=== PATIENT | male | born 1965 | race Caucasian/White ===

== ENCOUNTER 2018-10-25 03:37 | Emergency (ER) | payer BC ==
[2018-10-25 03:43] VITALS: RESP 16; TEMP 98.4
--- NOTE | 2018-10-25 04:04 | ED ---
Chest Pain HPI - General Chief Complaint: Chest Pain Stated Complaint: chest pain Source: patient, EMS Mode of arrival: EMS Limitations: no limitations - History of Present Illness Complaint: chest pain Onset/Timin -: hour(s) Onset: during rest Pain Location: epigastric Pain Radiation: none Severity: mild Quality: dull Consistency: constant Improves With: nothing Worsens With: nothing Anginal Symptoms: nausea, diaphoresis Treatments Prior to Arrival: none - Related Data Home Medications Medication Instructions Recorded Confirmed Aspirin 81 mg PO DAILY 07/15/16 10/14/17 Lisinopril 5 mg PO DAILY 07/15/16 10/14/17 Metoprolol Tartrate 50 mg PO DAILY 07/15/16 10/14/17 Atorvastatin [Lipitor] 80 mg PO HS 10/14/17 10/14/17 Empagliflozin/Metformin HCl 1 tab PO BID 10/14/17 10/14/17 [Synjardy 5-1,000 mg Tablet] Gabapentin [Neurontin] 300 mg PO TID 10/14/17 10/14/17 Insulin Glargine,Hum.rec.anlog 16 units SQ DAILY 10/14/17 10/14/17 [Toujeo Solostar] Previous Rx's Medication Instructions Recorded Albuterol Sulfate [Proair Hfa] 1 - 2 puff INHALATION Q6HR PRN #1 10/14/17 inhaler Hydrocodone/Acetaminophen [[place] 1 - 2 each PO Q4HR PRN #20 tab 10/14/17 5-325] predniSONE 20 mg PO BID #10 tab 10/14/17 Allergies Allergy/AdvReac Type Severity Reaction Status Date / Time No Known Allergies Allergy Verified 10/14/17 10:27 Review of Systems ROS Statement: Those systems with pertinent positive or pertinent negative responses have been documented in the HPI. ROS Other: All systems not noted in ROS Statement are negative. Constitutional: Denies: fever, chills Respiratory: Denies: cough, dyspnea Cardiovascular: Reports: chest pain. Denies: palpitations, orthopnea, edema, syncope Gastrointestinal: Reports: nausea, diarrhea. Denies: abdominal pain, vomiting, constipation, melena, hematochezia Genitourinary: Denies: dysuria, hematuria Musculoskeletal: Denies: back pain Skin: Denies: rash Neurological: Denies: headache, weakness, numbness EKG Findings - EKG Results: EKG: interpreted by RIGO MASTERSON, sinus rhythm (Rate approximately 81), normal axis , normal QRS, normal ST/T, no acute changes - PR, Pacemaker, Normal: Normal tracing: normal tracing Past Medical History Past Medical History: Chest Pain / Angina, Diabetes Mellitus, Hyperlipidemia, Hypertension, Myocardial Infarction ([place]) Additional Past Medical History / Comment(s): NEUROPATHY History of Any Multi-Drug Resistant Organisms: None Reported Past Surgical History: Heart Catheterization With Stent, Hernia Repair Additional Past Surgical History / Comment(s): carpal tunnel Past Psychological History: No Psychological Hx Reported Smoking Status: Current every day smoker Past Alcohol Use History: Occasional Past Drug Use History: None Reported General Exam Limitations: no limitations General appearance: alert, in no apparent distress Head exam: Present: atraumatic, normocephalic Eye exam: Present: normal appearance. Absent: scleral icterus, conjunctival injection ENT exam: Present: normal oropharynx Neck exam: Present: normal inspection Respiratory exam: Present: normal lung sounds bilaterally. Absent: respiratory distress, wheezes, rales, rhonchi, stridor Cardiovascular Exam: Present: regular rate, normal rhythm, normal heart sounds. Absent: systolic murmur, diastolic murmur, rubs, gallop GI/Abdominal exam: Present: soft, tenderness (Minimal epigastric tenderness no rebound or guarding.). Absent: distended, guarding, rebound, mass, pulsatile mass, hernia Extremities exam: Present: normal inspection, normal capillary refill. Absent: pedal edema, calf tenderness Back exam: Present: normal inspection Neurological exam: Present: alert Skin exam: Present: warm, dry, intact, normal color. Absent: rash Course Vital Signs 10/25/18 03:39 Temperature 98.4 F Pulse Rate 88 Respiratory 16 Rate Blood Pressure 102/66 O2 Sat by Pulse 95 Oximetry Chest Pain MDM - MDM On reevaluation, the patient again remains symptom free. I recommended admission for serial cardiac enzymes and telemetry monitoring, the patient states she will follow-up with the systems librarian. He definitely agrees to return should any symptoms recur. I discussed that there were some features that are deftly concerning for cardiac type chest pain. Patient understands and will arrange close follow-up returning if any symptoms recur. Disposition Clinical Impression: Chest pain Disposition: HOME SELF-CARE Condition: Good Instructions: Chest Pain (ED) Is patient prescribed a controlled substance at d/c from ED?: No Referrals: Lorraine Solomon MD [Primary Care Provider] - 1-2 days
[2018-10-25 04:46] LABS: Basophils % (A) 0 %; Eosinophils # (A) 0.3 k/uL (0-0.7); Eosinophils % (A) 4 %; HCT 46.6 % (39.0-53.0); HGB 15.6 gm/dL (13.0-17.5); Lymphocytes # (A) 1.5 k/uL (1.0-4.8); Lymphocytes % (A) 20 %; MCH 31.8 pg (25.0-35.0); MCHC 33.4 g/dL (31.0-37.0); MCV 95.2 fL (80.0-100.0); Mean Platelet Volume 7.5; Monocytes # (A) 0.3 k/uL (0-1.0); Monocytes % (A) 4 %; Neutrophils # (A) 5.2 k/uL (1.3-7.7); Neutrophils % (A) 69 %; Platelet Count 159 k/uL (150-450); RDW 13.8 % (11.5-15.5); WBC 7.6 k/uL (3.8-10.6)
--- NOTE | 2018-10-25 04:53 | XR ---
EXAMINATION TYPE: XR chest 1V portable DATE OF EXAM: 10/25/2018 COMPARISON: 10/14/2017 HISTORY: Chest pain TECHNIQUE: Single frontal view of the chest is obtained. FINDINGS: There is no heart failure nor confluent pneumonic infiltrate. There are old right-sided mu ltiple rib fractures. Costophrenic angles are clear. Heart size is normal. IMPRESSION: No active cardiopulmonary disease. There is right rib fractures that are old but appear new compared to old chest x-ray.
[2018-10-25 04:55] LABS: D-Dimer 0.36 mg/L FEU (<0.60); INR 0.9 (<1.2); Partial Thromboplastin Time 24.8 sec (22.0-30.0); Prothrombin Time 10.2 sec (9.0-12.0)
[2018-10-25 04:57] LABS: Creatine Kinase 135 U/L (55-170)
[2018-10-25 05:08] LABS: ALT 30 U/L (21-72); AST 20 U/L (17-59); Alkaline Phosphatase 51 U/L (38-126); Amylase 68 U/L (30-110); Anion Gap 9 mmol/L; Blood Urea Nitrogen 17 mg/dL (9-20); Calcium 9.3 mg/dL (8.4-10.2); Carbon Dioxide 23 mmol/L (22-30); Chloride 107 mmol/L (98-107); Glucose 246 mg/dL (74-99); Lipase 74 U/L (23-300); Magnesium 2.1 mg/dL (1.6-2.3); Sodium 139 mmol/L (137-145); Total Bilirubin 0.4 mg/dL (0.2-1.3); Total Protein 6.7 g/dL (6.3-8.2)
[2018-10-25 05:09] LABS: Potassium 4.7 mmol/L (3.5-5.1)
[2018-10-25 05:10] LABS: Troponin I <0.012 ng/mL (0.000-0.034)
[2018-10-25] MEDS ORDERED: MAG HYDROX/AL HYDROX/SIMETH 30 ML, HYOSCYAMINE ELIXIR 10 ML, CIMETIDINE HCL 300 MG, LID... PO STA ×4 (05:45)
[2018-10-25 06:23] VITALS: BP 121/75; PULSE 83
== END 2018-10-25 06:46 | disposition home or self-care (01) ==
LOC: EC 03:37
DX: R07.9 Chest pain, unspecified (principal); R10.13 Epigastric pain; R11.0 Nausea; R61 Generalized hyperhidrosis; E11.40 Type 2 diabetes mellitus with diabetic neuropathy, unspecified; E78.5 Hyperlipidemia, unspecified; I10 Essential (primary) hypertension; I25.2 Old myocardial infarction; F17.200 Nicotine dependence, unspecified, uncomplicated; Z79.4 Long term (current) use of insulin; Z79.82 Long term (current) use of aspirin; Z79.899 Other long term (current) drug therapy; Z95.5 Presence of coronary angioplasty implant and graft
CPT/HCPCS: 36415; 71045; 80053; 82150; 82550; 82553; 83690; 83735; 84484; 85025; 85379; 85610; 85730; 93005; 99285

== ENCOUNTER 2020-07-31 21:15 | Inpatient (IN) | payer MEDICAID ==
[2020-07-31] MEDS ORDERED: SODIUM CHLORIDE 0.9% 1,000 ML IV STA (22:23)
[2020-07-31] MEDS ORDERED: KETOROLAC 15 MG/ML 1 ML VIAL IVP STA (22:47)
[2020-07-31 23:03] LABS: Basophils % (A) 1 %; Eosinophils # (A) 0.2 k/uL (0-0.7); Eosinophils % (A) 2 %; HCT 53.5 % (39.0-53.0); HGB 17.6 gm/dL (13.0-17.5); Lymphocytes # (A) 1.5 k/uL (1.0-4.8); Lymphocytes % (A) 17 %; MCH 31.4 pg (25.0-35.0); MCHC 32.9 g/dL (31.0-37.0); MCV 95.7 fL (80.0-100.0); Mean Platelet Volume 7.9; Monocytes # (A) 0.5 k/uL (0-1.0); Monocytes % (A) 5 %; Neutrophils # (A) 6.7 k/uL (1.3-7.7); Neutrophils % (A) 73 %; Platelet Count 195 k/uL (150-450); RDW 13.6 % (11.5-15.5); WBC 9.2 k/uL (3.8-10.6)
[2020-07-31 23:12] LABS: ALT 32 U/L (4-49); AST 23 U/L (17-59); African American GFR (CKD) >90 (>60 ml/min/1.73 sqM); Albumin 4.6 g/dL (3.5-5.0); Alkaline Phosphatase 77 U/L (38-126); Amylase 152 U/L (30-110); Anion Gap 8 mmol/L; Blood Urea Nitrogen 10 mg/dL (9-20); Calcium 9.7 mg/dL (8.4-10.2); Carbon Dioxide 24 mmol/L (22-30); Chloride 102 mmol/L (98-107); Glucose 236 mg/dL (74-99); Non-African American GFR(CKD) >90 (>60 ml/min/1.73 sqM); Potassium 4.2 mmol/L (3.5-5.1); Sodium 134 mmol/L (137-145); Total Bilirubin 0.9 mg/dL (0.2-1.3); Total Protein 7.5 g/dL (6.3-8.2)
--- NOTE | 2020-07-31 23:12 | XR ---
EXAMINATION TYPE: XR KUB DATE OF EXAM: 07/31/2020 COMPARISON: NONE HISTORY: Abdominal pain TECHNIQUE: 2 views upright FINDINGS: There is no sign of intestinal obstruction or pneumoperitoneum. Fecal pattern is normal. Th ere is no sign of a mass. There are no pathologic calcifications over the kidneys. Lung bases are lindsey ar. There is old right-sided rib fractures. IMPRESSION: Nonacute abdomen.
[2020-07-31] MEDS ORDERED: ONDANSETRON 4 MG/2 ML VIAL IVP STA (23:23)
[2020-07-31] MEDS ORDERED: MORPHINE SULFATE 4 MG/ML SYRINGE IVP STA (23:23)
[2020-07-31 23:33] LABS: Appearance,Urine Clear (Clear); Bilirubin,Urine Negative (Negative); Blood,Urine Negative (Negative); Color,Urine Light Yellow; Glucose,Urine (UA) 2+ (Negative); Ketones,Urine Negative (Negative); Leukocyte Esterase,Urine Negative (Negative); Nitrite,Urine Negative (Negative); PH, Urine 5.5 (5.0-8.0); Protein,Urine Negative (Negative); Specific Gravity,Urine 1.004 (1.001-1.035); Urobilinogen,Urine <2.0 mg/dL (<2.0)
[2020-07-31] MEDS ORDERED: NALOXONE 0.4 MG/ML 1 ML VIAL IV PRN (23:52)
[2020-07-31] MEDS ORDERED: ONDANSETRON 4 MG/2 ML VIAL IVP PRN (23:52)
--- NOTE | 2020-07-31 23:52 | ED ---
Abdominal Pain HPI - General Chief Complaint: Abdominal Pain Stated Complaint: Abdominal pain Time Seen by Provider: 07/31/20 21:45 Source: patient Mode of arrival: ambulatory Limitations: no limitations - History of Present Illness Initial Comments: 55-year-old male patient presents to the emergency department today for evaluation of upper abdominal pain radiating through to his back. He also reports an intermittent episodes of nausea. States he has been able to eat and drink. Does report being a type II diabetics, states that he recently stopped his metformin per his physician instructions and started to have constipation. Patient leaves it is been 6 days since his last bowel movement. States he is passing gas. He did have a very tiny bowel movement this morning. Patient denies history of similar type pain. He has had bilateral inguinal hernia repair, no other abdominal surgeries. Does admit to a history of drinking beer 1-2 times per week in moderation. Does smoke cigarettes, is trying to quit, currently on Wellbutrin. Patient denies any recent rash, fever, chills, cough, shortness of breath, chest pain, numbness, tingling, dizziness, weakness, hematuria, dysuria, urinary urgency, urinary frequency, headache, visual changes , or any other complaints. - Related Data Home Medications Medication Instructions Recorded Confirmed Aspirin 81 mg PO DAILY 07/15/16 10/14/17 Metoprolol Tartrate 50 mg PO DAILY 07/15/16 10/14/17 lisinopriL [Lisinopril] 5 mg PO DAILY 07/15/16 10/14/17 Atorvastatin [Lipitor] 80 mg PO HS 10/14/17 10/14/17 Empagliflozin/Metformin HCl 1 tab PO BID 10/14/17 10/14/17 [Synjardy 5-1,000 mg Tablet] Gabapentin [Neurontin] 300 mg PO TID 10/14/17 10/14/17 Insulin Glargine,Hum.rec.anlog 16 units SQ DAILY 10/14/17 10/14/17 [Shante Jones] Previous Rx's Medication Instructions Recorded Albuterol Sulfate [Proair Hfa] 1 - 2 puff INHALATION Q6HR PRN #1 10/14/17 inhaler Hydrocodone/Acetaminophen [[place] 1 - 2 each PO Q4HR PRN #20 tab 10/14/17 5-325] predniSONE [Deltasone] 20 mg PO BID #10 tab 10/14/17 Allergies Allergy/AdvReac Type Severity Reaction Status Date / Time No Known Allergies Allergy Verified 07/31/20 21:33 Review of Systems ROS Statement: Those systems with pertinent positive or pertinent negative responses have been documented in the HPI. ROS Other: All systems not noted in ROS Statement are negative. Past Medical History Past Medical History: Chest Pain / Angina, Diabetes Mellitus, Hyperlipidemia, Hypertension, Myocardial Infarction ([place]) Additional Past Medical History / Comment(s): NEUROPATHY History of Any Multi-Drug Resistant Organisms: None Reported Past Surgical History: Heart Catheterization With Stent, Hernia Repair Additional Past Surgical History / Comment(s): carpal tunnel Past Psychological History: No Psychological Hx Reported Smoking Status: Current every day smoker Past Alcohol Use History: Occasional Past Drug Use History: None Reported General Exam Limitations: no limitations General appearance: alert, in no apparent distress, other (This is a well- developed, well-nourished adult male patient in no acute distress. Vital signs upon presentation are temperature 98.6F, pulse 90, respirations 18, blood pressure 129/70, pulse ox 99% on room air.) Eye exam: Present: normal appearance, PERRL, EOMI. Absent: scleral icterus, conjunctival injection, periorbital swelling ENT exam: Present: normal exam, normal oropharynx, mucous membranes moist Respiratory exam: Present: normal lung sounds bilaterally. Absent: respiratory distress, wheezes, rales, rhonchi, stridor Cardiovascular Exam: Present: regular rate, normal rhythm, normal heart sounds. Absent: systolic murmur, diastolic murmur, rubs, gallop, clicks GI/Abdominal exam: Present: soft, tenderness (Midepigastric tenderness), normal bowel sounds. Absent: distended, guarding, rebound, rigid Neurological exam: Present: alert, oriented X3, CN II-XII intact Psychiatric exam: Present: normal affect, normal mood Skin exam: Present: warm, dry, intact, normal color. Absent: rash Course Vital Signs 07/31/20 21:27 Temperature 98.6 F Pulse Rate 90 Respiratory 18 Rate Blood Pressure 129/70 O2 Sat by Pulse 99 Oximetry Medical Decision Making - Medical Decision Making 55-year-old male patient presented to the emergency department today for evaluation of upper abdominal pain and nausea. Physical examination did reveal midepigastric tenderness. Labs reviewed and did reveal normal white blood cell count at 9.2. Glucose 236. Lipase is 1760. Urinalysis is normal with 2+ glucose. KUB x-ray was negative for acute abnormalities. I did discuss finding s and results with the patient. Did discuss will be admitted for pancreatitis. We'll continue IV fluids. Pain management will be provided. We'll add ultrasound for the morning. Patient is agreeable with this plan. - Lab Data Result diagrams: 07/31/20 22:39 07/31/20 22:39 Lab Results 07/31/20 07/31/20 07/31/20 Range/Units 22:39 22:39 22:39 WBC 9.2 (3.8-10.6) k/uL RBC 5.60 (4.30-5.90) m/uL Hgb 17.6 H (13.0-17.5) gm/dL Hct 53.5 H (39.0-53.0) % MCV 95.7 (80.0-100.0) fL MCH 31.4 (25.0-35.0) pg MCHC 32.9 (31.0-37.0) g/dL RDW 13.6 (11.5-15.5) % Plt Count 195 (150-450) k/uL Neutrophils % 73 % Lymphocytes % 17 % Monocytes % 5 % Eosinophils % 2 % Basophils % 1 % Neutrophils # 6.7 (1.3-7.7) k/uL Lymphocytes # 1.5 (1.0-4.8) k/uL Monocytes # 0.5 (0-1.0) k/uL Eosinophils # 0.2 (0-0.7) k/uL Basophils # 0.0 (0-0.2) k/uL Sodium 134 L (137-145) mmol/L Potassium 4.2 (3.5-5.1) mmol/L Chloride 102 (98-107) mmol/L Carbon Dioxide 24 (22-30) mmol/L Anion Gap 8 mmol/L BUN 10 (9-20) mg/dL Creatinine 0.60 L (0.66-1.25) mg/dL Est GFR (CKD-EPI)AfAm >90 (>60 ml/min/1.73 sqM) Est GFR (CKD-EPI)NonAf >90 (>60 ml/min/1.73 sqM) Glucose 236 H (74-99) mg/dL Calcium 9.7 (8.4-10.2) mg/dL Total Bilirubin 0.9 (0.2-1.3) mg/dL AST 23 (17-59) U/L ALT 32 (4-49) U/L Alkaline Phosphatase 77 (38-126) U/L Total Protein 7.5 (6.3-8.2) g/dL Albumin 4.6 (3.5-5.0) g/dL Amylase 152 H (30-110) U/L Lipase 1760 H (23-300) U/L Urine Color Light Yellow Urine Appearance Clear (Clear) Urine pH 5.5 (5.0-8.0) Ur Specific [place] 1.004 (1.001-1.035) Urine Protein Negative (Negative) Urine Glucose (UA) 2+ H (Negative) Urine Ketones Negative (Negative) Urine Blood Negative (Negative) Urine Nitrite Negative (Negative) Urine Bilirubin Negative (Negative) Urine Urobilinogen <2.0 (<2.0) mg/dL Ur Leukocyte Esterase Negative (Negative) - Radiology Data Radiology results: report reviewed, image reviewed KUB x-ray is obtained. Report was reviewed in its entirety. Impression by Dr. Gary shows nonacute abdomen. Disposition Clinical Impression: Acute pancreatitis Disposition: ADMITTED IP TO THIS [facility] Condition: Serious Referrals: Lorraine Solomon MD [Primary Care Provider] - 1-2 days Decision to Admit Reason: Admit from EC Decision Date: 07/31/20 Decision Time: 23:52
[2020-07-31] MEDS: SODIUM CHLORIDE 0.9% 1,000 ML IV SCH (23:53)
[2020-08-01] MEDS: MORPHINE SULFATE 4 MG/ML SYRINGE IV PRN ×4 (03:46→19:37)
[2020-08-01 05:38] LABS: ALT 25 U/L (4-49); AST 17 U/L (17-59); African American GFR (CKD) >90 (>60 ml/min/1.73 sqM); Albumin 3.6 g/dL (3.5-5.0); Alkaline Phosphatase 60 U/L (38-126); Anion Gap 4 mmol/L; Blood Urea Nitrogen 9 mg/dL (9-20); Calcium 8.7 mg/dL (8.4-10.2); Carbon Dioxide 26 mmol/L (22-30); Chloride 105 mmol/L (98-107); Glucose 188 mg/dL (74-99); Non-African American GFR(CKD) >90 (>60 ml/min/1.73 sqM); Potassium 4.3 mmol/L (3.5-5.1); Sodium 135 mmol/L (137-145); Total Bilirubin 0.7 mg/dL (0.2-1.3)
[2020-08-01 07:54] LABS: Glucose,Whole Blood 183 mg/dL (75-99)
--- NOTE | 2020-08-01 07:54 | US ---
EXAMINATION TYPE: US abdomen limited DATE OF EXAM: 08/01/2020 COMPARISON: CLINICAL HISTORY: Acute pancreatitis. Abnormal labs. Patient states unable to have bowel movements i n a long time. EXAM MEASUREMENTS: Liver Length: 21.4 cm Gallbladder Wall: 0.2 cm CBD: 0.5 cm Right Kidney: 12.8 x 6.0 x 6.0 cm Pancreas: Limited visualization of the pancreas. The body visualized appears normal. No suspicious p seudocyst formation or masses identified. Liver: Enlarged in size. Coarse and echogenic. Right posterior lobe hypoechoic lesion visualized - 5.7 x 5.6 x 5.6 cm. Possible focal sparing seen adjacent to GB. Gallbladder: wnl Evidence for sonographic Bass's sign: neg CBD: wnl Right Kidney: No hydronephrosis or masses seen IMPRESSION: 1. 5.6 cm hepatic lesion. 2. No suspicious changes for acute pancreatitis as visualized. 3. Consider CT abdomen for additional evaluation of the hepatic mass and for pancreatitis.
[2020-08-01 11:43] LABS: Glucose,Whole Blood 163 mg/dL (75-99)
[2020-08-01] MEDS: SODIUM CHLORIDE 0.9% 1,000 ML IV SCH ×3 (13:27→20:24)
[2020-08-01] MEDS ORDERED: TEMAZEPAM 15 MG CAP PO PRN (16:36)
[2020-08-01] MEDS ORDERED: HYDROcodone/APAP 5-325MG 1 EACH TAB PO PRN (16:36)
[2020-08-01] MEDS ORDERED: ACETAMINOPHEN TAB 500 MG TAB PO PRN (16:36)
[2020-08-01 16:56] LABS: Glucose,Whole Blood 125 mg/dL (75-99)
[2020-08-01] MEDS: INSULIN ASPART (NovoLOG) 100 UNIT/ML VIAL SQ SCH ×2 (16:56→20:20)
[2020-08-01] MEDS: IOPAMIDOL CONTRAST (ORAL USE) VIAL PO PRN ×2 (16:57→18:00)
[2020-08-01] MEDS: PANTOPRAZOLE 40 MG/10 ML VIAL IVP SCH (16:57)
--- NOTE | 2020-08-01 17:07 | XR ---
EXAMINATION TYPE: XR chest 1V portable DATE OF EXAM: 08/01/2020 COMPARISON: 10/25/2018 HISTORY: Short of breath. Chest pain TECHNIQUE: FINDINGS: There is no heart failure nor confluent pneumonic infiltrate. There is slight coarsening of interstitial markings. There is old right-sided healed rib fractures. Heart size is normal. IMPRESSION: No active cardiopulmonary disease. Mild pulmonary fibrosis. No change.
[2020-08-01 17:10] LABS: Prothrombin Time 10.6 sec (9.0-12.0)
--- NOTE | 2020-08-01 18:58 | CT ---
EXAMINATION TYPE: CT ChestAbdPelvis wo con DATE OF EXAM: 08/01/2020 COMPARISON: None HISTORY: Abdominal pain, constipation. Liver lesion. CT DLP: 1474.4 mGycm Automated exposure control for dose reduction was used. Images were obtained from the thoracic inlet to the floor the pelvis with oral contrast only. The lungs are clear of infiltrate. There is minimal subsegmental atelectasis at the lung bases. There is no evidence of a pulmonary mass. There is no pleural effusion. There are no hilar masses. Thoracic aorta has normal size. There is no mediastinal adenopathy. There is coronary artery calcification. Heart size is normal. There is no pericardial effusion. There is a poorly marginated 6 cm area of hypodensity in the posterior right lobe of the liver. There is possible second smaller focus of 2 cm in the superior posterior right lobe of the liver. Gallblad marly appears normal. The bile ducts are not dilated. Spleen is intact. Stomach is intact. There is no evidence of pancreatic mass. There is no evidence of pancreatitis. There is no adrenal mass. Kidneys have normal size and contour. There is no hydronephrosis. Ureters a re not dilated. There is possible 1 mm calculus lower pole left kidney. There is no retroperitoneal a denopathy. There is 1 cm cyst posterior right kidney. Ureters are not dilated. Bladder distends dave hly. There is right inguinal hernia contains fat. There is no free fluid in the pelvis. Appendix is n ot definitely seen. There is no sign of thickened appendix. There is normal oral contrast opacification of the small bowel. There is no sign of a bowel obstructi on. There is no mesenteric edema. There is no ascites or free air. Thoracic and lumbar spine show no evidence of compression fracture. There is narrowing of L5-S1 disc space. There is spurring of the endplates. There is a mild relative spinal stenosis at L5-S1 due to f acet arthropathy and small posterior calcified disc herniation. The bony pelvis is intact. The ribs a ppear intact. IMPRESSION: Poorly marginated subtle hypodense mass in the posterior right lobe of the liver. Possible second sma ller similar focus superior right lobe of the liver. MR scan with delayed imaging might be helpful fo r further evaluation.
[2020-08-01 19:59] LABS: Glucose,Whole Blood 124 mg/dL (75-99)
[2020-08-01] MEDS: buPROPion SR 150 MG TABLET.ER PO SCH (20:22)
[2020-08-01] MEDS: METOPROLOL TARTRATE 50 MG TAB PO SCH (20:22)
[2020-08-01] MEDS: HEPARIN SODIUM,PORCINE 5,000 UNIT/ML 1 ML VIAL SQ SCH (20:23)
--- NOTE | 2020-08-01 23:28 | HP ---
HISTORY AND PHYSICAL DATE OF SERVICE: 08/01/2020 CHIEF COMPLAINT: Abdominal pain. HISTORY OF PRESENT ILLNESS: This 55-year-old gentleman with a past medical history of multiple medical problems including history of COPD, history of diabetes mellitus, hypertension, hyperlipidemia, being followed by Dr. Solomon in the outpatient setting was complaining of abdominal pain which was in the epigastrium and radiating downwards and as well as radiating to the back. The patient has intermittent episodes of nausea also. The patient was able to eat and drink. The patient apparently recently stopped metformin subsequently had some constipation and because of multiple medical issues, the patient was taken to [facility] and found to have features of acute pancreatitis with elevated amylase and lipase. Amylase 152 and lipase is 1760. A KUB x-ray and ultrasound was also done. KUB showed nonacute abdomen. Ultrasound of the abdomen showed a 5.6 cm hepatic lesion which was coarse and echogenic. There is no history of fever or rigors. There is no headache, loss of consciousness, or seizures at this time. PAST MEDICAL HISTORY: History of COPD, diabetes mellitus, hypertension, hyperlipidemia, myocardial infarction, history of peripheral neuropathy, history of CAD, stent. MEDICATIONS: Home medications are: 1. Insulin lispro 75/25 t.i.d. 2. Lyrica p.r.n. 3. Jardiance 25 mg daily. 4. Lisinopril 5 mg p.o. daily. 5. Bupropion 150 mg p.o. b.i.d. 6. Metoprolol 50 mg p.o. b.i.d. 7. Lantus 26 subcu daily. 8. Lipitor 80 mg at bedtime. 9. Aspirin 81 mg daily. ALLERGIES: None. FAMILY HISTORY: No history of heart disease or strokes in the family. SOCIAL HISTORY: Occasional alcohol intake and smoking. REVIEW OF SYSTEMS: ENT: No diminished hearing or diminished vision. CARDIOVASCULAR SYSTEM: No angina. RESPIRATORY SYSTEM: No cough or hemoptysis. GI: As mentioned earlier. : No dysuria. NERVOUS SYSTEM: No numbness or weakness. ALLERGY/IMMUNOLOGY: No asthma or hay fever. MUSCULOSKELETAL: As mentioned earlier. HEMATOLOGY/ONCOLOGY: As mentioned earlier. ENDOCRINE: As mentioned earlier. CONSTITUTIONAL: As mentioned earlier. DERMATOLOGY: Negative. RHEUMATOLOGY: Negative. PSYCHIATRY: As mentioned earlier. PHYSICAL EXAMINATION: Patient is alert and oriented x3. Pulse is 71, blood pressure 116/69, respirations 16, temperature 97.9, pulse ox 96% on room air. HEENT: Conjunctivae normal. NECK: No jugular venous distention. CARDIOVASCULAR: S1, S2 muffled. RESPIRATORY: Breath sounds diminished at the bases. A few scattered rhonchi and crackles. ABDOMEN: Soft. Obese. Mild diffuse tenderness present. No guarding. No rigidity. No mass palpable. No ascites. LEGS: No edema, no swelling. NERVOUS SYSTEM: Higher function as mentioned earlier. Moves all 4 limbs. No focal motor or sensory deficits. LYMPHATICS: No lymphadenopathy of the neck, axillae or groin. SKIN: No ulcer, rash or bleeding. JOINTS: No active deforming arthropathy. LABS: WBC 9.2, hemoglobin 17.6. Sodium 135. Amylase 152, lipase 1760. ASSESSMENT: 1. Acute abdominal pain with acute pancreatitis. 2. A 5.6 cm hepatic lesion. 3. Elevated amylase and lipase. 4. Hyponatremia. 5. History of chronic obstructive pulmonary disease. 6. Diabetes mellitus type 2. 7. Hypertension. 8. Hyperlipidemia. 9. History of myocardial infarction. 10.History of coronary artery disease, stent. 11.History of hernia repair. 12.History of continued ongoing nicotine dependence. 13.Obesity with body mass index 34. 14.FULL CODE. RECOMMENDATIONS AND DISCUSSION: This 55-year-old gentleman who presented with multiple complex medical issues, we will monitor the patient closely. Continue the current medications, continue symptomatic treatment. We will monitor the pancreatic enzymes closely. I would also order a CT of the chest, abdomen and pelvis also to rule out any possibility of any abnormal lesions. Otherwise, Gastroenterology evaluation. I would also obtain acute hepatitis panel. Monitor blood sugars closely. Guarded prognosis because of multiple complex medical issues. Further recommendations to follow. Will also obtain a surgical consultation. Prognosis guarded. A copy of dictation forwarded to Dr. Solomon who is the primary physician. MMODL / IJN: [id number] /
[2020-08-02] MEDS: SODIUM CHLORIDE 0.9% 1,000 ML IV SCH ×2 (05:03→08:47)
[2020-08-02 05:05] LABS: Basophils % (A) 0 %; Eosinophils # (A) 0.2 k/uL (0-0.7); Eosinophils % (A) 3 %; HCT 49.2 % (39.0-53.0); HGB 16.1 gm/dL (13.0-17.5); Lymphocytes # (A) 1.6 k/uL (1.0-4.8); Lymphocytes % (A) 23 %; MCH 31.5 pg (25.0-35.0); MCHC 32.7 g/dL (31.0-37.0); MCV 96.3 fL (80.0-100.0); Monocytes # (A) 0.4 k/uL (0-1.0); Monocytes % (A) 5 %; Neutrophils # (A) 4.7 k/uL (1.3-7.7); Neutrophils % (A) 66 %; Platelet Count 165 k/uL (150-450); RDW 13.9 % (11.5-15.5); WBC 7.2 k/uL (3.8-10.6)
[2020-08-02 07:32] LABS: Glucose,Whole Blood 140 mg/dL (75-99)
[2020-08-02] MEDS: INSULIN ASPART (NovoLOG) 100 UNIT/ML VIAL SQ SCH ×2 (07:35→11:07)
--- NOTE | 2020-08-02 08:24 | P.GSCN ---
History of Present Illness Consult date: 08/02/20 History of present illness: 55-year-old male presented to the emergency department with complaints of abdominal pain. He states that the pain started a few days prior to his arrival to the emergency department and progressed to worse pain. He states that the pain was mostly in the epigastrium and periumbilical region. He also states that he did not have a bowel movement for greater than 6 days prior to his arrival to the emergency department and believe that he was constipated. He denied any nausea or vomiting. He states that he has had some difficulty mainta ining regular bowels due to medication, metformin. On initial workup in the emergency department, patient was found to have elevated lipase with suspicion of pancreatitis. Abdominal ultrasound was performed that did not show evidence of pancreatitis, however was concerning for liver mass. Further workup was performed as an inpatient with CT of the abdomen and pelvis that once again showed no evidence of pancreatitis, however was concerning for a liver mass of approximately 6 cm in size. LFTs are all within normal limits. Patient denies any history of alcohol abuse. No evidence of gallstones found on ultrasound. Review of Systems All systems: negative Past Medical History Past Medical History: Chest Pain / Angina, COPD, Diabetes Mellitus, Hyperlipidemia, Hypertension, Myocardial Infarction ([place]) Additional Past Medical History / Comment(s): NEUROPATHY, DM2 Last Myocardial Infarction Date:: . History of Any Multi-Drug Resistant Organisms: None Reported Past Surgical History: Heart Catheterization With Stent, Hernia Repair Additional Past Surgical History / Comment(s): carpal tunnel Date of Last Stent Placement:: . Past Psychological History: No Psychological Hx Reported Smoking Status: Current every day smoker Past Alcohol Use History: Occasional Additional Past Alcohol Use History / Comment(s): 2 beers a week Past Drug Use History: None Reported Medications and Allergies Home Medications Medication Instructions Recorded Confirmed Type Aspirin 81 mg PO DAILY 07/15/16 08/01/20 History Metoprolol Tartrate 50 mg PO BID 07/15/16 08/01/20 History lisinopriL [Lisinopril] 5 mg PO DAILY 07/15/16 08/01/20 History Atorvastatin [Lipitor] 80 mg PO HS 10/14/17 08/01/20 History Insulin Glargine,Hum.rec.anlog 26 units SQ DAILY 10/14/17 08/01/20 History [Shante Jones] Empagliflozin [Jardiance] 25 mg PO DAILY 08/01/20 08/01/20 History Insulin Lispro Protamin/Lispro See Protocol SQ TID 08/01/20 08/01/20 History [humaLOG Mix 75-25 Kwikpen] Lyrica Unknown Dose 0 mg PO DIRECTED 08/01/20 08/01/20 History buPROPion HCL [buPROPion HCL ER] 150 mg PO BID 08/01/20 08/01/20 History Allergies Allergy/AdvReac Type Severity Reaction Status Date / Time No Known Allergies Allergy Verified 08/01/20 09:32 Surgical - Exam Osteopathic Statement: *. No significant issues noted on an osteopathic structural exam other than those noted in the History and Physical/Consult. Vital Signs Temp Pulse Resp BP Pulse Ox 98.6 F 90 18 129/70 99 07/31/20 21:27 07/31/20 21:27 07/31/20 21:27 07/31/20 21:27 07/31/20 21:27 - General well developed, well nourished, no distress - Eyes PERRL, normal ocular movement - ENT normal mucosa, no hearing loss - Neck trachea midline - Respiratory normal respiratory effort - Abdomen Soft some pain to deep palpation in the epigastrium and periumbilical region, nondistended, no rebound, no guarding - Psychiatric oriented to time, oriented to person, oriented to place Results - Labs 08/02/20 04:28 08/01/20 04:39 Abnormal Lab Results - Last 24 Hours (Table) 08/01/20 08/01/20 08/01/20 Range/Units 11:41 16:52 19:57 POC Glucose (mg/dL) 163 H 125 H 124 H (75-99) mg/dL 08/02/20 Range/Units 07:31 POC Glucose (mg/dL) 140 H (75-99) mg/dL Assessment and Plan Plan: 55-year-old male with complaints of constipation, elevated lipase concerning for pancreatitis and liver mass. Imaging was evaluated and based on most recent CT findings, we will obtain an MRI of the abdomen with and without contrast for evaluation of this liver mass. At this point, his abdominal pain is improving and we will advance the patient to a clear liquid diet. We will also begin the patient on a bowel regimen due to constipation. Further surgical recommendations will be made based on the findings of the MRI.
[2020-08-02] MEDS: HEPARIN SODIUM,PORCINE 5,000 UNIT/ML 1 ML VIAL SQ SCH (08:48)
[2020-08-02] MEDS: buPROPion SR 150 MG TABLET.ER PO SCH (08:48)
[2020-08-02] MEDS: PANTOPRAZOLE 40 MG/10 ML VIAL IVP SCH (08:48)
[2020-08-02] MEDS: METOPROLOL TARTRATE 50 MG TAB PO SCH (08:48)
[2020-08-02] MEDS ORDERED: lisinopriL 5 MG TAB PO SCH (09:00)
[2020-08-02] MEDS ORDERED: DOCUSATE 100 MG CAP PO SCH (09:00)
[2020-08-02] MEDS ORDERED: INSULIN DETEMIR (LEVEMIR) 100 UNIT/ML SYR SQ SCH (09:00)
[2020-08-02 10:58] LABS: African American GFR (CKD) 130.3 (60.0-200.0); Anion Gap 4.9 mmol/L (4.00-12.00); BUN/Creat Ratio 11.67 Ratio (12.00-20.00); Calcium 8.9 mg/dL (8.7-10.3); Carbon Dioxide 26.1 mmol/L (21.6-31.8); Chol/HDL Ratio 5.54; LDL Cholesterol,Calculated 85.4 mg/dL (0.0-131.0); Non-African American GFR(CKD) 112.4 (60.0-200.0); Potassium 4.3 mmol/L (3.5-5.5); VLDL Calculation 23.6 mg/dL (5.00-40.00)
[2020-08-02 11:27] LABS: Glucose,Whole Blood 137 mg/dL (75-99)
[2020-08-02 11:51] VITALS: BP 119/75; PULSE 62; RESP 17; TEMP 97.8
[2020-08-02] MEDS ORDERED: LORazepam 2 MG/ML INJ IV STA (15:23)
[2020-08-02 15:25] LABS: Hemoglobin A1C 6.7 % (4.0-6.0)
--- NOTE | 2020-08-02 22:44 | P.CONS ---
History of Present Illness - Reason for Consult Consult date: 08/02/20 Concern for malignancy, abnormality on liver Requesting physician: [facility] - Chief Complaint Abdominal pain - History of Present Illness Mr. Ramirez is a pleasant male patient who presents with complaints of abdominal pain, nausea, and vomiting. Pancreatic enzymes elevated on admission and diagnosis of pancreatitis was given. He has a known history of Diabetes, [place], CAD, Tobacco dependence, chronic alcohol use (none in 2 weeks but prob 15-20 beers per week prior). CT scans Chest, abdomen and pelvis performed and right lobe liver identified a 2cm hypodense lesion with irregular margins. Therefore oncology was consulted for concern of underlying malignancy. MRI has been ordered although he was unable to tolerate test, therefore he will attempt again with premedication. He denies any recent weight loss, night sweats, new lumps or bumps, bloating or pain (other than that associated with pancreatitis). He is now toelrating po food well and is hoping to be discharged after mRI today. Review of Systems All systems: negative Constitutional: Reports as per HPI Past Medical History Past Medical History: Chest Pain / Angina, COPD, Diabetes Mellitus, Hype rlipidemia, Hypertension, Myocardial Infarction ([place]) Additional Past Medical History / Comment(s): NEUROPATHY, DM2 Last Myocardial Infarction Date:: . History of Any Multi-Drug Resistant Organisms: None Reported Past Surgical History: Heart Catheterization With Stent, Hernia Repair Additional Past Surgical History / Comment(s): carpal tunnel Date of Last Stent Placement:: . Past Psychological History: No Psychological Hx Reported Smoking Status: Current every day smoker Past Alcohol Use History: Occasional Additional Past Alcohol Use History / Comment(s): 2 beers a week Past Drug Use History: None Reported Medications and Allergies Home Medications Medication Instructions Recorded Confirmed Type Metoprolol Tartrate 50 mg PO BID 07/15/16 08/01/20 History lisinopriL [Lisinopril] 5 mg PO DAILY 07/15/16 08/01/20 History Atorvastatin [Lipitor] 80 mg PO HS 10/14/17 08/01/20 History Insulin Glargine,Hum.rec.anlog 26 units SQ DAILY 10/14/17 08/01/20 History [Shante Jones] Empagliflozin [Jardiance] 25 mg PO DAILY 08/01/20 08/01/20 History Insulin Lispro Protamin/Lispro See Protocol SQ TID 08/01/20 08/01/20 History [humaLOG Mix 75-25 Kwikpen] Lyrica Unknown Dose 0 mg PO DIRECTED 08/01/20 08/01/20 History buPROPion HCL [buPROPion HCL ER] 150 mg PO BID 08/01/20 08/01/20 History Aspirin 81 mg PO DAILY #1 08/02/20 08/01/20 Rx Docusate [Colace] 100 mg PO BID #60 cap 08/02/20 Rx Pantoprazole Sodium [Protonix] 40 mg PO BID #60 tablet. 08/02/20 Rx Allergies Allergy/AdvReac Type Severity Reaction Status Date / Time No Known Allergies Allergy Verified 08/01/20 09:32 Physical Exam Vitals: Vital Signs Temp Pulse Resp BP Pulse Ox 08/02/20 11:50 97.8 F 62 17 119/75 96 08/02/20 04:45 98.5 F 63 16 126/75 96 Intake and Output 08/02/20 08/02/20 08/02/20 06:59 14:59 22:59 Intake Total 590 600 Balance 590 600 Intake: Intake, IV Titration 600 Amount Sodium Chloride 0.9% 1, 600 000 ml @ 150 mls/hr IV . Q6H40M [facility] Rx#:[id number] Oral 590 Other: # Voids 2 - Constitutional General appearance: cooperative, no acute distress - EENT Eyes: EOMI, PERRLA ENT: NA/AT, normal oropharynx - Neck Supple - Respiratory Respiratory: bilateral: CTA - Cardiovascular Rhythm: regular Heart sounds: normal: S1, S2 - Gastrointestinal General gastrointestinal: normal bowel sounds, soft, tenderness - Integumentary Dry patches and rashing Integumentary: pale - Neurologic Neurologic: CNII-XII intact - Musculoskeletal Musculoskeletal: gait normal - Psychiatric Psychiatric: A&O x's 3, appropriate affect, intact judgment & insight Results CBC & Chem 7: 08/02/20 04:28 08/02/20 04:28 Labs: Abnormal Lab Results - Last 24 Hours (Table) 08/02/20 08/02/20 08/02/20 Range/Units 04:28 04:28 07:31 BUN 7.0 L (9.0-27.0) mg/dL BUN/Creatinine Ratio 11.67 L (12.00-20.00) Ratio Glucose 144 H (70-110) mg/dL POC Glucose (mg/dL) 140 H (75-99) mg/dL Hemoglobin A1c 6.7 H (4.0-6.0) % HDL Cholesterol 24.0 L (40.0-60.0) mg/dL Lipase 112 H (14-60) U/L 08/02/20 Range/Units 11:26 BUN (9.0-27.0) mg/dL BUN/Creatinine Ratio (12.00-20.00) Ratio Glucose (70-110) mg/dL POC Glucose (mg/dL) 137 H (75-99) mg/dL Hemoglobin A1c (4.0-6.0) % HDL Cholesterol (40.0-60.0) mg/dL Lipase (14-60) U/L Assessment and Plan (1) Liver mass, right lobe Status: Acute Code(s): R16.0 - HEPATOMEGALY, NOT ELSEWHERE CLASSIFIED SNOMED Code(s): 312680046 (2) Acute pancreatitis Status: Acute Code(s): K85.90 - ACUTE PANCREATITIS WITHOUT NECROSIS OR INFECTION, UNSP SNOMED Code(s): 461490018 Plan: Abnormality in the superior posterior right hepatic lobe: - Hypodense irregular margins - MRI was attempted although patient was unable to undergo due to claustrophobia - Rx for ativan and attempt to re-do was asked of nursing, if unable to do today will need to be scheduled prior to discharge for evaluation this week. Patient and agreed with plan. - If further suspicion after MRI is completed we will be happy to see as outpatient as well Thank you for allowing us to participate with this patient
--- NOTE | 2020-08-03 02:24 | DS ---
DISCHARGE SUMMARY DATE OF SERVICE: 08/02/2020 FINAL DIAGNOSES: 1. Acute abdominal pain with acute pancreatitis, improving. 2. A 5.6 cm hepatic lesion, rule out malignancy. 3. Elevated amylase and lipase. 4. Hyponatremia. 5. History of chronic obstructive pulmonary disease. 6. Diabetes mellitus type 2. 7. Hypertension. 8. Hyperlipidemia. 9. Myocardial infarction. 10.History of coronary artery disease, stent. 11.History of hernia repair. 12.History of ongoing nicotine dependence. 13.Obesity with body mass index of 34. 14.FULL CODE. DISCHARGE DISPOSITION: The patient will be discharged in stable condition with guarded prognosis. HISTORY OF PRESENT ILLNESS: This 55-year-old gentleman with a past medical history of multiple medical problems being followed by Dr. Solomon in the outpatient setting was admitted with acute abdominal pain, features of acute pancreatitis. The patient was seen by Surgery. Evaluation of 5.6 cm hepatic lesion. MRI of the abdomen was recommended by Surgery and Oncology saw the patient and recommended outpatient followup. On exam, vitals are stable. CARDIOVASCULAR: S1, S2 muffled. ABDOMEN: Soft. NERVOUS SYSTEM: No focal deficits. DISCHARGE ADVICE AND MEDICATIONS: 1. Diet is cardiac. 2. Activity is limited until followup. 3. Follow up with Dr. Solomon in 2-3 days. 4. Follow up with Dr. Muhammad as advised. 5. Follow up with Dr. Vazquez, surgery, as advised. Medications are: 1. Bupropion 150 mg p.o. b.i.d. 2. Lispro protocol. 3. Jardiance 25 mg daily. 4. Lipitor 80 mg at bedtime. 5. Lisinopril 5 mg p.o. daily. 6. Lyrica as before. 7. Metoprolol 50 mg p.o. b.i.d. 8. Lantus 26 units subcu daily. 9. Aspirin 81 mg daily as before. 10.Colace 100 mg p.o. b.i.d. p.r.n. 11.Protonix 40 mg p.o. b.i.d. Once again, the patient will be discharged in stable condition with guarded prognosis. Total time 35 minutes. MMODL / IJN: [id number] /
[2020-08-03 13:18] LABS: IgG Subclass 3 25.1 mg/dL (11.0-85.0); IgG Subclass 4 27.6 mg/dL (3.0-175.0)
== END 2020-08-02 16:39 | disposition home or self-care (01) | DRG 439 ==
LOC: EC 21:15 → 6NMEDSUR 08-01 00:53
PROVIDERS: ADMIT Hospitalist; ATTEND Hospitalist
DX: K85.90 Acute pancreatitis without necrosis or infection, unspecified (principal); E87.1 Hypo-osmolality and hyponatremia; C22.8 Malignant neoplasm of liver, primary, unspecified as to type; Z20.828 Contact with and (suspected) exposure to other viral communicable diseases; E11.42 Type 2 diabetes mellitus with diabetic polyneuropathy; Z79.4 Long term (current) use of insulin; J44.9 Chronic obstructive pulmonary disease, unspecified; I10 Essential (primary) hypertension; E78.5 Hyperlipidemia, unspecified; F17.210 Nicotine dependence, cigarettes, uncomplicated; K59.00 Constipation, unspecified; E66.9 Obesity, unspecified; I25.10 Atherosclerotic heart disease of native coronary artery without angina pectoris; F40.240 Claustrophobia; Z68.34 Body mass index [BMI] 34.0-34.9, adult; I25.2 Old myocardial infarction; Z79.899 Other long term (current) drug therapy; Z79.82 Long term (current) use of aspirin; Z95.5 Presence of coronary angioplasty implant and graft; Z98.890 Other specified postprocedural states
CPT/HCPCS: 36415; 71045; 71250; 74018; 74176; 76705; 80048; 80053; 80061; 81003; 82150; 82787; 83036; 83690; 85025; 85610; 86038; 96361; 96374; 96375; 99285

== ENCOUNTER → 2020-08-12 | Outpatient (CLI) | payer MEDICAID ==
--- NOTE | 2020-08-12 17:26 | XR ---
EXAMINATION TYPE: XR calcaneus 2V RT DATE OF EXAM: 08/12/2020 CLINICAL HISTORY: Foreign body. MRI clearance. TECHNIQUE: Frontal and lateral images of the right calcaneus are obtained. COMPARISON: Left foot radiograph 10/20/2010 FINDINGS: There is a redemonstrated within linear 15 mm radiopaque foreign body of the medial hindfo ot soft tissue, unchanged from 10/20/2010 comparison. Otherwise overlying soft tissue unremarkable. T here is no acute fracture/dislocation evident. There is degenerative change of the hindfoot and midfo ot. Achilles enthesophyte mildly increased versus 2019 comparison. Normal osseous mineralization. IMPRESSION: Thin linear radiopaque foreign body of the medial heel soft tissues is unchanged in configuration alex jesse 2009 comparison.
== END | disposition home or self-care (01) ==
LOC: RADXRMAIN 15:25
PROVIDERS: ATTEND Internal Medicine
DX: S90.851A Superficial foreign body, right foot, initial encounter (principal)

== ENCOUNTER 2021-10-30 09:47 | Emergency (ER) | payer OTHER, BC ==
[2021-10-30 09:57] VITALS: BP 165/94; PULSE 98; RESP 18; TEMP 98.3
[2021-10-30] MEDS ORDERED: KETOROLAC 15 MG/ML 1 ML VIAL IM STA (10:15)
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
--- NOTE | 2021-10-30 10:40 | XR ---
EXAMINATION TYPE: XR shoulder complete LT DATE OF EXAM: 10/30/2021 COMPARISON: NONE HISTORY: Pain TECHNIQUE: Shoulder examined in 3 Projections FINDINGS: The humeral head articulates with the glenoid. The acromio-clavicular junction is normal. No acute fractures or dislocations are evident. A follow up study can be performed 7-10 days from acute trauma for continued pain. IMPRESSION: 1. Normal left Shoulder
[2021-10-30] MEDS ORDERED: ACET/COD 300 MG/30 MG STARTER PACK 6 TAB BTL PO STA (11:06)
== END 2021-10-30 11:43 | disposition home or self-care (01) ==
LOC: EC 09:47
DX: S46.912A Strain of unspecified muscle, fascia and tendon at shoulder and upper arm level, left arm, initial encounter (principal); E11.40 Type 2 diabetes mellitus with diabetic neuropathy, unspecified; I10 Essential (primary) hypertension; I25.2 Old myocardial infarction; E78.5 Hyperlipidemia, unspecified; J44.9 Chronic obstructive pulmonary disease, unspecified; F17.200 Nicotine dependence, unspecified, uncomplicated; Z79.4 Long term (current) use of insulin; Z79.82 Long term (current) use of aspirin; Z79.899 Other long term (current) drug therapy; V48.5XXA Car driver injured in noncollision transport accident in traffic accident, initial encounter; Y92.410 Unspecified street and highway as the place of occurrence of the external cause
CPT/HCPCS: 73030; 99284; 96372; J1885

== ENCOUNTER 2021-12-16 06:48 | Observation (INO) | payer OTHER, BC ==
[2021-12-16] MEDS ORDERED: HEPARIN SODIUM,PORCINE 2,500 UNIT in SODIUM CHLORIDE 0.9% 250 ML IRRIGATION PRN (07:00)
[2021-12-16] MEDS ORDERED: HEPARIN SODIUM,PORCINE 10,000 UNIT in SODIUM CHLORIDE 0.9% 1,000 ML IRRIGATION PRN (07:00)
[2021-12-16] MEDS ORDERED: ASPIRIN 81 MG PO STA (07:10)
--- NOTE | 2021-12-16 07:14 | ED ---
General Adult HPI - General Chief complaint: Chest Pain Stated complaint: Chest pain Time Seen by Provider: 12/16/21 07:08 Source: patient, EMS, RN notes reviewed, old records reviewed Mode of arrival: EMS Limitations: no limitations - History of Present Illness Initial comments: 56-year-old male, alert and oriented 4 and well-appearing, presents to the emergency room with complaints of chest pain while shoveling snow this morning around 5 AM. He states that he first noticed discomfort in both of his arms and then substernal chest pain. He did take one nitro at home with no relief. States pain lasted more than an hour. He denies any nausea vomiting or shortness of breath. He does have a history of myocardial infarction with a LAD stent in 2011, COPD and is a current smoker. He has NIDDM, EMS states glucose over 300. EMS also provided 4 baby aspirin and 3 nitro prior to arrival. -: hour(s) (2) Location: chest (midsternal) Severity scale (1-10): 0 Consistency: now resolved Treatments Prior to Arrival: none - Related Data Home Medications Medication Instructions Recorded Confirmed Metoprolol Tartrate 50 mg PO BID 07/15/16 08/01/20 lisinopriL [Lisinopril] 5 mg PO DAILY 07/15/16 08/01/20 Atorvastatin [Lipitor] 80 mg PO HS 10/14/17 08/01/20 Insulin Glargine,Hum.rec.anlog 26 units SQ DAILY 10/14/17 08/01/20 [Shante Jones] Empagliflozin [Jardiance] 25 mg PO DAILY 08/01/20 08/01/20 Insulin Lispro Protamin/Lispro See Protocol SQ TID 08/01/20 08/01/20 [humaLOG Mix 75-25 Kwikpen] Lyrica Unknown Dose 0 mg PO DIRECTED 08/01/20 08/01/20 buPROPion HCL [buPROPion HCL ER] 150 mg PO BID 08/01/20 08/01/20 Previous Rx's Medication Instructions Recorded Aspirin 81 mg PO DAILY #1 08/02/20 Docusate [Colace] 100 mg PO BID #60 cap 08/02/20 Pantoprazole Sodium [Protonix] 40 mg PO BID #60 tablet. 08/02/20 Ketorolac [Toradol] 10 mg PO Q6HR #15 tab 10/30/21 Allergies Allergy/AdvReac Type Severity Reaction Status Date / Time No Known Allergies Allergy Verified 10/30/21 09:57 Review of Systems ROS Statement: Those systems with pertinent positive or pertinent negative responses have been documented in the HPI. ROS Other: All systems not noted in ROS Statement are negative. Past Medical History Past Medical History: Chest Pain / Angina, COPD, Diabetes Mellitus, Hyperlipidemia, Hypertension, Myocardial Infarction ([place]) Additional Past Medical History / Comment(s): NEUROPATHY, DM2 Last Myocardial Infarction Date:: . History of Any Multi-Drug Resistant Organisms: None Reported Past Surgical History: Heart Catheterization With Stent, Hernia Repair Additional Past Surgical History / Comment(s): carpal tunnel Date of Last Stent Placement:: . Past Psychological History: No Psychological Hx Reported Smoking Status: Current every day smoker Past Alcohol Use History: Occasional Past Drug Use History: None Reported General Exam Limitations: no limitations General appearance: alert, in no apparent distress Eye exam: Present: normal appearance. Absent: scleral icterus, conjunctival injection, periorbital swelling, periorbital tenderness ENT exam: Present: mucous membranes moist Neck exam: Present: normal inspection, full ROM. Absent: tenderness, meningismus Respiratory exam: Present: normal lung sounds bilaterally. Absent: respiratory distress, wheezes, rales, rhonchi, stridor, chest wall tenderness, accessory muscle use Cardiovascular Exam: Present: regular rate, normal rhythm, normal heart sounds. Absent: clicks GI/Abdominal exam: Present: soft. Absent: tenderness Extremities exam: Absent: pedal edema, calf tenderness Back exam: Absent: tenderness, CVA tenderness (R), CVA tenderness (L) Neurological exam: Present: alert, oriented X3 Psychiatric exam: Present: normal affect, normal mood Skin exam: Present: warm, dry, intact, normal color. Absent: cyanosis, diaphoretic, petechiae, pallor Course Vital Signs 12/16/21 12/16/21 12/16/21 07:01 07:32 08:06 Temperature 98.7 F Pulse Rate 81 79 75 Respiratory 16 18 18 Rate Blood Pressure 101/60 95/68 106/70 O2 Sat by Pulse 97 95 97 Oximetry 12/16/21 08:44 Temperature Pulse Rate 68 Respiratory 18 Rate Blood Pressure 117/76 O2 Sat by Pulse 96 Oximetry - Reevaluation(s) Reevaluation #1: 12/16/21 08:50 Patient remains pain-free at this time. He was advised he will be admitted. Patient and agreeable to this plan of care. Time: 08:45 EKG Findings - EKG Results: EKG: sinus rhythm (Ventricular rate 80, OK interval 0.127, QRS 0.95, QTC 0.419; there are changes noted in V3 V4 compared to old EKG 10/25/2018) Medical Decision Making - Medical Decision Making 56-year-old male patient presents to the emergency room with complaints of midsternal chest pain with discomfort down both arms started 2 hours prior to arrival while shoveling snow. Patient states it lasted for over an hour. Denies any nausea or vomiting. He does have a history of a cardiac stents with [place] in 2011. Chest x-ray shows no evidence of acute pulmonary disease. There is hyperinflation compatible with COPD. Lung sounds are clear to auscultation. Troponin is negative at 0.012, there is EKG changes in V3 and V4 compared to old EKG dated 09/2018. Blood glucose level is 319. Patient was given a liter of normal saline. He was given 4 baby aspirin and nitro by EMS. Coronavirus swab is negative. Patient has no pain at this time. His HEART score is moderate with chest pain lasting greater than 20 minutes, EKG changes in V3 V4, risk factors including hypertension, diabetes, obesity, smoking and prior myocardial infarction with cardiac stent LAD. Patient will be admitted to the hospital for ACS. Case discussed with Dr. Cadena. - Lab Data Result diagrams: 12/16/21 07:19 12/16/21 07:19 Lab Results 12/16/21 12/16/21 12/16/21 Range/Units 07:19 07:19 07:19 WBC 8.1 (3.8-10.6) k/uL RBC 5.37 (4.30-5.90) m/uL Hgb 17.1 (13.0-17.5) gm/dL Hct 51.8 (39.0-53.0) % MCV 96.6 (80.0-100.0) fL MCH 31.9 (25.0-35.0) pg MCHC 33.0 (31.0-37.0) g/dL RDW 13.4 (11.5-15.5) % Plt Count 180 (150-450) k/uL MPV 7.9 Neutrophils % 78 % Lymphocytes % 13 % Monocytes % 5 % Eosinophils % 1 % Basophils % 1 % Neutrophils # 6.3 (1.3-7.7) k/uL Lymphocytes # 1.1 (1.0-4.8) k/uL Monocytes # 0.4 (0-1.0) k/uL Eosinophils # 0.1 (0-0.7) k/uL Basophils # 0.1 (0-0.2) k/uL PT 11.0 (9.0-12.0) sec INR 1.0 (<1.2) APTT 24.7 (22.0-30.0) sec Sodium 132 L (137-145) mmol/L Potassium 4.9 (3.5-5.1) mmol/L Chloride 101 (98-107) mmol/L Carbon Dioxide 25 (22-30) mmol/L Anion Gap 6 mmol/L BUN 13 (9-20) mg/dL Creatinine 0.68 (0.66-1.25) mg/dL Est GFR (CKD-EPI)AfAm >90 (>60 ml/min/1.73 sqM) Est GFR (CKD-EPI)NonAf >90 (>60 ml/min/1.73 sqM) Glucose 319 H (74-99) mg/dL Calcium 9.1 (8.4-10.2) mg/dL Magnesium 1.8 (1.6-2.3) mg/dL Total Bilirubin 0.9 (0.2-1.3) mg/dL AST 19 (17-59) U/L ALT 18 (4-49) U/L Alkaline Phosphatase 68 (38-126) U/L Troponin I (0.000-0.034) ng/mL Total Protein 6.8 (6.3-8.2) g/dL Albumin 3.9 (3.5-5.0) g/dL Coronavirus (PCR) (Not Detectd) 12/16/21 12/16/21 Range/Units 07:19 07:19 WBC (3.8-10.6) k/uL RBC (4.30-5.90) m/uL Hgb (13.0-17.5) gm/dL Hct (39.0-53.0) % MCV (80.0-100.0) fL MCH (25.0-35.0) pg MCHC (31.0-37.0) g/dL RDW (11.5-15.5) % Plt Count (150-450) k/uL MPV Neutrophils % % Lymphocytes % % Monocytes % % Eosinophils % % Basophils % % Neutrophils # (1.3-7.7) k/uL Lymphocytes # (1.0-4.8) k/uL Monocytes # (0-1.0) k/uL Eosinophils # (0-0.7) k/uL Basophils # (0-0.2) k/uL PT (9.0-12.0) sec INR (<1.2) APTT (22.0-30.0) sec Sodium (137-145) mmol/L Potassium (3.5-5.1) mmol/L Chloride (98-107) mmol/L Carbon Dioxide (22-30) mmol/L Anion Gap mmol/L BUN (9-20) mg/dL Creatinine (0.66-1.25) mg/dL Est GFR (CKD-EPI)AfAm (>60 ml/min/1.73 sqM) Est GFR (CKD-EPI)NonAf (>60 ml/min/1.73 sqM) Glucose (74-99) mg/dL Calcium (8.4-10.2) mg/dL Magnesium (1.6-2.3) mg/dL Total Bilirubin (0.2-1.3) mg/dL AST (17-59) U/L ALT (4-49) U/L Alkaline Phosphatase (38-126) U/L Troponin I <0.012 (0.000-0.034) ng/mL Total Protein (6.3-8.2) g/dL Albumin (3.5-5.0) g/dL Coronavirus (PCR) Not Detected (Not Detectd) Disposition Clinical Impression: ACS (acute coronary syndrome) Disposition: ADMITTED IP TO THIS HOSP Decision Date: 12/16/21 Decision Time: 08:14
[2021-12-16 07:29] LABS: Basophils # (A) 0.1 k/uL (0-0.2); Basophils % (A) 1 %; Eosinophils # (A) 0.1 k/uL (0-0.7); Eosinophils % (A) 1 %; HCT 51.8 % (39.0-53.0); HGB 17.1 gm/dL (13.0-17.5); Lymphocytes # (A) 1.1 k/uL (1.0-4.8); Lymphocytes % (A) 13 %; MCH 31.9 pg (25.0-35.0); MCV 96.6 fL (80.0-100.0); Mean Platelet Volume 7.9; Monocytes # (A) 0.4 k/uL (0-1.0); Monocytes % (A) 5 %; Neutrophils # (A) 6.3 k/uL (1.3-7.7); Neutrophils % (A) 78 %; Platelet Count 180 k/uL (150-450); RBC 5.37 m/uL (4.30-5.90); RDW 13.4 % (11.5-15.5); WBC 8.1 k/uL (3.8-10.6)
[2021-12-16] MEDS ORDERED: SODIUM CHLORIDE 0.9% 500 ML 500 ML IV STA (07:36)
[2021-12-16 07:42] LABS: Partial Thromboplastin Time 24.7 sec (22.0-30.0)
--- NOTE | 2021-12-16 07:45 | XR ---
EXAMINATION TYPE: XR chest 2V DATE OF EXAM: 12/16/2021 COMPARISON: 08/01/2020 HISTORY: Shortness of breath TECHNIQUE: Frontal and lateral views of the chest are obtained. FINDINGS: Scattered senescent parenchymal changes noted. Hyperinflation compatible with COPD. No evidence for infiltrate. No evidence for atelectasis. Heart size is stable. Mediastinal structures are stable and grossly unremarkable. No evidence for hilar prominence. Degenerative changes dorsal spine. Healed right-sided rib fractures noted. IMPRESSION: 1. No evidence for acute pulmonary disease.
[2021-12-16 07:46] LABS: ALT 18 U/L (4-49); AST 19 U/L (17-59); African American GFR (CKD) >90 (>60 ml/min/1.73 sqM); Albumin 3.9 g/dL (3.5-5.0); Alkaline Phosphatase 68 U/L (38-126); Anion Gap 6 mmol/L; Blood Urea Nitrogen 13 mg/dL (9-20); Calcium 9.1 mg/dL (8.4-10.2); Carbon Dioxide 25 mmol/L (22-30); Chloride 101 mmol/L (98-107); Glucose 319 mg/dL (74-99); Magnesium 1.8 mg/dL (1.6-2.3); Non-African American GFR(CKD) >90 (>60 ml/min/1.73 sqM); Potassium 4.9 mmol/L (3.5-5.1); Sodium 132 mmol/L (137-145); Total Bilirubin 0.9 mg/dL (0.2-1.3); Total Protein 6.8 g/dL (6.3-8.2)
[2021-12-16] MEDS ORDERED: SODIUM CHLORIDE 0.9% 500 ML 500 ML IV ONE (07:50)
[2021-12-16] MEDS ORDERED: NALOXONE 0.4 MG/ML 1 ML VIAL IV PRN (08:25)
[2021-12-16] MEDS ORDERED: ACETAMINOPHEN TAB 325 MG TAB PO PRN (08:25)
[2021-12-16 08:45] LABS: Glucose,Whole Blood 281 mg/dL (75-99)
[2021-12-16] MEDS: SODIUM CHLORIDE 0.9% 1,000 ML IV SCH ×2 (09:21→20:14)
[2021-12-16] MEDS ORDERED: VERAPAMIL 2.5 MG/ML 2 ML AMP ONE (09:49)
[2021-12-16] MEDS ORDERED: LIDOCAINE 1% INJ 10MG/ML (20 ML MDV) ONE (09:50)
[2021-12-16] MEDS ORDERED: HEPARIN SODIUM 1,000 UN/ML (10ML VL) ONE (09:53)
[2021-12-16] MEDS ORDERED: ATORVASTATIN 80 MG TAB PO STA (09:54)
[2021-12-16] MEDS ORDERED: NITROGLYCERIN SL TABS 0.4 MG TAB SUBLINGUAL PRN ×2 (09:54→11:30)
[2021-12-16] MEDS ORDERED: fentaNYL (PF) 50 MCG/ML 2 ML AMP ONE (09:54)
[2021-12-16] MEDS ORDERED: ASPIRIN 325 MG TAB PO STA (09:54)
[2021-12-16] MEDS ORDERED: ALPRAZolam 0.25 MG TAB PO PRN (09:54)
[2021-12-16] MEDS ORDERED: ALPRAZolam 0.5 MG TAB PO PRN (09:54)
[2021-12-16] MEDS ORDERED: IV FLUID CONTINUATION 1,000 ML IV ONE (10:10)
--- NOTE | 2021-12-16 10:11 | P.CRDCN ---
History of Present Illness Consult date: 12/16/21 History of present illness: The patient is a 56-year-old male, history of CAD, stenting of the LAD in 2011 has not been followed since 2013. Detail of the procedure is not available to me. He has a history of chronic tobacco use, hypertension, hyperlipidemia and diabetes who presented with an episode of chest discomfort. He was cleaning the snow and when he got home he had severe chest discomfort radiating to both arms with symptoms of dyspnea. According to him he has not had any significant symptoms since his procedure. He denies any PND or orthopnea, no dizziness, no palpitations or syncope. He had no recent cardiac workup. He smokes over a pack a day and drinks alcohol occasionally. At the time of his stenting he had a myocardial infarction. He feels that the symptoms are somewhat similar but not as severe. Initial lab data showed a troponin of less than 0.012, BUN and creatinine are 13 and 0.68. His EKG showed no acute ST segment changes. His medication at home include metoprolol, lisinopril, Lipitor, insulin. Review of system : Respiratory: No history of asthma, bronchitis or recent cough. He has a history of COPD with chronic dyspnea on exertion GI: No nausea, vomiting. No history of peptic ulcer disease. No recent GI bleed. : No hematuria or dysuria. Nervous System: No stroke or seizure. Physical examination: 56-year-old male, alert and oriented no apparent distress, blood pressure 126/60 with a heart rate in the 80s. Head: Normocephalic. Eyes: Sclerae nonicteric. Neck: Good carotid upstroke, no bruit, no jugular venous distention. Lungs: Clear to auscultation with decreased breath sounds bilaterally. Heart: Regular rate and rhythm, S1-S2, no S3, no murmur or rub. Abdomen: Soft nontender, positive bowel sounds no organomegaly. Extremities: No edema, intact distal pulses. Impression: 1. Chest discomfort, suggestive of unstable angina. No evidence of myocardial infarction 2. History of CAD, post stenting of the LAD in 2011 3. History of hypertension 4. History of hyperlipidemia 5. Chronic tobacco use 6. Diabetes mellitus Plan: 1. Continue home medication 2. Obtain an echocardiogram with Doppler 3. Proceed with cardiac catheterization, the risks and the complications were discussed with the patient and his family. They are in full understanding and agreement. 4. Smoking cessation 5. Thank you for this consult we will follow with you. Past Medical History Past Medical History: Coronary Artery Disease (CAD), Chest Pain / Angina, COPD, Diabetes Mellitus, GERD/Reflux, Hyperlipidemia, Hypertension, Myocardial Infarction ([place]) Additional Past Medical History / Comment(s): IDDM type II, neuropathy bilateral feet/legs, 2020 pancreatitis, chronic low back pain, gastric ulcer as a teen, benign colon polyps Last Myocardial Infarction Date:: 2011 History of Any Multi-Drug Resistant Organisms: None Reported Past Surgical History: Back Surgery, Ear Surgery, Heart Catheterization With Stent, Hernia Repair, Orthopedic Surgery Additional Past Surgical History / Comment(s): 2012 PCI with stent to mid RCA, bilateral inguinal hernia repair as teen, bilateral carpal tunnel releases, back surgery for discs, colonoscopy, bilateral myringotomies/tubes. Past Anesthesia/Blood Transfusion Reactions: Postoperative Nausea & Vomiting (PONV) Additional Past Anesthesia/Blood Transfusion Reaction / Comment(s): PONV as a teen with surgery, none since. Date of Last Stent Placement:: . Smoking Status: Current every day smoker - Past Family History Father Family Medical History: Coronary Artery Disease (CAD), Myocardial Infarction ([place]) Additional Family Medical History / Comment(s): Pt states heart disease runs strongly on his father's side of family. Father is . Pt cannot recall at what age father had RI Mother Family Medical History: Cancer Additional Family Medical History / Comment(s): Mother of renal cancer with mets. Medications and Allergies Home Medications Medication Instructions Recorded Confirmed Type Atorvastatin [Lipitor] 80 mg PO DIRECTED 10/14/17 12/16/21 History Dulaglutide [Trulicity] 3 mg SQ DIRECTED 12/16/21 12/16/21 History Insulin Aspart (Niacinamide) See Protocol SQ DIRECTED PRN 12/16/21 12/16/21 History [Fiasp 100 Unit/ml Vial] Metoprolol Tartrate [Lopressor] 50 mg PO DIRECTED 12/16/21 12/16/21 History Pregabalin [Lyrica] 300 mg PO DIRECTED 12/16/21 12/16/21 History buPROPion XL [Wellbutrin XL] 150 mg PO DIRECTED 12/16/21 12/16/21 History lisinopriL [Zestril] 5 mg PO DIRECTED 12/16/21 12/16/21 History Allergies Allergy/AdvReac Type Severity Reaction Status Date / Time No Known Allergies Allergy Verified 12/16/21 09:45 Physical Exam Vitals: Vital Signs Temp Pulse Resp BP Pulse Ox 12/16/21 09:15 80 18 126/68 98 12/16/21 08:44 68 18 117/76 96 12/16/21 08:06 75 18 106/70 97 12/16/21 07:32 79 18 95/68 95 12/16/21 07:01 98.7 F 81 16 101/60 97 Intake and Output 12/15/21 12/16/21 12/16/21 22:59 06:59 14:59 Other: Weight 113.398 kg Results 12/16/21 07:19 12/16/21 07:19 Cardiac Enzymes 12/16/21 12/16/21 Range/Units 07:19 07:19 AST 19 (17-59) U/L Troponin I <0.012 (0.000-0.034) ng/mL Coagulation 12/16/21 Range/Units 07:19 PT 11.0 (9.0-12.0) sec APTT 24.7 (22.0-30.0) sec CBC 12/16/21 Range/Units 07:19 WBC 8.1 (3.8-10.6) k/uL RBC 5.37 (4.30-5.90) m/uL Hgb 17.1 (13.0-17.5) gm/dL Hct 51.8 (39.0-53.0) % Plt Count 180 (150-450) k/uL Comprehensive Metabolic Panel 12/16/21 Range/Units 07:19 Sodium 132 L (137-145) mmol/L Potassium 4.9 (3.5-5.1) mmol/L Chloride 101 (98-107) mmol/L Carbon Dioxide 25 (22-30) mmol/L BUN 13 (9-20) mg/dL Creatinine 0.68 (0.66-1.25) mg/dL Glucose 319 H (74-99) mg/dL Calcium 9.1 (8.4-10.2) mg/dL AST 19 (17-59) U/L ALT 18 (4-49) U/L Alkaline Phosphatase 68 (38-126) U/L Total Protein 6.8 (6.3-8.2) g/dL Albumin 3.9 (3.5-5.0) g/dL Current Medications Generic Name Dose Route Start Last Admin Trade Name Freq PRN Reason Stop Dose Admin Acetaminophen 650 mg 12/16/21 08:25 Acetaminophen Tab 325 Mg Tab PO Q6HR PRN Mild Pain or Fever > 100.5 Alprazolam 0.25 mg 12/16/21 09:54 Alprazolam 0.25 Mg Tab PO Q6HR PRN Mild Anxiety Alprazolam 0.5 mg 12/16/21 09:54 Alprazolam 0.5 Mg Tab PO Q6HR PRN Moderate Anxiety Atorvastatin Calcium 80 mg 12/16/21 21:00 Atorvastatin 80 Mg Tab PO HS MYRON Sodium Chloride 1,000 mls @ 100 mls/hr 12/16/21 08:30 12/16/21 09:21 Saline 0.9% IV 100 mls/hr .Q10H MYRON Administration Heparin Sodium (Porcine) 10, 1,001 mls @ 999 mls/hr 12/16/21 07:00 000 unit/ Sodium Chloride IRRIGATION 12/16/21 23:00 ONCE PRN INTRA-OP Heparin Sodium (Porcine) 2,500 250.5 mls @ 250 mls/hr 12/16/21 07:00 unit/ Sodium Chloride IRRIGATION 12/16/21 23:00 ONCE PRN INTRA-OP Naloxone HCl 0.2 mg 12/16/21 08:25 Naloxone 0.4 Mg/Ml 1 Ml Vial IV Q2M PRN Opioid Reversal Nitroglycerin 0.4 mg 12/16/21 09:54 Nitroglycerin Sl Tabs 0.4 Mg Tab SUBLINGUAL Q5M PRN Chest Pain Intake and Output 12/15/21 12/16/21 12/16/21 22:59 06:59 14:59 Other: Weight 113.398 kg Patient Weight 12/17/21 06:59 Weight 113.398 kg 12/16/21 07:19 12/16/21 07:19
[2021-12-16] MEDS ORDERED: fentaNYL (PF) 50 MCG/ML 2 ML AMP IV ONE ×2 (10:30→10:32)
[2021-12-16] MEDS ORDERED: LIDOCAINE 1% INJ 10MG/ML (20 ML MDV) SQ ONE (10:32)
[2021-12-16] MEDS ORDERED: VERAPAMIL SYRINGE (5 MG/10 ML) INTRAARTER ONE (10:34)
[2021-12-16] MEDS: HEPARIN SODIUM 1,000 UN/ML (10ML VL) IVP ONE ×2 (10:39→10:55)
[2021-12-16] MEDS ORDERED: PRASUGREL 10 MG TAB ONE (10:56)
[2021-12-16] MEDS ORDERED: PRASUGREL 10 MG TAB PO ONE (11:00)
[2021-12-16] MEDS ORDERED: IOPAMIDOL-370 125ML BTL INJ ONE (11:04)
[2021-12-16] MEDS ORDERED: IOPAMIDOL-370 100ML BTL INJ ONE (11:22)
[2021-12-16] MEDS ORDERED: MAG HYDROX/AL HYDROX/SIMETH 30 ML CUP PO PRN (11:30)
[2021-12-16] MEDS ORDERED: ZOLPIDEM 5 MG TAB PO PRN (11:30)
[2021-12-16] MEDS ORDERED: SODIUM CHLORIDE 0.9% 1,000 ML in EMPTY BAG 1 BAG IV SCH (11:30)
[2021-12-16] MEDS ORDERED: RX INFO: IV CONTRAST WAS GIVEN 1 EACH MISC MISCELLANE PRN (11:30)
[2021-12-16] MEDS ORDERED: ATROPINE SULFATE 0.1 MG/ML 10ML SYRINGE IV PRN (11:30)
--- NOTE | 2021-12-16 11:39 | P.CARDCATH ---
Date of Procedure: 12/16/21 Description of Procedure: Cardiac Catheterization: The patient is a 56-year-old male with a known history of CAD, post stenting of the RCA in 2012, history of hypertension, hyperlipidemia, diabetes and chronic tobacco use who presented with symptoms of exertional chest discomfort, radiating to the arms. Recommendations were made regarding cardiac catheterization, the risks and the complications were discussed with the patient who is in full understanding and agreement. Procedure Description: Patient was brought to labor economist in fasting semi-sedated state after receiving Fentanyl and Benadryl achieiving moderate conscious sedated state. Using Xylocaine Anesthesia and Seldinger technique, a 6-Mongolian sheath was introduced in the right radial artery . Subsequently, selective coronary angiography performed using a 5-Mongolian 3.5 left and 4 right bend Swapna catheter. Multiple views of the coronary artery including hemiaxial views were obtained. The 5-Mongolian pigtail catheter was used to cross the aortic valve and LVEDP was calculated. Following that, catheter were removed. There was no immediate complication. Images were reviewed. Of note, the patient received a total of 5000 units of intravenous heparin as well as intra-arterial verapamil. There was no immediate complications. Findings: Fluoroscopy: There is significant calcification involving the proximal LAD Left main: This is a large size vessel, bifurcating LAD and left circumflex, left main has no evidence of high-grade stenosis. LAD: This is a large size vessel, heavily calcified proximally, gives rise to a diagonal branch following the diagonal branch there is a long segment of severe stenosis up to 80%. Left circumflex: This is a nondominant vessel, giving rise to a large OM, the left circumflex has no evidence of high-grade stenosis. RCA: This is a large dominant vessel, bifurcating into PDA and PLV. The mid segment, stented area is patent. There is mild plaque of 20-30%, the rest of the vessel has no high-grade stenosis. [Left] Ventriculogram: Was not performed Hemodynamics: LVEDP was 16-20 mmHg, there was no gradient across the aortic valve Conclusion: 1. Calcified LAD 2. Critical stenosis in the long segment of the mid LAD 3. Patent stent in the mid RCA with mild obstructive disease 4. Mildly elevated LVEDP Recommendations: In view of the findings and the presentation I have recommended to proceed with angioplasty and stenting of the LAD. The procedure as well as the risks and the complications were discussed with the patient and he is in full understanding and agreement.
--- NOTE | 2021-12-16 11:43 | P.CARDCATH ---
Date of Procedure: 12/16/21 Description of Procedure: PERCUTANEOUS TRANSLUMINAL CORONARY ANGIOPLASTY CLINICAL INFORMATION: The patient is a 56-year-old male who presented with an acute episode of chest discomfort, underwent cardiac catheterization and was found to have significant obstructive disease in the mid LAD. Recommendations were made regarding angioplasty and stenting. The procedure as well as the risk and the complication were discussed with the patient who was in full understanding and agreement. PROCEDURE: A 6 Malaysian 3.75 EBU guiding catheter was introduced into the system. After cannulating the left main, a 0.014 balanced medium weight J-wire was advanced across the lesion and positioned distally. Then a 2.5 x 15 mm NC Treck was advanced and multiple inflations up to 12 homar were done. Following that a 2.5 X 28 mm Xience tessa point stent was deployed. It was dilated at 16. Following that a 2.75 x 15 mm NC Treck balloon was advanced and inflation up to 12 homar were done. After the last inflation, after appropriate wait, the balloon and the guidewire were withdrawn back into the guiding catheter. Images were obtained and repeated. Those images reveal stable successful stenting. At that point, the guiding catheter, the balloon, and guidewire were removed. The sheath was removed. Hemostasis was obtained with deployment 50 band. There were no immediate complications. The patient was returned to the room in stable condition. Of note, the patient received a total of 7000 units of heparin as well as Effient. The patient had chest discomfort and EKG changes with the inflations that resolved at the end of the procedure. RESULTS: Successful stenting of the mid LAD with reduction of stenosis from 80% to 0 %. RECOMMENDATIONS: The results were discussed with the patient and his family. He will continue on dual antiplatelet treatment for at least 6 months. The importance of smoking cessation was discussed with him. Depending on his progress further recommendations will be made. Duration of sedation 46 minutes.
[2021-12-16] MEDS: METOPROLOL TARTRATE 25 MG TAB PO SCH ×2 (12:12→20:46)
--- NOTE | 2021-12-16 12:43 | ECHOF ---
Referral Reason:cad MEASUREMENTS -------- HEIGHT: 182.9 cm WEIGHT: 113.4 kg BP: RVIDd: 3.5 cm (< 3.3) IVSd: 1.0 cm (0.6 - 1.1) LVIDd: 6.1 cm (3.9 - 5.3) LVPWd: 1.2 cm (0.6 - 1.1) IVSs: 1.1 cm LVIDs: 5.9 cm LVPWs: 1.2 cm LA Diam: 4.1 cm (2.7 - 3.8) LAESV Index (A-L): 36.25 ml/m Ao Diam: 3.0 cm (2.0 - 3.7) MV E Jr: 0.53 m/s MV DecT: 287 ms MV A Jr: 0.84 m/s MV E/A Ratio: 0.62 RAP: 5.00 mmHg RVSP: 15.19 mmHg FINDINGS -------- Sinus rhythm. This was a techncally difficult study with suboptimal views, , Lumason utilized for enhancement of im ages. The left ventricular size is normal. There is borderline concentric left ventricular hypertrophy. Overall left ventricular systolic function is mild-moderately impaired with, an EF between 40 - 45 % . Basal inferior LV wall motion is hypokinetic. Basal inferoseptal LV wall motion is hypokinetic . Mid inferior LV wall motion is hypokinetic. Apical inferior LV wall motion is hypokinetic. The right ventricle is mildly enlarged. LA is moderately dilated 34-39 ml/m2 The right atrial size is normal. 5.0mg OF Lumason UTLIZED: 2 OR MORE WALL SEGMENTS NOT VISUALIZED. There is mild aortic valve sclerosis. There is no evidence of aortic regurgitation. The mitral valve is normal. Mild mitral regurgitation is present. The tricuspid valve appears structurally normal. Mild tricuspid regurgitation present. Right vent ricular systolic pressure is normal at < 35 mmHg. The right ventricular systolic pressure, as measu red by Doppler, is 15.19mmHg. The pulmonic valve was not well visualized. The aortic root size is normal. Echo free space represents a pericardial fat pad. CONCLUSIONS -------- 1. This was a techncally difficult study with suboptimal views, , Lumason utilized for enhancement of images. 2. Overall left ventricular systolic function is mild-moderately impaired with, an EF between 40 - 45 %. 3. Basal inferior LV wall motion is hypokinetic. 4. Basal inferoseptal LV wall motion is hypokinetic. 5. Mid inferior LV wall motion is hypokinetic. 6. Apical inferior LV wall motion is hypokinetic. 7. The right ventricle is mildly enlarged. 8. LA is moderately dilated 34-39 ml/m2 9. 5.0mg OF Lumason UTLIZED: 2 OR MORE WALL SEGMENTS NOT VISUALIZED. 10. There is mild aortic valve sclerosis. 11. Mild mitral regurgitation is present. 12. Mild tricuspid regurgitation present. COMPLIANCE EXAMINER: Portia Shearer RDCS
--- NOTE | 2021-12-16 12:49 | P.HPIM ---
History of Present Illness This is a pleasant 56 years old male with past medical history of Coronary Artery Disease status post stent to mid RCA, COPD, Diabetes Mellitus, GERD/Reflux, Hyperlipidemia, Hypertension, nicotine dependence Patient presents because of left side chest pain after snow shovel yesterday This morning then morning he came to the emergency room. He was complaining of from significant chest pain highly suspicious for unstable angina, his been taken to the cardiac cath emergently underwent successful PCI to the LAD. Patient currently seen in 3 status post 380, lying in bed comfortable lentiform little chest discomfort. No dyspnea. No coughing. No change in urine or bowel habits. Patient states that he drinks 1.5 pack per day, he was counseled to quit and he agrees but he does not want nicotine patch. He drinks 2-3 times a week with beer. No illicit drugs Vitals are stable. Labs reviewed, he has unremarkable CBC, INR, BMP, liver enzymes. Troponin less than 0.012. None detected. Chest x-ray: No acute process Review of Systems CONSTITUTIONAL: No fever, no malaise, no fatigue. HEENT: No recent visual problems or hearing problems. Denied any sore throat. CARDIOVASCULAR: No orthopnea, PND, no palpitations, no syncope. PULMONARY: No shortness of breath, no cough, no hemoptysis. GASTROINTESTINAL: No diarrhea, no nausea, no vomiting, no abdominal pain. Normoactive bowel sounds. NEUROLOGICAL: No headaches, no weakness, no numbness. HEMATOLOGICAL: Denies any bleeding or petechiae. GENITOURINARY: Denies any burning micturition, frequency, or urgency. MUSCULOSKELETAL/RHEUMATOLOGICAL: Denies any joint pain, swelling, or any muscle pain. ENDOCRINE: Denies any polyuria or polydipsia. Past Medical History Past Medical History: Coronary Artery Disease (CAD), Chest Pain / Angina, COPD, Diabetes Mellitus, GERD/Reflux, Hyperlipidemia, Hypertension, Myocardial Infarction ([place]) Additional Past Medical History / Comment(s): IDDM type II, neuropathy bilateral feet/legs, 2020 pancreatitis, chronic low back pain, gastric ulcer as a teen, benign colon polyps Last Myocardial Infarction Date:: 2011 History of Any Multi-Drug Resistant Organisms: None Reported Past Surgical History: Back Surgery, Ear Surgery, Heart Catheterization With Stent, Hernia Repair, Orthopedic Surgery Additional Past Surgical History / Comment(s): 2012 PCI with stent to mid RCA, bilateral inguinal hernia repair as teen, bilateral carpal tunnel releases, back surgery for discs, colonoscopy, bilateral myringotomies/tubes. Past Anesthesia/Blood Transfusion Reactions: Postoperative Nausea & Vomiting (PONV) Additional Past Anesthesia/Blood Transfusion Reaction / Comment(s): PONV as a teen with surgery, none since. Date of Last Stent Placement:: . Smoking Status: Current every day smoker - Past Family History Father Family Medical History: Coronary Artery Disease (CAD), Myocardial Infarction ([place]) Additional Family Medical History / Comment(s): Pt states heart disease runs strongly on his father's side of family. Father is . Pt cannot recall at what age father had [place] Mother Family Medical History: Cancer Additional Family Medical History / Comment(s): Mother of renal cancer with mets. Medications and Allergies Home Medications Medication Instructions Recorded Confirmed Type Atorvastatin [Lipitor] 80 mg PO DIRECTED 10/14/17 12/16/21 History Dulaglutide [Trulicity] 3 mg SQ DIRECTED 12/16/21 12/16/21 History Insulin Aspart (Niacinamide) See Protocol SQ DIRECTED PRN 12/16/21 12/16/21 History [Fiasp 100 Unit/ml Vial] Metoprolol Tartrate [Lopressor] 50 mg PO DIRECTED 12/16/21 12/16/21 History Pregabalin [Lyrica] 300 mg PO DIRECTED 12/16/21 12/16/21 History buPROPion XL [Wellbutrin XL] 150 mg PO DIRECTED 12/16/21 12/16/21 History lisinopriL [Zestril] 5 mg PO DIRECTED 12/16/21 12/16/21 History Allergies Allergy/AdvReac Type Severity Reaction Status Date / Time No Known Allergies Allergy Verified 12/16/21 09:45 Physical Exam Vitals: Vital Signs Temp Pulse Resp BP BP Pulse Ox 12/16/21 11:35 18 131/66 97 12/16/21 09:15 80 18 126/68 98 12/16/21 08:44 68 18 117/76 96 12/16/21 08:06 75 18 106/70 97 12/16/21 07:32 79 18 95/68 95 12/16/21 07:01 98.7 F 81 16 101/60 97 Intake and Output 12/15/21 12/16/21 12/16/21 22:59 06:59 14:59 Intake Total 175 Balance 175 Intake: IV 175 Other: Weight 113.398 kg GENERAL: The patient is alert and oriented x3, not in any acute distress. Well developed, well nourished. HEENT: Pupils are round and equally reacting to light. EOMI. No scleral icterus. No conjunctival pallor. Normocephalic, atraumatic. No pharyngeal erythema. No thyromegaly. CARDIOVASCULAR: S1 and S2 present. No murmurs, rubs, or gallops. PULMONARY: Chest is clear to auscultation, no wheezing or crackles. ABDOMEN: Soft, nontender, nondistended, normoactive bowel sounds. No palpable organomegaly. MUSCULOSKELETAL: No joint swelling or deformity. EXTREMITIES: No cyanosis, clubbing, or pedal edema. NEUROLOGICAL: Gross neurological examination did not reveal any focal deficits. SKIN: No rashes. No petechiae Labs and medication were reviewed.. Continue same treatment. Continue with symptomatic treatment. Resume home medication. Monitor lytes and vitals. Results CBC & Chem 7: 12/16/21 07:19 12/16/21 07:19 Labs: Abnormal Lab Results - Last 24 Hours (Table) 12/16/21 12/16/21 Range/Units 07:19 08:43 Sodium 132 L (137-145) mmol/L Glucose 319 H (74-99) mg/dL POC Glucose (mg/dL) 281 H (75-99) mg/dL Thrombosis Risk Factor Assmnt - Choose All That Apply Any of the Below Risk Factors Present?: Yes Each Factor Represents 1 point: Abnormal pulmonary function (COPD), Age 41-60 years, Obesity (BMI >25) Other Risk Factors: No Other congenital or acquired thrombophilia - If yes, enter type in comment: No Thrombosis Risk Factor Assessment Total Risk Factor Score: 3 Thrombosis Risk Factor Assessment Level: Moderate Risk Assessment and Plan Assessment: Unstable angina status post stent to the LAD Diabetes mellitus Hypertension Hyperlipidemia History of GERD Nicotine dependence Plan: This is a pleasant 56 years old male who presents with unstable angina status post PCI to the LAD Continue with dual antiplatelet therapy Cardiology consult DVT and GI prophylaxis. Further recommendations depends on the clinical course of the patient DVT prophylaxis: Subcutaneous heparin GI Prophylaxis: Pepcid PT/OT: Pending Prognosis is guarded
[2021-12-16 13:42] VITALS: BMI 33.0
[2021-12-16 17:07] LABS: Glucose,Whole Blood 311 mg/dL (75-99)
[2021-12-16 19:21] LABS: Chol/HDL Ratio 5.94 Ratio; LDL Cholesterol,Calculated 156.6 mg/dL (0.0-131.0); VLDL Calculation 13.94 mg/dL (5.00-40.00)
[2021-12-16 20:14] LABS: Glucose,Whole Blood 247 mg/dL (75-99)
[2021-12-16] MEDS: FAMOTIDINE 20 MG/2 ML VIAL IV SCH (20:47)
[2021-12-16] MEDS: HEPARIN SODIUM,PORCINE/PF 5,000 UNIT/0.5 ML SYRINGE SQ SCH (20:47)
[2021-12-16] MEDS ORDERED: ATORVASTATIN 80 MG TAB PO SCH (21:00)
[2021-12-17 06:08] LABS: Glucose,Whole Blood 275 mg/dL (75-99)
[2021-12-17] MEDS: SODIUM CHLORIDE 0.9% 1,000 ML IV SCH (06:14)
[2021-12-17 06:19] VITALS: RESP 18
[2021-12-17 08:01] VITALS: BP 133/77; PULSE 87; TEMP 97.9
[2021-12-17] MEDS: FAMOTIDINE 20 MG/2 ML VIAL IV SCH (08:02)
[2021-12-17] MEDS: HEPARIN SODIUM,PORCINE/PF 5,000 UNIT/0.5 ML SYRINGE SQ SCH (08:02)
[2021-12-17] MEDS: METOPROLOL TARTRATE 25 MG TAB PO SCH (08:04)
[2021-12-17 08:12] LABS: African American GFR (CKD) >90 (>60 ml/min/1.73 sqM); Anion Gap 6 mmol/L; Blood Urea Nitrogen 9 mg/dL (9-20); Calcium 9.3 mg/dL (8.4-10.2); Carbon Dioxide 25 mmol/L (22-30); Chloride 103 mmol/L (98-107); Glucose 303 mg/dL (74-99); Non-African American GFR(CKD) >90 (>60 ml/min/1.73 sqM); Potassium 4.2 mmol/L (3.5-5.1); Sodium 134 mmol/L (137-145)
[2021-12-17] MEDS ORDERED: lisinopriL 5 MG TAB PO SCH (09:00)
[2021-12-17] MEDS ORDERED: ASPIRIN 81 MG PO SCH (09:00)
[2021-12-17] MEDS ORDERED: PRASUGREL 10 MG TAB PO SCH (09:00)
--- NOTE | 2021-12-17 12:09 | P.PN ---
Subjective Progress Note Date: 12/17/21 History of present illness: The patient is a 56-year-old male, history of CAD, stenting of the LAD in 2011 has not been followed since 2012. Detail of the procedure is not available to me. He has a history of chronic tobacco use, hypertension, hyperlipidemia and diabetes who presented with an episode of chest discomfort. He was cleaning the snow and when he got home he had severe chest discomfort radiating to both arms with symptoms of dyspnea. According to him he has not had any significant symptoms since his procedure. He denies any PND or orthopnea, no dizziness, no palpitations or syncope. He had no recent cardiac workup. He smokes over a pack a day and drinks alcohol occasionally. At the time of his stenting he had a myocardial infarction. He feels that the symptoms are somewhat similar but not as severe. Initial lab data showed a troponin of less than 0.012, BUN and creatinine are 13 and 0.68. His EKG showed no acute ST segment changes. His medication at home include metoprolol, lisinopril, Lipitor, insulin. 12/17: Patient underwent heart catheterization finding critical stenosis in the long segment of the mid LAD, patent stent in the mid RCA with mild obstructive disease, mildly elevated LVEDP. Patient subsequently underwent successful stent ing of the mid LAD. Patient was started on Effient, continued on Lopressor, lisinopril, atorvastatin and baby aspirin. Patient denies having any chest pain or shortness of breath. He. His right wrist shows no signs of hematoma. He is very anxious to go home today. Patient is cleared from cardiology for discharge. Physical examination: 56-year-old male, alert and oriented no apparent distress Head: Normocephalic. Eyes: Sclerae nonicteric. Neck: Good carotid upstroke, no bruit, no jugular venous distention. Lungs: Clear to auscultation with decreased breath sounds bilaterally. Heart: Regular rate and rhythm, S1-S2, no S3, no murmur or rub. Abdomen: Soft nontender, positive bowel sounds no organomegaly. Extremities: No edema, intact distal pulses. Impression: 1. Chest discomfort, secondary to coronary artery disease 2. History of CAD, post stenting of the LAD in 2011 3. History of hypertension 4. History of hyperlipidemia 5. Chronic tobacco use 6. Diabetes mellitus Plan: Continue Effient, Lopressor, lisinopril, atorvastatin and baby aspirin. Follow-up with Dr. Hernandes in one week Nurse practitioner note has been reviewed, I agree with documented findings and plan of care. Patient was seen and examined. Objective - Vital Signs Vital signs: Vital Signs Temp 97.9 F 12/17/21 07:00 Pulse 87 12/17/21 07:00 Resp 18 12/17/21 07:00 BP 133/77 12/17/21 07:00 Pulse Ox 96 12/17/21 07:00 Intake & Output 12/16/21 12/17/21 12/17/21 18:59 06:59 18:59 Intake Total 655 240 Balance 655 240 Weight 113.398 kg Intake: IV 175 Oral 480 240 Other: Voiding Method Toilet Toilet # Voids 1 1 - Labs CBC & Chem 7: 12/16/21 07:19 12/17/21 07:37 Labs: Abnormal Lab Results - Last 24 Hours (Table) 12/16/21 12/16/21 12/16/21 Range/Units 11:46 11:46 17:05 Sodium (137-145) mmol/L Creatinine (0.66-1.25) mg/dL Glucose (74-99) mg/dL POC Glucose (mg/dL) 311 H (75-99) mg/dL Hemoglobin A1c 9.3 H (0.0-6.0) % Cholesterol 205.00 H (0.00-200.00) mg/dL LDL Cholesterol, Calc 156.6 H (0.0-131.0) mg/dL HDL Cholesterol 34.50 L (40.00-60.00) mg/dL 12/16/21 12/17/21 12/17/21 Range/Units 20:08 06:06 07:37 Sodium 134 L (137-145) mmol/L Creatinine 0.61 L (0.66-1.25) mg/dL Glucose 303 H (74-99) mg/dL POC Glucose (mg/dL) 247 H 275 H (75-99) mg/dL Hemoglobin A1c (0.0-6.0) % Cholesterol (0.00-200.00) mg/dL LDL Cholesterol, Calc (0.0-131.0) mg/dL HDL Cholesterol (40.00-60.00) mg/dL
[2021-12-17 12:17] LABS: Glucose,Whole Blood 294 mg/dL (75-99)
--- NOTE | 2021-12-17 22:45 | P.DS ---
Providers Date of admission: 12/16/21 08:23 Attending physician: [facility] Consults: 12/16/21 08:25 Consult Physician Routine Consulting Provider: Addison Hernandes Consult Reason/Comments: ACS Do you want consulting provider notified?: Yes 12/16/21 11:30 Consult Physician Routine Consulting Provider: [facility] Consult Reason/Comments: Post Interventional patient Do you want consulting provider notified?: Already Contacted Primary care physician: Lorraine Solomon Hospital Course: Diagnoses: Unstable angina status post stent to the LAD Diabetes mellitus Hypertension, uncontrolled with hemoglobin A1c 9.3. However patient told me just last week his doctor increase this to obesity from 1.5 up to 3 mg, also he is on chart diabetes and insulin sliding scale at home. Patient instructed to monitor his glucose at home, see discharge instructions Hyperlipidemia History of GERD Nicotine dependence Hospital course: This is a pleasant 56 years old male with past medical history of Coronary Artery Disease status post stent to mid RCA, COPD, Diabetes Mellitus, GERD/Reflux, Hyperlipidemia, Hypertension, nicotine dependence Patient presents because of left side chest pain . He is eval with by graduate assistant and underwent PCI to LAD. Postprocedure his back to his normal self. He denies chest pain or dyspnea. No change in urine or bowel habits. No fever. Patient was cleared for discharge by graduate assistant Importance of dual antiplatelet therapy explained I(aspirin and effient), prescription sent to pharmacy by graduate assistant Problems and management plan were discussed with the patient and he verbalized understanding and acceptance Patient was found stable and can be discharged home however he needs follow-up as an outpatient. Patient was instructed to follow up with PCP Dr. Solomon within one week and patient agrees Patient was instructed to follow up with his graduate assistant Dr. Hernandes in one to 2 weeks and he agrees to call and make appointment Physical exam Gen: patient is a AAOx3, no distress CVS: S1-S2, RRR, no murmur Lungs: B/L CTA, no wheezing Abdomen: soft, no distention, no tenderness, positive bowel sounds Extremity: no leg edema or induration Time spent more than 35 minutes Plan - Discharge Summary Discharge Rx Participant: No New Discharge Prescriptions: New Aspirin 81 mg PO DAILY Metoprolol Tartrate [Lopressor] 25 mg PO BID #60 tab Prasugrel [Effient] 10 mg PO DAILY #30 tab Nitroglycerin Sl Tabs [Nitrostat] 0.4 mg SUBLINGUAL Q5M PRN #25 tab PRN Reason: Chest Pain Continue Atorvastatin [Lipitor] 80 mg PO DIRECTED Dulaglutide [Trulicity] 3 mg SQ DIRECTED Insulin Aspart (Niacinamide) [Fiasp 100 Unit/ml Vial] See Protocol SQ DIRECTED PRN PRN Reason: Blood Sugar - High buPROPion XL [Wellbutrin XL] 150 mg PO DIRECTED lisinopriL [Zestril] 5 mg PO DIRECTED Pregabalin [Lyrica] 300 mg PO DIRECTED Discontinued Metoprolol Tartrate [Lopressor] 50 mg PO DIRECTED Discharge Medication List Atorvastatin [Lipitor] 80 mg PO DIRECTED 10/14/17 [History] Dulaglutide [Trulicity] 3 mg SQ DIRECTED 12/16/21 [History] Insulin Aspart (Niacinamide) [Fiasp 100 Unit/ml Vial] See Protocol SQ DIRECTED PRN 12/16/21 [History] Pregabalin [Lyrica] 300 mg PO DIRECTED 12/16/21 [History] buPROPion XL [Wellbutrin XL] 150 mg PO DIRECTED 12/16/21 [History] lisinopriL [Zestril] 5 mg PO DIRECTED 12/16/21 [History] Aspirin 81 mg PO DAILY 12/17/21 [Rx] Metoprolol Tartrate [Lopressor] 25 mg PO BID #60 tab 12/17/21 [Rx] Nitroglycerin Sl Tabs [Nitrostat] 0.4 mg SUBLINGUAL Q5M PRN #25 tab 12/17/21 [Rx] Prasugrel [Effient] 10 mg PO DAILY #30 tab 12/17/21 [Rx] Follow up Appointment(s)/Referral(s): Addison Hernandes MD [STAFF PHYSICIAN] - 1 Week (Please make appointment when office is open) Lorraine Solomon MD [Primary Care Provider] - 1-2 days (Please make appointment when office is open) Patient Instructions/Handouts: Heart Catheterization (GEN) Activity/Diet/Wound Care/Special Instructions: heart healthy diet activity is restricted till you see your doctor please resumes your diabetes medication at home doses (insulin sliding scale, jardiance and trulicity) we recommend to check your glucoses 4 times a day, before each meal and at bedtime, keep results in a log book and bring it to your doctor on your appointment date If your glucose less than 70 or more than 400, then call 911 on come to emergency room Discharge Disposition: HOME SELF-CARE
[2021-12-18] MEDS ORDERED: Dulaglutide [Trulicity] 1.5 MG/0.5 ML Each SQ SCH (09:00)
== END 2021-12-17 13:16 | disposition home or self-care (01) ==
LOC: EC 06:48 → 6NMEDSUR 08:23 → 3SCARD 11:21
PROVIDERS: ADMIT Hospitalist; ATTEND Hospitalist
DX: I25.110 Atherosclerotic heart disease of native coronary artery with unstable angina pectoris (principal); I25.84 Coronary atherosclerosis due to calcified coronary lesion; I10 Essential (primary) hypertension; E78.5 Hyperlipidemia, unspecified; F17.210 Nicotine dependence, cigarettes, uncomplicated; I25.2 Old myocardial infarction; K21.9 Gastro-esophageal reflux disease without esophagitis; E11.40 Type 2 diabetes mellitus with diabetic neuropathy, unspecified; J44.9 Chronic obstructive pulmonary disease, unspecified; G89.29 Other chronic pain; M54.50 Low back pain, unspecified; K85.90 Acute pancreatitis without necrosis or infection, unspecified; G62.9 Polyneuropathy, unspecified; E66.9 Obesity, unspecified; Z68.33 Body mass index [BMI] 33.0-33.9, adult; Z20.822 Contact with and (suspected) exposure to COVID-19; Z71.6 Tobacco abuse counseling; Z87.11 Personal history of peptic ulcer disease; Z87.19 Personal history of other diseases of the digestive system; Z95.5 Presence of coronary angioplasty implant and graft; Z79.899 Other long term (current) drug therapy; Z79.4 Long term (current) use of insulin; Z79.84 Long term (current) use of oral hypoglycemic drugs; Y93.H1 Activity, digging, shoveling and raking; Z82.49 Family history of ischemic heart disease and other diseases of the circulatory system; Z80.51 Family history of malignant neoplasm of kidney
CPT/HCPCS: 96360; 99285; 36415; 93005; 93306; 93458; 80061; 80053; 80048; 83735; 84484; 85025; 85610; 85730; 83036; 87635; 71046; G0378 ×3; C9600; C1769 ×2; C1887; C1894; C1725 ×2; C1874; J2001; J3010; J1644 ×3; Q9950; Q9967 ×2

== ENCOUNTER 2022-01-24 16:05 | Inpatient (IN) | payer OTHER, BC ==
[2022-01-24] MEDS ORDERED: ASPIRIN 81 MG PO STA (16:40)
--- NOTE | 2022-01-24 16:43 | ED ---
General Adult HPI - General Chief complaint: Chest Pain Stated complaint: chest pain Time Seen by Provider: 01/24/22 16:28 Source: patient, EMS, RN notes reviewed Mode of arrival: EMS Limitations: no limitations - History of Present Illness Initial comments: Patient is a pleasant 57-year-old male presenting to the emergency Department with chest discomfort. Onset of symptoms was prior to arrival. 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 Patient had discomfort there was difficulty describing intensity. Patient states it felt like pressure. There is some radiation towards both arms. Symptoms are similar to to previous heart attacks. Patient took one nitroglycerin with near resolution of symptoms. No associated dyspnea or nausea. No diaphoresis. Patient did feel lightheaded. - Related Data Home Medications Medication Instructions Recorded Confirmed Atorvastatin [Lipitor] 80 mg PO DIRECTED 10/14/17 12/16/21 Dulaglutide [Trulicity] 3 mg SQ DIRECTED 12/16/21 12/16/21 Insulin Aspart (Niacinamide) See Protocol SQ DIRECTED PRN 12/16/21 12/16/21 [Fiasp 100 Unit/ml Vial] Pregabalin [Lyrica] 300 mg PO DIRECTED 12/16/21 12/16/21 buPROPion XL [Wellbutrin XL] 150 mg PO DIRECTED 12/16/21 12/16/21 lisinopriL [Zestril] 5 mg PO DIRECTED 12/16/21 12/16/21 Previous Rx's Medication Instructions Recorded Aspirin 81 mg PO DAILY 12/17/21 Metoprolol Tartrate [Lopressor] 25 mg PO BID #60 tab 12/17/21 Nitroglycerin Sl Tabs [Nitrostat] 0.4 mg SUBLINGUAL Q5M PRN #25 tab 12/17/21 Prasugrel [Effient] 10 mg PO DAILY #30 tab 12/17/21 Allergies Allergy/AdvReac Type Severity Reaction Status Date / Time No Known Allergies Allergy Verified 01/24/22 16:13 Review of Systems ROS Statement: Those systems with pertinent positive or pertinent negative responses have been documented in the HPI. ROS Other: All systems not noted in ROS Statement are negative. Constitutional: Denies: fever Eyes: Denies: eye pain ENT: Denies: ear pain Respiratory: Denies: dyspnea Cardiovascular: Reports: chest pain Endocrine: Denies: fatigue Gastrointestinal: Denies: abdominal pain Genitourinary: Denies: dysuria Musculoskeletal: Denies: back pain Skin: Denies: rash Neurological: Denies: weakness Past Medical History Past Medical History: Coronary Artery Disease (CAD), Chest Pain / Angina, COPD, Diabetes Mellitus, GERD/Reflux, Hyperlipidemia, Hypertension, Myocardial Infarction ([place]) Additional Past Medical History / Comment(s): IDDM type II, neuropathy bilateral feet/legs, 2020 pancreatitis, chronic low back pain, gastric ulcer as a teen, benign colon polyps, Stent placed November 2021. Last Myocardial Infarction Date:: 2011 History of Any Multi-Drug Resistant Organisms: None Reported Past Surgical History: Back Surgery, Ear Surgery, Heart Catheterization With Stent, Hernia Repair, Orthopedic Surgery Additional Past Surgical History / Comment(s): 2011 PCI with stent to mid RCA, bilateral inguinal hernia repair as teen, bilateral carpal tunnel releases, back surgery for discs, colonoscopy, bilateral myringotomies/tubes. Past Anesthesia/Blood Transfusion Reactions: Postoperative Nausea & Vomiting (PONV) Additional Past Anesthesia/Blood Transfusion Reaction / Comment(s): PONV as a teen with surgery, none since. Date of Last Stent Placement:: . Past Psychological History: No Psychological Hx Reported Smoking Status: Current every day smoker Past Alcohol Use History: Occasional Past Drug Use History: None Reported - Past Family History Father Family Medical History: Coronary Artery Disease (CAD), Myocardial Infarction ([place]) Additional Family Medical History / Comment(s): Pt states heart disease runs s trongly on his father's side of family. Father is . Pt cannot recall at what age father had [place] Mother Family Medical History: Cancer Additional Family Medical History / Comment(s): Mother of renal cancer with mets. General Exam Limitations: no limitations General appearance: alert, in no apparent distress Head exam: Present: normocephalic Eye exam: Present: normal appearance Neck exam: Present: normal inspection Respiratory exam: Present: normal lung sounds bilaterally. Absent: chest wall tenderness Cardiovascular Exam: Present: regular rate, normal rhythm Expanded Peripheral pulses: 2+: Radial (R), Radial (L), Posterior Tibialis (R), Posterior Tibialis (L) GI/Abdominal exam: Present: soft. Absent: distended, tenderness Extremities exam: Present: normal inspection. Absent: pedal edema, calf tenderness Neurological exam: Present: alert Psychiatric exam: Present: normal affect, normal mood Skin exam: Present: normal color Course Vital Signs 01/24/22 01/24/22 16:06 16:14 Temperature 98.1 F Pulse Rate 73 Pulse Rate [ 73 [employer] ] Respiratory 18 Rate Blood Pressure 102/78 O2 Sat by Pulse 97 Oximetry EKG Findings - EKG Comments: EKG Findings:: Sinus rhythm with rate 71. NE 134. QRS 97. QT 39. QTc 412. Normal axis. Normal QRS. No acute ST change. Medical Decision Making - Medical Decision Making Patient reevaluated and resting comfortably in bed. Minimal discomfort at this time. Patient and family updated on results and plan. Some physician group has been paged for observation admission. - Lab Data Result diagrams: 01/24/22 16:51 01/24/22 16:51 Lab Results 01/24/22 01/24/22 01/24/22 Range/Units 16:51 16:51 16:51 WBC 8.1 (3.8-10.6) k/uL RBC 5.26 (4.30-5.90) m/uL Hgb 16.4 (13.0-17.5) gm/dL Hct 51.1 (39.0-53.0) % MCV 97.1 (80.0-100.0) fL MCH 31.2 (25.0-35.0) pg MCHC 32.2 (31.0-37.0) g/dL RDW 15.3 (11.5-15.5) % Plt Count 210 (150-450) k/uL MPV 8.0 Neutrophils % 69 % Lymphocytes % 20 % Monocytes % 4 % Eosinophils % 3 % Basophils % 1 % Neutrophils # 5.6 (1.3-7.7) k/uL Lymphocytes # 1.6 (1.0-4.8) k/uL Monocytes # 0.3 (0-1.0) k/uL Eosinophils # 0.3 (0-0.7) k/uL Basophils # 0.0 (0-0.2) k/uL PT 10.8 (9.0-12.0) sec INR 1.0 (<1.2) APTT 24.9 (22.0-30.0) sec D-Dimer 0.42 (<0.60) mg/L FEU Sodium 139 (137-145) mmol/L Potassium 4.3 (3.5-5.1) mmol/L Chloride 107 (98-107) mmol/L Carbon Dioxide 22 (22-30) mmol/L Anion Gap 10 mmol/L BUN 14 (9-20) mg/dL Creatinine 0.78 (0.66-1.25) mg/dL Est GFR (CKD-EPI)AfAm >90 (>60 ml/min/1.73 sqM) Est GFR (CKD-EPI)NonAf >90 (>60 ml/min/1.73 sqM) Glucose 103 H (74-99) mg/dL Calcium 9.0 (8.4-10.2) mg/dL Magnesium 2.2 (1.6-2.3) mg/dL Total Bilirubin 0.7 (0.2-1.3) mg/dL AST 19 (17-59) U/L ALT 21 (4-49) U/L Alkaline Phosphatase 66 (38-126) U/L Troponin I (0.000-0.034) ng/mL Total Protein 7.2 (6.3-8.2) g/dL Albumin 4.2 (3.5-5.0) g/dL 01/24/22 Range/Units 16:51 WBC (3.8-10.6) k/uL RBC (4.30-5.90) m/uL Hgb (13.0-17.5) gm/dL Hct (39.0-53.0) % MCV (80.0-100.0) fL MCH (25.0-35.0) pg MCHC (31.0-37.0) g/dL RDW (11.5-15.5) % Plt Count (150-450) k/uL MPV Neutrophils % % Lymphocytes % % Monocytes % % Eosinophils % % Basophils % % Neutrophils # (1.3-7.7) k/uL Lymphocytes # (1.0-4.8) k/uL Monocytes # (0-1.0) k/uL Eosinophils # (0-0.7) k/uL Basophils # (0-0.2) k/uL PT (9.0-12.0) sec INR (<1.2) APTT (22.0-30.0) sec D-Dimer (<0.60) mg/L FEU Sodium (137-145) mmol/L Potassium (3.5-5.1) mmol/L Chloride (98-107) mmol/L Carbon Dioxide (22-30) mmol/L Anion Gap mmol/L BUN (9-20) mg/dL Creatinine (0.66-1.25) mg/dL Est GFR (CKD-EPI)AfAm (>60 ml/min/1.73 sqM) Est GFR (CKD-EPI)NonAf (>60 ml/min/1.73 sqM) Glucose (74-99) mg/dL Calcium (8.4-10.2) mg/dL Magnesium (1.6-2.3) mg/dL Total Bilirubin (0.2-1.3) mg/dL AST (17-59) U/L ALT (4-49) U/L Alkaline Phosphatase (38-126) U/L Troponin I <0.012 (0.000-0.034) ng/mL Total Protein (6.3-8.2) g/dL Albumin (3.5-5.0) g/dL - Radiology Data Radiology results: image reviewed (Chest x-ray shows no acute process) Disposition Clinical Impression: Chest pain Disposition: ADMITTED IP TO THIS HOSP Is patient prescribed a controlled substance at d/c from ED?: No Referrals: Lorraine Solomon MD [Primary Care Provider] - 1-2 days Decision Time: 17:37
[2022-01-24 16:59] LABS: Basophils % (A) 1 %; Eosinophils # (A) 0.3 k/uL (0-0.7); Eosinophils % (A) 3 %; HCT 51.1 % (39.0-53.0); HGB 16.4 gm/dL (13.0-17.5); Lymphocytes # (A) 1.6 k/uL (1.0-4.8); Lymphocytes % (A) 20 %; MCH 31.2 pg (25.0-35.0); MCHC 32.2 g/dL (31.0-37.0); MCV 97.1 fL (80.0-100.0); Monocytes # (A) 0.3 k/uL (0-1.0); Monocytes % (A) 4 %; Neutrophils # (A) 5.6 k/uL (1.3-7.7); Neutrophils % (A) 69 %; Platelet Count 210 k/uL (150-450); RBC 5.26 m/uL (4.30-5.90); RDW 15.3 % (11.5-15.5); WBC 8.1 k/uL (3.8-10.6)
[2022-01-24 17:08] LABS: ALT 21 U/L (4-49); AST 19 U/L (17-59); African American GFR (CKD) >90 (>60 ml/min/1.73 sqM); Albumin 4.2 g/dL (3.5-5.0); Alkaline Phosphatase 66 U/L (38-126); Anion Gap 10 mmol/L; Blood Urea Nitrogen 14 mg/dL (9-20); Carbon Dioxide 22 mmol/L (22-30); Chloride 107 mmol/L (98-107); Glucose 103 mg/dL (74-99); Magnesium 2.2 mg/dL (1.6-2.3); Non-African American GFR(CKD) >90 (>60 ml/min/1.73 sqM); Potassium 4.3 mmol/L (3.5-5.1); Sodium 139 mmol/L (137-145); Total Bilirubin 0.7 mg/dL (0.2-1.3); Total Protein 7.2 g/dL (6.3-8.2)
--- NOTE | 2022-01-24 17:18 | XR ---
EXAMINATION TYPE: XR chest 2V DATE OF EXAM: 01/24/2022 COMPARISON: 12/16/2021 HISTORY: Chest pain TECHNIQUE: 2 views FINDINGS: Heart is normal. Lungs are clear of consolidation. There are no hilar masses. Costophrenic angles are clear. There are chest leads. There is old right-sided healed rib fractures. Thoracic spin e is intact. IMPRESSION: No active cardiopulmonary disease. Normal heart. No change.
[2022-01-24 17:19] LABS: Partial Thromboplastin Time 24.9 sec (22.0-30.0); Prothrombin Time 10.8 sec (9.0-12.0)
[2022-01-24] MEDS ORDERED: NITROGLYCERIN SL TABS 0.4 MG TAB SUBLINGUAL PRN (17:37)
[2022-01-24] MEDS: NITROGLYCERIN OINT 1 INCH/GM PACKET TOPICAL SCH (18:02)
[2022-01-24] MEDS ORDERED: ALPRAZolam 1 MG TAB PO PRN (23:37)
[2022-01-24] MEDS ORDERED: HEPARIN SODIUM 1,000 UN/ML (10ML VL) IV PRN (23:43)
[2022-01-24] MEDS ORDERED: HEPARIN SODIUM 1,000 UN/ML (10ML VL) IV ONE (23:43)
[2022-01-24] MEDS ORDERED: HEPARIN SOD,PORK IN 0.45% NACL 25,000 UNIT in 0.45% NACL 1 250ML.BAG IV SCH (23:45)
--- NOTE | 2022-01-24 23:45 | P.HPIM ---
History of Present Illness H&P Date: 01/24/22 Patient is a 57-year-old male with a PMH of type II DM, hypertension, coronary artery disease status post 2 stents, COPD, who presents to the emergency room with complaints of chest discomfort. The patient reports that he was at work at around 2 PM today when he developed substernal pressure-like discomfort. He is unable to quantify the pain, which is constant, nonradiating, with intermittent associated dizziness. He denied experiencing shortness of breath, palpitations, diaphoresis, nausea. Reports that the pain improved after roughly one hour when he received nitroglycerin. Reported feeling back to his baseline at the time of interview. EKG in emergency room reveals sinus rhythm at [address]/T- wave changes noted as reviewed by me. Chest x-ray was unremarkable. Laboratory evaluation was remarkable for troponin of less than 0.012. Review of systems: Pertinent positives and negatives as discussed in HPI, a complete review of systems was performed and all other systems are negative. Physical examination: General: non toxic, no distress, appears at stated age, obese Derm: no unusual rashes/lesions no unusual ecchymoses, warm, dry Head: atraumatic, normocephalic, symmetric Eyes: EOMI, no lid lag, anicteric sclera, pupils equal round reactive to light ENT: Nose and ears atraumatic, no thrush, no pharyngeal erythema Neck: No thyromegaly, no cervical lymphadenopathy, trachea midline, supple Mouth: no lip lesion, mucus membranes moist Cardiovascular: S1S2 reg, no murmur, positive posterior tibial pulse bilateral, no edema, capillary refill less than 2 seconds Lungs: CTA bilateral, no rhonchi, no rales , no accessory muscle use Abdominal: soft, nontender to palpation, no guarding, no appreciable organomegaly, normal bowel sounds Ext: no gross muscle atrophy, muscle strength 5 out of 5 in all 4 extremities grossly, no contractures, Neuro: CN II-XI grossly intact, light touch intact all 4 extremities, finger to nose within normal limits, Psych: Alert, oriented, appropriate affect Assessment/plan Unstable angina -Continue with aspirin -Heparin infusion -Cardiology consult -Cardiac monitoring -Trend troponin Chronic conditions: Type II DM, COPD, hypertension, hyperlipidemia -Continue with home meds -Check A1c -Insulin sliding scale and blood glucose monitoring DVT prophylaxis -Heparin Infusion The patient is admitted with an anticipated less than 2 midnight stay for evaluation of unstable angina CODE STATUS: Full Code Discussed with: Patient Anticipated discharge date: in am Anticipated discharge place: Home Past Medical History Past Medical History: Coronary Artery Disease (CAD), Chest Pain / Angina, COPD, Diabetes Mellitus, GERD/Reflux, Hyperlipidemia, Hypertension, Myocardial Infarction (NC) Additional Past Medical History / Comment(s): IDDM type II, neuropathy bilateral feet/legs, 2019 pancreatitis, chronic low back pain, gastric ulcer as a teen, benign colon polyps, Stent placed November 2021. Last Myocardial Infarction Date:: 2011 History of Any Multi-Drug Resistant Organisms: None Reported Past Surgical History: Back Surgery, Ear Surgery, Heart Catheterization With Stent, Hernia Repair, Orthopedic Surgery Additional Past Surgical History / Comment(s): 2011 PCI with stent to mid RCA, bilateral inguinal hernia repair as teen, bilateral carpal tunnel releases, back surgery for discs, colonoscopy, bilateral myringotomies/tubes. Past Anesthesia/Blood Transfusion Reactions: Postoperative Nausea & Vomiting (PONV) Additional Past Anesthesia/Blood Transfusion Reaction / Comment(s): PONV as a teen with surgery, none since. Date of Last Stent Placement:: . Past Psychological History: No Psychological Hx Reported Smoking Status: Current every day smoker Past Alcohol Use History: Occasional Past Drug Use History: None Reported - Past Family History Father Family Medical History: Coronary Artery Disease (CAD), Myocardial Infarction (NC) Additional Family Medical History / Comment(s): Pt states heart disease runs strongly on his father's side of family. Father is . Pt cannot recall at what age father had NC Mother Family Medical History: Cancer Additional Family Medical History / Comment(s): Mother of renal cancer with mets. Medications and Allergies Home Medications Medication Instructions Recorded Confirmed Type Atorvastatin [Lipitor] 80 mg PO DAILY 10/14/17 01/24/22 History buPROPion XL [Wellbutrin XL] 150 mg PO DAILY 12/16/21 01/24/22 History lisinopriL [Zestril] 5 mg PO DAILY 12/16/21 01/24/22 History Aspirin 81 mg PO DAILY 12/17/21 01/24/22 Rx Metoprolol Tartrate [Lopressor] 25 mg PO BID #60 tab 12/17/21 01/24/22 Rx Nitroglycerin Sl Tabs [Nitrostat] 0.4 mg SUBLINGUAL Q5M PRN #25 tab 12/17/21 01/24/22 Rx Prasugrel [Effient] 10 mg PO DAILY #30 tab 12/17/21 01/24/22 Rx Dulaglutide [Trulicity] 3 mg SQ DUENAS 01/24/22 01/24/22 History Empagliflozin [Jardiance] 25 mg PO DAILY 01/24/22 01/24/22 History Insulin Degludec [Tresiba 30 units SQ HS 01/24/22 01/24/22 History Flextouch U-200 Pen] Allergies Allergy/AdvReac Type Severity Reaction Status Date / Time No Known Allergies Allergy Verified 01/24/22 17:46 Physical Exam Vitals: Vital Signs Temp Pulse Pulse Resp BP Pulse Ox 01/24/22 18:02 77 18 111/65 97 01/24/22 16:14 73 01/24/22 16:06 98.1 F 73 18 102/78 97 Intake and Output 01/24/22 01/24/22 01/24/22 06:59 14:59 22:59 Other: Weight 113.398 kg Results CBC & Chem 7: 01/24/22 16:51 01/24/22 16:51 Labs: Abnormal Lab Results - Last 24 Hours (Table) 01/24/22 Range/Units 16:51 Glucose 103 H (74-99) mg/dL
[2022-01-25] MEDS: NITROGLYCERIN OINT 1 INCH/GM PACKET TOPICAL SCH ×4 (00:21→15:26)
[2022-01-25 06:13] LABS: Glucose,Whole Blood 106 mg/dL (75-99)
[2022-01-25] MEDS: INSULIN ASPART (NovoLOG) 100 UNIT/ML VIAL SQ SCH ×4 (06:23→20:56)
[2022-01-25] MEDS: ASPIRIN 325 MG TAB PO SCH (08:24)
[2022-01-25 10:07] LABS: Basophils # (A) 0.1 k/uL (0-0.2); Basophils % (A) 1 %; Eosinophils # (A) 0.3 k/uL (0-0.7); Eosinophils % (A) 4 %; HCT 50.7 % (39.0-53.0); HGB 16.4 gm/dL (13.0-17.5); Lymphocytes # (A) 1.6 k/uL (1.0-4.8); Lymphocytes % (A) 23 %; MCH 31.5 pg (25.0-35.0); MCHC 32.3 g/dL (31.0-37.0); MCV 97.3 fL (80.0-100.0); Mean Platelet Volume 7.9; Monocytes # (A) 0.4 k/uL (0-1.0); Monocytes % (A) 5 %; Neutrophils # (A) 4.5 k/uL (1.3-7.7); Neutrophils % (A) 64 %; Platelet Count 192 k/uL (150-450); RBC 5.21 m/uL (4.30-5.90); RDW 14.8 % (11.5-15.5)
[2022-01-25] MEDS ORDERED: PRASUGREL 10 MG TAB PO SCH (10:15)
[2022-01-25 10:33] LABS: African American GFR (CKD) >90 (>60 ml/min/1.73 sqM); Anion Gap 8 mmol/L; Blood Urea Nitrogen 13 mg/dL (9-20); Carbon Dioxide 27 mmol/L (22-30); Chloride 103 mmol/L (98-107); Glucose 88 mg/dL (74-99); Non-African American GFR(CKD) >90 (>60 ml/min/1.73 sqM); Potassium 4.7 mmol/L (3.5-5.1); Sodium 138 mmol/L (137-145)
--- NOTE | 2022-01-25 10:43 | P.CRDCN ---
History of Present Illness History of present illness: HISTORY OF PRESENTING ILLNESS The patient is a 56-year-old male, history of CAD, stenting of the LAD in 2012 has not been followed since 2013. Detail of the procedure is not available to me. He has a history of chronic tobacco use, hypertension, hyperlipidemia and diabetes who presented with an episode of chest discomfort. He smokes over a pack a day and drinks alcohol occasionally. He had a recent hospitalization 12/18/2021 with chest pain and pain down his arms and underwent heart catheterization with PCI of a LAD 80% stenosis. Otherwise there was mild disease. 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 He therefore taken nitroglycerin and EMS also checked his blood pressure was somewhat elevated. The pain slowly resided over the course of approximately 20-30 minutes. Troponins were noted to be normal 2 and then mildly elevated on the third, fourth is pending. He denies any re currence since yesterday. He admits he did stop taking his Effient for the last 5 days secondary to expense. REVIEW OF SYSTEMS At the time of my exam: CONSTITUTIONAL: Denies fever or chills. CARDIOVASCULAR: + chest pain, no shortness of breath, orthopnea, PND or palpitations. RESPIRATORY: Denies cough. GASTROINTESTINAL: Denies abdominal pain, diarrhea, constipation, nausea or vomiting. MUSCULOSKELETAL: Denies myalgias. NEUROLOGIC: Denies numbness, tingling or weakness. ENDOCRINE: Denies fatigue, weight change, polydipsia or polyurina. GENITOURINARY: Denies burning, hematuria or urgency with micturation. HEMATOLOGIC: Denies history of anemia or bleeding. PHYSICAL EXAMINATION Vital signs reviewed. CONSTITUTIONAL: No apparent distress. HEENT: Head is normocephalic. Pupils are equal, round. Sclerae anicteric. Mucous membranes of the mouth are moist. No JVD. No carotid bruit. CHEST EXAMINATION: Lungs are clear to auscultation. No chest wall tenderness is noted on palpation or with deep breathing. HEART EXAMINATION: Regular rate and rhythm. S1, S2 heard. No murmurs, gallops or rub. ABDOMEN: Soft, nontender. Positive bowel sounds. EXTREMITIES: 2+ peripheral pulses, no lower extremity edema and no calf tenderness. NEUROLOGIC EXAMINATION: Patient is awake, alert and oriented x3. ASSESSMENT 1. Typical angina improved with nitro with mildly elevated troponins concerning for unstable angina/non-STEMI. 2. Coronary artery disease with history of PCI LAD last in 11/2021 3. Hypertension 4. Hyperlipidemia 5. Tobacco abuse PLAN Patient with typical symptoms improve with nitro concerning for unstable angina. Patient also stopped his Effient concerning for possible stent thrombosis. Discussed recommendations for heart catheterization as patient is agreeable. Heart catheterization today and further recommendations to follow. Past Medical History Past Medical History: Coronary Artery Disease (CAD), Chest Pain / Angina, COPD, Diabetes Mellitus, GERD/Reflux, Hyperlipidemia, Hypertension, Myocardial Infarction (DC) Additional Past Medical History / Comment(s): IDDM type II, neuropathy bilateral feet/legs, 2019 pancreatitis, chronic low back pain, gastric ulcer as a teen, benign colon polyps, Stent placed November 2021. Last Myocardial Infarction Date:: 2011 History of Any Multi-Drug Resistant Organisms: None Reported Past Surgical History: Back Surgery, Ear Surgery, Heart Catheterization With Stent, Hernia Repair, Orthopedic Surgery Additional Past Surgical History / Comment(s): 2011 PCI with stent to mid RCA, bilateral inguinal hernia repair as teen, bilateral carpal tunnel releases, back surgery for discs, colonoscopy, bilateral myringotomies/tubes. Past Anesthesia/Blood Transfusion Reactions: Postoperative Nausea & Vomiting (PONV) Additional Past Anesthesia/Blood Transfusion Reaction / Comment(s): PONV as a teen with surgery, none since. Date of Last Stent Placement:: . Past Psychological History: No Psychological Hx Reported Additional Psychological History / Comment(s): Pt resides with his spouse. He is independent. Smoking Status: Current every day smoker Past Alcohol Use History: Occasional Additional Past Alcohol Use History / Comment(s): Pt started smoking in 1975 and is over a ppd smoker. Past Drug Use History: None Reported - Past Family History Father Family Medical History: Coronary Artery Disease (CAD), Myocardial Infarction (DC) Additional Family Medical History / Comment(s): Pt states heart disease runs strongly on his father's side of family. Father is . Pt cannot recall at what age father had DC Mother Family Medical History: Cancer Additional Family Medical History / Comment(s): Mother of renal cancer with mets. Medications and Allergies Home Medications Medication Instructions Recorded Confirmed Type Atorvastatin [Lipitor] 80 mg PO DAILY 10/14/17 01/24/22 History buPROPion XL [Wellbutrin XL] 150 mg PO DAILY 12/16/21 01/24/22 History lisinopriL [Zestril] 5 mg PO DAILY 12/16/21 01/24/22 History Aspirin 81 mg PO DAILY 12/17/21 01/24/22 Rx Metoprolol Tartrate [Lopressor] 25 mg PO BID #60 tab 12/17/21 01/24/22 Rx Nitroglycerin Sl Tabs [Nitrostat] 0.4 mg SUBLINGUAL Q5M PRN #25 tab 12/17/21 01/24/22 Rx Prasugrel [Effient] 10 mg PO DAILY #30 tab 12/17/21 01/24/22 Rx Dulaglutide [Trulicity] 3 mg SQ DUENAS 01/24/22 01/24/22 History Empagliflozin [Jardiance] 25 mg PO DAILY 01/24/22 01/24/22 History Insulin Degludec [Tresiba 30 units SQ HS 01/24/22 01/24/22 History Flextouch U-200 Pen] Allergies Allergy/AdvReac Type Severity Reaction Status Date / Time No Known Allergies Allergy Verified 01/24/22 17:46 Physical Exam Vitals: Vital Signs Temp Pulse Pulse Pulse Resp BP BP 01/25/22 07:45 97.4 F L 81 14 118/69 01/25/22 04:03 98.2 F 76 15 108/79 01/25/22 01:00 98.7 F 78 18 112/77 01/24/22 18:02 77 18 111/65 01/24/22 16:14 73 01/24/22 16:06 98.1 F 73 18 102/78 Pulse Ox 01/25/22 07:45 93 L 01/25/22 04:03 97 01/25/22 01:00 95 01/24/22 18:02 97 01/24/22 16:14 01/24/22 16:06 97 Intake and Output 01/24/22 01/25/22 01/25/22 22:59 06:59 14:59 Other: Weight 113.398 kg 113.398 kg Results 01/25/22 09:22 01/25/22 09:22 Cardiac Enzymes 01/24/22 01/24/22 01/24/22 Range/Units 16:51 16:51 18:52 AST 19 (17-59) U/L Troponin I <0.012 <0.012 (0.000-0.034) ng/mL 01/24/22 Range/Units 21:37 AST (17-59) U/L Troponin I 0.042 H* (0.000-0.034) ng/mL Coagulation 01/24/22 01/25/22 01/25/22 Range/Units 16:51 09:22 09:22 PT 10.8 11.0 (9.0-12.0) sec APTT 24.9 28.8 (22.0-30.0) sec CBC 01/24/22 01/25/22 Range/Units 16:51 09:22 WBC 8.1 7.0 (3.8-10.6) k/uL RBC 5.26 5.21 (4.30-5.90) m/uL Hgb 16.4 16.4 (13.0-17.5) gm/dL Hct 51.1 50.7 (39.0-53.0) % Plt Count 210 192 (150-450) k/uL Comprehensive Metabolic Panel 01/24/22 01/25/22 Range/Units 16:51 09:22 Sodium 139 138 (137-145) mmol/L Potassium 4.3 4.7 (3.5-5.1) mmol/L Chloride 107 103 (98-107) mmol/L Carbon Dioxide 22 27 (22-30) mmol/L BUN 14 13 (9-20) mg/dL Creatinine 0.78 0.79 (0.66-1.25) mg/dL Glucose 103 H 88 (74-99) mg/dL Calcium 9.0 9.0 (8.4-10.2) mg/dL AST 19 (17-59) U/L ALT 21 (4-49) U/L Alkaline Phosphatase 66 (38-126) U/L Total Protein 7.2 (6.3-8.2) g/dL Albumin 4.2 (3.5-5.0) g/dL Current Medications Generic Name Dose Route Start Last Admin Trade Name Freq PRN Reason Stop Dose Admin Alprazolam 1 mg 01/24/22 23:37 01/25/22 00:00 Alprazolam 1 Mg Tab PO 1 mg BID PRN Administration Anxiety Aspirin 325 mg 01/25/22 09:00 01/25/22 08:24 Aspirin 325 Mg Tab PO 325 mg DAILY [facility] Administration Atorvastatin Calcium 80 mg 01/26/22 09:00 Atorvastatin 80 Mg Tab PO DAILY [facility] Heparin Sodium (Porcine) 0 unit 01/24/22 23:43 Heparin Sodium 1,000 Un/Ml (10ml Vl) IV PER PROTOCOL PRN Low PTT Protocol Heparin Sodium/Sodium Chloride 250 mls @ 10.002 mls/hr 01/24/22 23:45 01/25/22 00:14 25,000 unit/ Sodium Chloride IV 8.82 units/kg/hr .Q24H MYRON 10.002 mls/hr Administration Protocol 8.82 UNITS/KG/HR Insulin Aspart 0 unit 01/25/22 07:30 01/25/22 06:23 Insulin Aspart (Novolog) 100 Unit/Ml Vial SQ Not Given ACHS [facility] Protocol Insulin Detemir 30 unit 01/25/22 21:00 Insulin Detemir (Levemir) 100 Unit/Ml Syr SQ HS [facility] Lisinopril 5 mg 01/25/22 10:15 Lisinopril 5 Mg Tab PO DAILY [facility] Metoprolol Tartrate 25 mg 01/25/22 10:15 Metoprolol Tartrate 25 Mg Tab PO BID [facility] Nitroglycerin 0.4 mg 01/24/22 17:37 Nitroglycerin Sl Tabs 0.4 Mg Tab SUBLINGUAL Q5M PRN Chest Pain Nitroglycerin 1 inch 01/24/22 18:00 01/25/22 06:25 Nitroglycerin Oint 1 Inch/Gm Packet TOPICAL 1 inch Q6HR [facility] Administration Patient's Own ( 25 mg 01/26/22 09:00 Empagliflozin [ PO Jardiance] 25 Mg DAILY [facility] Tablet) Prasugrel 10 mg 01/25/22 10:15 Prasugrel 10 Mg Tab PO DAILY [facility] Intake and Output 01/24/22 01/25/22 01/25/22 22:59 06:59 14:59 Other: Weight 113.398 kg 113.398 kg 01/25/22 09:22 01/25/22 09:22
[2022-01-25] MEDS: lisinopriL 5 MG TAB PO SCH (11:37)
[2022-01-25] MEDS: METOPROLOL TARTRATE 25 MG TAB PO SCH ×2 (11:37→20:56)
[2022-01-25 11:50] LABS: Glucose,Whole Blood 81 mg/dL (75-99)
[2022-01-25] MEDS ORDERED: HEPARIN SODIUM 1,000 UN/ML (10ML VL) ONE (16:47)
[2022-01-25] MEDS ORDERED: VERAPAMIL 2.5 MG/ML 2 ML AMP ONE (16:47)
[2022-01-25] MEDS ORDERED: LIDOCAINE 1% INJ 10MG/ML (20 ML MDV) ONE (16:47)
[2022-01-25] MEDS ORDERED: MIDAZOLAM 2 MG/2 ML VIAL IV ONE (16:56)
[2022-01-25] MEDS ORDERED: IV FLUID CONTINUATION 950 ML IV ONE (16:57)
[2022-01-25] MEDS ORDERED: LIDOCAINE 1% INJ 10MG/ML (20 ML MDV) SQ ONE (17:02)
[2022-01-25] MEDS ORDERED: VERAPAMIL SYRINGE (5 MG/10 ML) INTRAARTER ONE (17:02)
[2022-01-25] MEDS ORDERED: IOPAMIDOL-370 125ML BTL INJ ONE (17:13)
[2022-01-25] MEDS ORDERED: RX INFO: IV CONTRAST WAS GIVEN 1 EACH MISC MISCELLANE PRN (17:20)
[2022-01-25] MEDS ORDERED: CLOPIDOGREL 75 MG TAB ONE (17:21)
[2022-01-25] MEDS ORDERED: CLOPIDOGREL 75 MG TAB PO ONE (17:23)
--- NOTE | 2022-01-25 17:28 | P.PCN ---
Operative Findings: CARDIAC CATHETERIZATION PERFORMING PHYSICIAN: Addison Hernandes MD, RPVI PROCEDURE PERFORMED: 1. Selective right and left coronary angiogram 2. Left heart catheterization INDICATION: This is a 57-year-old gentleman with a CAD and prior stenting of the RCA and subsequently the LAD recently who presented to the hospital with chest discomfort after he stopped taking his dual antiplatelet therapy because of affordability issue. He continues to have a chest discomfort. The troponin came in to be abnormal and concerning for acute coronary syndrome COMPLICATION: None APPROACH: Right radial artery LEVEL OF SEDATION: Moderate with a sedation length of 12 minutes PROCEDURE DESCRIPTION: After obtaining an informed consent, the patient was brought to cardiac research laboratory manager. Local anesthesia was performed using lidocaine subcutaneously. The right radial artery was cannulated using Seldinger technique, the guidewire passed easily, following that we advanced a 5-Spanish sheath dilator assembly, the wire and dilator were removed and sheath was flushed. Following that, 2 mg of verapamil along with 5000 unit heparin were given. Selective right and left coronary angiogram using a 6-Spanish JR4 and JL 3.5 catheters. Following that we did left heart catheterization using 6-Spanish pigtail catheter. The procedure was completed there was no complication. SELECTIVE CORONARY ANGIOGRAM: The right coronary artery: Is a large caliber vessel and a dominant vessel. The RCA is a stented in the midportion and the stent is patent. The RCA distally bifurcates into PDA and PLV branches. The PDA branch has a tubular lesion in the midportion appears to be in the range of 60%. The PLV branch appears to have mild disease only. Left main: Is angiographically normal. Bifurcates into LCx and LAD The left circumflex: Is a large caliber vessel and nondominant vessel. The proximal left circumflex is angiographically normal. It gives rise into a large OM branch which bifurcates into 2 subbranches. The upper circumflex branch appears to have a tight lesion in the range of 70% but the artery becomes small. The second or lower subbranch appeared to be angiographically normal. The circumflex continue after that as a moderate caliber vessel in the AV groove The left anterior descending artery: The proximal LAD appears to have mild disease only. The mid LAD is a stented and the stent is patent. The LAD gives rises into multiple small diagonal branches. HEMODYNAMICS: The LVEDP was about 12 mmHg without significant gradient across aortic valve CONCLUSION: 1. Patent stent in the mid RCA. Intermediate lesion involving the PLV branch of the RCA 2. Patent stent in the mid LAD POSTPROCEDURE MANAGEMENT: Medical treatment. Change the Effient to Plavix Follow-up with the patient
[2022-01-25] MEDS ORDERED: SODIUM CHLORIDE 0.9% 1,000 ML IV SCH (17:30)
[2022-01-25 17:37] LABS: Glucose,Whole Blood 74 mg/dL (75-99)
--- NOTE | 2022-01-25 19:00 | P.PN ---
Subjective Progress Note Date: 01/25/22 (delayed charting seen at 1105) Principal diagnosis: chest pain Patient is a 57-year-old male with recent stents to the LAD and RCA in November 2021, COPD, hypertension, and diabetes who presented to the hospital with complaints of chest discomfort. In the ER he underwent an extensive evaluation. Initial EKG was without signs of ischemia, initial troponins were negative. He was subsequently admitted for further monitoring. He came to light patient had ran out of his effient approximately 7 days prior to admission. He was seen by cardiology who recommended cardiac catheterization. This was completed and showed patent stent to the RCA and LAD. Patient seen and examined at bedside. He reports his chest pain is resolved, has been since he received his nitro. With a long discussion regarding his symptoms prior to admission and him running out of Effient. He is also very concerned about his lower extremity skin thickness, neuropathy, and claudi cation. Patient hasn't followed with Dr. Hernandes and has Dopplers arranged for February. He reports that he takes his insulin regularly follows up with his primary care doctor. General: non toxic, no distress, appears at stated age Derm: warm, dry Head: atraumatic, normocephalic, symmetric Eyes: EOMI, no lid lag, anicteric sclera Mouth: no lip lesion, mucus membranes moist Cardiovascular: S1S2 reg, no murmur, positive posterior tibial pulse bilateral, Lungs: CTA bilateral, no rhonchi, no rales , no accessory muscle use Abdominal: soft, nontender to palpation, no guarding, no appreciable organomeg geraldo Ext: no gross muscle atrophy, no edema, no contractures Neuro: CN II-XI grossly intact, no focal neuro deficits Psych: Alert, oriented, appropriate affect Assessment/Plan: Unstable angina likely due to hypertensive urgency Mildly elevated troponin, due to elevated blood pressures -Negative -Off heparin drip -Aspirin, effient change to Plavix -Cardiology recommendations appreciated Diabetes mellitus type 2 -Continue with charting out, insulin, add sliding scale -Follow blood sugars -Check A1c Claudication -Continue outpatient follow-up Hypertensive urgency on arrival -Continue with metoprolol, lisinopril -Follow blood pressures Dyslipidemia -Statin Anticipate discharge home in a.m. Active Medications Generic Name Dose Route Start Last Admin Trade Name Freq PRN Reason Stop Dose Admin Alprazolam 1 mg 01/24/22 23:37 01/25/22 00:00 Alprazolam 1 Mg Tab PO 1 mg BID PRN Administration Anxiety Aspirin 325 mg 01/25/22 09:00 01/25/22 08:24 Aspirin 325 Mg Tab PO 325 mg DAILY [facility] Administration Atorvastatin Calcium 80 mg 01/26/22 09:00 Atorvastatin 80 Mg Tab PO DAILY [facility] Clopidogrel Bisulfate 75 mg 01/26/22 09:00 Clopidogrel 75 Mg Tab PO DAILY [facility] Sodium Chloride 1,000 mls @ 75 mls/hr 01/25/22 17:30 01/25/22 18:41 Saline 0.9% IV 01/25/22 22:31 Not Given .[id number] [facility] Insulin Aspart 0 unit 01/25/22 07:30 01/25/22 15:26 Insulin Aspart (Novolog) 100 Unit/Ml Vial SQ Not Given ACHS [facility] Protocol Insulin Detemir 30 unit 01/25/22 21:00 Insulin Detemir (Levemir) 100 Unit/Ml Syr SQ HS [facility] Lisinopril 5 mg 01/25/22 10:15 01/25/22 11:37 Lisinopril 5 Mg Tab PO 5 mg DAILY [facility] Administration Metoprolol Tartrate 25 mg 01/25/22 10:15 01/25/22 11:37 Metoprolol Tartrate 25 Mg Tab PO 25 mg BID [facility] Administration Miscellaneous Information 1 each 01/25/22 17:20 Rx Info: Iv Contrast Was Given 1 Each Misc MISCELLANE 01/27/22 17:21 DAILY PRN Per Protocol Nitroglycerin 0.4 mg 01/24/22 17:37 Nitroglycerin Sl Tabs 0.4 Mg Tab SUBLINGUAL Q5M PRN Chest Pain Nitroglycerin 1 inch 01/24/22 18:00 01/25/22 15:26 Nitroglycerin Oint 1 Inch/Gm Packet TOPICAL Not Given Q6HR [facility] Patient's Own ( 25 mg 01/26/22 09:00 Empagliflozin [ PO Jardiance] 25 Mg DAILY [facility] Tablet) Objective - Vital Signs Vital signs: Vital Signs Temp 97.7 F 01/25/22 11:09 Pulse 74 01/25/22 11:09 Resp 15 01/25/22 11:09 BP 105/57 01/25/22 11:09 Pulse Ox 93 L 01/25/22 11:09 Intake & Output 01/24/22 01/25/22 01/25/22 18:59 06:59 18:59 Intake Total 200 Balance 200 Weight 113.398 kg 113.398 kg Intake: IV 200 - Labs CBC & Chem 7: 01/25/22 09:22 01/25/22 09:22 Labs: Abnormal Lab Results - Last 24 Hours (Table) 01/24/22 01/25/22 01/25/22 Range/Units 21:37 06:12 09:22 POC Glucose (mg/dL) 106 H (75-99) mg/dL Hemoglobin A1c 7.8 H (0.0-6.0) % Troponin I 0.042 H* (0.000-0.034) ng/mL 01/25/22 01/25/22 Range/Units 09:22 17:35 POC Glucose (mg/dL) 74 L (75-99) mg/dL Hemoglobin A1c (0.0-6.0) % Troponin I 0.158 H* (0.000-0.034) ng/mL
[2022-01-25 20:18] LABS: Glucose,Whole Blood 173 mg/dL (75-99)
[2022-01-25] MEDS ORDERED: INSULIN DETEMIR (LEVEMIR) 100 UNIT/ML SYR SQ SCH (21:00)
[2022-01-26] MEDS: NITROGLYCERIN OINT 1 INCH/GM PACKET TOPICAL SCH ×2 (00:13→06:08)
[2022-01-26 03:04] LABS: Chol/HDL Ratio 4.39 Ratio; LDL Cholesterol,Calculated 71.2 mg/dL (0.0-131.0)
[2022-01-26 06:07] LABS: Glucose,Whole Blood 98 mg/dL (75-99)
[2022-01-26] MEDS: INSULIN ASPART (NovoLOG) 100 UNIT/ML VIAL SQ SCH (06:08)
[2022-01-26] MEDS: lisinopriL 5 MG TAB PO SCH (08:17)
[2022-01-26] MEDS: METOPROLOL TARTRATE 25 MG TAB PO SCH (08:17)
[2022-01-26] MEDS: ASPIRIN 325 MG TAB PO SCH (08:17)
[2022-01-26] MEDS ORDERED: ATORVASTATIN 80 MG TAB PO SCH (09:00)
[2022-01-26] MEDS ORDERED: CLOPIDOGREL 75 MG TAB PO SCH (09:00)
[2022-01-26] MEDS ORDERED: PATIENT'S OWN (Empagliflozin [Jardiance] 25 MG Tablet) PO SCH (09:00)
[2022-01-26 09:02] VITALS: BP 106/57; PULSE 74; RESP 18; TEMP 98
--- NOTE | 2022-01-26 16:38 | P.DS ---
Providers Date of admission: 01/25/22 15:21 Expected date of discharge: 01/26/22 Attending physician: Dalia Barnes MD Consults: 01/24/22 17:37 Consult Physician Urgent Consulting Provider: Addison Hernandes Consult Reason/Comments: cp Do you want consulting provider notified?: Yes Primary care physician: Lorraine Solomon Hospital Course: Discharge Diagnosis: Hypertensive urgency Chest pain due to hypertensive urgency Diabetes mellitus type 2 Claudication Dyslipidemia Hospital Course: Patient is a 57-year-old male with recent stents to the LAD and RCA in November 2021, COPD, hypertension, and diabetes who presented to the hospital with complaints of chest discomfort. In the ER he underwent an extensive evaluation. Initial EKG was without signs of ischemia, initial troponins were negative. He was subsequently admitted for further monitoring. He came to light patient had ran out of his effient approximately 7 days prior to admission. He was seen by cardiology who recommended cardiac catheterization. This was completed and showed patent stent to the RCA and LAD. He remiained chart pain free and blood pressure was well controlled. He was determined stable for dishcarge. Follow-up: started on plavix instead of effient. Follow-up with Dr. Hernandes in [address] Solomon in 2 weeks. Patient seen and examined at bedside. Feeling well. Chest pain-free. Months ago home. Instructions given verbally the patient underwent to return to the hospital regarding his leg discomfort, leg discoloration coming in the open ulcerations, recurrent chest pain. Vital signs reviewed and stable. General: non toxic, no distress, appears at stated age Derm: warm, dry Head: atraumatic, normocephalic, symmetric Eyes: EOMI, no lid lag, anicteric sclera Mouth: no lip lesion, mucus membranes moist Cardiovascular: S1S2 reg, no murmur, positive posterior tibial pulse bilateral, Lungs: CTA bilateral, no rhonchi, no rales , no accessory muscle use Abdominal: soft, nontender to palpation, no guarding, no appreciable organomegaly Ext: no gross muscle atrophy, no edema, no contractures Neuro: CN II-XI grossly intact, no focal neuro deficits Psych: Alert, oriented, appropriate affect A total of 25 minutes of time were spent preparing this complex discharge summary . Patient Condition at Discharge: Stable Plan - Discharge Summary Discharge Rx Participant: No New Discharge Prescriptions: New Clopidogrel [Plavix] 75 mg PO DAILY #30 tab Continue Atorvastatin [Lipitor] 80 mg PO DAILY buPROPion XL [Wellbutrin XL] 150 mg PO DAILY lisinopriL [Zestril] 5 mg PO DAILY Aspirin 81 mg PO DAILY Metoprolol Tartrate [Lopressor] 25 mg PO BID #60 tab Dulaglutide [Trulicity] 3 mg SQ DUENAS Insulin Degludec [Tresiba Flextouch U-200 Pen] 30 units SQ HS Nitroglycerin Sl Tabs [Nitrostat] 0.4 mg SUBLINGUAL Q5M PRN #25 tab PRN Reason: Chest Pain Empagliflozin [Jardiance] 25 mg PO DAILY Discontinued Prasugrel [Effient] 10 mg PO DAILY #30 tab Discharge Medication List Atorvastatin [Lipitor] 80 mg PO DAILY 10/14/17 [History] buPROPion XL [Wellbutrin XL] 150 mg PO DAILY 12/16/21 [History] lisinopriL [Zestril] 5 mg PO DAILY 12/16/21 [History] Aspirin 81 mg PO DAILY 12/17/21 [Rx] Metoprolol Tartrate [Lopressor] 25 mg PO BID #60 tab 12/17/21 [Rx] Nitroglycerin Sl Tabs [Nitrostat] 0.4 mg SUBLINGUAL Q5M PRN #25 tab 12/17/21 [Rx] Dulaglutide [Trulicity] 3 mg SQ DUENAS 01/24/22 [History] Empagliflozin [Jardiance] 25 mg PO DAILY 01/24/22 [History] Insulin Degludec [Tresiba Flextouch U-200 Pen] 30 units SQ HS 01/24/22 [History] Clopidogrel [Plavix] 75 mg PO DAILY #30 tab 01/26/22 [Rx] Follow up Appointment(s)/Referral(s): Addison Hernandes MD [Family Provider] - 02/03/22 9:30 am Lorraine Solomon MD [Primary Care Provider] - 01/30/22 12:00 pm Patient Instructions/Handouts: Heart Catheterization (DC) Activity/Diet/Wound Care/Special Instructions: Activity: as tolerated Diet: consistent carb, heart healthy Wound Care: monitor feet daily for skin breakdown, seek medical care if any open wounds develop Special Instructions: Please take all medications as prescribed, keep all follow-up appointments Continue to monitor blood sugar Thank you for trusting us to care for you. We wish you well on your journey to better health. Remember we have to take care of ourselves if we want to keep caring for others. Discharge Disposition: HOME SELF-CARE
== END 2022-01-26 11:32 | disposition home or self-care (01) | DRG 287 ==
LOC: EC 16:05 → 6NMEDSUR 17:37 → 3SCARD 01-25 00:06 → OBSVTOIN 01-25 15:21
PROVIDERS: ADMIT Internal Medicine; ATTEND Internal Medicine
PROC: B2111ZZ Fluoroscopy of Multiple Coronary Arteries using Low Osmolar Contrast (ICD-10-PCS; 2022-01-25)
PROC: 4A023N7 Measurement of Cardiac Sampling and Pressure, Left Heart, Percutaneous Approach (ICD-10-PCS; principal; 2022-01-25 11:30)
DX: I25.110 Atherosclerotic heart disease of native coronary artery with unstable angina pectoris (principal); E11.51 Type 2 diabetes mellitus with diabetic peripheral angiopathy without gangrene; E78.5 Hyperlipidemia, unspecified; F17.210 Nicotine dependence, cigarettes, uncomplicated; R79.89 Other specified abnormal findings of blood chemistry; F41.9 Anxiety disorder, unspecified; E11.42 Type 2 diabetes mellitus with diabetic polyneuropathy; I10 Essential (primary) hypertension; I16.0 Hypertensive urgency; I25.2 Old myocardial infarction; J44.9 Chronic obstructive pulmonary disease, unspecified; Z79.02 Long term (current) use of antithrombotics/antiplatelets; Z79.4 Long term (current) use of insulin; Z79.82 Long term (current) use of aspirin; Z79.899 Other long term (current) drug therapy; Z80.51 Family history of malignant neoplasm of kidney; Z82.49 Family history of ischemic heart disease and other diseases of the circulatory system; Z87.11 Personal history of peptic ulcer disease; Z87.19 Personal history of other diseases of the digestive system; Z95.5 Presence of coronary angioplasty implant and graft; Z86.010 Personal history of colon polyps
CPT/HCPCS: 36415; 71046; 80048; 80053; 80061; 83036; 83735; 84484; 85025; 85379; 85610; 85730; 93005; 93458; 96374; 99285

== ENCOUNTER 2022-08-29 14:36 | Emergency (ER) | payer BC, OTHER ==
[2022-08-29] MEDS ORDERED: HYDROmorphone 1 MG/ML 1 ML SYRINGE IM STA (14:48)
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
--- NOTE | 2022-08-29 15:29 | XR ---
EXAMINATION TYPE: XR knee complete LT DATE OF EXAM: 08/29/2022 COMPARISON: NONE HISTORY: Pain TECHNIQUE: Three views are submitted. FINDINGS: Joint spaces are preserved. Osseous structures are intact. No acute fracture seen. Large suprapatel lar bursal fluid collection. Vascular calcifications are seen in this spurring of the patella with mi ld narrowing of the femoral joint. IMPRESSION: 1. No acute fracture. 2. Large suprapatellar bursal fluid collection.
[2022-08-29] MEDS ORDERED: HYDROcodone/APAP 10-325MG 1 EACH TAB PO ONE (15:59)
[2022-08-29 16:39] VITALS: BP 134/76; PULSE 77; RESP 17; TEMP 98.8
== END 2022-08-29 16:35 | disposition home or self-care (01) ==
LOC: EC 14:36
DX: M25.062 Hemarthrosis, left knee (principal); M25.462 Effusion, left knee; I25.10 Atherosclerotic heart disease of native coronary artery without angina pectoris; J44.9 Chronic obstructive pulmonary disease, unspecified; E11.9 Type 2 diabetes mellitus without complications; K21.9 Gastro-esophageal reflux disease without esophagitis; E78.5 Hyperlipidemia, unspecified; I10 Essential (primary) hypertension; I25.2 Old myocardial infarction; F17.200 Nicotine dependence, unspecified, uncomplicated; Z79.811 Long term (current) use of aromatase inhibitors; Z79.899 Other long term (current) drug therapy; Z79.82 Long term (current) use of aspirin; W19.XXXA Unspecified fall, initial encounter; W01.0XXA Fall on same level from slipping, tripping and stumbling without subsequent striking against object, initial encounter
CPT/HCPCS: 73562; 99283; 96372; J1170

== ENCOUNTER → 2023-02-23 | Outpatient (CLI) | payer BC ==
--- NOTE | 2023-02-25 19:55 | MR ---
EXAMINATION TYPE: MR lumbar spine wo con DATE OF EXAM: 02/23/2023 COMPARISON: 08/15/2016 HISTORY: 58-year-old male M47.26, Lower back pain, BLE radiculopathy x 1 year, hx surgery. TECHNIQUE: Multiplanar, multisequence images of the lumbar spine were acquired without IV contrast. FINDINGS: Vertebral body heights are preserved and alignment is maintained. Moderate to advanced degenerative disc disease L5-S1 with further disc space narrowing and disc bulgi ng compared to prior exam. Mild degenerative disc desiccation, disc bulging and, in variable mild disc height narrowing at addit ional levels throughout the lumbar spine also appear to have slightly progressed from 2016. Hypertrophic facet arthropathy throughout with scattered ligamentum flavum thickening. 7 new periarti cular edema on the right at L5-S1 probably acute exacerbation of underlying OA. There is a component of mild congenital spinal canal narrowing in the lumbar spine with AP canal dime nsion of 1.3 cm. Conus medullaris is normal. No suspicious bone marrow replacement. At T12-L1, no canal or foraminal stenosis. At L1-L2, there is diffuse disc bulge with superimposed right paracentral disc protrusion. This resul ts in mild overall narrowing of the spinal canal and [id number] right neuroforaminal stenosis, progressed from prior exam. At L2-L3, diffuse disc bulge with some ligamentum flavum thickening. Mild overall spinal canal stenos is. There is mild left neural foraminal stenosis, similar to prior. At L3-L4, diffuse disc bulge with prominent dorsal epidural fat, ligamentum flavum thickening, and fa cet arthropathy. There is mild circumferential attenuation of the thecal sac without significant spin al canal stenosis. Mild left greater than right neural foraminal stenosis is similar. At L4-L5, mild disc bulge with hypertrophic facet arthropathy and ligamentum flavum thickening. No si gnificant spinal canal stenosis. There is mild bilateral neuroforaminal stenosis, relatively similar. At L5-S1, disc bulge and disc osteophyte complexes often either side. Hypertrophic facet arthropathy, especially on the right. No significant spinal canal stenosis. There is moderate to severe right and moderate left neuroforaminal stenosis. Suspect impingement of the exiting right L5 nerve root at thi s level. Probable abutment of the traversing right S1 nerve root at this level as well. No prevertebral or paravertebral soft tissue abnormality. IMPRESSION: 1. Mild multilevel degenerative disc disease, more moderate to severe at L5-S1. Scattered ligamentum flavum thickening and hypertrophic facet arthropathy. Overall changes show slight progression from 20 16. 2. Some periarticular edema right L5-S1 facet joint may reflect acute exacerbation of underlying OA. Adjacent right L5 laminotomy defect. 3. Mild overall narrowing of the spinal canal at both L1-L2 and L2-L3. No large focal disc herniation or significant spinal canal stenosis. 4. At L5-S1, there is moderate to severe right neural foraminal stenosis likely with impingement of t he exiting right L5 nerve root. Disc osteophyte complex here likely abuts the traversing right S1 ner ve root as well.
== END | disposition home or self-care (01) ==
LOC: RADMRIMAIN 12:58
PROVIDERS: ATTEND Nurse Practitioner Family
DX: M47.26 Other spondylosis with radiculopathy, lumbar region (principal); M51.16 Intervertebral disc disorders with radiculopathy, lumbar region; M99.73 Connective tissue and disc stenosis of intervertebral foramina of lumbar region; M25.78 Osteophyte, vertebrae
CPT/HCPCS: 72148

== ENCOUNTER → 2023-03-29 | Outpatient (CLI) | payer BC ==
--- NOTE | 2023-03-29 08:34 | CT ---
EXAMINATION TYPE: CT lumbar spine wo con DATE OF EXAM: 03/29/2023 COMPARISON: Correlation MRI 02/23/2023 HISTORY: 58-year-old male Low back pain. TECHNIQUE: Contiguous axial scanning of the lumbar spine without IV contrast. Coronal and sagittal re constructions performed. CT DLP: 1799.4 mGycm Automated exposure control for dose reduction was used. FINDINGS: Vertebral body heights are preserved and alignment is maintained. Slight dextroconvex curvature along the mid to lower lumbar spine. Previous right L5 laminotomy defect. Moderate degenerative disc disease noted at L1-L2 with narrowed, desiccated, and bulging disc. Some a ssociated endplate sclerosis is present especially towards the right. More moderate to severe degenerative disc disease L5-S1 with disc osteophyte complex formation. Hypertrophic facet arthropathy throughout the lumbar spine. Changes result in overall mild spinal canal stenosis at L1-L2 and L2-L3. Mild disc bulging impressing on the ventral thecal sac also at L3-L4, L4-L5, and L5-S1 but without significant spinal canal steno sis. On the right, there may be a severe neuroforaminal stenosis at L5-S1 and moderate at multiple additio nal levels from L1 through L5. On the left, moderate neuroforaminal stenosis L3-S1 levels. * Suspect some underlying cysts within the posterior right liver lobe. * There may be a tiny hiatal hernia. IMPRESSION: 1. PREVIOUS RIGHT L5 LAMINOTOMY DEFECT. 2. SLIGHT DEXTROCONVEX CURVATURE MID TO LOWER LUMBAR SPINE. THIS RESULTS IN ACCENTUATED DEGENERATIVE DISC DISEASE TOWARDS THE RIGHT AT L1-L2. ADDITIONAL MODERATE TO SEVERE DEGENERATIVE DISC DISEASE L5-S 1. MILD DEGENERATIVE DISC DISEASE AT other levels. 3. Bulging disc contributes to mild overall spinal canal stenosis at both L1-L2 and L2-L3. Disc bulge s impress upon the ventral thecal sac at additional levels but without significant spinal canal steno sis. 4. Variable neuroforaminal stenoses as outlined above, severe on the right at L5-S1. Moderate at mult iple levels on both sides.
== END | disposition home or self-care (01) ==
LOC: RADCTMAIN 06:18
PROVIDERS: ATTEND Orthopaedic Surgery
DX: M43.16 Spondylolisthesis, lumbar region (principal); M51.16 Intervertebral disc disorders with radiculopathy, lumbar region; M47.26 Other spondylosis with radiculopathy, lumbar region; M99.73 Connective tissue and disc stenosis of intervertebral foramina of lumbar region
CPT/HCPCS: 72131

== ENCOUNTER → 2023-05-25 | Outpatient (CLI) | payer BC | END | disposition home or self-care (01) | LOC: LABPAT 10:50 | PROVIDERS: ATTEND Orthopaedic Surgery | DX: Z01.812 Encounter for preprocedural laboratory examination (principal); M48.061 Spinal stenosis, lumbar region without neurogenic claudication; M47.816 Spondylosis without myelopathy or radiculopathy, lumbar region; Z22.322 Carrier or suspected carrier of Methicillin resistant Staphylococcus aureus | CPT/HCPCS: 87070 ==

== ENCOUNTER 2023-05-31 10:10 | Day surgery (SDC) | payer BC ==
[2023-05-25 09:50] VITALS: BMI 33.6
--- NOTE | 2023-05-31 08:51 | P.HPOR ---
History of Present Illness H&P Date: 05/23/23 Chief Complaint: Low back pain, LE radiculopathy .D:Date: 05/23/23 : 08:49am .T:Title: *[facility] Date of :63 [id number]: NKDA Age: 58 year Height: 6'1" Weight: 250 lbs BP:152/75 BMI: 32.98 kg/m2 Occupation: Unemployed VAS: 8 CHIEF COMPLAINT: Preoperative evaluation for right-sided L5-S1 MIS TLIF DOI: Chronic DOS: 2017 / Lumbar microdiscectomy of unknown level Duration of current treatment regiment:> 6 months HISTORY : Xrays No new xrays taken in office Trauma or injury No Work-Related No Pain description Sharp& shooting Location Posterior Patient notes that their pain radiates to the bilateral lower extremities Activity Modification Yes Hand Dominance Right TREATMENTS COMPLETED: 6 weeks of PT completed? Month and Year of last PT date? No, patient went to 1 visit and can not afford copay. Physician directed home exercise completed? Yes, Patient has completed 4 weeks of 20m/day, without relief of his symptoms. Medications Yes; List: Flexeril & Gabapentin Alternative interventions Chiropractic:No Massage therapy:No R.I.C.E:Yes Brace:No Injections No RFA:No SUBJECTIVE: Mr. Ramirez presents to the office today for a preoperative evaluation preceeding his previously scheduled right-sided L5-S1 MIS TLIF. The patient reports experiencing a continued sharp, shooting pain throughout the low back that radiates down into the bilateral upper extremities. The patient notes that his lower extremity pain is associated with numbness and tingling. The patient notes increased difficulty with completing regular activities of daily living, as his symptoms are exacerbated by all activity. The patient states that his symptoms have been progressively worsening over the last 3 to 4 weeks. The patient notes that his symptoms have started to become intractable. The patient reports experiencing severe sleep disturbances related to his ongoing pain and associated symptoms. The patient has trialed conservative treatment measures in the form of at home stretches/exercises, at home heat/ice therapies, and activity modification, all without any significant or sustained relief. The patient is currently taking Flexeril, and Gabapentin with no significant relief. Otherwise the patient denies any f/c/sob/cp, no bladder or bowel retention/incontinence, no perineal numbness/tingling, and ambulates independently today. HPI: Mr. Ramirez returns to the office on 04/20/2023 for a re-check of his low back pain and to review recent CT scan results. The patient reports experiencing continued pain throughout the low back with a sharp, shooting quality. The patient also notes continued pain radiating from the low back down into the bilateral lower extremities, worse on the right compared to the left. He also reports experiencing a recent onset of numbness and tingling throughout the lower extremities. The patient states that his low back and bilateral leg pain have been gradually worsening over the last 1 to 2 months. The patient notes that his symptoms are aggravated by all activities. He notes that his current symptoms make it difficult for him to complete many of his regular activities of daily living. The patient is having severe sleep disturbances due to his ongoing symptoms. The patient has trialed conservative treatment measures in the form of at home stretches/exercises, at home heat/ice therapies, and activity modification, all without any significant or sustained relief. The patient is currently taking Duloxetine, Flexeril, and Gabapentin. The patient notes that Flexeril provides him with mild relief of pain. Otherwise the patient denies any f/c/sob/cp, no bladder or bowel retention/incontinence, no perineal numbness/tingling, and ambulates independently today. Mr. Ramirez returns to the office on 03/23/2023 for a re-check of his low back pain. The patient states that his symptoms have remained relatively stable since his last in office evaluation on 03/01/2023. He continues to experience a sharp lumbar pain that radiates down into the posterior aspect of the left lower extremity.He currently denies any numbness or tingling throughout the lower extremities.Patient states that his symptoms are exacerbated with prolonged walking or standing. The patient currently takes Flexeril, Gabapentin, and Tylenol with mild relief of his current symptoms. Otherwise the patient denies any f/c/sob/cp, no bladder or bowel retention/incontinence, no perineal numbness/tingling, and ambulates independently today. Mr. Ramirez returns to the office on 03/01/2023 for a recheck of his low back pain and MRI results. Since the last visit patient states he has not had any changes in his symptoms. He continues to report sharp lumbar pain that radiates into the bilateral lower extremities, into his thighs. He currently denies any numbness or tingling.Patient does state the new prescription of Flexeril did provide some relief. He did not find any changes with Gabapentin. Patient continues taking Tylenol ES as well with some relief. MRI results have been reviewed and discussed. Patient feels he has exhausted all conservative measures that may benefit him and would like to proceed with an appt with Dr. Shaffer to discuss his options. Otherwise the patient denies any f/c/sob/cp, no bladder or bowel retention/incontinence, no perineal numbness/tingling, and ambulates independently. Mr. Ramirez was last seen on 02/12/2023 regarding a recheck of his low back pain. Since last office visit patient was unable to complete physical therapy. He states he did go to one visit but cannot afford the co-pay. Patient has been performing HEP as described above with temporary relief of his symptoms. Patient does report continued sharp lumbar pain that radiates into the bilateral lower extremities. He currently denies any numbness or tingling. Mr. Hood states his symptoms are exacerbated with prolonged standing and flexion or extension of his back. For his symptoms patient has been taking Tylenol. Otherwise the patient denies any f/c/sob/cp, no bladder or bowel retention/incontinence, no perineal numbness/tingling, and ambulates independently. Mr. Ramirez was last seen on 01/02/2023 regarding an evaluation of their low back pain. Patient reports a constant sharp lumbar pain ongoing for many years that has progressed over the past 4 months with no known injury or trauma to indicate an exact onset of their symptoms. In addition to their lumbar pain, they do report that it radiates into the bilateral lower extremities, associated with numbness and tingling. Patient reports having issues with sciatica in the past. Overall the patient has seen a progressive increase in symptoms since their onset. Mr. Ramirez symptoms are exacerbated with prolonged standing and flexion or extension of his back, due to this they note that it is increasingly difficult for Mr. Ramirez to complete many of their daily tasks. Patient is having moderate sleep disturbances as well due to their ongoing pain and associated symptoms. Regarding treatments, the patient has previously trialed the above listed modalities. Patient denies trialing any other modalities at this time. For their symptoms, the patient has been taking Tylenol ES. He is also on Plavix due to cardiac stent placement. Otherwise the patient denies any f/c/sob/cp, no bladder or bowel retention/incontinence, no perineal numbness/tingling, and ambulates independently. The patients' past social, medical, family, surgical history, as well as review of systems, have been reviewed. Please refer to the Neurosurgery History and Physical form that has been scanned in to our electronic medical record system. 14 points review of systems completed and as stated in HPI, all other systems reviewed are negative. Social History:Reviewed, see appropriate section of the chart for details. P3 Family History:Reviewed, see appropriate section of the chart for details. P2 Past Medical History:Reviewed, see appropriate section of the chart for details. [id number] Medications: Rx: aspirin 81 mg tablet,delayed release Ref: 0 Rx: atorvastatin Ref: 0 Rx: DULoxetine Ref: 0 Rx: metoprolol tartrate Ref: 0 Rx: Plavix 75 mg tablet Ref: 0 Rx: Tresiba U-100 Insulin Ref: 0 Rx: Trulicity 3 mg/0.5 mL subcutaneous pen injector Ref: 0 Rx: Tylenol Extra Strength 500 mg tablet Ref: 0 Rx: cyclobenzaprine 5 mg tablet Ref: 0 Rx: gabapentin 300 mg capsule Ref: 0 P1 PHYSICAL EXAMINATION: General:Awake, alert, appropriate for age, in no acute distress. HEENT:No unusual neck masses around region of lateral neck triangle, thyroid, supraclavicular groove Heart:Regular rate and rhythm, normal S1, S2 and no murmur/gallop. Lungs:Clear to auscultation bilaterally with no use of accessory muscles. Extremities:Skin warm and dry without acute lesions, coloration, temperature, skin intact, no tenderness or erythema Integument: Hairy patches:ABSENT Dorsal skin dimples:ABSENT Cafe au lait spots:ABSENT Surgical incisions:n/a Palpation: Please see Pain drawing on Intake sheet for further detail. Midline spinal tenderness: No E6 Cervical Tenderness: No E6 Paralumbar tenderness: he has E6 Parathoracic tenderness: No E6 Buttocks tenderness: he has E6 Sacroiliac Tenderness: No POSTURAL and MUSCULO-SKELETAL EVALUATION: Coronal Balance: NEUTRAL Recumbent testing:Patient isable to lay flat on back Sagittal Balance:NEUTRAL Shoulder Profile:LEVEL Pelvic Girdle:LEVEL Neck ROM: UNRESTRICTED Lumbar ROM:RESTRICTED Shoulder ROM:Symmetrical Hip ROM:Symmetrical Knee ROM:Symmetrical Hands:Normal appearance, symmetrical Feet:Normal appearance, Symmetrical VASCULAR STATUS : LEFTRIGHT Wrist Pulses INTACT INTACT Pedal Pulses (Dors. pedis & post.tibialis) INTACT INTACT Color NORMAL NORMAL Edema Absent Absent NEUROLOGIC EXAMINATION: Mental Status:Awake and alert, fully oriented, with normal attention, concentration and memory, and fluent, appropriate speech. Cranial Nerves: I: Olfactory not tested. II: Visual acuity normal, no visual field deficit noted with confrontation. III,IV: Normal pupillary reflexes & intact extraocular movements without nyst agmus. V,: Intact symmetrical facial sensation. VII: Intact symmetrical facial motor movement VIII: Hearing intact. IX,X: Intact gag, swallow, & normal voice. XI: Sternocleidomastoid, trapezius function intact. XII: Tongue midline with normal movements. L'hermitte's Sign: Negative / absent Spurling'Sign: Absent bilaterally. Cubital percussion test: Absent bilaterally. Schofield-Tinel sign - Carpal region: Absent bilaterally. Straight Leg Raising: Absent bilaterally. Crossed straight leg raise: negative O8 MOTOR EXAM (0-5/5, N/T Muscle appearance: Symmetrical, without signs of atrophy or dystrophy UPPER EXTREMITY RIGHT LEFT Shoulder Abduction 5/5 5/5 Biceps 5/5 5/5 Triceps 5/5 5/5 Wrist Extension 5/5 5/5 Hand Intrinsic 5/5 5/5 [place] [employer] Member 5/5 5/5 LOWER EXTREMITY RIGHT LEFT Hip Flexion 5/5 5/5 Knee Extension 5/5 5/5 Knee Flexion 5/5 5/5 Dorsiflexion 5/5 5/5 Plantarflexion 4/5 4+/5 EHL 5/5 5/5 FHL 5/5 5/5 Toe heel walk / heel-toe walk intact while maintaining satisfactory balance? yes Single leg stance: intact Trendelenburg sign negative bilaterally REFLEXES(0-4/2, NT)Upper ExtremityLower Extremity Right 2 2 Left 2 2 Pathological Reflexes RIGHT LEFT Schofield's Absent Absent Clonus Absent Absent Babinski Absent Absent Sensory system (0-4, N/T) Test type RU TENZIN RL LL Joint-Position 2 2 2 2 Vibration 2 2 2 2 Pain & LT sense 2 2 2 2 Dermatomal Deficit: None None L5-S1 L5-S1 Gait and Functional Evaluation: Ambulatory aids:Independent Romberg's test:Intact bilaterally Steady Gait RADIOGRAPHIC STUDIES: No new x-rays taken in office today. CT [facility] Images reviewed with patient These demonstrate 2 areas of interest L5-S1 there is vacuum disc phenomena severe facet arthrosis disc osteophyte complex causing moderate to severe central and bilateral foraminal stenosis as well as facet arthropathy. There is facet arthrosis noted at L3 through L5 as well. There is vacuum disc phenomenon at L1-L2 as well. There is no severe facet arthrosis at this level however there are sclerotic endplates as well as increased segmental kyphosis secondary to the collapse of the disc. No other acute fracture or dislocation is noted. Flattening of the normal lumbar lordosis is noted. The L5-S1 findings correlate with the patient's symptoms [facility] - Re-reviewed with the patient today. IMPRESSION: 1. Mild multilevel degenerative disc disease, more moderate to severe at L5-S1. Scattered ligamentum flavum thickening and hypertrophic facet arthropathy. Overall changes show slight progression from 2016. 2. Some periarticular edema right L5-S1 facet joint may reflect acute exacerbation of underlying OA. Adjacent right L5 laminotomy defect. 3. Mild overall narrowing of the spinal canal at both L1-L2 and L2-L3. No large focal disc herniation or significant spinal canal stenosis. 4. At L5-S1, there is moderate to severe right neural foraminal stenosis likely with impingement of the exiting right L5 nerve root. Disc osteophyte complex here likely abuts the traversing right S1 nerve root as well. IMPRESSION: It was my pleasure to have seen and examinedMichael. I reviewed the patient's clinical syndrome, physical findings, and imaging studies during the appointment today. It is my impression that the patient has a diagnosis of. 1. L5-S1 spondylosis with stenosis 2. Bilateral foraminal stenosis, severe 3. Lower extremity radiculopathy 4. Low back pain I outlined the natural course history without intervention and various interventional options. PLAN: Based on my findings I suggest the following course of action: -I discussed treatment options with the patient, including operative and non- operative options, and they have elected to proceed with the following surgical procedure: L5-S1 minimally invasive transforaminal lumbar interbody fusion, right The indications, risks, benefits, and alternatives to surgery were discussed with the patient at length. Specifically (but not limited to) the risks of infection, stiffness, recurrence of symptoms, need for revision surgery, local numbness, neurovascular injury, and blood clots were discussed. The patient's questions were answered. - Ambulate daily. - Take medications as directed. - Ice and rest for pain and swelling control. Spine Surgery Risk Review Mr. Ramirez is presenting for evaluation of low back pain. It was my pleasure to have seen and examined Mr. Ramirez. In our visit today we have had a chance to go over subjective complaints, physical examination findings and treatments including the natural course history without intervention and various interventional options. The patients imaging demonstrates: XRay Lumbar Multiview (AP, Lateral, Flexion, Extension) with AP pelvis; 5 views taken at [facility] on 01/02/23: Multilevel spondylitic and degenerative changes with flattening of the normal lordosis. Multilevel diminished disc height. Vertebral body heights are preserved. No acute osseous abnormalities. Pelvis: The visualized sacrum and iliac wings are within normal limits. CT [facility] - Images reviewed with patient These demonstrate 2 areas of interest L5-S1 there is vacuum disc phenomena severe facet arthrosis disc osteophyte complex causing moderate to severe central and bilateral foraminal stenosis as well as facet arthropathy. There is facet arthrosis noted at L3 through L5 as well. There is vacuum disc phenomenon at L1-L2 as well. There is no severe facet arthrosis at this level however there are sclerotic endplates as well as increased segmental kyphosis secondary to the collapse of the disc. No other acute fracture or dislocation is noted. Flattening of the normal lumbar lordosis is noted. The L5-S1 findings correlate with the patient's symptoms the best MRI [facility]completed [facility] - Re-reviewed with the patient today. IMPRESSION: 1. Mild multilevel degenerative disc disease, more moderate to severe at L5-S1. Scattered ligamentum flavum thickening and hypertrophic facet arthropathy. Overall changes show slight progression from 2016. 2. Some periarticular edema right L5-S1 facet joint may reflect acute exacerbation of underlying OA. Adjacent right L5 laminotomy defect. 3. Mild overall narrowing of the spinal canal at both L1-L2 and L2-L3. No large focal disc herniation or significant spinal canal stenosis. 4. At L5-S1, there is moderate to severe right neural foraminal stenosis likely with impingement of the exiting right L5 nerve root. Disc osteophyte complex here likely abuts the traversing right S1 nerve root as well. On physical exam, Mr. Ramirez demonstrates: The patient reports experiencing continued pain throughout the low back with a sharp, shooting quality. The patient also notes continued pain radiating from the low back down into the bilateral lower extremities, worse on the right compared to the left. He also reports experiencing a recent onset of numbness and tingling throughout the lower extremities. The patient states that his low back and bilateral leg pain have been gradually worsening over the last 1 to 2 months. The patient notes that his symptoms are aggravated by all activities. He notes that his current symptoms make it difficult for him to complete many of his regular activities of daily living. The patient is having severe sleep disturbances due to his ongoing symptoms. I have explained to the patient that as their condition progresses it will cause further neurological deficits and eventual paralysis. Based on the patients imaging, physical exam, and the rapid progression and disabling nature of their symptoms, at this time I recommend surgery in the form of a: L5-S1 MIS TLIF, right. I discussed the risk and benefits of this procedure at length with Mr. Ramirez. The patient agreed to considered pursuing the procedure above mentioned. Prior to surgery, she should follow up with her PCP (Cardio, ID, IM etc) for clearance. Questions were invited and answered, and the patient wishes to proceed as outlined below. Currently, I am recommendin.L5-S1 MIS TLIF, right 2.Follow up with PCP for surgical clearance 3.Review of surgical risks and benefits as well as an educational packet on the proposed surgical procedure. Risks: All surgical procedures come with inherent risks, including those related to positioning, anesthesia, intraoperative findings, and postoperative complications. It is important to understand that surgery does not come with any guarantee of a successful outcome as complications and adverse events are always possible. The patient was given a handout in office today discussing the surgical procedure and risks associated with the intervention, both of which were discussed with the patient. These risks include but are not limited to the following: * Experiencing same, different or even worse symptoms in back, neck, arms, or legs compared to before surgery. Requiring further surgery or other forms of treatment presently or at some time in the future at same or other levels of the intended spine surgery. On an extreme but fortunately relatively rare basis severe complication such as blindness, stroke, heart attack, temporary and/or permanent nerve injury, paralysis, coma, or may occur, sometimes without known explanation. Surgical complications may include but are not limited to risk of infection, fluid accumulation in the surgical dissection site, including a seroma or hematoma, that requires additional surgery, wound drainage, bleeding, new numbness or weakness, vision changes/loss, spinal fluid leakage, non-healing and/or infected incision, headaches, difficulty or inability to swallow, hoarseness, hemopneumothorax, pneumothorax, impotence, retrograde ejaculation, vaginal dryness; injury to nerves, spinal cord, blood vessels, lymphatics or other vital organs (i.e., bowel injury, injury to the great vessels); heterotopic bone formation; complications related to the hardware such as screws, rods, cages including misplaced hardware, device failure, instrumentation at the wrong spine level, hardware fracture/breakage, or hardware loosening; vertebral failure of the spinal column above or below the newly placed hardware; retained surgical instrumentations or devices and the need for further surgery. * Medical risks of the planned spine surgery include but are not limited to generalized Infections to the whole body or local areas outside of the surgical site (sepsis), heart attack, bleeding, anaphylaxis, meningitis, seizure, epilepsy, hearing loss, burn dangelo, laceration of the head or other areas of the body, bruising, hypersensitivity of the skin, bladder over distension; allergic reaction; shoulder injury related to positioning; fat, blood and air clots to other areas of the body like heart, lungs, brain; failure of internal organs such as lungs, kidneys, liver and excessive bleeding. If blood transfusions are necessary, note that transfusions may cause intolerance reactions such as anaphylaxis or other complex reactions. Despite best efforts, the results of spine surgery might not heal in terms of bone, soft tissues such as skin, fascia, ligaments, and joints. Additionally, in order to achieve best possible results, spine surgery may be carried out beyond the initially planned levels and involve decompression, fusion including insertion of hardware at levels other than the original intended area of surgical interest change some portions of the procedure in order to ensure the best possible outcomes. With spine surgery and spinal fusion, there are different off label uses of instrumentation (devices, implants and hardware) as well as biological substances (bone morphogenic proteins, demineralized bone matrix) as well as using extra bone from allograft sources (i.e. cadaver bone) or autograft (iliac crest bone, ribs, or the spine itself). The patient has been given information about these practices and their inherent risks and benefits. [facility] is an educational center that serves as a training facility for neurosurgical and orthopedic [employer] WORK[employer] and Nursing students. Physician assistants are medically trained surgical providers who function in the outpatient, inpatient, and operating room setting under the direct supervision of the attending surgeon. [facility] has multiple operating rooms with single and overlapping rooms running daily. They currently function under the required guidelines as produced by the [facility] Finance Committee with regards to the overlapping rooms and will continue to comply with changes to this policy as they occur. The requirements include and are complied with as follows: (1) the critical portions of the overlapping rooms will not occur at the same time, (2) the attending physician will be physically present during the critical portions of the procedure and immediately available during the entire case, and (3) a back-up attending is designated should the primary attending not be immediately a vailable. The patient has had a chance to review all the listed information, has been given print outs detailing this information, and has had all his/her questions answered to their satisfaction. It was my pleasure to have seen and examined Mr. Ramirez. In our visit today we have had a chance to go over my understanding of our patient's current condition, the natural course history without intervention and various interventional options. Questions were invited and answered, and the patient wishes to proceed as outlined above. I have seen and examined the patient for 25 minutes and we have spent more than 50% of the time in repeat and detailed counseling about the patient's condition, its natural course history with out and as much as can be predicted with surgery and re-review of various surgical treatment options. In conclusion, Mr. Ramirez requested we proceed with the above suggested surgery and are willing to accept risks and limitations of the suggested surgery as nature of the disease process and our best attempts at treatment for the condition. Thank you again for allowing us to be part of your patient's care. Please don't hesitate to contact me if you have any further questions. Follow- up: Post procedure Patient Education: (Informational booklet, instructions, etc) given at today's appointment: Yes .ED:Patient Education: Y Medications Reviewed: YES In our visit today Mr. Ramirez and I have had a chance to go over my understanding of the patient's current condition, the natural course history without intervention and various interventional options. Questions were invited and answered, and the patient wishes to proceed as outlined above. I will be sure to keep you updated afterMr. Ramirez returns here for further follow-up. Thank you again for your referral. Please do not hesitate to contact me if you have any further questions. Signed and authenticated by: Dax Campos [facility] [address] [place] [id number] This message is confidential, intended only for the named recipient(s) and may contain information that is privileged or exempt from disclosure under applicable law. If you are not the intended recipient(s), you are notified that the dissemination, distribution or copying of this information is strictly prohibited. If you received this message in error, please notify the sender then delete this message. Patient verbalizes understanding of the information discussed. The above note was initiated by Leanna Dhaliwal, physician recording maintenance assistant for Dr. Dax Shaffer. This note has been reviewed by Dr. Shaffer, who has made his personal changes and impressions for this document. CC: Lorraine Solomon M.D. Past Medical History Past Medical History: Coronary Artery Disease (CAD), Chest Pain / Angina, COPD, Diabetes Mellitus, GERD/Reflux, Hearing Disorder / Deafness, Hyperlipidemia, Hypertension, Myocardial Infarction (PA) Additional Past Medical History / Comment(s): Neuropathy bilateral feet/legs, hx pancreatitis, chronic low back pain, hx gastric ulcer as a teen, hx benign colon polyps, small amount of trouble hearing. Last Myocardial Infarction Date:: 2011 History of Any Multi-Drug Resistant Organisms: None Reported Past Surgical History: Back Surgery, Ear Surgery, Heart Catheterization With Stent, Hernia Repair, Orthopedic Surgery Additional Past Surgical History / Comment(s): 2011 PCI with stent to mid RCA, bilateral inguinal hernia repair as teen, bilateral carpal tunnel releases, colonoscopy, bilateral myringotomies/tubes, 11/2021 cardiac stent. Past Anesthesia/Blood Transfusion Reactions: Motion Sickness, Postoperative Nausea & Vomiting (PONV) Additional Past Anesthesia/Blood Transfusion Reaction / Comment(s): PONV as a teen with surgery, none since. Date of Last Stent Placement:: 2021 Past Psychological History: No Psychological Hx Reported Smoking Status: Former smoker Past Alcohol Use History: Occasional Additional Past Alcohol Use History / Comment(s): Started smoking in 1975, over a ppd, quit smoking 6 weeks ago(March 2023). Past Drug Use History: None Reported - Past Family History Father Family Medical History: Coronary Artery Disease (CAD), Myocardial Infarction (PA) Additional Family Medical History / Comment(s): Heart disease runs strongly on his father's side of family. Father is . Pt cannot recall at what age father had PA. Mother Family Medical History: Cancer Additional Family Medical History / Comment(s): Mother of renal cancer with mets. Medications and Allergies Home Medications Medication Instructions Recorded Confirmed Type Atorvastatin [Lipitor] 80 mg PO DAILY 10/14/17 05/25/23 History lisinopriL [Zestril] 5 mg PO QAM 12/16/21 05/25/23 History Aspirin 81 mg PO DAILY 12/17/21 05/25/23 Rx Metoprolol Tartrate [Lopressor] 25 mg PO BID #60 tab 12/17/21 05/25/23 Rx Nitroglycerin Sl Tabs [Nitrostat] 0.4 mg SUBLINGUAL Q5M PRN #25 tab 12/17/21 05/25/23 Rx Dulaglutide [Trulicity] 3 mg SQ DUENAS 01/24/22 05/25/23 History Empagliflozin [Jardiance] 25 mg PO DAILY 01/24/22 05/25/23 History Insulin Degludec [Tresiba 44 units SQ HS 01/24/22 05/25/23 History Flextouch U-200 Pen] Cyclobenzaprine [Flexeril] 5 mg PO TID PRN 05/25/23 05/25/23 History Gabapentin 300 mg PO TID 05/25/23 05/25/23 History Allergies Allergy/AdvReac Type Severity Reaction Status Date / Time No Known Allergies Allergy Verified 05/25/23 09:56 Physical Examination Osteopathic Statement: *. No significant issues noted on an osteopathic structural exam other than those noted in the History and Physical/Consult.
[~2023-05-31 10:10] MED LIST: ACETAMINOPHEN TAB 500 MG TAB PO PRN; DEXAMETHASONE SOD PHOSPHATE 4 MG/ML 1 ML VIAL IV ONE; GABAPENTIN 300 MG CAP PO PRN; HYDROmorphone 0.5 MG/0.5 ML SYRINGE IVP PRN; LACTATED RINGERS 1,000 ML IV SCH; ONDANSETRON 4 MG/2 ML VIAL IVP PRN; TRANEXAMIC 1,000 MG/100ML-NACL 1,000 MG in SALINE 1 100ML.BAG IVPB PRN
[2023-05-31] MEDS ORDERED: INSULIN ASPART (NovoLOG) 100 UNIT/ML VIAL SQ ONE (11:10)
[2023-05-31 11:14] LABS: Glucose,Whole Blood 203 mg/dL (70-110)
[2023-05-31] MEDS ORDERED: PROPOFOL 10 MG/ML 20 ML VIAL IV ONE (12:28)
[2023-05-31] MEDS ORDERED: TRANEXAMIC 1,000 MG/100ML-NACL PREMIX BAG ONE (12:28)
[2023-05-31] MEDS ORDERED: PHENYLEPHRINE-0.9% NACL SYG 1,000 MCG/10 ML SYRINGE ONE (12:28)
[2023-05-31] MEDS ORDERED: fentaNYL (PF) 50 MCG/ML 2 ML AMP ONE (12:28)
[2023-05-31] MEDS ORDERED: ROCURONIUM 10 MG/ML (5 ML VIAL) IV ONE (12:28)
[2023-05-31] MEDS ORDERED: HYDROmorphone (PF) 1 MG/ML ONE (12:28)
[2023-05-31] MEDS ORDERED: SUCCINYLCHOLINE CHLORIDE 200 MG/10 ML VIAL IV ONE (12:28)
[2023-05-31] MEDS ORDERED: MIDAZOLAM 2 MG/2 ML VIAL ONE (12:28)
[2023-05-31] MEDS ORDERED: LIDOCAINE 2% INJ 20 MG/ML (2 ML VIAL) ONE (12:28)
[2023-05-31] MEDS ORDERED: GELATIN SPONGE,ABSORB (LARGE) 1 EACH SPONGE TOPICAL ONE (13:23)
[2023-05-31] MEDS ORDERED: THROMBIN (BOVINE) 5,000 UNIT VIAL TOPICAL ONE (13:23)
[2023-05-31] MEDS ORDERED: VANCOMYCIN 1,000 MG VIAL MISCELLANE ONE (14:48)
[2023-05-31] MEDS ORDERED: LACTATED RINGERS 1,000 ML IV ONE (14:58)
--- NOTE | 2023-05-31 15:12 | FL ---
Intraoperative/procedural fluoroscopic services were provided. Total fluoroscopy time is 1 minute 43 seconds seconds with a total of 5 submitted images to PACS. Please see the operative/procedural note for further details. DAP: 3400.50 cGyc2
--- NOTE | 2023-05-31 15:13 | P.OP ---
Date of Procedure: 05/31/23 Preoperative Diagnosis: 1. L5-S1 SPONDYLOSIS, SEVERE WITH STENOSIS 2. LOW BACK PAIN 3. RLE RADICULOPATHY 4. FORAMINAL STENOSIS L5-S1 Postoperative Diagnosis: 1. L5-S1 SPONDYLOSIS, SEVERE WITH STENOSIS 2. LOW BACK PAIN 3. RLE RADICULOPATHY 4. FORAMINAL STENOSIS L5-S1 Procedure(s) Performed: 1. L5-S1 POSTERIOLATERAL AND INTERBODY FUSION (29513) 2. L5-S1 INSTRUMENTATION (51711) 3. L5-S1 LAMINOFORAMINOTOMY AND DECOMPRESSION (18193) 4. INSERTION OF BIOMECHANICAL DEVICE (43710) 5. USE OF [employer] NAVIGATION (65496) USE OF IONM Implants: -SORAYA EVEREST SCREW AND GURJIT SYSTEM -GLOBUS SABLE CAGE 9-16MM X 10MM 12 DEG -MAGNATOS, ARTHROCELL, ALLOCELL, AUTOGRAFT Anesthesia: GETA Surgeon: Dax Shaffer Rad Technologist #1: Dulce Min (Dulce Min NP Was present and assisted with all aspects of the case from positioning to dressing placement) Estimated Blood Loss (ml): 100 IV fluids (ml): 1,200 Urine output (ml): 0 Pathology: none sent Condition: stable Disposition: PACU Indications for Procedure: Mr. Ramirez is presenting for evaluation of low back pain. It was my pleasure to have seen and examined Mr. Ramirez. In our visit today we have had a chance to go over subjective complaints, physical examination findings and treatments including the natural course history without intervention and various interventional options. The patients imaging demonstrates: XRay Lumbar Multiview (AP, Lateral, Flexion, Extension) with AP pelvis; 5 views taken at [facility] on 01/02/23: Multilevel spondylitic and degenerative changes with flattening of the normal lordosis. Multilevel diminished disc height. Vertebral body heights are preserved. No acute osseous abnormalities. Pelvis: The visualized sacrum and iliac wings are within normal limits. CT [facility] from03/29/2023 of LumbarSpine: - Images reviewed with patient These demonstrate 2 areas of interest L5-S1 there is vacuum disc phenomena severe facet arthrosis disc osteophyte complex causing moderate to severe central and bilateral foraminal stenosis as well as facet arthropathy. There is facet arthrosis noted at L3 through L5 as well. There is vacuum disc phenomenon at L1-L2 as well. There is no severe facet arthrosis at this level however there are sclerotic endplates as well as increased segmental kyphosis secondary to the collapse of the disc. No other acute fracture or dislocation is noted. Flattening of the normal lumbar lordosis is noted. The L5-S1 findings correlate with the patient's symptoms the best MRI [facility] from02/23/23 of LumbarSpine: - Re-reviewed with the patient today. IMPRESSION: 1. Mild multilevel degenerative disc disease, more moderate to severe at L5-S1. Scattered ligamentum flavum thickening and hypertrophic facet arthropathy. Overall changes show slight progression from 2016. 2. Some periarticular edema right L5-S1 facet joint may reflect acute exacerbation of underlying OA. Adjacent right L5 laminotomy defect. 3. Mild overall narrowing of the spinal canal at both L1-L2 and L2-L3. No large focal disc herniation or significant spinal canal stenosis. 4. At L5-S1, there is moderate to severe right neural foraminal stenosis likely with impingement of the exiting right L5 nerve root. Disc osteophyte complex here likely abuts the traversing right S1 nerve root as well. On physical exam, Mr. Ramirez demonstrates: The patient reports experiencing continued pain throughout the low back with a sharp, shooting quality. The patient also notes continued pain radiating from the low back down into the bilateral lower extremities, worse on the right compared to the left. He also reports experiencing a recent onset of numbness and tingling throughout the lower extremities. The patient states that his low back and bilateral leg pain have been gradually worsening over the last 1 to 2 months. The patient notes that his symptoms are aggravated by all activities. He notes that his current symptoms make it difficult for him to complete many of his regular activities of daily living. The patient is having severe sleep disturbances due to his ongoing symptoms. I have explained to the patient that as their condition progresses it will cause further neurological deficits and eventual paralysis. Based on the patients imaging, physical exam, and the rapid progression and disabling nature of their symptoms, at this time I recommend surgery in the form of a: L5-S1 MIS TLIF, right. I discussed the risk and benefits of this procedure at length with Mr. Ramirez. The patient agreed to considered pursuing the procedure above mentioned. Prior to surgery, she should follow up with her PCP (Cardio, ID, IM etc) for clearance. Questions were invited and answered, and the patient wishes to proceed as outlined below. Currently, I am recommendin.L5-S1 MIS TLIF, right Description of Procedure: L5-S1 MIS TLIF KATARZYNA (R) The patient was seen and examined in the preoperative area. All preoperative protocols were followed. Informed consent was obtained, risks and benefits of the procedure were discussed at length. Risks including bleeding infection damage to the surrounding tissue and risk of reoperation were discussed with the patient. Risk of anesthesia up to and including was a discussed with the patient. These are outlined in the risk review. They were willing to accept these risks and all the risks of surgery. The patient was given a weight-based dose of antibiotics in the form of 2 g Ancef. The patient was seen and evaluated by the anesthesia team who deemed them fit for surgery. The site was marked, the patient was willing to proceed with the procedure. The patient was transferred to the operative suite by the Department of anesthesia. They were then drifted off to sleep by the department anesthesia and GETA was performed. The patient tolerated this well. Roe catheter was placed by nursing staff, a-traumatically. Once confirmation of lines and ventilation the patient was transferred to a prone Clayton table very carefully. All bony prominences including wrists, elbows, axilla, chest, hips, and thighs, and feet were padded very well. Special attention was paid to the genitalia, and these were padded accordingly. SCDs were placed on bilateral lower extremities and were connected. Arms were well padded and placed on arm boards up and out in the 90/90 position. Once in position, again we confirmed good ventilation capabilities and that lines were running appropriately. The patients Lumbar spine was then exposed. 1010s were placed outlining the incision site. Standard alcohol was used to clean the incision site and allowed to dry. C-arm was used to needle localize the pedicles at L5-S1 and bio-martin the patient and confirm level for incision which was marked with a skin marker. Operative briefing was performed with all teams and everyone in agreement to proceed. The patient was then prepped and draped in a normal sterile fashion. Timeout was then performed, and all parties agreed with the procedure to be performed. Skin nicks were made over the PSIS on the LEFT side and pins placed for the [employer] Navigation tracker. This was secured and then a 3D Zhiem spin was registered. Once registered it was tested and confirmed to be accurate. We then targeted pedicles b/l at L5 and S1 using navigated Jamshidi and drill guide. Wires were then placed in their void and confirmed to be in good position on AP and Lateral. Contralateral side LEFT screws were then placed over wires and tested and they all tested above 20 mA. Attention was then turned to interbody fusion at L5-S1. Tubular retractor system was placed at the interspace of L5-S1 using biplanar c arm ON THE RIGHT. Once in position and dilated up to 26mm tube it was locked to the bed and confirmed in good position. Microscope was then brought in for visualization. Limited myomectomy was performed and laminectomy, complete facetectomy and foraminotomy performed at L5-S1 using high speed katy and Kerrison rongure. The ligamentum was removed and dural sac decompressed. Exiting and traversing roots visualized and decompressed. Neural elements were then protected, and disc space accessed with an osteotome. Sequential shaving then done under lateral imaging and complete discectomy performed using joselin, pituitary and curette. Once good bleeding endplates accomplished and good height presybeterian with trials, a combination of autograft, allograft and synthetic placed anterior in the disc space. The cage was then selected and impacted into place under lateral imaging. The cage was then expanded restoring height, lordosis and alignment. The cage was backfilled with bone graft through a funnel. The in serter removed and area inspected. Good cage placement, stable cage and no injuries. Area was irrigated copiously, and meticulous hemostasis achieved. The tubular retractor was then removed under direct visualization. Screws were then selected and placed over the previously placed wires on the ipsilateral side. This was done in the fashion described above. Screws were then tested, and all tested above 20 mA. Shells were then placed on the tabs. Gurjit length was then measured, and rods selected. They were then placed through the MIS tabs, subfascial. These were then locked into place with set screws and final tightened. Gurjit holders removed and images taken showing good placement of rods good lordosis and presybeterian of height. Tabs were broken off. Wounds were then copiously irrigated with NSS. [place] used for TP decortication and mixture of MagnatOs, allograft and autograft packed posterolateral. Facia was then closed with 0 Vircyl. Deep subq closed with 0 Vicryl. Super ficial subq closed with 2-0 Vicryl and skin with lisbet. Wound edges approximated very well. Wound was then cleaned with alcohol and dried. Wounds dressed in Optifoam dressings. The patient was then transferred off the table back to their hospital bed a- traumatically. They were extubated by the department of anesthesia. They were then transferred to PACU in stable condition having tolerated the procedure with no complications.
[2023-05-31] MEDS ORDERED: ONDANSETRON 4 MG/2 ML VIAL IVP PRN (15:27)
[2023-05-31] MEDS ORDERED: HYDROcodone/APAP 5-325MG 1 EACH TAB PO PRN ×2 (15:27→16:02)
[2023-05-31] MEDS ORDERED: bisacodyL 10 MG SUPP RECTAL PRN (15:27)
[2023-05-31] MEDS ORDERED: HYDROmorphone 1 MG/ML 1 ML SYRINGE IVP PRN (15:27)
[2023-05-31] MEDS ORDERED: MAGNESIUM HYDROXIDE 2,400 MG/30 ML CUP PO PRN (15:27)
[2023-05-31 15:34] LABS: Glucose,Whole Blood 234 mg/dL (70-110)
[2023-05-31] MEDS: GABAPENTIN 300 MG CAP PO SCH ×2 (16:42→21:04)
[2023-05-31] MEDS: HYDROmorphone 0.5 MG/0.5 ML SYRINGE IVP PRN ×2 (16:42→22:57)
[2023-05-31 16:46] LABS: Glucose,Whole Blood 201 mg/dL (70-110)
--- NOTE | 2023-05-31 17:34 | CT ---
EXAMINATION TYPE: CT lumbar spine wo con CT DLP: 1917.6 mGycm, Automated exposure control for dose reduction was used. DATE OF EXAM: 05/31/2023 4:28 PM COMPARISON: 03/29/2023. CLINICAL INDICATION:Male, 58 years old with history of s/p L5-S1 decompression and fusion; PHH, S/p L 5-S1 decompression and fusion. TECHNIQUE: Multiple axial images were obtained from the midportion of T11 through the sacroiliac hayley nts. Soft tissue and bone windows in coronal and sagittal planes were obtained and reviewed. 3-D ref ormats of the bones were created on a separate workstation and submitted for review. Contrast used: mL of , none. Oral contrast used: none. FINDINGS: 1. Postsurgical changes to the lumbar spine with fixation hardware at L4 and L5. Discectomy at L4-L5. Hardware limits evaluation at these levels. Hardware appears intact. No evidence of fracture. Postsurgical changes in the soft tissues with foci of gas present. Posterior back skin lisbet are pr esent. IMPRESSION: Postsurgical changes without evidence of immediate post operative complication.
[2023-05-31] MEDS ORDERED: DEXTROSE 50% SYRINGE 50 ML IVP PRN ×2 (18:46)
[2023-05-31] MEDS: HYDROcodone/APAP 10-325MG 1 EACH TAB PO PRN (19:34)
[2023-05-31 20:46] LABS: Glucose,Whole Blood 226 mg/dL (70-110)
[2023-05-31] MEDS: INSULIN ASPART (NovoLOG) 100 UNIT/ML VIAL SQ SCH (21:04)
[2023-06-01] MEDS: CYCLOBENZAPRINE 5 MG TAB PO PRN ×2 (00:12→08:40)
[2023-06-01] MEDS: HYDROcodone/APAP 10-325MG 1 EACH TAB PO PRN (05:25)
[2023-06-01 06:25] LABS: Glucose,Whole Blood 190 mg/dL (70-110)
[2023-06-01] MEDS: INSULIN ASPART (NovoLOG) 100 UNIT/ML VIAL SQ SCH (06:44)
[2023-06-01 07:40] VITALS: BP 125/76; PULSE 93; RESP 16; TEMP 98.7
[2023-06-01 07:51] LABS: Basophils # (A) 0.1 k/uL (0-0.2); Basophils % (A) 0 %; Eosinophils # (A) 0.1 k/uL (0-0.7); Eosinophils % (A) 1 %; HCT 48.2 % (39.0-53.0); HGB 16.2 gm/dL (13.0-17.5); Lymphocytes # (A) 1.9 k/uL (1.0-4.8); Lymphocytes % (A) 17 %; MCH 31.3 pg (25.0-35.0); MCHC 33.6 g/dL (31.0-37.0); MCV 93.1 fL (80.0-100.0); Mean Platelet Volume 8.7; Monocytes # (A) 0.7 k/uL (0-1.0); Monocytes % (A) 6 %; Neutrophils # (A) 8.3 k/uL (1.3-7.7); Neutrophils % (A) 74 %; Platelet Count 158 k/uL (150-450); RBC 5.18 m/uL (4.30-5.90); RDW 14.6 % (11.5-15.5); WBC 11.3 k/uL (3.8-10.6)
[2023-06-01 08:02] LABS: African American GFR (CKD) >90 (>60 ml/min/1.73 sqM); Anion Gap 12 mmol/L; Blood Urea Nitrogen 16 mg/dL (9-20); Calcium 9.1 mg/dL (8.4-10.2); Carbon Dioxide 23 mmol/L (22-30); Chloride 98 mmol/L (98-107); Glucose 183 mg/dL (74-99); Non-African American GFR(CKD) >90 (>60 ml/min/1.73 sqM); Potassium 4.3 mmol/L (3.5-5.1); Sodium 133 mmol/L (137-145)
[2023-06-01] MEDS: GABAPENTIN 300 MG CAP PO SCH (08:40)
[2023-06-01] MEDS ORDERED: SENNOSIDES-DOCUSATE SODIUM 1 EACH TAB PO SCH (09:00)
--- NOTE | 2023-06-01 09:01 | P.PN ---
Subjective Progress Note Date: 06/01/23 Principal diagnosis: 1. L5-S1 spondylosis with stenosis 2. Bilateral foraminal stenosis, severe 3. Lower extremity radiculopathy 4. Low back pain Patient seen and examined this morning. Patient was sitting up in chair. Patient reports that his pain is managed on current regimen. Surgical dressing was changed this morning. Surgical incisions are well approximated lisbet intact. Small amount of sanguinous drainage noted. Continue to change dressing as needed to maintain incisions clean and dry. Patient has been ambulatory with a walker within the room. He does report some intermittent pain into the lower extremities that was present prior to surgery. Patient has been urinating without difficulty. He is looking forward to working with physical therapy. Patient will be discharged later this afternoon. Objective - Vital Signs Vital signs: Vital Signs Temp 98.7 F 06/01/23 07:30 Pulse 93 06/01/23 07:30 Resp 16 06/01/23 07:30 BP 125/76 06/01/23 07:30 Pulse Ox 96 06/01/23 07:30 FiO2 Intake & Output 05/31/23 06/01/23 06/01/23 18:59 06:59 18:59 Intake Total 1450 Output Total 100 Balance 1350 Weight 115.8 kg Intake: IV 1250 Oral 200 Output: Estimated Blood Loss 100 Other: Voiding Method Toilet # Voids 3 - Exam Physical Examination General: The patient is awake and alert, in no acute distress Skin: Skin is warm and dry with no obvious rashes or lesions. Surgical incisions to the paralumbar region. Incisions are well approximated with lisbet intact, mild sanguinous drainage noted. Eye: Pupils are equal, round and reactive to light, extra-ocular movements are intact; there is normal conjunctiva bilaterally. Neck: The neck is supple, there is no tenderness and ROM intact. Cardiovascular: There is a regular rate and rhythm. No murmur, rub or gallop is appreciated. Respiratory: Lungs are clear to auscultation, respirations are non-labored, breath sounds are equal. Gastrointestinal: Soft, non-distended, non-tender abdomen. Back: There is no tenderness to palpation in the midline, paralumbar, parathoracic or buttocks region. There is no obvious deformity . Musculoskeletal: ROM limited secondary to pain and stiffness from surgical procedure. Muscle strength in all major muscle groups of bilateral upper extremities 5/5, bilateral lower extremities 4/5. Neurological: CN 2-12 intact. There are no obvious motor or sensory deficits. Movement and coordination equal and intact. Sensory exam to light touch intact C5-T1 and intact from L2-S1. Reflexes 2/4 in bilateral upper and lower extremities. Negative Hoffmans, babinski, and clonus signs. Psychiatric: Cooperative, appropriate mood & affect, normal judgment. - Labs CBC & Chem 7: 06/01/23 07:24 06/01/23 07:29 Labs: Abnormal Lab Results - Last 24 Hours (Table) 05/31/23 05/31/23 05/31/23 Range/Units 11:00 15:31 16:33 WBC (3.8-10.6) k/uL Neutrophils # (1.3-7.7) k/uL Sodium (137-145) mmol/L Creatinine (0.66-1.25) mg/dL Glucose (74-99) mg/dL POC Glucose (mg/dL) 203 H 234 H 201 H (70-110) mg/dL 05/31/23 06/01/23 06/01/23 Range/Units 20:45 06:23 07:24 WBC 11.3 H (3.8-10.6) k/uL Neutrophils # 8.3 H (1.3-7.7) k/uL Sodium (137-145) mmol/L Creatinine (0.66-1.25) mg/dL Glucose (74-99) mg/dL POC Glucose (mg/dL) 226 H 190 H (70-110) mg/dL 06/01/23 Range/Units 07:29 WBC (3.8-10.6) k/uL Neutrophils # (1.3-7.7) k/uL Sodium 133 L (137-145) mmol/L Creatinine 0.56 L (0.66-1.25) mg/dL Glucose 183 H (74-99) mg/dL POC Glucose (mg/dL) (70-110) mg/dL Assessment and Plan Assessment: Post Op Day 1: L5-S1 MIS TLIF 1. L5-S1 spondylosis with stenosis 2. Bilateral foraminal stenosis, severe 3. Lower extremity radiculopathy 4. Low back pain Plan: -Appreciate it solutions sales consultant and team management. -Activity: Ambulate QID, OOB all meals, up and about, limit lifting bending twisting to less than 5 lbs. Use walker or cane if needed for stability. -Daily PT/OT, increase ambulation strength and balance. -Prescription for rolling walker placed in chart. -Pain control: Adequate at this time -Meds: reviewed -GI ppx: senna, Miralax -DVT PPX: OK to restart Heparin tonight -Hygiene: Shower today. Maintain dressing clean and dry, change as needed. Meticulous cleaning after BMs away from the incision site -Encourage IS 10x/hr -Dispo: Anticipate discharge home today with homecare *I reviewed and discussed this case with my attending Dr. Shaffer, whom has reviewed this chart and films and is in agreement with assessment and plan of care as outlined above. I have personally seen and examined the patient, performed the documentation and the assessment and plan as written. Number of minutes spent on the visit: 20m.
[2023-06-01] MEDS ORDERED: HYDROcodone/APAP 10-325MG 1 EACH TAB PO PRN (09:19)
[2023-06-01] MEDS ORDERED: CALCIUM CARBONATE 500 MG CHEWABLE PO PRN (10:40)
--- NOTE | 2023-06-01 13:47 | P.CONS ---
History of Present Illness - Reason for Consult Consult date: 06/01/23 - History of Present Illness This is a pleasant 58-year-old male with medical history of diabetes mellitus with peripheral neuropathy, coronary artery disease with prior cardiac stenting in 2011 and 2021, COPD, GERD, hypertension, hyperlipidemia, former smoker. Patient is admitted under Dr. Goodman leahy and underwent lumbar fusion L5 to S1 he is evaluated today postoperative day one. Is up ambulating in the room with a walker and doing well he reports that pain is at a tolerable level. Has been complaint is he has calluses on the bottom of his feet bilaterally. He has one noted on the left foot in the mid foot pad that is the size of a quarter it is probably underneath over the callus has now opened up. He has 2 additional closed over calluses that appeared bloody nature as well on his right foot. He does follow with a hog dropper and his violin restorer is Dr. Jernigan. These do not appear infected however there is concern this patient is a diabetic and these could be a deeper tissue injury and he is referred to either Dr. Jernigan to undergo an aortogram and was also given information to follow up with Dr. Estefania arriaza and also his hog dropper on discharge. Patient is agreeable to this plan and verbalizes that he will do so. Otherwise he is denying any shortness of breath he is denying chest pain he is passing gas postoperatively he is tolerating diet. Lab today revealing WBC 11.3, sodium of 133, blood glucoses in the 200s hemoglobin A1c found to be 8.2. He is afebrile, heart rate 93, blood pressure 125/76, 96% on room air. Evaluated by physical therapy and patient cleared for discharge home with home care services. Medically he is stable for discharge home thank you for this consultation. REVIEW OF SYSTEMS: CONSTITUTIONAL: No fever, no malaise, no fatigue. HEENT: No recent visual problems or hearing problems. Denied any sore throat. CARDIOVASCULAR: No chest pain, orthopnea, PND, no palpitations, no syncope. PULMONARY: No shortness of breath, no cough, no hemoptysis. GASTROINTESTINAL: No diarrhea, no nausea, no vomiting, no abdominal pain. NEUROLOGICAL: No headaches, no weakness, no numbness. HEMATOLOGICAL: Denies any bleeding or petechiae. GENITOURINARY: Denies any burning micturition, frequency, or urgency. MUSCULOSKELETAL/RHEUMATOLOGICAL: Denies any joint pain, swelling, or any muscle pain. ENDOCRINE: Denies any polyuria or polydipsia. The rest of the 14-point review of systems is negative. PHYSICAL EXAMINATION: GENERAL: The patient is alert and oriented x3, not in any acute distress. Well developed, well nourished. HEENT: Pupils are round and equally reacting to light. EOMI. No scleral icterus. No conjunctival pallor. Normocephalic, atraumatic. No pharyngeal erythema. No thyromegaly. CARDIOVASCULAR: S1 and S2 present. No murmurs, rubs, or gallops. PULMONARY: Chest is clear to auscultation, no wheezing or crackles. ABDOMEN: Soft, nontender, nondistended, normoactive bowel sounds. No palpable organomegaly. MUSCULOSKELETAL: No joint swelling or deformity. Lumbar post surgical dressings inplace clean and dry. EXTREMITIES: No cyanosis, clubbing, or pedal edema. NEUROLOGICAL: Gross neurological examination did not reveal any focal deficits. SKIN: Diabetic foot ulceration bilaterally/blistering callous formation on foot bad one on the right and 2 on the left foot pad. Assessment Degenerative disc disease status postoperative day #1 lumbar fusion L5 through S1 Diabetic foot ulceration bilaterally/blistering present on admission does not ap pear to be infected patient to follow-up with vascular and podiatry outpatient Coronary artery disease with prior cardiac stenting resumed on home cardiac medications Diabetes mellitus type 2 with hyperglycemia hemoglobin A1c of 8.2. Diabetic neuropathy History of COPD with no acute exacerbation History of gastroesophageal reflux disease History of hypertension History of hyperlipidemia Former Smoker Obesity GI prophylaxis DVT prophylaxis as per primary Full Code Plan Patient is resumed on appropriate home medications and recommending to follow-up with vascular surgery, podiatry and discharge for the bilateral foot calluses. Patient is cleared for discharge by orthopedics and agreement with this plan he is discharged on Duricef twice a day for 5 days, Neurontin, Falun, Flexeril and also on a bowel regimen with senna we will add a GI prophylaxis with Pepcid twice a day. He is independent with a walker and doing well and patient will also be provided with an incentive spirometer for discharge. Medically he may to be discharged home thank you for the consultation. The impression and plan of care has been dictated by Jacquelyn Jauregui, Nurse Practitioner as directed. Dr. Douglas MD I have performed a history and physical examination and medical decision making of this patient, discussed the same with the dictator, and agree with the dictators assessment and plan as written, documented as a scribe. Based on total visit time, I have performed more than 50% of this visit. Past Medical History Past Medical History: Coronary Artery Disease (CAD), Chest Pain / Angina, COPD, Diabetes Mellitus, GERD/Reflux, Hearing Disorder / Deafness, Hyperlipidemia, Hypertension, Myocardial Infarction (NH) Additional Past Medical History / Comment(s): Neuropathy bilateral feet/legs, hx pancreatitis, chronic low back pain, hx gastric ulcer as a teen, hx benign colon polyps, small amount of trouble hearing. Last Myocardial Infarction Date:: 2011 History of Any Multi-Drug Resistant Organisms: None Reported Past Surgical History: Back Surgery, Ear Surgery, Heart Catheterization With Stent, Hernia Repair, Orthopedic Surgery Additional Past Surgical History / Comment(s): 2011 PCI with stent to mid RCA, bilateral inguinal hernia repair as teen, bilateral carpal tunnel releases, colonoscopy, bilateral myringotomies/tubes, 11/2021 cardiac stent. Past Anesthesia/Blood Transfusion Reactions: Motion Sickness, Postoperative Nausea & Vomiting (PONV) Additional Past Anesthesia/Blood Transfusion Reaction / Comm: PONV as a teen with surgery, none since. Date of Last Stent Placement:: 2021 Past Psychological History: No Psychological Hx Reported Additional Psychological History / Comment(s): Pt resides with his spouse. He is independent. Smoking Status: Former smoker Past Alcohol Use History: Occasional Additional Past Alcohol Use History / Comment(s): Started smoking in 1975, over a ppd, quit smoking 6 weeks ago(March 2023). Past Drug Use History: None Reported - Past Family History Father Family Medical History: Coronary Artery Disease (CAD), Myocardial Infarction (NH) Additional Family Medical History / Comment(s): Heart disease runs strongly on his father's side of family. Father is . Pt cannot recall at what age father had NH. Mother Family Medical History: Cancer Additional Family Medical History / Comment(s): Mother of renal cancer with mets. Medications and Allergies Home Medications Medication Instructions Recorded Confirmed Type Atorvastatin [Lipitor] 80 mg PO DAILY 10/14/17 05/31/23 History lisinopriL [Zestril] 5 mg PO QAM 12/16/21 05/31/23 History Aspirin 81 mg PO DAILY 12/17/21 05/31/23 Rx Metoprolol Tartrate [Lopressor] 25 mg PO BID #60 tab 12/17/21 05/31/23 Rx Nitroglycerin Sl Tabs [Nitrostat] 0.4 mg SUBLINGUAL Q5M PRN #25 tab 12/17/21 05/31/23 Rx Dulaglutide [Trulicity] 3 mg SQ DUENAS 01/24/22 05/31/23 History Empagliflozin [Jardiance] 25 mg PO DAILY 01/24/22 05/31/23 History Insulin Degludec [Tresiba 44 units SQ HS 01/24/22 05/31/23 History Flextouch U-200 Pen] Cyclobenzaprine [Flexeril] 5 mg PO TID PRN 05/25/23 05/31/23 History Gabapentin 300 mg PO TID 05/25/23 05/31/23 History Cyclobenzaprine [Flexeril] 5 mg PO TID PRN #60 tablet 06/01/23 Rx Gabapentin 300 mg PO TID #90 cap 06/01/23 Rx HYDROcodone/APAP 10-325MG [Falun 1 tab PO Q4-6H PRN #42 tab 06/01/23 Rx 10-325] Sennosides/Docusate Sodium [Senna 1 each PO DAILY PRN #20 capsule 06/01/23 Rx Plus 8.6-50 mg Softgel] cefaDROXiL [Duricef] 500 mg PO Q12HR 5 Days #10 cap 06/01/23 Rx Allergies Allergy/AdvReac Type Severity Reaction Status Date / Time No Known Allergies Allergy Verified 05/31/23 10:37 Physical Exam Vitals: Vital Signs Temp Pulse Resp BP Pulse Ox 06/01/23 08:00 93 16 06/01/23 07:30 98.7 F 93 16 125/76 96 06/01/23 02:00 98 F 84 118/71 95 05/31/23 20:00 98 F 81 17 119/80 92 L 05/31/23 18:24 91 124/78 94 L 05/31/23 18:16 85 16 121/78 94 L 05/31/23 18:10 88 117/74 93 L 05/31/23 17:25 85 16 117/78 94 L 05/31/23 17:20 87 14 05/31/23 17:10 89 119/75 95 05/31/23 16:55 90 129/81 94 L 05/31/23 16:40 97.7 F 81 16 129/81 95 05/31/23 16:00 87 14 120/70 92 L 05/31/23 15:45 90 15 119/62 94 L 05/31/23 15:30 90 14 134/62 96 05/31/23 15:14 97.7 F 91 15 150/69 98 Intake and Output 05/31/23 06/01/23 06/01/23 22:59 06:59 14:59 Intake Total 400 Balance 400 Intake: IV 200 Oral 200 Other: Voiding Method Toilet Toilet # Voids 3 Weight 115.8 kg Results CBC & Chem 7: 06/01/23 07:24 06/01/23 07:29 Labs: Abnormal Lab Results - Last 24 Hours (Table) 05/31/23 05/31/23 05/31/23 Range/Units 15:31 16:33 20:45 WBC (3.8-10.6) k/uL Neutrophils # (1.3-7.7) k/uL Sodium (137-145) mmol/L Creatinine (0.66-1.25) mg/dL Glucose (74-99) mg/dL POC Glucose (mg/dL) 234 H 201 H 226 H (70-110) mg/dL Hemoglobin A1c (<=6.0) % 06/01/23 06/01/23 06/01/23 Range/Units 06:23 07:24 07:24 WBC 11.3 H (3.8-10.6) k/uL Neutrophils # 8.3 H (1.3-7.7) k/uL Sodium (137-145) mmol/L Creatinine (0.66-1.25) mg/dL Glucose (74-99) mg/dL POC Glucose (mg/dL) 190 H (70-110) mg/dL Hemoglobin A1c 8.2 H (<=6.0) % 06/01/23 Range/Units 07:29 WBC (3.8-10.6) k/uL Neutrophils # (1.3-7.7) k/uL Sodium 133 L (137-145) mmol/L Creatinine 0.56 L (0.66-1.25) mg/dL Glucose 183 H (74-99) mg/dL POC Glucose (mg/dL) (70-110) mg/dL Hemoglobin A1c (<=6.0) % Assessment and Plan Time with Patient: Less than 30
== END 2023-06-01 12:40 | disposition home health service (06) ==
LOC: OR 10:10 → 4SSUR 15:05 → OR 06-01 12:40
PROVIDERS: ATTEND Orthopaedic Surgery
DX: M47.27 Other spondylosis with radiculopathy, lumbosacral region (principal); K21.9 Gastro-esophageal reflux disease without esophagitis; M47.816 Spondylosis without myelopathy or radiculopathy, lumbar region; G89.29 Other chronic pain; M25.78 Osteophyte, vertebrae; F45.42 Pain disorder with related psychological factors; M48.07 Spinal stenosis, lumbosacral region; I10 Essential (primary) hypertension; E78.5 Hyperlipidemia, unspecified; I25.10 Atherosclerotic heart disease of native coronary artery without angina pectoris; I25.2 Old myocardial infarction; J44.9 Chronic obstructive pulmonary disease, unspecified; E11.40 Type 2 diabetes mellitus with diabetic neuropathy, unspecified; Z79.4 Long term (current) use of insulin; Z95.5 Presence of coronary angioplasty implant and graft; Z79.85 Long-term (current) use of injectable non-insulin antidiabetic drugs; Z79.82 Long term (current) use of aspirin; Z79.899 Other long term (current) drug therapy; Z87.891 Personal history of nicotine dependence
CPT/HCPCS: 22633; 22853; 20931; 20938; 97161; 80048; 85025; 83036; 72100; 72131; C1713; C1762; C1734; J2250; J3370; J0330; J1100; J0690 ×2; J2405; J3010; J1170 ×2; J2704; J2001; J2371; 86850; 86900; 86901

== ENCOUNTER → 2023-12-14 | Outpatient (CLI) | payer BC ==
--- NOTE | 2023-12-14 16:50 | US ---
EXAMINATION TYPE: US scrotum with doppler. TECHNIQUE: Grayscale and color Doppler Duplex imaging performed of the scrotum. DATE OF EXAM: 12/14/2023 COMPARISON: NONE CLINICAL INDICATION: Male, 58 years old with history of N50.811 RIGHT TESTICULAR PAIN; Right sided te sticular pain and lump. Patient states unsure of how long. No other symptoms. EXAM MEASUREMENTS: TESTICLES: Right Testicle: 4.5 x 2.7 x 3.1 cm Left Testicle: 4.0 x 2.0 x 3.0 cm EPIDIDYMIS HEAD: Right Epididymis: 1.2 x 1.1 cm Left Epididymis: unable to visualize Doppler performed to assess for testicular vascularity; good bilateral color flow and waveforms are s een. There is no evidence of testicular torsion. Presence of hydroceles: There is a right sided 6.2 x 4.7 x 6.0 cm large, septated, fluid collection with mobile debris. Probable complex, septated hydrocele. Presence of varicoceles: no IMPRESSION: 1. No sonographic evidence for ovarian torsion or epididymoorchitis. 2. Large, complex septated hydrocele on the right with internal debris and measuring up to 6.2 cm. Cl inically correlate. Consider urology referral.
== END | disposition home or self-care (01) ==
LOC: RADUSWWP 06:57
PROVIDERS: ATTEND Internal Medicine
DX: N43.3 Hydrocele, unspecified (principal); N50.811 Right testicular pain
CPT/HCPCS: 76870; 93975

== ENCOUNTER 2024-02-14 01:09 | Emergency (ER) | payer BC ==
[2024-02-14] MEDS: NITROGLYCERIN SL TABS 0.4 MG TAB SUBLINGUAL STA (01:47)
--- NOTE | 2024-02-14 01:47 | ED ---
Chest Pain HPI - General Chief Complaint: Chest Pain Stated Complaint: Chest pain Time Seen by Provider: 02/14/24 01:25 Source: patient, EMS, RN notes reviewed, old records reviewed Mode of arrival: EMS Limitations: no limitations - History of Present Illness Initial Comments: This is a 59-year-old male to the ER for evaluation history of heart disease history of coronary artery disease with stent placement in the past. Patient was today for chest pain that woke him up from sleep and then put him to bed, patient again had chest pain that woke him up from sleep so 2 events last night 1 improved with nitro and 1 is persistent. MD Complaint: chest pain -: days(s) Onset: during rest, during exertion Pain Location: substernal, left chest Pain Radiation: LUE Severity: mild Severity scale (1-10): 3 Quality: tightness, heaviness Consistency: constant Improves With: nothing Worsens With: nothing Anginal Symptoms: sense of impending doom Other Symptoms: palpitations Treatments Prior to Arrival: none - Related Data Home Medications Medication Instructions Recorded Confirmed lisinopriL [Zestril] 5 mg PO DAILY 12/16/21 02/20/24 DULoxetine HCL [Cymbalta] 30 mg PO DAILY 02/20/24 02/20/24 DULoxetine HCL [Cymbalta] 60 mg PO DAILY 02/20/24 02/20/24 Nitroglycerin Sl Tabs [Nitrostat] 0.4 mg SL Q5M PRN 02/20/24 02/20/24 Pregabalin [Lyrica] 50 mg PO BID 02/20/24 02/20/24 Rosuvastatin Calcium [Crestor] 40 mg PO DAILY 02/20/24 02/20/24 Tirzepatide [Mounjaro] 7.5 mg SQ DUENAS 02/20/24 02/20/24 Varenicline [Chantix Continuing 1 mg PO BID 02/20/24 02/20/24 Pack] Previous Rx's Medication Instructions Recorded Aspirin 81 mg PO DAILY 12/17/21 Metoprolol Tartrate [Lopressor] 25 mg PO BID #60 tab 12/17/21 Allergies Allergy/AdvReac Type Severity Reaction Status Date / Time No Known Allergies Allergy Verified 02/20/24 10:11 Review of Systems ROS Statement: Those systems with pertinent positive or pertinent negative responses have been documented in the HPI. ROS Other: All systems not noted in ROS Statement are negative. EKG Findings - EKG Comments: EKG Findings:: EKG is sinus 90 AK 144 QRS 87 QTc 400 - EKG Results: EKG: interpreted by GRISELDAD EKG shows: sinus rhythm (EKG 2 is sinus 82 AK 146 QRS 95 QTc 406 no change in morphology) Past Medical History Past Medical History: Coronary Artery Disease (CAD), Chest Pain / Angina, COPD, Diabetes Mellitus, GERD/Reflux, Hearing Disorder / Deafness, Hyperlipidemia, Hypertension, Myocardial Infarction ([place]) Additional Past Medical History / Comment(s): Neuropathy bilateral feet/legs, hx pancreatitis, chronic low back pain, hx gastric ulcer as a teen, hx benign colon polyps, small amount of trouble hearing. Last Myocardial Infarction Date:: 2011 History of Any Multi-Drug Resistant Organisms: None Reported Past Surgical History: Back Surgery, Ear Surgery, Heart Catheterization With Stent, Hernia Repair, Orthopedic Surgery Additional Past Surgical History / Comment(s): 2011 PCI with stent to mid RCA, bilateral inguinal hernia repair as teen, bilateral carpal tunnel releases, colonoscopy, bilateral myringotomies/tubes, 11/2021 cardiac stent. Past Anesthesia/Blood Transfusion Reactions: Motion Sickness, Postoperative Nausea & Vomiting (PONV) Additional Past Anesthesia/Blood Transfusion Reaction / Comment(s): PONV as a teen with surgery, none since. Date of Last Stent Placement:: 2021 Past Psychological History: No Psychological Hx Reported Smoking Status: Former smoker Past Alcohol Use History: Occasional Past Drug Use History: None Reported - Past Family History Father Family Medical History: Coronary Artery Disease (CAD), Myocardial Infarction (MN) Additional Family Medical History / Comment(s): Heart disease runs strongly on his father's side of family. Father is . Pt cannot recall at what age father had MN. Mother Family Medical History: Cancer Additional Family Medical History / Comment(s): Mother of renal cancer with mets. General Exam Limitations: no limitations General appearance: alert, in no apparent distress Head exam: Present: atraumatic, normocephalic, normal inspection Eye exam: Present: normal appearance, PERRL, EOMI. Absent: scleral icterus, conjunctival injection, periorbital swelling ENT exam: Present: normal exam, mucous membranes moist Neck exam: Present: normal inspection. Absent: tenderness, meningismus, lymphadenopathy Respiratory exam: Present: normal lung sounds bilaterally. Absent: respiratory distress, wheezes, rales, rhonchi, stridor Cardiovascular Exam: Present: regular rate, normal rhythm, normal heart sounds. Absent: systolic murmur, diastolic murmur, rubs, gallop, clicks GI/Abdominal exam: Present: soft, normal bowel sounds. Absent: distended, tenderness, guarding, rebound, rigid Extremities exam: Present: normal inspection, full ROM, normal capillary refill. Absent: tenderness, pedal edema, joint swelling, calf tenderness Back exam: Present: normal inspection Neurological exam: Present: alert, oriented X3, CN II-XII intact Psychiatric exam: Present: normal affect, normal mood Skin exam: Present: warm, dry, intact, normal color. Absent: rash Course Vital Signs 02/14/24 02/14/24 02/14/24 01:29 02:00 02:30 Temperature 98.1 F Pulse Rate 87 90 84 Respiratory 18 18 16 Rate Blood Pressure 111/67 107/67 110/58 O2 Sat by Pulse 96 94 L 96 Oximetry 02/14/24 05:28 Temperature 98 F Pulse Rate 94 Respiratory 18 Rate Blood Pressure 137/83 O2 Sat by Pulse 96 Oximetry - Reevaluation(s) Reevaluation #1: 02/14/24 01:43 Records reviewed Reevaluation #2: 02/14/24 01:43 Patient symptoms improved Reevaluation #3: 02/14/24 01:43 Patient informed of results questions answered Studies Chest x-ray is negative for acute disease Reevaluation #4: Was pt. sent in by a medical professional or institution (, PA, FAGOTER, urgent care, hospital, or [facility]...) When possible be specific @ -no Did you speak to anyone other than the patient for history (EMS, parent, family, police, friend...)? What history was obtained from this source @ -no Did you review nursing and triage notes (agree or disagree)? Why? @ -agree Are old charts reviewed (outside hosp., previous admission, EMS record, old EKG, old radiological studies, urgent care reports/EKG's, [facility] records)? Report findings @ -yes Differential Diagnosis (chest pain, altered mental status, abdominal pain women, abdominal pain men, vaginal bleeding, weakness, fever, dyspnea, syncope, headache, dizziness, GI bleed, back pain, seizure, CVA, palpatations, mental health, musculoskeletal)? @ -prior EKG interpreted by me (3pts min.). @ -yes X-rays interpreted by me (1pt min.). @ -yes negative for acute disease CT interpreted by me (1pt min.). @ -no U/S interpreted by me (1pt. min.). @ -no What testing was considered but not performed or refused? (CT, X-rays, U/S, labs)? Why? @ -none What meds were considered but not given or refused? Why? @ -none Did you discuss the management of the patient with other professionals (professionals i.e. DrJeanne, PA, FAGOTER, lab, RT, psych nurse, manager social services, docking pilot, teacher, radio division officer, case finishing machine adjuster)? Give summary @ -no Was smoking cessation discussed for >3mins.? @ -no Was critical care preformed (if so, how long)? @ -yes31 Were there social determinants of health that impacted care today? How? (Homelessness, low income, unemployed, alcoholism, drug addiction, transportation, low edu. Level, literacy, decrease access to med. care, detention, rehab)? @ -none Was there de-escalation of care discussed even if they declined (Discuss DNR or withdrawal of care, Hospice)? DNR status @ -no What co-morbidities impacted this encounter? (DM, HTN, Smoking, COPD, CAD, Canc er, CVA, ARF, Chemo, Hep., AIDS, mental health diagnosis, sleep apnea, morbid obesity)? @ -none Was patient admitted / discharged? Hospital course, mention meds given and route, prescriptions, significant lab abnormalities, going to OR and other pertinent info. @ - 59 male with significant history of heart disease coming in for chest pain today. Patient has troponin negative x 2, EKG normal x 2, no change, patient can be discharged home prefers discharge home as he can see sports intern Dr. Jernigan tomorrow or currently today. Patient refuses inpatient admission Admission Undiagnosed new problem with uncertain prognosis? @ -no Drug Therapy requiring intensive monitoring for toxicity (Heparin, Nitro, Insulin, Cardizem)? @ -no Were any procedures done? @ -no Diagnosis/symptom? @ -Chest pain with history of CAD Acute, or Chronic, or Acute on Chronic? @ -Acute Uncomplicated (without systemic symptoms) or Complicated (systemic symptoms)? @ -Complicated Side effects of treatment? @ -no Exacerbation, Progression, or Severe Exacerbation? @ -exacerbation Poses a threat to life or bodily function? How? (Chest pain, [place], [place], pneumonia, PE, COPD, DKA, ARF, appy, cholecystitis, CVA, Diverticulitis, Homicidal, Suicidal, threat to staff... and all critical care pts) @ -yes with significant chest pain Reevaluation #5: Differential Chest Pain: Stable Angina, Unstable Angina, STEMI, NSTEMI Aortic Dissection, Pneumothorax, Musculoskeletal, Esophageal Spasm GERD, Cholecystitis, Pancreatitis, Zoster, this is not meant to be an all-inclusive list. Chest Pain MDM - MDM 59 male with significant history of heart disease coming in for chest pain today. Patient has troponin negative x 2, EKG normal x 2, no change, patient can be discharged home prefers discharge home as he can see sports intern Dr. Jernigan tomorrow or currently today. Patient refuses inpatient admission Critical Care Time Critical Care Time: Yes Total Critical Care Time: 31 Disposition Clinical Impression: Chest pain, CAD (coronary artery disease) Disposition: HOME SELF-CARE Condition: Undetermined Instructions (If sedation given, give patient instructions): Chest Pain (ED) Is patient prescribed a controlled substance at d/c from ED?: No Referrals: Lorraine Solomon MD [Primary Care Provider] - 1-2 days Time of Disposition: 05:00
[2024-02-14] MEDS: SODIUM CHLORIDE 0.9% 1,000 ML IV STA (01:48)
[2024-02-14 02:09] LABS: Basophils % (A) 1 %; Eosinophils # (A) 0.2 k/uL (0-0.7); Eosinophils % (A) 3 %; HCT 49.6 % (39.0-53.0); HGB 16.9 gm/dL (13.0-17.5); Lymphocytes # (A) 1.7 k/uL (1.0-4.8); Lymphocytes % (A) 29 %; MCH 32.2 pg (25.0-35.0); MCHC 34.1 g/dL (31.0-37.0); MCV 94.5 fL (80.0-100.0); Mean Platelet Volume 8.5; Monocytes # (A) 0.3 k/uL (0-1.0); Monocytes % (A) 6 %; Neutrophils # (A) 3.5 k/uL (1.3-7.7); Neutrophils % (A) 58 %; Platelet Count 156 k/uL (150-450); RBC 5.26 m/uL (4.30-5.90); RDW 14.9 % (11.5-15.5)
[2024-02-14 02:31] LABS: ALT 26 U/L (4-49); AST 33 U/L (17-59); African American GFR (CKD) >90 (>60 ml/min/1.73 sqM); Albumin 3.9 g/dL (3.5-5.0); Alkaline Phosphatase 73 U/L (38-126); Anion Gap 8 mmol/L; Blood Urea Nitrogen 12 mg/dL (9-20); Calcium 8.6 mg/dL (8.4-10.2); Carbon Dioxide 22 mmol/L (22-30); Chloride 102 mmol/L (98-107); Glucose 359 mg/dL (74-99); Lipase 104 U/L (23-300); Magnesium 1.8 mg/dL (1.6-2.3); Non-African American GFR(CKD) >90 (>60 ml/min/1.73 sqM); Potassium 4.7 mmol/L (3.5-5.1); Sodium 132 mmol/L (137-145); Total Bilirubin 0.6 mg/dL (0.2-1.3); Total Protein 6.7 g/dL (6.3-8.2)
--- NOTE | 2024-02-14 02:32 | XR ---
EXAM: XR Chest, 2 Views CLINICAL HISTORY: ITS.REASON XR Reason: Chest Pain TECHNIQUE: Frontal and lateral views of the chest. COMPARISON: No relevant prior studies available. FINDINGS: Lungs: No consolidation or mass. Pleural space: No effusion. Heart: No cardiomegaly. Bones/joints: No acute findings. IMPRESSION: No acute cardiopulmonary process.
[2024-02-14 02:33] LABS: INR 0.9 (<1.2); Partial Thromboplastin Time 24.6 sec (22.0-30.0); Prothrombin Time 10.4 sec (10.0-12.5)
[2024-02-14 02:38] LABS: NT-Pro-B-Type Natriuretic Pept 83 pg/mL
[2024-02-14 05:33] VITALS: BP 137/83; PULSE 94; RESP 18; TEMP 98
== END 2024-02-14 05:29 | disposition home or self-care (01) ==
LOC: EC 01:09
DX: I25.10 Atherosclerotic heart disease of native coronary artery without angina pectoris (principal); Z87.891 Personal history of nicotine dependence; Z95.5 Presence of coronary angioplasty implant and graft
CPT/HCPCS: 36415; 71046; 80053; 83690; 83735; 83880; 84484; 85025; 85610; 85730; 93005; 96360; 96361; 99291

== ENCOUNTER 2024-02-20 09:24 | Inpatient (IN) | payer BC ==
[2024-02-20] MEDS: ASPIRIN 81 MG PO STA (09:39)
[2024-02-20] MEDS: SODIUM CHLORIDE 0.9% 500 ML 500 ML IV STA (09:40)
[2024-02-20 09:42] LABS: Glucose,Whole Blood 335 mg/dL (70-110)
[2024-02-20] MEDS: SODIUM CHLORIDE 0.9% 1,000 ML IV STA (09:42)
[2024-02-20] MEDS: NITROGLYCERIN SL TABS 0.4 MG TAB SUBLINGUAL STA ×2 (09:47→10:26)
[2024-02-20 10:03] LABS: Basophils # (A) 0.1 k/uL (0-0.2); Basophils % (A) 1 %; Eosinophils # (A) 0.1 k/uL (0-0.7); Eosinophils % (A) 2 %; HCT 50.5 % (39.0-53.0); HGB 17.1 gm/dL (13.0-17.5); Lymphocytes # (A) 1.5 k/uL (1.0-4.8); Lymphocytes % (A) 27 %; MCH 32.3 pg (25.0-35.0); MCHC 33.8 g/dL (31.0-37.0); MCV 95.6 fL (80.0-100.0); Mean Platelet Volume 8.2; Monocytes # (A) 0.3 k/uL (0-1.0); Monocytes % (A) 6 %; Neutrophils # (A) 3.3 k/uL (1.3-7.7); Neutrophils % (A) 61 %; Platelet Count 142 k/uL (150-450); RBC 5.28 m/uL (4.30-5.90); RDW 14.3 % (11.5-15.5); WBC 5.5 k/uL (3.8-10.6)
[2024-02-20 10:12] LABS: INR 0.9 (<1.2); Partial Thromboplastin Time 25.2 sec (22.0-30.0); Prothrombin Time 10.4 sec (10.0-12.5)
[2024-02-20 10:13] LABS: ALT 27 U/L (4-49); AST 19 U/L (17-59); African American GFR (CKD) >90 (>60 ml/min/1.73 sqM); Albumin 4.1 g/dL (3.5-5.0); Alkaline Phosphatase 79 U/L (38-126); Anion Gap 8 mmol/L; Blood Urea Nitrogen 14 mg/dL (9-20); Carbon Dioxide 22 mmol/L (22-30); Chloride 102 mmol/L (98-107); Glucose 335 mg/dL (74-99); Magnesium 1.8 mg/dL (1.6-2.3); Non-African American GFR(CKD) >90 (>60 ml/min/1.73 sqM); Potassium 4.5 mmol/L (3.5-5.1); Sodium 132 mmol/L (137-145); Total Bilirubin 0.7 mg/dL (0.2-1.3); Total Protein 6.9 g/dL (6.3-8.2)
[2024-02-20 10:20] LABS: NT-Pro-B-Type Natriuretic Pept 126 pg/mL
--- NOTE | 2024-02-20 10:33 | ED ---
General Adult HPI - General Chief complaint: Chest Pain Stated complaint: Chest Pain Time Seen by Provider: 02/20/24 09:24 Source: patient, RN notes reviewed, old records reviewed Mode of arrival: ambulatory Limitations: no limitations - History of Present Illness Initial comments: Patient is a 59-year-old male who presents emergency department complaining of chest pain. Has been ongoing for a week. Was recently last week here with similar symptoms. Saw his oyster shipper Dr. Jernigan today who recommended to come to the emergency department for admission and likely cath. Dr. Jernigan called ahead and updated me that he would like the patient admitted after cardiac workup. N.p.o. for cardiac cath later today likely. Patient describes ameya tral/left-sided chest discomfort which has been ongoing for over a week. More or less constant. No known palliative or provocative factors. Denies any nausea or vomiting. States it radiates to her shoulders. Denies any emesis, nausea, diaphoresis. Patient presents for further evaluation. - Related Data Home Medications Medication Instructions Recorded Confirmed lisinopriL [Zestril] 5 mg PO DAILY 12/16/21 02/20/24 DULoxetine HCL [Cymbalta] 30 mg PO DAILY 02/20/24 02/20/24 DULoxetine HCL [Cymbalta] 60 mg PO DAILY 02/20/24 02/20/24 Nitroglycerin Sl Tabs [Nitrostat] 0.4 mg SL Q5M PRN 02/20/24 02/20/24 Pregabalin [Lyrica] 50 mg PO BID 02/20/24 02/20/24 Rosuvastatin Calcium [Crestor] 40 mg PO DAILY 02/20/24 02/20/24 Tirzepatide [Mounjaro] 7.5 mg SQ DUENAS 02/20/24 02/20/24 Varenicline [Chantix Continuing 1 mg PO BID 02/20/24 02/20/24 Pack] Previous Rx's Medication Instructions Recorded Aspirin 81 mg PO DAILY 12/17/21 Metoprolol Tartrate [Lopressor] 25 mg PO BID #60 tab 12/17/21 Allergies Allergy/AdvReac Type Severity Reaction Status Date / Time No Known Allergies Allergy Verified 02/20/24 10:11 Review of Systems ROS Statement: Those systems with pertinent positive or pertinent negative responses have been documented in the HPI. Review of Systems: CONST: Denies fever EYES: Denies blurry vision ENT: Denies nasal congestion C/V: Endorses chest pain RESP: Denies shortness of breath GI: Denies abdominal pain : Denies dysuria SKIN: Denies rash. MSK: Denies joint pain. NEURO: Denies headache ROS Other: All systems not noted in ROS Statement are negative. Past Medical History Past Medical History: Coronary Artery Disease (CAD), Chest Pain / Angina, COPD, Diabetes Mellitus, GERD/Reflux, Hearing Disorder / Deafness, Hyperlipidemia, Hypertension, Myocardial Infarction (NM) Additional Past Medical History / Comment(s): Neuropathy bilateral feet/legs, hx pancreatitis, chronic low back pain, hx gastric ulcer as a teen, hx benign colon polyps, small amount of trouble hearing. Last Myocardial Infarction Date:: 2011 History of Any Multi-Drug Resistant Organisms: None Reported Past Surgical History: Back Surgery, Ear Surgery, Heart Catheterization With Stent, Hernia Repair, Orthopedic Surgery Additional Past Surgical History / Comment(s): 2011 PCI with stent to mid RCA, bilateral inguinal hernia repair as teen, bilateral carpal tunnel releases, colonoscopy, bilateral myringotomies/tubes, 11/2021 cardiac stent. Past Anesthesia/Blood Transfusion Reactions: Motion Sickness, Postoperative Nausea & Vomiting (PONV) Additional Past Anesthesia/Blood Transfusion Reaction / Comment(s): PONV as a teen with surgery, none since. Date of Last Stent Placement:: 2021 Past Psychological History: No Psychological Hx Reported Smoking Status: Current every day smoker Past Alcohol Use History: Occasional Past Drug Use History: None Reported - Past Family History Father Family Medical History: Coronary Artery Disease (CAD), Myocardial Infarction (NM) Additional Family Medical History / Comment(s): Heart disease runs strongly on his father's side of family. Father is . Pt cannot recall at what age father had NM. Mother Family Medical History: Cancer Additional Family Medical History / Comment(s): Mother of renal cancer with mets. General Exam - General Exam Comments Initial Comments: General: Appears in no acute distress. HEAD: Normal with no signs of head trauma. EYES: PERRLA, EOMI, conjunctiva normal, no discharge. ENT: Hearing grossly intact, normal oropharynx. RESPIRATORY: Clear breath sounds bilaterally. No wheezes, rales, or rhonchi. C/V: Regular rate and rhythm. S1 and S2 auscultated, no edema, peripheral pulses 2+ and intact throughout. Chest pain nonreproducible on palpation. ABD: Abd is soft, nontender, nondistended EXT: Normal range of motion, no obvious deformity SKIN: No rashes or lesions observed on exposed skin. NEURO: Alert and oriented x 4. Cranial nerves II-XII intact. No focal sensory or strength deficits. Limitations: no limitations Course Vital Signs 02/20/24 02/20/24 02/20/24 09:25 10:09 10:59 Temperature 97.7 F Pulse Rate 81 73 73 Respiratory 20 18 18 Rate Blood Pressure 146/83 118/91 93/69 O2 Sat by Pulse 98 95 96 Oximetry Medical Decision Making - Medical Decision Making Was pt. sent in by a medical professional or institution (, PA, [employer] ATTENDANT, urgent care, hospital, or [facility]...) When possible be specific @ -No Did you speak to anyone other than the patient for history (EMS, parent, family, police, friend...)? What history was obtained from this source @ -Patient's oyster shipper Dr. Jernigan called ahead and provided patient's recent past medical history as well as preference for admission for cardiac catheterization. Did you review nursing and triage notes (agree or disagree)? Why? @ -I reviewed and agree with nursing and triage notes Were old charts reviewed (outside hosp., previous admission, EMS record, old EKG, old radiological studies, urgent care reports/EKG's, [facility] records)? Report findings @ -Old charts reviewed Differential Diagnosis (chest pain, altered mental status, abdominal pain women, abdominal pain men, vaginal bleeding, weakness, fever, dyspnea, syncope, headache, dizziness, GI bleed, back pain, seizure, CVA, palpatations, mental health, musculoskeletal)? @ -Differential Chest Pain: Stable Angina, Unstable Angina, STEMI, NSTEMI Aortic Dissection, Pneumothorax, Musculoskeletal, Esophageal Spasm GERD, Cholecystitis, Pancreatitis, Zoster, this is not meant to be an all-inclusive list. EKG interpreted by me (3pts min.). @ -As above X-rays interpreted by me (1pt min.). @ -Chest pain reveals no obvious acute cardiopulmonary process. Radiology concern for possible bronchitis however patient is asymptomatic. CT interpreted by me (1pt min.). @ -None done U/S interpreted by me (1pt. min.). @ -None done What testing was considered but not performed or refused? (CT, X-rays, U/S, labs)? Why? @ -None What meds were considered but not given or refused? Why? @ -None Did you discuss the management of the patient with other professionals (professionals i.e. Dr., PA, [employer] ATTENDANT, lab, RT, psych nurse, social group worker, floor scraper, teacher, business services officer, community case manager)? Give summary @ -Discussed with patient's oyster shipper Dr. Jernigan who was in agreement with plan for work up and would like the patient admitted for cardiac cath. I spoke with rounding oyster shipper Dr. Milton who presented at bedside to evaluate patient who is in agreement the plan including heparin initiation. Spoke with admitting team, Dr. Trinidad who accepted the admission. Was smoking cessation discussed for >3mins.? @ -No Was critical care preformed (if so, how long)? @ -Yes, 33 minutes. Were there social determinants of health that impacted care today? How? (Homelessness, low income, unemployed, alcoholism, drug addiction, tra nsportation, low edu. Level, literacy, decrease access to med. care, care home, rehab)? @ -No Was there de-escalation of care discussed even if they declined (Discuss DNR or withdrawal of care, Hospice)? DNR status @ -No What co-morbidities impacted this encounter? (DM, HTN, Smoking, COPD, CAD, Cancer, CVA, ARF, Chemo, Hep., AIDS, mental health diagnosis, sleep apnea, morbid obesity)? @ -CAD with 2 cardiac stents Was patient admitted / discharged? Hospital course, mention meds given and route, prescriptions, significant lab abnormalities, going to OR and other pertinent info. @ -Based on patient's presentation and physical exam, he presents with 1 week of chest pain with cardiac history. Plan is for cardiac cath with his oyster shipper later. Vital signs within acceptable limits. He will receive aspirin as well as nitroglycerin tablets. Cardiopulmonary workup obtained. Patient in agreement this plan. Labs remarkable for elevated troponin of 0.068 as well as hyperglycemia of 335. EKG shows no signs of acute ischemia. Chest x-ray unremarkable, possible bronchitis however patient is asymptomatic. On reevaluation, patient's pain is improved following multiple nitroglycerin tablets. He will be started on a heparin drip for NSTEMI. Plan is for admission for cardiac cath. I discussed the case with Dr. Jernigan the patient's oyster shipper as well as rounding oyster shipper Dr. Milton as well as admitting physician Dr. Trinidad who are all in agreement the plan for admission. Patient is NPO. Undiagnosed new problem with uncertain prognosis? @ -No Drug Therapy requiring intensive monitoring for toxicity (Heparin, Nitro, Insulin, Cardizem)? @ -Heparin Were any procedures done? @ -No Diagnosis/symptom? @ -NSTEMI Acute, or Chronic, or Acute on Chronic? @ -Acute Uncomplicated (without systemic symptoms) or Complicated (systemic symptoms)? @ -Complicated Side effects of treatment? @ -No Exacerbation, Progression, or Severe Exacerbation? @ -No Poses a threat to life or bodily function? How? (Chest pain, [place], NM, pneumonia, PE, COPD, DKA, ARF, appy, cholecystitis, CVA, Diverticulitis, Homicidal, Suicidal, threat to staff... and all critical care pts) @ -Yes - Lab Data Result diagrams: 02/20/24 09:36 02/20/24 09:36 Lab Results 02/20/24 02/20/24 02/20/24 Range/Units 09:36 09:36 09:36 WBC 5.5 (3.8-10.6) k/uL RBC 5.28 (4.30-5.90) m/uL Hgb 17.1 (13.0-17.5) gm/dL Hct 50.5 (39.0-53.0) % MCV 95.6 (80.0-100.0) fL MCH 32.3 (25.0-35.0) pg MCHC 33.8 (31.0-37.0) g/dL RDW 14.3 (11.5-15.5) % Plt Count 142 L (150-450) k/uL MPV 8.2 Neutrophils % 61 % Lymphocytes % 27 % Monocytes % 6 % Eosinophils % 2 % Basophils % 1 % Neutrophils # 3.3 (1.3-7.7) k/uL Lymphocytes # 1.5 (1.0-4.8) k/uL Monocytes # 0.3 (0-1.0) k/uL Eosinophils # 0.1 (0-0.7) k/uL Basophils # 0.1 (0-0.2) k/uL PT 10.4 (10.0-12.5) sec INR 0.9 (<1.2) APTT 25.2 (22.0-30.0) sec Sodium 132 L (137-145) mmol/L Potassium 4.5 (3.5-5.1) mmol/L Chloride 102 (98-107) mmol/L Carbon Dioxide 22 (22-30) mmol/L Anion Gap 8 mmol/L BUN 14 (9-20) mg/dL Creatinine 0.50 L (0.66-1.25) mg/dL Est GFR (CKD-EPI)AfAm >90 (>60 ml/min/1.73 sqM) Est GFR (CKD-EPI)NonAf >90 (>60 ml/min/1.73 sqM) Glucose 335 H (74-99) mg/dL POC Glucose (mg/dL) (70-110) mg/dL POC Glu Timber Management Technician ID Calcium 9.0 (8.4-10.2) mg/dL Magnesium 1.8 (1.6-2.3) mg/dL Total Bilirubin 0.7 (0.2-1.3) mg/dL AST 19 (17-59) U/L ALT 27 (4-49) U/L Alkaline Phosphatase 79 (38-126) U/L Troponin I (0.000-0.034) ng/mL NT-Pro-B Natriuret Pep 126 pg/mL Total Protein 6.9 (6.3-8.2) g/dL Albumin 4.1 (3.5-5.0) g/dL 02/20/24 02/20/24 Range/Units 09:36 09:40 WBC (3.8-10.6) k/uL RBC (4.30-5.90) m/uL Hgb (13.0-17.5) gm/dL Hct (39.0-53.0) % MCV (80.0-100.0) fL MCH (25.0-35.0) pg MCHC (31.0-37.0) g/dL RDW (11.5-15.5) % Plt Count (150-450) k/uL MPV Neutrophils % % Lymphocytes % % Monocytes % % Eosinophils % % Basophils % % Neutrophils # (1.3-7.7) k/uL Lymphocytes # (1.0-4.8) k/uL Monocytes # (0-1.0) k/uL Eosinophils # (0-0.7) k/uL Basophils # (0-0.2) k/uL PT (10.0-12.5) sec INR (<1.2) APTT (22.0-30.0) sec Sodium (137-145) mmol/L Potassium (3.5-5.1) mmol/L Chloride (98-107) mmol/L Carbon Dioxide (22-30) mmol/L Anion Gap mmol/L BUN (9-20) mg/dL Creatinine (0.66-1.25) mg/dL Est GFR (CKD-EPI)AfAm (>60 ml/min/1.73 sqM) Est GFR (CKD-EPI)NonAf (>60 ml/min/1.73 sqM) Glucose (74-99) mg/dL POC Glucose (mg/dL) 335 H (70-110) mg/dL POC Glu Timber Management Technician ID Do [place] Calcium (8.4-10.2) mg/dL Magnesium (1.6-2.3) mg/dL Total Bilirubin (0.2-1.3) mg/dL AST (17-59) U/L ALT (4-49) U/L Alkaline Phosphatase (38-126) U/L Troponin I 0.068 H* (0.000-0.034) ng/mL NT-Pro-B Natriuret Pep pg/mL Total Protein (6.3-8.2) g/dL Albumin (3.5-5.0) g/dL - EKG Data -: EKG Interpreted by Me EKG Comments: 12-lead Electrocardiogram Interpretation Note EKG was reviewed and interpreted by myself. 12-lead ECG performed at 0933 is interpreted by me as revealing normal sinus rhythm at a rate of 75 beats per minute. [place] is normal. MA interval is 125 ms, QRS durations 94 ms, QTc is 3 to 99 ms.. There were no ST or T wave abnormalities to suggest myocardial ischemia or injury. R wave progression across the precordium was satisfactory. By my interpretation this EKG is non-diagnostic for acute ischemia. Critical Care Time Critical Care Time: Yes Total Critical Care Time: 33 Disposition Clinical Impression: NSTEMI (non-ST elevated myocardial infarction) Disposition: ADMITTED IP TO THIS HOSP Condition: Serious Time of Disposition: 10:51
[2024-02-20] MEDS ORDERED: NITROGLYCERIN SL TABS 0.4 MG TAB SUBLINGUAL PRN ×2 (10:34→19:26)
[2024-02-20] MEDS ORDERED: HEPARIN SODIUM 1,000 UN/ML (10ML VL) IV PRN (10:34)
[2024-02-20] MEDS ORDERED: ALPRAZolam 0.5 MG TAB PO PRN (10:34)
[2024-02-20] MEDS: ASPIRIN 325 MG TAB PO STA (10:49)
--- NOTE | 2024-02-20 10:51 | XR ---
EXAMINATION TYPE: XR chest 2V DATE OF EXAM: 02/20/2024 COMPARISON: 02/14/2024 HISTORY: 59-year-old male with chest pain TECHNIQUE: PA and lateral views FINDINGS: Heart normal size. Mild hyperinflation. Diffuse interstitial density and peribronchial cuffing. Old h ealed right lateral mid chest fracture deformities. No consolidation or pleural effusion. IMPRESSION: COPD. The degree of interstitial prominence could reflect a superimposed bronchitis or atypical pneum onias. No focal infiltrate seen.
[2024-02-20] MEDS: ATORVASTATIN 80 MG TAB PO STA (10:52)
[2024-02-20] MEDS ORDERED: NALOXONE 0.4 MG/ML 1 ML VIAL IV PRN (10:54)
[2024-02-20] MEDS: HEPARIN SODIUM 1,000 UN/ML (10ML VL) IV ONE (10:54)
[2024-02-20] MEDS: HEPARIN SOD,PORK IN 0.45% NACL 25,000 UNIT in 0.45% NACL 1 250ML.BAG IV SCH (10:56)
[2024-02-20] MEDS ORDERED: DEXTROSE 50% SYRINGE 50 ML IVP PRN ×2 (11:26)
--- NOTE | 2024-02-20 11:35 | P.CRDCN ---
History of Present Illness Consult date: 02/20/24 Consult reason: chest pain History of present illness: History of present illness: This is a 59-year-old male patient of Dr. Hernandes with past medical history of coronary artery disease with prior stenting of the RCA and LAD, ischemic cardiomyopathy with EF of 45%, hypertension, dyslipidemia, tobacco use and dependence, overweight, chronic back pain. Patient presented to the office with Dr. Hernandes today following a recent ER visit on 02/13 at which time he presented with chest pain and was discharged home with plan to follow-up with Dr. Hernandes. Patient was complaining of midsternal chest pain a dull type of sensation with worsening with exertion and emotional stress. No dizziness or lightheadedness. No shortness of breath. Patient is an active smoker. Due to patient's symptoms, he was sent directly to the emergency center with plan for cardiac catheterization today. Patient is seen today in the emergency center waiting for a bed on the cardiac stepdown unit.. EKG sinus rhythm with no acute ST-T wave changes. Chest x-ray: COPD. Superimposed bronchitis or atypical pneumonias. No focal infiltrate. Platelet count 142, hemoglobin 17.1, WBC 5.5. Sodium 132, potassium 4.5, BUN 14 creatinine 0.5. Glucose 335. Magnesium 1.8. Troponin 0.068. proBNP 126. Home cardiac medications: Aspirin 81 mg daily, lisinopril 5 mg daily, Lopressor 25 mg twice daily, Nitrostat as needed, Crestor 40 mg daily, also on Mounjaro 7.5 mg on Sundays and . Myocardial perfusion imaging stress test was done September 2023 which was abnormal showing an apical ischemia but patient refused to undergo cardiac catheterization at that point as he was asymptomatic. Cardiac catheterization performed 12/16/2021 revealed patent stent in the RCA. Critical disease in the mid LAD and stent was placed in the mid LAD. Review Of Systems: At the time of my exam: CONSTITUTIONAL: Denies fever or chills. HEENT: Denies blurred vision, vision changes, or eye pain. Denies hemoptysis CARDIOVASCULAR: Reports chest pain. Denies orthopnea. Denies PND. Denies palpitations RESPIRATORY: Denies shortness of breath. GASTROINTESTINAL: Denies abdominal pain. Denies nausea or vomiting. HEMATOLOGIC: Denies bleeding disorders. GENITOURINARY: Denies any blood in urine. SKIN: Denies pruitis. Denies rash. Physical examination: Gen: This is a 59-year-old male in no acute distress VS: reviewed blood pressure 93/69, heart rate 73, pulse ox 96% on room air. HEENT: Head is atraumatic, normocephalic. Pupils equal, round. Sclerae is anicteric. NECK: Supple. No JVD. LUNGS: Clear to auscultation. No wheezes or rhonchi. No intercostal retractions. HEART: Regular rate and rhythm. Soft systolic murmur. ABDOMEN: Soft No tenderness. EXTREMITIES: No pedal edema. No calf tenderness. NEUROLOGICAL: Patient is awake, alert and oriented x3. Assessment: Non-ST elevated myocardial infarction Coronary artery disease with prior stenting of the RCA and LAD Ischemic cardiomyopathy with EF of 45% Hypertension Dyslipidemia Active tobacco use and dependence Plan: Resume patient's home cardiac medications Continue heparin drip Patient will be scheduled for cardiac catheterization today with Dr. Hernandes Obtain 2-D echocardiogram and Doppler study to assess cardiac structure and function Further recommendations to follow based upon clinical course Thank you kindly for this consultation. Nurse practitioner note has been reviewed, I agree with documented findings and plan of care. Patient was seen and examined. Past Medical History Past Medical History: Coronary Artery Disease (CAD), Chest Pain / Angina, COPD, Diabetes Mellitus, GERD/Reflux, Hearing Disorder / Deafness, Hyperlipidemia, Hypertension, Myocardial Infarction (MS) Additional Past Medical History / Comment(s): Neuropathy bilateral feet/legs, hx pancreatitis, chronic low back pain, hx gastric ulcer as a teen, hx benign colon polyps, small amount of trouble hearing. Last Myocardial Infarction Date:: 2011 History of Any Multi-Drug Resistant Organisms: None Reported Past Surgical History: Back Surgery, Ear Surgery, Heart Catheterization With Stent, Hernia Repair, Orthopedic Surgery Additional Past Surgical History / Comment(s): 2011 PCI with stent to mid RCA, bilateral inguinal hernia repair as teen, bilateral carpal tunnel releases, colonoscopy, bilateral myringotomies/tubes, 11/2021 cardiac stent. Past Anesthesia/Blood Transfusion Reactions: Motion Sickness, Postoperative Nausea & Vomiting (PONV) Additional Past Anesthesia/Blood Transfusion Reaction / Comment(s): PONV as a teen with surgery, none since. Date of Last Stent Placement:: 2021 Past Psychological History: No Psychological Hx Reported Smoking Status: Current every day smoker Past Alcohol Use History: Occasional Past Drug Use History: None Reported - Past Family History Father Family Medical History: Coronary Artery Disease (CAD), Myocardial Infarction (MS) Additional Family Medical History / Comment(s): Heart disease runs strongly on his father's side of family. Father is . Pt cannot recall at what age father had MS. Mother Family Medical History: Cancer Additional Family Medical History / Comment(s): Mother of renal cancer with mets. Medications and Allergies Home Medications Medication Instructions Recorded Confirmed Type lisinopriL [Zestril] 5 mg PO DAILY 12/16/21 02/20/24 History Aspirin 81 mg PO DAILY 12/17/21 02/20/24 Rx Metoprolol Tartrate [Lopressor] 25 mg PO BID #60 tab 12/17/21 02/20/24 Rx DULoxetine HCL [Cymbalta] 30 mg PO DAILY 02/20/24 02/20/24 History DULoxetine HCL [Cymbalta] 60 mg PO DAILY 02/20/24 02/20/24 History Nitroglycerin Sl Tabs [Nitrostat] 0.4 mg SL Q5M PRN 02/20/24 02/20/24 History Pregabalin [Lyrica] 50 mg PO BID 02/20/24 02/20/24 History Rosuvastatin Calcium [Crestor] 40 mg PO DAILY 02/20/24 02/20/24 History Tirzepatide [Mounjaro] 7.5 mg SQ DUENAS 02/20/24 02/20/24 History Varenicline [Chantix Continuing 1 mg PO BID 02/20/24 02/20/24 History Pack] Allergies Allergy/AdvReac Type Severity Reaction Status Date / Time No Known Allergies Allergy Verified 02/20/24 10:11 Physical Exam Vitals: Vital Signs Temp Pulse Resp BP Pulse Ox 02/20/24 10:09 73 18 118/91 95 02/20/24 09:25 97.7 F 81 20 146/83 98 Intake and Output 02/19/24 02/20/24 02/20/24 22:59 06:59 14:59 Other: Weight 108.862 kg Results 02/20/24 09:36 02/20/24 09:36 Cardiac Enzymes 04/24/24 04/24/24 Range/Units 09:36 09:36 AST 19 (17-59) U/L Troponin I 0.068 H* (0.000-0.034) ng/mL Coagulation 02/20/24 Range/Units 09:36 PT 10.4 (10.0-12.5) sec APTT 25.2 (22.0-30.0) sec CBC 02/20/24 Range/Units 09:36 WBC 5.5 (3.8-10.6) k/uL RBC 5.28 (4.30-5.90) m/uL Hgb 17.1 (13.0-17.5) gm/dL Hct 50.5 (39.0-53.0) % Plt Count 142 L (150-450) k/uL Comprehensive Metabolic Panel 02/20/24 Range/Units 09:36 Sodium 132 L (137-145) mmol/L Potassium 4.5 (3.5-5.1) mmol/L Chloride 102 (98-107) mmol/L Carbon Dioxide 22 (22-30) mmol/L BUN 14 (9-20) mg/dL Creatinine 0.50 L (0.66-1.25) mg/dL Glucose 335 H (74-99) mg/dL Calcium 9.0 (8.4-10.2) mg/dL AST 19 (17-59) U/L ALT 27 (4-49) U/L Alkaline Phosphatase 79 (38-126) U/L Total Protein 6.9 (6.3-8.2) g/dL Albumin 4.1 (3.5-5.0) g/dL Current Medications Generic Name Dose Route Start Last Admin Trade Name Freq PRN Reason Stop Dose Admin Heparin Sodium (Porcine) 0 unit 02/20/24 10:34 Heparin Sodium 1,000 Un/Ml (10ml Vl) IV PER PROTOCOL PRN Low PTT Protocol Sodium Chloride 1,000 mls @ 100 mls/hr 02/20/24 09:32 02/20/24 09:42 Saline 0.9% IV 02/20/24 19:31 100 mls/hr .Q10H STA Administration Heparin Sodium/Sodium Chloride 250 mls @ 13.063 mls/hr 02/20/24 10:45 25,000 unit/ Sodium Chloride IV .Q19H9M MYRON Protocol 12 UNITS/KG/HR Intake and Output 02/19/24 02/20/24 02/20/24 22:59 06:59 14:59 Other: Weight 108.862 kg Patient Weight 02/21/24 06:59 Weight 108.862 kg 02/20/24 09:36 02/20/24 09:36
[2024-02-20 12:04] LABS: Glucose,Whole Blood 286 mg/dL (70-110)
[2024-02-20 12:25] LABS: Glucose,Whole Blood 275 mg/dL (70-110)
[2024-02-20] MEDS: INSULIN ASPART (NovoLOG) 100 UNIT/ML VIAL SQ SCH (12:48)
[2024-02-20] MEDS ORDERED: HEPARIN SODIUM 1,000 UN/ML (10ML VL) ONE (17:20)
[2024-02-20] MEDS ORDERED: LIDOCAINE 1% INJ 10MG/ML (20 ML MDV) ONE (17:20)
[2024-02-20] MEDS ORDERED: VERAPAMIL 2.5 MG/ML 2 ML AMP ONE (17:20)
[2024-02-20] MEDS ORDERED: fentaNYL (PF) 50 MCG/ML 2 ML AMP ONE ×2 (17:20→19:02)
[2024-02-20] MEDS: IV FLUID CONTINUATION 1,000 ML IV ONE (17:23)
[2024-02-20] MEDS: fentaNYL (PF) 50 MCG/1 ML VIAL IVP ONE ×5 (18:02→19:14)
[2024-02-20] MEDS: LIDOCAINE 1% INJ 10MG/ML (20 ML MDV) SQ ONE (18:02)
[2024-02-20] MEDS: MIDAZOLAM 2 MG/2 ML VIAL IVP ONE ×3 (18:02→19:06)
[2024-02-20] MEDS: HEPARIN SODIUM 1,000 UN/ML (10ML VL) IVP ONE (18:16)
[2024-02-20] MEDS: PRASUGREL 10 MG TAB PO ONE (18:18)
[2024-02-20] MEDS ORDERED: PRASUGREL 10 MG TAB ONE (18:19)
[2024-02-20] MEDS: NITROGLYCERIN 1000MCG/10ML SYRINGE INTRACORON ONE ×2 (18:42→18:57)
[2024-02-20] MEDS ORDERED: MORPHINE SULFATE 4 MG/ML SYRINGE ONE (18:48)
[2024-02-20] MEDS: MORPHINE SULFATE 4 MG/ML SYRINGE IVP ONE ×2 (18:53→18:55)
[2024-02-20] MEDS: niCARdipine Syringe (1,000 mcg/10 mL) INTRACORON ONE (18:57)
[2024-02-20] MEDS ORDERED: niCARdipine 25 MG/10 ML VIAL ONE (18:57)
[2024-02-20] MEDS ORDERED: RX INFO: IV CONTRAST WAS GIVEN 1 EACH MISC MISCELLANE PRN (19:26)
[2024-02-20] MEDS ORDERED: ATROPINE SULFATE 0.1 MG/ML 10ML SYRINGE IV PRN (19:26)
[2024-02-20] MEDS ORDERED: MAG HYDROX/AL HYDROX/SIMETH 30 ML CUP PO PRN (19:26)
[2024-02-20] MEDS: NITROGLYCERIN-D5W PMX 50 MG in DEXTROSE/WATER 1 250ML.BAG IV ONE (19:29)
[2024-02-20] MEDS: IOPAMIDOL-370 100ML BTL INTRATHECA ONE (19:30)
--- NOTE | 2024-02-20 19:37 | P.PCN ---
Date of Procedure: 02/20/24 Operative Findings: CARDIAC CATHETERIZATION AND PERCUTANEOUS CORONARY INTERVENTION PERFORMING PHYSICIAN: Addison Hernandes MD, [facility] PROCEDURE PERFORMED: 1. Selective right and left coronary angiogram 2. Left heart catheterization 3. Successful stenting of PDA branch of RCA using 2.5 x 15 mm Xience DINORAH with an excellent angiographic results 4. Ultrasound-guided access of the right radial artery INDICATION: Acute non-ST elevation myocardial infarction COMPLICATION: None APPROACH: Right radial artery LEVEL OF SEDATION: Moderate with the sedation time off 85 minutes PROCEDURE DESCRIPTION: After obtaining informed consent the patient was brought to the cardiac Band Saw Filer. The right radial artery was cannulated using micropuncture technique under ultrasound guidance the micropuncture wire passed easily then placed a 6 Cameroonian 11 cm sheath at the right radial artery bed after that anticoagulation was initiated using heparin with continuous ACT monitoring. Selective right and left coronary angiogram performed using JR4 and JL 3.5 catheters. Left heart catheterization was performed using the JR4 catheter which crossed the aortic valve. After that I did intervene on the PDA branch of the RCA. Anticoagulation was initiated using heparin with continuous ACT monitoring. I did engage the RCA using an AL 0.75 guiding catheter. I wired the RCA using a whisper wire. Attempting advancing 2.0 x 12 mm noncompliant balloon was unsuccessful because the balloon did not cross the lesion. Attempting advancing 1.5 mm noncompliant balloon also was unsuccessful because the balloon could not cross the lesion. I was able to cross the lesion using 1.5 mm semicompliant balloon and I did balloon angioplasty. Attempting advancing the 2.0 NC balloon again was unsuccessful but I was able to advance to oh millimeter semicompliant balloon. I did PTCA ballooning of the RCA multiple times using the 2.0 noncompliant balloon. Attempting advancing a 2.5 x 15 mm stent was unsuccessful and at that point I decided to wire the RCA using a meryl wire and using another whisper wire. In spite of that I was able to advance the stent over the working wire or the meryl wire. At that point I decided to use GuideLiner. I pulled the body wire out and advanced a 6 Cameroonian guide liner. With the guide liner I was able to advance 2.5 x 15 mm stent to the PDA branch of the RCA where I did deploy the stent under 12 homar for 20 seconds. The patient developed some chest discomfort and the following angiogram showed no flow distal to the stented segment which is likely secondary to edge dissection. I did advance to oh by 15 mm Jaden drug-eluting stent but the stent would not cross the lesion. I did at that point balloon angioplasty initially attempting advancing 2.0 mm noncompliant balloon was unsuccessful in spite of using guide liner but was successful using 2.0 mm semicompliant balloon. Final angiogram showed good angiographic results. The stented segment looks good. Distal to the stented segment there is an area of mild to moderate disease with possible dissection but patient had LENNY-3 flow and was asymptomatic with no EKG changes. SELECTIVE CORONARY ANGIOGRAM: The right coronary artery: Large-caliber vessel and a dominant vessel. The RCA is stented and the stent is patent. The RCA gives rise into a PDA branch and PLV branches. The PDA branch appeared to have critical lesion appeared to be in the range of 99.9%. The PLV branch appears to be angiographically normal. Left main: Is angiographically normal. Bifurcates into an LCx and LAD The left circumflex: Large-caliber vessel nondominant vessel. The LCx gives rise into an OM branch which distally has a lesion appears to be in the range of 60 to 70%. The circumflex continue after that as a small to medium caliber vessel in the AV groove The left anterior descending artery: The LAD is a moderate to large caliber vessel with mild to moderate diffuse disease with no high-grade stenosis and gives rise into a diagonal branch which has an ostial lesion appears to be in the range of 60 to 70% HEMODYNAMICS: The LVEDP was about 12 mmHg with no significant gradient across aortic valve CONCLUSION: Critical disease involving the PDA branch of the RCA. I performed successful stenting of the PDA branch of the RCA POSTPROCEDURE MANAGEMENT: 1. Dual antiplatelet therapy using aspirin and Effient for 12 month 2. Aggressive cholesterol control 3. Follow-up with the patient
[2024-02-20 20:03] LABS: Glucose,Whole Blood 179 mg/dL (70-110)
[2024-02-20] MEDS: SODIUM CHLORIDE 0.9% 1,000 ML in EMPTY BAG 1 BAG IV SCH (20:53)
[2024-02-20] MEDS: NITROGLYCERIN-D5W PMX 50 MG in DEXTROSE/WATER 1 250ML.BAG IV SCH (20:56)
[2024-02-20] MEDS: PANTOPRAZOLE 40 MG/10 ML VIAL IVP SCH (21:01)
[2024-02-20] MEDS: PREGABALIN 50 MG CAP PO SCH (21:01)
[2024-02-20] MEDS: MORPHINE SULFATE 4 MG/ML SYRINGE IVP PRN (21:01)
[2024-02-20] MEDS: METOPROLOL TARTRATE 25 MG TAB PO SCH (21:01)
--- NOTE | 2024-02-20 23:37 | P.HPIM ---
History of Present Illness H&P Date: 02/20/24 Chief Complaint: Chest pain Patient is a 59-year-old male with a past medical history of coronary artery disease history of stent placement, ischemic cardiomyopathy ejection fraction 45%, COPD, diabetes type 2 on Mounjaro currently, hypertension, hyperlipidemia, history of mild, currently everyday smoker and chronic low back pain and other medical problems presents to Dr. Jernigan's office today with complaints of chest pain. Patient was initially seen in the ER on 02/14/2024 with complaints of chest pain and was discharged home with negative EKG and troponin. Patient was recommended to follow-up with cardiology as an outpatient. Patient started having chest pain mainly mid retrosternal and radiating across the shoulders. Mild difficulty breathing. No nausea or vomiting or diaphoresis no headache or dizziness or lightheadedness. Patient was sent from hearing officer office for cardiac catheterization today. Chest x-ray showed that the degree of interstitial prominence could reflect a superimposed bronchitis or atypical pneumonias. No focal infiltrate seen. EKG showed sinus rhythm Laboratory data showed WBC 5.5 hemoglobin 17.1 and platelets 142 Sodium 132 potassium 4.5 chloride 102 bicarb is 22 BUN 14 and creatinine 0.50 and blood sugar 335 Liver enzymes are not elevated. Troponin 0.068, 0.060 and 0.062, proBNP 126 and albumin 4.1 Review of Systems Constitutional: Patient denies any fever or chills . No generalized weakness or weight loss. Abdomen: Patient denied nausea vomiting and diarrhea and abdominal pain. Cardiovascular: Patient does have chest pain with associated mild short of breath no palpitations. No leg swelling Respiratory: patient denied any cough is from production. No shortness of breath Neurologic: Patient denied any numbness or tingling headache. Musculoskeletal: Patient denies any complaints of joint swelling or deformity. Skin: Negative Psychiatric: Negative Endocrine: No heat or cold intolerance. No recent weight gain. Genitourinary: No dysuria or hematuria. All other 14 point ROS negative except the above Past Medical History Past Medical History: Coronary Artery Disease (CAD), Chest Pain / Angina, COPD, Diabetes Mellitus, GERD/Reflux, Hearing Disorder / Deafness, Hyperlipidemia, Hypertension, Myocardial Infarction ([place]) Additional Past Medical History / Comment(s): Neuropathy bilateral feet/legs, hx pancreatitis, chronic low back pain, hx gastric ulcer as a teen, hx benign colon polyps, small amount of trouble hearing. Last Myocardial Infarction Date:: 2011 History of Any Multi-Drug Resistant Organisms: None Reported Past Surgical History: Back Surgery, Ear Surgery, Heart Catheterization With Stent, Hernia Repair, Orthopedic Surgery Additional Past Surgical History / Comment(s): 2011 PCI with stent to mid RCA, bilateral inguinal hernia repair as teen, bilateral carpal tunnel releases, colonoscopy, bilateral myringotomies/tubes, 11/2021 cardiac stent. Past Anesthesia/Blood Transfusion Reactions: Motion Sickness, Postoperative Nausea & Vomiting (PONV) Additional Past Anesthesia/Blood Transfusion Reaction / Comment(s): PONV as a teen with surgery, none since. Date of Last Stent Placement:: 2021 Past Psychological History: No Psychological Hx Reported Smoking Status: Current every day smoker Past Alcohol Use History: Occasional Past Drug Use History: None Reported - Past Family History Father Family Medical History: Coronary Artery Disease (CAD), Myocardial Infarction ([place]) Additional Family Medical History / Comment(s): Heart disease runs strongly on his father's side of family. Father is . Pt cannot recall at what age father had FL. Mother Family Medical History: Cancer Additional Family Medical History / Comment(s): Mother of renal cancer with mets. Medications and Allergies Home Medications Medication Instructions Recorded Confirmed Type lisinopriL [Zestril] 5 mg PO DAILY 12/16/21 02/20/24 History Aspirin 81 mg PO DAILY 12/17/21 02/20/24 Rx Metoprolol Tartrate [Lopressor] 25 mg PO BID #60 tab 12/17/21 02/20/24 Rx DULoxetine HCL [Cymbalta] 30 mg PO DAILY 02/20/24 02/20/24 History DULoxetine HCL [Cymbalta] 60 mg PO DAILY 02/20/24 02/20/24 History Nitroglycerin Sl Tabs [Nitrostat] 0.4 mg SL Q5M PRN 02/20/24 02/20/24 History Pregabalin [Lyrica] 50 mg PO BID 02/20/24 02/20/24 History Rosuvastatin Calcium [Crestor] 40 mg PO DAILY 02/20/24 02/20/24 History Tirzepatide [Mounjaro] 7.5 mg SQ DUENAS 02/20/24 02/20/24 History Varenicline [Chantix Continuing 1 mg PO BID 02/20/24 02/20/24 History Pack] Allergies Allergy/AdvReac Type Severity Reaction Status Date / Time No Known Allergies Allergy Verified 02/20/24 10:11 Physical Exam Vitals: Vital Signs Temp Pulse Resp BP Pulse Ox 02/20/24 17:33 98.2 F 80 18 98/62 98 02/20/24 15:00 71 18 125/73 98 02/20/24 14:25 97.8 F 73 17 116/66 96 02/20/24 13:00 70 18 117/75 98 02/20/24 12:00 73 18 116/76 95 02/20/24 10:59 73 18 93/69 96 02/20/24 10:09 73 18 118/91 95 02/20/24 09:25 97.7 F 81 20 146/83 98 Intake and Output 02/20/24 02/20/24 02/20/24 06:59 14:59 22:59 Intake Total 601 Balance 601 Intake: IV 601 Other: Weight 108.862 kg PHYSICAL EXAMINATION: Patient is lying in the bed comfortably, no acute distress, awake alert and oriented.. HEENT: Normocephalic. Neck is supple. Pupils reactive. Nostrils clear. Oral cav ity is moist. Neck reveals no JVD, carotid bruits, or thyromegaly. CHEST EXAMINATION: Trachea is central. Symmetrical expansion. Lung anderson clear to auscultation and percussion. CARDIAC: Normal S1, S2 with no gallops. No murmurs ABDOMEN: Soft. Bowel sounds normal. No organomegaly. No abdominal bruits. Extremities: reveal no edema. No clubbing or cyanosis Neurologically awake, alert, oriented x3 with well-coordinated movements. No focal deficits noted Skin: No rash or skin lesions. Psychiatric: Coperative. Nonsuicidal Musculoskeletal: No joint swelling or deformity. Normal range of motion. Results CBC & Chem 7: 02/20/24 09:36 02/20/24 09:36 Labs: Abnormal Lab Results - Last 24 Hours (Table) 02/20/24 02/20/24 02/20/24 Range/Units 09:36 09:36 09:36 Plt Count 142 L (150-450) k/uL APTT (22.0-30.0) sec Sodium 132 L (137-145) mmol/L Creatinine 0.50 L (0.66-1.25) mg/dL Glucose 335 H (74-99) mg/dL POC Glucose (mg/dL) (70-110) mg/dL Hemoglobin A1c (<=6.0) % Troponin I 0.068 H* (0.000-0.034) ng/mL 02/20/24 02/20/24 02/20/24 Range/Units 09:40 11:46 12:03 Plt Count (150-450) k/uL APTT (22.0-30.0) sec Sodium (137-145) mmol/L Creatinine (0.66-1.25) mg/dL Glucose (74-99) mg/dL POC Glucose (mg/dL) 335 H 286 H (70-110) mg/dL Hemoglobin A1c (<=6.0) % Troponin I 0.060 H* (0.000-0.034) ng/mL 02/20/24 02/20/24 02/20/24 Range/Units 12:24 15:51 15:51 Plt Count (150-450) k/uL APTT 32.7 H (22.0-30.0) sec Sodium (137-145) mmol/L Creatinine (0.66-1.25) mg/dL Glucose (74-99) mg/dL POC Glucose (mg/dL) 275 H (70-110) mg/dL Hemoglobin A1c (<=6.0) % Troponin I 0.062 H* (0.000-0.034) ng/mL 02/20/24 02/20/24 Range/Units 15:51 20:02 Plt Count (150-450) k/uL APTT (22.0-30.0) sec Sodium (137-145) mmol/L Creatinine (0.66-1.25) mg/dL Glucose (74-99) mg/dL POC Glucose (mg/dL) 179 H (70-110) mg/dL Hemoglobin A1c 8.4 H (<=6.0) % Troponin I (0.000-0.034) ng/mL Thrombosis Risk Factor Assmnt - DVT/VTE Prophylaxis DVT/VTE Prophylaxis: Pharmacologic Prophylaxis ordered Assessment and Plan Assessment: Acute non-ST elevated FL. Patient presented with chest pain and found to have elevated troponins Hyperglycemia is uncontrolled diabetes type 2. Patient was previously on Regimen and currently taking Mounjaro. Coronary disease with history of stent placement Ischemic cardiomyopathy ejection fraction 45% Chronic CHF with mildly reduced systolic function. Hyperlipidemia Hypertension History of [place] GERD Hearing disorder/deafness Currently everyday smoker Chronic low back pain Bilateral peripheral neuropathy diabetic GI prophylaxis PPI Plan: Patient will be continued on telemetry. Started on heparin drip and follow serial troponins. Patient will be continued on aspirin statin and metoprolol. Cardiology is planning for catheterization today. Patient will be started on insulin regimen and sliding scale for blood sugar control. Follow-up A1c level. Current pain management and other home medications and follow-up closely. Cardiology is on board. Prognosis guarded with multimedical problems and comorbid conditions. Time with Patient: Greater than 30
[2024-02-21] MEDS: INSULIN DETEMIR (LEVEMIR) 100 UNIT/ML SYR SQ SCH (00:01)
[2024-02-21] MEDS: MORPHINE SULFATE 2 MG/ML SYRINGE IVP PRN (01:41)
[2024-02-21 06:21] LABS: Glucose,Whole Blood 242 mg/dL (70-110)
[2024-02-21] MEDS ORDERED: HEPARIN SODIUM,PORCINE (1 ML) 2,500 UNIT in SODIUM CHLORIDE 0.9% 250 ML IRRIGATION PRN (07:00)
[2024-02-21] MEDS ORDERED: HEPARIN SODIUM,PORCINE 10,000 UNIT in SODIUM CHLORIDE 0.9% 1,000 ML IRRIGATION PRN (07:00)
[2024-02-21 08:14] LABS: Basophils # (A) 0.1 k/uL (0-0.2); Basophils % (A) 1 %; Eosinophils # (A) 0.1 k/uL (0-0.7); Eosinophils % (A) 2 %; Lymphocytes # (A) 1.4 k/uL (1.0-4.8); Lymphocytes % (A) 22 %; MCH 31.1 pg (25.0-35.0); MCHC 31.9 g/dL (31.0-37.0); MCV 97.4 fL (80.0-100.0); Mean Platelet Volume 8.7; Monocytes # (A) 0.3 k/uL (0-1.0); Monocytes % (A) 5 %; Neutrophils # (A) 4.3 k/uL (1.3-7.7); Neutrophils % (A) 67 %; Platelet Count 168 k/uL (150-450); RBC 5.13 m/uL (4.30-5.90); RDW 14.2 % (11.5-15.5); WBC 6.4 k/uL (3.8-10.6)
[2024-02-21 08:21] LABS: Prothrombin Time 10.7 sec (10.0-12.5)
[2024-02-21 08:24] LABS: African American GFR (CKD) >90 (>60 ml/min/1.73 sqM); Anion Gap 7 mmol/L; Blood Urea Nitrogen 9 mg/dL (9-20); Carbon Dioxide 24 mmol/L (22-30); Chloride 103 mmol/L (98-107); Glucose 242 mg/dL (74-99); Non-African American GFR(CKD) >90 (>60 ml/min/1.73 sqM); Potassium 4.2 mmol/L (3.5-5.1); Sodium 134 mmol/L (137-145)
[2024-02-21] MEDS: DULoxetine HCL 60 MG CAPSULE.DR PO SCH (08:36)
[2024-02-21] MEDS: lisinopriL 5 MG TAB PO SCH (08:36)
[2024-02-21] MEDS: PRASUGREL 10 MG TAB PO SCH (08:37)
[2024-02-21] MEDS: DULoxetine HCL 30 MG CAPSULE.DR PO SCH (08:38)
[2024-02-21] MEDS: ASPIRIN 81 MG PO SCH (08:41)
[2024-02-21 12:07] LABS: Glucose,Whole Blood 236 mg/dL (70-110)
[2024-02-21] MEDS ORDERED: HEPARIN SODIUM 1,000 UN/ML (10ML VL) IV PRN (15:20)
--- NOTE | 2024-02-21 15:20 | P.PN ---
Subjective History of present illness: This is a 59-year-old male patient of Dr. Hernandes with past medical history of coronary artery disease with prior stenting of the RCA and LAD, ischemic cardiomyopathy with EF of 45%, hypertension, dyslipidemia, tobacco use and dependence, overweight, chronic back pain. Patient presented to the office with Dr. Hernandes today following a recent ER visit on 02/13 at which time he presented with chest pain and was discharged home with plan to follow-up with Dr. Hernandes. Patient was complaining of midsternal chest pain a dull type of sensation with worsening with exertion and emotional stress. No dizziness or lightheadedness. No shortness of breath. Patient is an active smoker. Due to patient's symptoms, he was sent directly to the emergency center with plan for cardiac catheterization today. Patient is seen today in the emergency center waiting for a bed on the cardiac stepdown unit.. EKG sinus rhythm with no acute ST-T wave changes. Chest x-ray: COPD. Superimposed bronchitis or atypical pneumonias. No focal i nfiltrate. Platelet count 142, hemoglobin 17.1, WBC 5.5. Sodium 132, potassium 4.5, BUN 14 creatinine 0.5. Glucose 335. Magnesium 1.8. Troponin 0.068. proBNP 126. Home cardiac medications: Aspirin 81 mg daily, lisinopril 5 mg daily, Lopressor 25 mg twice daily, Nitrostat as needed, Crestor 40 mg daily, also on Mounjaro 7.5 mg on Sundays and Chantix. Myocardial perfusion imaging stress test was done September 2023 which was abnormal showing an apical ischemia but patient refused to undergo cardiac catheterization at that point as he was asymptomatic. Cardiac catheterization performed 12/16/2021 revealed patent stent in the RCA. Critical disease in the mid LAD and stent was placed in the mid LAD. 02/20 patient seen and examined. Patient underwent left heart catheterization with findings of severe PDA disease as well as intermediate circumflex disease. He underwent complex stenting of the PDA. He states that since that time he has been having some continued chest pain similar to when he came in. He therefore has been on a nitroglycerin drip and is also receiving morphine with some improvement. Troponin initially 0.06 however had increased this afternoon up to 1.6. EKG stable with nonspecific ST, T-wave abnormalities. Physical examination: Gen: This is a 59-year-old male in no acute distress VS: reviewed blood pressure 93/69, heart rate 73, pulse ox 96% on room air. HEENT: Head is atraumatic, normocephalic. Pupils equal, round. Sclerae is anicteric. NECK: Supple. No JVD. LUNGS: Clear to auscultation. No wheezes or rhonchi. No intercostal retractions. HEART: Regular rate and rhythm. Soft systolic murmur. ABDOMEN: Soft No tenderness. EXTREMITIES: No pedal edema. No calf tenderness. NEUROLOGICAL: Patient is awake, alert and oriented x3. Assessment: Non-ST elevated myocardial infarction Coronary artery disease with prior stenting of the RCA and LAD Ischemic cardiomyopathy with EF of 45% Hypertension Dyslipidemia Active tobacco use and dependence Plan: await 2-D echo Status post PCI of PDA Continued chest pain concerning for microvascular disease, IL from stenting. Elevated troponin and we will continue to trend. Continue heparin drip and increased nitro drip. If patient is having more chest pain we will repeat heart catheterization more urgently. Attempt to treat this medically given complex nature of stenting however if still having pain consider repeat heart catheterization. Objective - Vital Signs Vital signs: Vital Signs Temp 98.5 F 02/21/24 11:43 Pulse 79 02/21/24 11:43 Resp 20 02/21/24 11:43 BP 134/90 02/21/24 11:43 Pulse Ox 99 02/21/24 15:07 FiO2 Intake & Output 02/20/24 02/21/24 02/21/24 18:59 06:59 18:59 Intake Total 399 764 5252 Balance 032 176 5022 Weight 108.862 kg 108.862 kg Intake: IV 600 1 Oral 480 1020 Other: # Voids 2 - Labs CBC & Chem 7: 02/21/24 07:52 02/21/24 07:52 Labs: Abnormal Lab Results - Last 24 Hours (Table) 02/20/24 02/20/24 02/20/24 Range/Units 15:51 15:51 15:51 APTT 32.7 H (22.0-30.0) sec Sodium (137-145) mmol/L Creatinine (0.66-1.25) mg/dL Glucose (74-99) mg/dL POC Glucose (mg/dL) (70-110) mg/dL Hemoglobin A1c 8.4 H (<=6.0) % Troponin I 0.062 H* (0.000-0.034) ng/mL 02/20/24 02/21/24 02/21/24 Range/Units 20:02 06:19 07:52 APTT (22.0-30.0) sec Sodium 134 L (137-145) mmol/L Creatinine 0.59 L (0.66-1.25) mg/dL Glucose 242 H (74-99) mg/dL POC Glucose (mg/dL) 179 H 242 H (70-110) mg/dL Hemoglobin A1c (<=6.0) % Troponin I (0.000-0.034) ng/mL 02/21/24 02/21/24 Range/Units 12:05 14:28 APTT (22.0-30.0) sec Sodium (137-145) mmol/L Creatinine (0.66-1.25) mg/dL Glucose (74-99) mg/dL POC Glucose (mg/dL) 236 H (70-110) mg/dL Hemoglobin A1c (<=6.0) % Troponin I 1.580 H* (0.000-0.034) ng/mL
[2024-02-21 15:43] LABS: Basophils % (A) 1 %; Eosinophils # (A) 0.1 k/uL (0-0.7); Eosinophils % (A) 2 %; HCT 51.7 % (39.0-53.0); HGB 16.4 gm/dL (13.0-17.5); Lymphocytes # (A) 1.5 k/uL (1.0-4.8); Lymphocytes % (A) 23 %; MCH 30.8 pg (25.0-35.0); MCHC 31.8 g/dL (31.0-37.0); MCV 96.9 fL (80.0-100.0); Mean Platelet Volume 8.4; Monocytes # (A) 0.4 k/uL (0-1.0); Monocytes % (A) 6 %; Neutrophils % (A) 64 %; Platelet Count 147 k/uL (150-450); RBC 5.34 m/uL (4.30-5.90); RDW 14.2 % (11.5-15.5); WBC 6.2 k/uL (3.8-10.6)
[2024-02-21 15:54] LABS: INR 1.1 (<1.2); Partial Thromboplastin Time 25.8 sec (22.0-30.0); Prothrombin Time 11.6 sec (10.0-12.5)
[2024-02-21 16:29] LABS: Glucose,Whole Blood 246 mg/dL (70-110)
[2024-02-21] MEDS: HEPARIN SODIUM 1,000 UN/ML (10ML VL) IV ONE (16:35)
[2024-02-21] MEDS: HEPARIN SOD,PORK IN 0.45% NACL 25,000 UNIT in 0.45% NACL 1 250ML.BAG IV SCH (16:36)
--- NOTE | 2024-02-21 17:21 | CA ---
Transthoracic Echo Report Name: Phu Ramirez Age: 59 Gender: M : 1965 Exam Date: 02/20/2024 12:53 Exam Location: [facility] Ht (in): 73 Wt (lb): 240 Ordering Physician: Amanda Saldivar Attending/Referring Phys: [id number], Yariel Firebreak Cutter Candis Sewell, [place] Procedure CPT: Indications: LVF Cardiac Hx: Technical Quality: Technically difficult study Contrast 1: Definity Total Dose (mL): 2 Contrast 2: Total Dose (mL): MEASUREMENTS (Male / Female) Normal Values 2D ECHO LV Diastolic Diameter PLAX 6.0 cm 4.2 - 5.9 / 3.9 - 5.3 cm LV Systolic Diameter PLAX 5.2 cm IVS Diastolic Thickness 0.9 cm 0.6 - 1.0 / 0.6 - 0.9 cm LVPW Diastolic Thickness 1.1 cm 0.6 - 1.0 / 0.6 - 0.9 cm LV Relative Wall Thickness 0.3 RV Internal Dim ED PLAX 2.9 cm LA Systolic Diameter LX 4.0 cm 3.0 - 4.0 / 2.7 - 3.8 cm M-MODE Aortic Root Diameter MM 3.8 cm LA Systolic Diameter MM 3.7 cm LA Ao Ratio MM 1.0 AV Cusp Separation MM 2.0 cm DOPPLER AV Peak Velocity 94.7 cm/s AV Peak Gradient 3.6 mmHg Mitral E Point Velocity 68.9 cm/s Mitral A Point Velocity 90.1 cm/s Mitral E to A Ratio 0.8 MV Deceleration Time 365.0 ms MV E' Velocity 5.9 cm/s Mitral E to MV E' Ratio 11.7 FINDINGS Left Ventricle Left ventricular ejection fraction is estimated at 30-35 %. Left ventricular dilatation. Mild left ventricular dilatation. Reduced global left ventricular systolic function. Right Ventricle Right ventricular systolic pressure within normal limits. Normal right ventricular size. Right Atrium Mild right atrial dilatation. Left Atrium Mild left atrial dilatation. Mitral Valve Structurally normal mitral valve. Trace mitral regurgitation. Aortic Valve Trileaflet aortic valve. No aortic valve stenosis or regurgitation. Tricuspid Valve Structurally normal tricuspid valve. No tricuspid stenosis, regurgitation or prolapse. Pulmonic Valve Structurally normal pulmonic valve. Trace pulmonic regurgitation. No pulmonic stenosis. Pericardium No pericardial or pleural effusion. Aorta Mildly dilated aortic annulus. CONCLUSIONS Reduced LV systolic function, global Previewed by: Dr. Sonido Mckay MD (Electronically Signed) Final Date: 21 February 2024 17:20
[2024-02-21] MEDS: PANTOPRAZOLE 40 MG TABLET PO SCH (19:57)
[2024-02-21 20:08] LABS: Glucose,Whole Blood 233 mg/dL (70-110)
--- NOTE | 2024-02-21 23:20 | P.PN ---
Subjective Progress Note Date: 02/21/24 Patient is a 59-year-old male with a past medical history of coronary artery disease history of stent placement, ischemic cardiomyopathy ejection fraction 45%, COPD, diabetes type 2 on Mounjaro currently, hypertension, hyperlipidemia, history of mild, currently everyday smoker and chronic low back pain and other medical problems presents to Dr. Jernigan's office today with complaints of chest pain. Patient was initially seen in the ER on 02/14/2024 with complaints of chest pain and was discharged home with negative EKG and troponin. Patient was recommended to follow-up with cardiology as an outpatient. Patient started having chest pain mainly mid retrosternal and radiating across the shoulders. Mild difficulty breathing. No nausea or vomiting or diaphoresis no headache or dizziness or lightheadedness. Patient was sent from volunteer services assistant office for cardiac catheterization today. Chest x-ray showed that the degree of interstitial prominence could reflect a superimposed bronchitis or atypical pneumonias. No focal infiltrate seen. EKG showed sinus rhythm Laboratory data showed WBC 5.5 hemoglobin 17.1 and platelets 142 Sodium 132 potassium 4.5 chloride 102 bicarb is 22 BUN 14 and creatinine 0.50 and blood sugar 335 Liver enzymes are not elevated. Troponin 0.068, 0.060 and 0.062, proBNP 126 and albumin 4.1 02/21/2024 Patient is currently in the telemetry unit. Status post cardiac catheterization with successful stenting of PDA branch of RCA. Patient was started on Effient. Today morning patient states that she is still having chest pain. Continued on nitro drip and heparin drip. Patient was given morphine 2 mg and 4 mg again with some improvement in pain. Repeat EKG showed normal sinus rhythm. Patient has been afebrile. No cough or sputum production. No headache or dizziness or lightheadedness. Laboratory data showed WBC 6.4 hemoglobin 16.0 and platelets 168, sodium 134 p otassium 4.2 chloride 103 bicarb is 24 BUN 9 and creatinine 0.5 Blood sugar 242. Calcium 9.0. Current medications reviewed. Objective - Vital Signs Vital signs: Vital Signs Temp 98 F 02/21/24 19:53 Pulse 76 02/21/24 19:53 Resp 18 02/21/24 19:53 BP 119/65 02/21/24 19:53 Pulse Ox 97 02/21/24 19:53 FiO2 Intake & Output 02/21/24 02/21/24 02/22/24 06:59 18:59 06:59 Intake Total 481 1558.45 57.19 Balance 481 1558.45 57.19 Weight 108.862 kg Intake: IV 1 Intake, IV Titration 58.45 57.19 Amount Heparin Sod,Pork in 0.45% 57.19 NaCl 25,000 unit In 0.45 % NaCl 1 250ml.bag @ 9.19 UNITS/KG/HR 10.004 mls/ hr IV .Q24H [facility] Rx#: [id number] Nitroglycerin-D5w Pmx 50 58.45 mg In Dextrose/Water 1 250ml.bag @ 20 MCG/MIN 6 mls/hr IV .Q24H [facility] Rx#: [id number] Oral 480 1500 Other: # Voids 2 2 - Exam PHYSICAL EXAMINATION: Patient is lying in the bed comfortably, no acute distress, awake alert and oriented.. HEENT: Normocephalic. Neck is supple. Pupils reactive. Nostrils clear. Oral cavity is moist. Neck reveals no JVD, carotid bruits, or thyromegaly. CHEST EXAMINATION: Trachea is central. Symmetrical expansion. Lung anderson clear to auscultation and percussion. CARDIAC: Normal S1, S2 with no gallops. No murmurs ABDOMEN: Soft. Bowel sounds normal. No organomegaly. No abdominal bruits. Extremities: reveal no edema. No clubbing or cyanosis Neurologically awake, alert, oriented x3 with well-coordinated movements. No focal deficits noted Skin: No rash or skin lesions. Psychiatric: Coperative. Nonsuicidal Musculoskeletal: No joint swelling or deformity. Normal range of motion. - Labs CBC & Chem 7: 02/21/24 15:27 02/21/24 07:52 Labs: Abnormal Lab Results - Last 24 Hours (Table) 02/21/24 02/21/24 02/21/24 Range/Units 06:19 07:52 12:05 Plt Count (150-450) k/uL APTT (22.0-30.0) sec Sodium 134 L (137-145) mmol/L Creatinine 0.59 L (0.66-1.25) mg/dL Glucose 242 H (74-99) mg/dL POC Glucose (mg/dL) 242 H 236 H (70-110) mg/dL Troponin I (0.000-0.034) ng/mL 02/21/24 02/21/24 02/21/24 Range/Units 14:28 15:27 16:28 Plt Count 147 L (150-450) k/uL APTT (22.0-30.0) sec Sodium (137-145) mmol/L Creatinine (0.66-1.25) mg/dL Glucose (74-99) mg/dL POC Glucose (mg/dL) 246 H (70-110) mg/dL Troponin I 1.580 H* (0.000-0.034) ng/mL 02/21/24 02/21/24 02/21/24 Range/Units 17:34 20:06 21:26 Plt Count (150-450) k/uL APTT 37.2 H (22.0-30.0) sec Sodium (137-145) mmol/L Creatinine (0.66-1.25) mg/dL Glucose (74-99) mg/dL POC Glucose (mg/dL) 233 H (70-110) mg/dL Troponin I 1.650 H* (0.000-0.034) ng/mL Assessment and Plan Assessment: Acute non-ST elevated [place]. Patient presented with chest pain and found to have elevated troponins. Status postcardiac catheterization and stenting of PDA branch of RCA. Hyperglycemia is uncontrolled diabetes type 2. Patient was previously on insulin regimen. currently taking Mounjaro. A1c 8.4 Coronary disease with history of stent placement Ischemic cardiomyopathy ejection fraction 45% Chronic CHF with mildly reduced systolic function. Hyperlipidemia Hypertension History of [place] GERD Hearing disorder/deafness Currently everyday smoker Chronic low back pain Bilateral peripheral neuropathy diabetic GI prophylaxis PPI Plan: Patient will be continued on telemetry. Continue with heparin drip and nitro dr ip.. Patient will be continued on aspirin statin and metoprolol. Effient was added. Cardiology is on board. Possible repeat cardiac catheterization if patient continues to have chest pain.. Patient was started on insulin regimen and sliding scale for blood sugar control. A1c 8.4. Current pain management and other home medications and follow-up closely. Cardiology is on board. Prognosis guarded with multimedical problems and comorbid conditions. Time with Patient: Greater than 30
[2024-02-22 06:20] LABS: Glucose,Whole Blood 173 mg/dL (70-110)
[2024-02-22 09:00] LABS: Basophils # (A) 0.1 k/uL (0-0.2); Basophils % (A) 1 %; Eosinophils # (A) 0.1 k/uL (0-0.7); Eosinophils % (A) 2 %; HCT 49.1 % (39.0-53.0); HGB 15.7 gm/dL (13.0-17.5); Lymphocytes # (A) 1.6 k/uL (1.0-4.8); Lymphocytes % (A) 24 %; MCH 31.1 pg (25.0-35.0); MCV 97.1 fL (80.0-100.0); Mean Platelet Volume 8.5; Monocytes # (A) 0.4 k/uL (0-1.0); Monocytes % (A) 6 %; Neutrophils # (A) 4.3 k/uL (1.3-7.7); Neutrophils % (A) 64 %; Platelet Count 157 k/uL (150-450); RBC 5.06 m/uL (4.30-5.90); RDW 14.2 % (11.5-15.5); WBC 6.7 k/uL (3.8-10.6)
[2024-02-22 09:10] LABS: Partial Thromboplastin Time 37.3 sec (22.0-30.0); Prothrombin Time 10.8 sec (10.0-12.5)
[2024-02-22 09:25] LABS: African American GFR (CKD) >90 (>60 ml/min/1.73 sqM); Non-African American GFR(CKD) >90 (>60 ml/min/1.73 sqM)
[2024-02-22] MEDS ORDERED: RANOLAZINE 500 MG TAB.ER.12H PO SCH ×2 (10:45→11:00)
[2024-02-22] MEDS: ACETAMINOPHEN TAB 325 MG TAB PO PRN (10:53)
[2024-02-22 11:22] LABS: Glucose,Whole Blood 244 mg/dL (70-110)
[2024-02-22 16:21] LABS: Glucose,Whole Blood 206 mg/dL (70-110)
--- NOTE | 2024-02-22 16:44 | P.PN ---
Subjective Progress Note Date: 02/22/24 59-year-old male with a past medical history of coronary artery disease history of stent placement, ischemic cardiomyopathy ejection fraction 45%, COPD, diabetes type 2 on Mounjaro currently, hypertension, hyperlipidemia, history of mild, currently everyday smoker and chronic low back pain and other medical problems presents to Dr. Jernigan's office today with complaints of chest pain. Patient was initially seen in the ER on 02/14/2024 with complaints of chest pain and was discharged home with negative EKG and troponin. Patient was recommended to follow-up with cardiology as an outpatient. Patient started having chest pain mainly mid retrosternal and radiating across the shoulders. Mild difficulty breathing. No nausea or vomiting or diaphoresis no headache or dizziness or lightheadedness. Patient was sent from vice president of marketing office for cardiac catheterization today. Chest x-ray showed that the degree of interstitial prominence could reflect a superimposed bronchitis or atypical pneumonias. No focal infiltrate seen. EKG showed sinus rhythm Laboratory data showed WBC 5.5 hemoglobin 17.1 and platelets 142 Sodium 132 potassium 4.5 chloride 102 bicarb is 22 BUN 14 and creatinine 0.50 and blood sugar 335 Liver enzymes are not elevated. Troponin 0.068, 0.060 and 0.062, proBNP 126 and albumin 4.1 Objective - Vital Signs Vital signs: Vital Signs Temp 97.0 F L 02/22/24 08:13 Pulse 75 02/22/24 11:03 Resp 19 02/22/24 11:03 BP 110/64 02/22/24 11:03 Pulse Ox 96 02/22/24 11:03 FiO2 21 02/22/24 09:13 Intake & Output 02/21/24 02/22/24 02/22/24 18:59 06:59 18:59 Intake Total 1558.45 57.19 839.048 Balance 1558.45 57.19 839.048 Weight 108.862 kg Intake: Intake, IV Titration 58.45 57.19 137.048 Amount Heparin Sod,Pork in 0.45% 57.19 137.048 NaCl 25,000 unit In 0.45 % NaCl 1 250ml.bag @ 9.19 UNITS/KG/HR 10.004 mls/ hr IV .Q24H [facility] Rx#: [id number] Nitroglycerin-D5w Pmx 50 58.45 mg In Dextrose/Water 1 250ml.bag @ 20 MCG/MIN 6 mls/hr IV .Q24H [facility] Rx#: [id number] Oral 1500 702 Other: Voiding Method Toilet # Voids 2 1 2 - Exam Patient is lying in the bed comfortably, no acute distress, awake alert and oriented.. HEENT: Normocephalic. Neck is supple. Pupils reactive. Nostrils clear. Oral cavity is moist. Neck reveals no JVD, carotid bruits, or thyromegaly. CHEST EXAMINATION: Trachea is central. Symmetrical expansion. Lung anderson clear to auscultation and percussion. CARDIAC: Normal S1, S2 with no gallops. No murmurs ABDOMEN: Soft. Bowel sounds normal. No organomegaly. No abdominal bruits. Extremities: reveal no edema. No clubbing or cyanosis Neurologically awake, alert, oriented x3 with well-coordinated movements. No focal deficits noted Skin: No rash or skin lesions. Psychiatric: Coperative. Nonsuicidal Musculoskeletal: No joint swelling or deformity. Normal range of motion. - Labs CBC & Chem 7: 02/22/24 08:37 02/22/24 08:37 Labs: Abnormal Lab Results - Last 24 Hours (Table) 02/21/24 02/21/24 02/21/24 Range/Units 12:05 14:28 15:27 Plt Count 147 L (150-450) k/uL APTT (22.0-30.0) sec POC Glucose (mg/dL) 236 H (70-110) mg/dL Troponin I 1.580 H* (0.000-0.034) ng/mL 02/21/24 02/21/24 02/21/24 Range/Units 16:28 17:34 20:06 Plt Count (150-450) k/uL APTT (22.0-30.0) sec POC Glucose (mg/dL) 246 H 233 H (70-110) mg/dL Troponin I 1.650 H* (0.000-0.034) ng/mL 02/21/24 02/22/24 02/22/24 Range/Units 21:26 06:19 08:37 Plt Count (150-450) k/uL APTT 37.2 H 37.3 H (22.0-30.0) sec POC Glucose (mg/dL) 173 H (70-110) mg/dL Troponin I (0.000-0.034) ng/mL 02/22/24 Range/Units 11:19 Plt Count (150-450) k/uL APTT (22.0-30.0) sec POC Glucose (mg/dL) 244 H (70-110) mg/dL Troponin I (0.000-0.034) ng/mL Assessment and Plan Assessment: Acute non-ST elevated [place]. Patient presented with chest pain and found to have elevated troponins. Status postcardiac catheterization and stenting of PDA branch of RCA. Hyperglycemia is uncontrolled diabetes type 2. Patient was previously on insulin regimen. currently taking Mounjaro. A1c 8.4 Coronary disease with history of stent placement Ischemic cardiomyopathy ejection fraction 45% Chronic CHF with mildly reduced systolic function. Hyperlipidemia Hypertension History of [place] GERD Hearing disorder/deafness Currently everyday smoker Chronic low back pain Bilateral peripheral neuropathy diabetic GI prophylaxis PPI Plan: Patient will be continued on telemetry. Continue with heparin drip and nitro drip.. Patient will be continued on aspirin statin and metoprolol. Effient was added. Cardiology is on board. Possible repeat cardiac catheterization if patient continues to have chest pain.. Patient was started on insulin regimen and sliding scale for blood sugar control. A1c 8.4. Current pain management and other home medications and follow-up closely. Cardiology is on board. Prognosis guarded with multimedical problems and comorbid conditions.
[2024-02-22 20:32] LABS: Glucose,Whole Blood 203 mg/dL (70-110)
[2024-02-22] MEDS: INSULIN DETEMIR (LEVEMIR) 100 UNIT/ML SYR SQ SCH (20:48)
--- NOTE | 2024-02-22 22:36 | PN ---
PROGRESS NOTE SUBJECTIVE: Phu is a 59-year-old gentleman who is admitted to hospital with acute coronary syndrome, underwent cardiac catheterization, and angioplasty, was having persistent chest discomfort and had been treated with heparin and nitroglycerin. I am seeing the patient for the first time. The patient underwent cardiac catheterization by Dr. Hernandes and Dr. Milton had seen him yesterday. He had stenting of the PDA and continued to have chest discomfort through yesterday and was treated with heparin and nitrates. Rest of his lesions both in the LAD and circ were thought either not to be high-grade or not particularly amenable to angioplasty. The patient, at the time of my evaluation, complains of some chest discomfort, but states that he is much better compared to where he was yesterday. I spoke to Dr. Hernandes. The plan at this stage is to continue with optimal and aggressive medical therapy including dual antiplatelet therapy, IV heparin, IV nitroglycerin, and rest of his medications. Hopefully, I can stop the nitroglycerin and heparin tomorrow and possible discharge home on Sunday. PHYSICAL EXAMINATION: GENERAL: Comfortable at rest. VITAL SIGNS: Stable. NECK: There is no jugular venous distention. Carotid upstroke is normal. There is no bruit. CHEST: Reveals good air entry bilaterally. HEART: Reveals first and second heart sounds. Systolic murmur at the apex. ABDOMEN: Soft. EXTREMITIES: Did not reveal any edema. Peripheral pulses are felt. LABORATORY DATA: Shows that hemoglobin is 15.7, platelet count is 157. His troponin was 1.6. ASSESSMENT: Acute [id number] elevation [place], status post catheterization and angioplasty. PLAN: The patient will continue with the heparin and nitrates at this time. MMODL / IJN: [id number] /
[2024-02-22] MEDS: ZOLPIDEM 5 MG TAB PO PRN (23:50)
[2024-02-23 06:13] LABS: Glucose,Whole Blood 136 mg/dL (70-110)
[2024-02-23 07:05] LABS: Basophils % (A) 1 %; Eosinophils # (A) 0.1 k/uL (0-0.7); Eosinophils % (A) 2 %; HCT 45.5 % (39.0-53.0); HGB 14.9 gm/dL (13.0-17.5); Lymphocytes # (A) 1.5 k/uL (1.0-4.8); Lymphocytes % (A) 27 %; MCH 31.3 pg (25.0-35.0); MCHC 32.7 g/dL (31.0-37.0); MCV 95.6 fL (80.0-100.0); Mean Platelet Volume 8.3; Monocytes # (A) 0.3 k/uL (0-1.0); Monocytes % (A) 6 %; Neutrophils # (A) 3.3 k/uL (1.3-7.7); Neutrophils % (A) 60 %; Platelet Count 149 k/uL (150-450); RBC 4.76 m/uL (4.30-5.90); RDW 14.1 % (11.5-15.5); WBC 5.5 k/uL (3.8-10.6)
[2024-02-23 08:09] LABS: African American GFR (CKD) >90 (>60 ml/min/1.73 sqM); Anion Gap 4 mmol/L; Blood Urea Nitrogen 10 mg/dL (9-20); Calcium 8.8 mg/dL (8.4-10.2); Carbon Dioxide 27 mmol/L (22-30); Chloride 106 mmol/L (98-107); Glucose 136 mg/dL (74-99); Non-African American GFR(CKD) >90 (>60 ml/min/1.73 sqM); Potassium 4.1 mmol/L (3.5-5.1); Sodium 137 mmol/L (137-145)
--- NOTE | 2024-02-23 11:21 | P.PN ---
Subjective Progress Note Date: 02/23/24 History of present illness: This is a 59-year-old male patient of Dr. Hernandes with past medical history of co ronary artery disease with prior stenting of the RCA and LAD, ischemic cardiomyopathy with EF of 45%, hypertension, dyslipidemia, tobacco use and dependence, overweight, chronic back pain. Patient presented to the office with Dr. Hernandes today following a recent ER visit on 02/13 at which time he presented with chest pain and was discharged home with plan to follow-up with Dr. Hernandes. Patient was complaining of midsternal chest pain a dull type of sensation with worsening with exertion and emotional stress. No dizziness or lightheadedness. No shortness of breath. Patient is an active smoker. Due to patient's symptoms, he was sent directly to the emergency center with plan for cardiac catheterization today. Patient is seen today in the emergency center waiting for a bed on the cardiac stepdown unit.. EKG sinus rhythm with no acute ST-T wave changes. Chest x-ray: COPD. Superimposed bronchitis or atypical pneumonias. No focal infiltrate. Platelet count 142, hemoglobin 17.1, WBC 5.5. Sodium 132, potassium 4.5, BUN 14 creatinine 0.5. Glucose 335. Magnesium 1.8. Troponin 0.068. proBNP 126. Home cardiac medications: Aspirin 81 mg daily, lisinopril 5 mg daily, Lopressor 25 mg twice daily, Nitrostat as needed, Crestor 40 mg daily, also on Mounjaro 7.5 mg on Sundays and Chantix. Myocardial perfusion imaging stress test was done September 2023 which was abnormal showing an apical ischemia but patient refused to undergo cardiac catheterization at that point as he was asymptomatic. Cardiac catheterization performed 12/16/2021 revealed patent stent in the RCA. Critical disease in the mid LAD and stent was placed in the mid LAD. 02/20 patient seen and examined. Patient underwent left heart catheterization with findings of severe PDA disease as well as intermediate circumflex disease. He underwent complex stenting of the PDA. He states that since that time he has been having some continued chest pain similar to when he came in. He therefore has been on a nitroglycerin drip and is also receiving morphine with some improvement. Troponin initially 0.06 however had increased this afternoon up to 1.6. EKG stable with nonspecific ST, T-wave abnormalities. 02/22 Plan has been to optimize aggressive medical therapy and follow the patient. Patient is still having episodes of chest pain similar to what brought him into the hospital. He is on a nitroglycerin drip, and nitro glycerin drip. He is also maintained on aspirin 81 mg, Lopressor, lisinopril and Effient. Dr. Palmer spoke with Dr. Hernandes and he will be by to reevaluate the patient. He is currently n.p.o. status. Blood pressure 94/52, heart rate 69, pulse ox 90% on 2 L nasal cannula. Repeat blood work reveals hemoglobin 14.9. Potassium 4.1, creatinine 0.59. Echocardiogram reveals EF of 30 to 35%. Physical examination: Gen: This is a 59-year-old male in no acute distress VS: reviewed HEENT: Head is atraumatic, normocephalic. Pupils equal, round. Sclerae is anicteric. NECK: Supple. No JVD. LUNGS: Clear to auscultation. No wheezes or rhonchi. No intercostal retractions. HEART: Regular rate and rhythm. Soft systolic murmur. ABDOMEN: Soft No tenderness. EXTREMITIES: No pedal edema. No calf tenderness. NEUROLOGICAL: Patient is awake, alert and oriented x3. Assessment: Non-ST elevated myocardial infarction Coronary artery disease with prior stenting of the RCA and LAD Ischemic cardiomyopathy with EF of 45% Hypertension Dyslipidemia Active tobacco use and dependence Plan: Continue IV heparin and IV nitroglycerin Continue Effient, aspirin, statin, beta-rikki, DAMIEN inhibitor Possible catheterization today after evaluation by Dr. Hernandes Continue n.p.o. status Further recommendations as patient progresses Nurse practitioner note has been reviewed, I agree with documented findings and plan of care. Patient was seen and examined. Objective - Vital Signs Vital signs: Vital Signs Temp 97.7 F 02/23/24 09:04 Pulse 69 02/23/24 09:04 Resp 18 02/23/24 09:04 BP 94/52 02/23/24 09:04 Pulse Ox 98 02/23/24 09:04 FiO2 21 02/22/24 09:13 Intake & Output 02/22/24 02/23/24 02/23/24 18:59 06:59 18:59 Intake Total 1707.810 361.802 Balance 1707.810 361.802 Intake: IV 10 Invasive Line 1 10 Intake, IV Titration 192.810 351.802 Amount Heparin Sod,Pork in 0.45% 192.810 181.402 NaCl 25,000 unit In 0.45 % NaCl 1 250ml.bag @ 9.19 UNITS/KG/HR 10.004 mls/ hr IV .Q24H [facility] Rx#: [id number] Nitroglycerin-D5w Pmx 50 170.4 mg In Dextrose/Water 1 250ml.bag @ 20 MCG/MIN 6 mls/hr IV .Q24H [facility] Rx#: [id number] Oral 1515 Other: Voiding Method Toilet Toilet # Voids 2 2 - Labs CBC & Chem 7: 02/23/24 06:15 02/23/24 06:15 Labs: Abnormal Lab Results - Last 24 Hours (Table) 02/22/24 02/22/24 02/22/24 Range/Units 11:19 15:19 16:19 Plt Count (150-450) k/uL APTT 45.4 H (22.0-30.0) sec Creatinine (0.66-1.25) mg/dL Glucose (74-99) mg/dL POC Glucose (mg/dL) 244 H 206 H (70-110) mg/dL 02/22/24 02/23/24 02/23/24 Range/Units 20:30 06:12 06:15 Plt Count 149 L (150-450) k/uL APTT (22.0-30.0) sec Creatinine (0.66-1.25) mg/dL Glucose (74-99) mg/dL POC Glucose (mg/dL) 203 H 136 H (70-110) mg/dL 02/23/24 02/23/24 Range/Units 06:15 06:15 Plt Count (150-450) k/uL APTT 53.7 H (22.0-30.0) sec Creatinine 0.59 L (0.66-1.25) mg/dL Glucose 136 H (74-99) mg/dL POC Glucose (mg/dL) (70-110) mg/dL
[2024-02-23 11:24] LABS: Glucose,Whole Blood 147 mg/dL (70-110)
[2024-02-23] MEDS: ASPIRIN 81 MG PO STA (11:32)
[2024-02-23] MEDS: ATORVASTATIN 80 MG TAB PO STA (11:32)
[2024-02-23] MEDS ORDERED: VERAPAMIL 2.5 MG/ML 2 ML AMP ONE (12:19)
[2024-02-23] MEDS ORDERED: LIDOCAINE 1% INJ 10MG/ML (20 ML MDV) ONE ×2 (12:19→16:17)
[2024-02-23] MEDS: IV FLUID CONTINUATION 950 ML IV ONE (12:30)
[2024-02-23] MEDS ORDERED: fentaNYL (PF) 50 MCG/ML 2 ML AMP ONE (12:40)
[2024-02-23] MEDS ORDERED: HEPARIN SODIUM 1,000 UN/ML (10ML VL) ONE (12:40)
[2024-02-23] MEDS: MIDAZOLAM 2 MG/2 ML VIAL IVP ONE ×2 (12:52→13:22)
[2024-02-23] MEDS: fentaNYL (PF) 50 MCG/ML 2 ML AMP IVP ONE (12:54)
[2024-02-23] MEDS: LIDOCAINE 1% INJ 10MG/ML (20 ML MDV) SQ ONE ×2 (13:09→16:36)
[2024-02-23] MEDS: VERAPAMIL SYRINGE (5 MG/10 ML) INTRAARTER ONE (13:10)
[2024-02-23] MEDS ORDERED: niCARdipine 25 MG/10 ML VIAL ONE (13:46)
[2024-02-23] MEDS: IOPAMIDOL-370 100ML BTL INJ ONE ×4 (13:52→17:40)
[2024-02-23] MEDS: niCARdipine Syringe (1,000 mcg/10 mL) INTRACORON ONE (13:54)
[2024-02-23] MEDS: TIROFIBAN 12.5MG-250ML NS 250 ML IV ONE (13:58)
[2024-02-23] MEDS ORDERED: ATROPINE SULFATE 0.1 MG/ML 10ML SYRINGE IV PRN (14:24)
[2024-02-23] MEDS ORDERED: MAG HYDROX/AL HYDROX/SIMETH 30 ML CUP PO PRN (14:24)
[2024-02-23] MEDS ORDERED: NITROGLYCERIN SL TABS 0.4 MG TAB SUBLINGUAL PRN (14:24)
[2024-02-23] MEDS ORDERED: RX INFO: IV CONTRAST WAS GIVEN 1 EACH MISC MISCELLANE PRN ×2 (14:24→18:17)
[2024-02-23] MEDS ORDERED: ZOLPIDEM 5 MG TAB PO PRN (14:24)
--- NOTE | 2024-02-23 14:32 | P.PCN ---
Date of Procedure: 02/23/24 Operative Findings: CARDIAC CATHETERIZATION AND PERCUTANEOUS CORONARY INTERVENTION PERFORMING PHYSICIAN: Addison Hernandes MD, [facility] PROCEDURE PERFORMED: 1. Selective right and left coronary angiogram 2. Left heart catheterization 3. Stenting of PDA branch of the RCA using 2.0 x 26 Xience DINORAH with an excel lent angiographic results 4. Adjunctive use of intravascular imaging and aspiration thrombectomy 5. Ultrasound-guided access of the right radial artery INDICATION: Unstable angina in this 59-year-old gentleman who underwent recently stenting of the PDA branch of the RCA and continues to have ongoing chest discomfort concerning for angina COMPLICATION: None APPROACH: Right radial artery LEVEL OF SEDATION: Moderate with the sedation time off 72 minutes PROCEDURE DESCRIPTION: After obtaining informed consent the patient was brought to the cardiac [facility]. The right radial artery was cannulated using micropuncture technique under ultrasound guidance and micropuncture wire passed easily then initially I placed a 6 Macanese 11 cm sheath at the right radial artery and gave the patient 2 mg of verapamil intra-arterial and also heparin was given initially at 4000 units at the beginning of the procedure but with continuous ACT monitoring additional heparin was given. Selective right and left coronary angiogram performed using JR4 and JL 3.5 catheters and also left heart catheterization was performed using 5 Macanese pigtail catheter After reviewing the angiogram we decided to intervene on the PDA of the RCA. Anticoagulation continued using heparin with continuous ACT monitoring. Giving the extreme support I need which I have found from the previous angioplasty I decided to use 7 Macanese system. I did upgraded my 11 cm 6 Macanese sheath into 11 cm 7 Macanese sheath using 018 wire after the 035 wire was pulled out. Subsequently I did engage the RCA using a 7 Macanese AL-1 guiding catheter. I did wired the PDA branch of the RCA initially using a whisper wire but subsequently using BMW wire. Balloon angioplasty was performed initially 2 mm semicompliant balloon but subsequently 2 mm noncompliant balloon but the flow was not restored. At that point I did intravascular ultrasound which showed what is seems to be possible thrombus in the PDA branch of the RCA. Aspiration th rombectomy was attempted and performed using an aspiration thrombectomy catheter. After that I deployed 2 oh by 26 mm stent in the PDA branch of the RCA just distal to the proximal stent. An angiogram was performed and showed LENNY II to LENNY I flow. At that point the patient was started on IIbIIIa inhibitor using Aggrastat but his symptoms improved significantly and he was almost chest pain-free. I decided to stop at this point. Continue Aggrastat for additional and a total of 18 hours. SELECTIVE CORONARY ANGIOGRAM: The right coronary artery: Large-caliber vessel and a dominant vessel. The RCA is stented and the stent is patent. The RCA gives rise into a PDA branch and PLV branches. The PDA branch is occluded. The PLV branch appears to be angiographically normal. Left main: Is angiographically normal. Bifurcates into an LCx and LAD The left circumflex: Large-caliber vessel nondominant vessel. The LCx gives rise into an OM branch which distally has a lesion appears to be in the range of 60 to 70%. The circumflex continue after that as a small to medium caliber vessel in the AV groove The left anterior descending artery: The LAD is a moderate to large caliber vessel with mild to moderate diffuse disease with no high-grade stenosis and gives rise into a diagonal branch which has an ostial lesion appears to be in the range of 60 to 70% HEMODYNAMICS: The LVEDP was 20 mmHg with no significant gradient across aortic valve CONCLUSION: Occluded small to medium caliber PDA branch of the RCA with a large thrombus burden. I did perform stenting of the PDA branch with adjunctive use of aspiration thrombectomy Elevated left-sided filling pressure POSTPROCEDURE MANAGEMENT: 1. Dual antiplatelet therapy using Effient and aspirin for 12 month 2. Aggressive cholesterol control 3. Follow-up with the patient
--- NOTE | 2024-02-23 14:36 | P.PN ---
Subjective Progress Note Date: 02/23/24 59-year-old male with a past medical history of coronary artery disease history of stent placement, ischemic cardiomyopathy ejection fraction 45%, COPD, diabetes type 2 on Mounjaro currently, hypertension, hyperlipidemia, history of mild, currently everyday smoker and chronic low back pain and other medical problems presents to Dr. Jernigan's office today with complaints of chest pain. Patient was initially seen in the ER on 02/14/2024 with complaints of chest pain and was discharged home with negative EKG and troponin. Patient was recommended to follow-up with cardiology as an outpatient. Patient started having chest pain mainly mid retrosternal and radiating across the shoulders. Mild difficulty breathing. No nausea or vomiting or diaphoresis no headache or dizziness or lightheadedness. 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 Chest x-ray showed that the degree of interstitial prominence could reflect a superimposed bronchitis or atypical pneumonias. No focal infiltrate seen. EKG showed sinus rhythm Laboratory data showed WBC 5.5 hemoglobin 17.1 and platelets 142 Sodium 132 potassium 4.5 chloride 102 bicarb is 22 BUN 14 and creatinine 0.50 and blood sugar 335 Liver enzymes are not elevated. Troponin 0.068, 0.060 and 0.062, proBNP 126 and albumin 4.1 24-hour interval change 02/23/2024 Patient is seen and evaluated in room at bedside; continue to report chest pain despite aggressive medical therapy; remains on IV nitroglycerin and heparin along with DAPT with aspirin and Effient Patient is status post cardiac catheterization with stent to PDA of RCA; given persistent chest pain despite stent placement and DAPT, cardiology planning to reevaluate with repeat cardiac catheterization Echocardiogram is completed and reveals an EF of 45% --Continue with IV heparin and nitroglycerin; further recommendations after card iac catheterization Objective - Vital Signs Vital signs: Vital Signs Temp 97.7 F 02/23/24 09:04 Pulse 69 02/23/24 09:04 Resp 18 02/23/24 09:04 BP 94/52 02/23/24 09:04 Pulse Ox 98 02/23/24 09:04 FiO2 21 02/22/24 09:13 Intake & Output 02/22/24 02/23/24 02/23/24 18:59 06:59 18:59 Intake Total 1707.810 361.802 Balance 1707.810 361.802 Intake: IV 10 Invasive Line 1 10 Intake, IV Titration 192.810 351.802 Amount Heparin Sod,Pork in 0.45% 192.810 181.402 NaCl 25,000 unit In 0.45 % NaCl 1 250ml.bag @ 9.19 UNITS/KG/HR 10.004 mls/ hr IV .Q24H [facility] Rx#: [id number] Nitroglycerin-D5w Pmx 50 170.4 mg In Dextrose/Water 1 250ml.bag @ 20 MCG/MIN 6 mls/hr IV .Q24H [facility] Rx#: [id number] Oral 1515 Other: Voiding Method Toilet Toilet # Voids 2 2 - Exam Patient is lying in the bed comfortably, no acute distress, awake alert and oriented.. HEENT: Normocephalic. Neck is supple. Pupils reactive. Nostrils clear. Oral cavity is moist. Neck reveals no JVD, carotid bruits, or thyromegaly. CHEST EXAMINATION: Trachea is central. Symmetrical expansion. Lung anderson clear to auscultation and percussion. CARDIAC: Normal S1, S2 with no gallops. No murmurs ABDOMEN: Soft. Bowel sounds normal. No organomegaly. No abdominal bruits. Extremities: reveal no edema. No clubbing or cyanosis Neurologically awake, alert, oriented x3 with well-coordinated movements. No focal deficits noted Skin: No rash or skin lesions. Psychiatric: Coperative. Nonsuicidal Musculoskeletal: No joint swelling or deformity. Normal range of motion. - Labs CBC & Chem 7: 02/23/24 06:15 02/23/24 06:15 Labs: Abnormal Lab Results - Last 24 Hours (Table) 02/22/24 02/22/24 02/22/24 Range/Units 11:19 15:19 16:19 Plt Count (150-450) k/uL APTT 45.4 H (22.0-30.0) sec Creatinine (0.66-1.25) mg/dL Glucose (74-99) mg/dL POC Glucose (mg/dL) 244 H 206 H (70-110) mg/dL 02/22/24 02/23/24 02/23/24 Range/Units 20:30 06:12 06:15 Plt Count 149 L (150-450) k/uL APTT (22.0-30.0) sec Creatinine (0.66-1.25) mg/dL Glucose (74-99) mg/dL POC Glucose (mg/dL) 203 H 136 H (70-110) mg/dL 02/23/24 02/23/24 Range/Units 06:15 06:15 Plt Count (150-450) k/uL APTT 53.7 H (22.0-30.0) sec Creatinine 0.59 L (0.66-1.25) mg/dL Glucose 136 H (74-99) mg/dL POC Glucose (mg/dL) (70-110) mg/dL Assessment and Plan Assessment: Acute non-ST elevated NE. Patient presented with chest pain and found to have elevated troponins. Status postcardiac catheterization and stenting of PDA branch of RCA. Hyperglycemia is uncontrolled diabetes type 2. Patient was previously on insulin regimen. currently taking Mounjaro. A1c 8.4 Coronary disease with history of stent placement Ischemic cardiomyopathy ejection fraction 45% Chronic CHF with mildly reduced systolic function. Hyperlipidemia Hypertension History of NE GERD Hearing disorder/deafness Currently everyday smoker Chronic low back pain Bilateral peripheral neuropathy diabetic GI prophylaxis PPI Plan: Patient will be continued on telemetry. Continue with heparin drip and nitro drip.. Patient will be continued on aspirin statin and metoprolol. Effient was added. Cardiology is on board. Possible repeat cardiac catheterization if patient continues to have chest pain.. Patient was started on insulin regimen and sliding scale for blood sugar control. A1c 8.4. Current pain management and other home medications and follow-up closely. Cardiology is on board. Prognosis guarded with multimedical problems and comorbid conditions.
[2024-02-23] MEDS: ONDANSETRON 4 MG/2 ML VIAL IVP PRN (14:54)
[2024-02-23 15:37] LABS: Glucose,Whole Blood 269 mg/dL (70-110)
[2024-02-23] MEDS ORDERED: SODIUM BICARB 8.4% 50 ML SYR (1 MEQ/ML) ONE (15:45)
[2024-02-23] MEDS ORDERED: LIDOCAINE 2% SYG (PF) 100 MG/5 ML ONE (15:45)
[2024-02-23] MEDS ORDERED: EPINEPHrine 10 ML SYRINGE (0.1 MG/ML) ONE (15:45)
[2024-02-23] MEDS ORDERED: DEXTROSE 5% IN WATER 50 ML BAG ONE (15:45)
[2024-02-23] MEDS ORDERED: AMIODARONE 50 MG/ML 3 ML VIAL IV ONE (15:45)
[2024-02-23] MEDS: SODIUM CHLORIDE 0.9% 1,000 ML IV ONE (16:22)
[2024-02-23 16:56] LABS: ABG Base Excess -12.3 mmol/L; ABG HCO3 17 mmol/L (21-25); ABG Oxygen Saturation 99.7 % (94-97); ABG PCO2 48 mmHg (35-45); ABG PO2 236 mmHg (83-108); ABG TCO2 18 mmol/L (19-24); Allen Test Performed? Yes
[2024-02-23 17:00] LABS: ABG PH 7.15 (7.35-7.45)
[2024-02-23 17:20] LABS: HCT 48.1 % (39.0-53.0); Hypochromasia Moderate; MCH 31.4 pg (25.0-35.0); MCHC 31.1 g/dL (31.0-37.0); Macrocytosis Slight; Mean Platelet Volume 8.7; Platelet Count 156 k/uL (150-450); RBC 4.76 m/uL (4.30-5.90); WBC 10.7 k/uL (3.8-10.6)
[2024-02-23 17:28] LABS: MCV 101.2 fL (80.0-100.0)
[2024-02-23] MEDS: PHENYLEPHRINE-0.9% NACL SYG 1,000 MCG/10 ML SYRINGE IVP ONE (17:36)
[2024-02-23] MEDS: SODIUM BICARB 8.4% 50 ML VIAL (1 MEQ/ML) MISCELLANE ONE (17:38)
[2024-02-23 18:05] LABS: Eosinophils # (M) 0.11 k/uL (0-0.7); Lymphocytes # (M) 5.56 k/uL (1.0-4.8); Monocytes # (M) 0.96 k/uL (0-1.0); Neutrophils # (M) 4.07 k/uL (1.3-7.7); Neutrophils % (M) 38 %; Nucleated Red Blood Cells 0 /100 WBC (0-0); Total Cells Counted 100
[2024-02-23] MEDS ORDERED: Phosphorus Replacement Protoco 1 EACH MISC MISCELLANE PRN (18:40)
[2024-02-23] MEDS ORDERED: Magnesium Replacement Protocol 1 EACH MISC MISCELLANE PRN (18:40)
[2024-02-23] MEDS ORDERED: Potassium Replacement Protocol 1 EACH MISC MISCELLANE PRN (18:40)
[2024-02-23 19:10] LABS: ABG Base Excess -0.7 mmol/L; ABG HCO3 26 mmol/L (21-25); ABG Oxygen Saturation 96.8 % (94-97); ABG PCO2 54 mmHg (35-45); ABG PH 7.29 (7.35-7.45); ABG PO2 94 mmHg (83-108); ABG TCO2 28 mmol/L (19-24)
[2024-02-23 19:21] LABS: Allen Test Performed? no
[2024-02-23] MEDS: IPRATROPIUM-ALBUTEROL 3 ML NEB INHALATION SCH (19:43)
[2024-02-23 19:44] LABS: African American GFR (CKD) >90 (>60 ml/min/1.73 sqM); Anion Gap 7 mmol/L; Blood Urea Nitrogen 13 mg/dL (9-20); Calcium 7.8 mg/dL (8.4-10.2); Carbon Dioxide 26 mmol/L (22-30); Chloride 104 mmol/L (98-107); Glucose 369 mg/dL (74-99); Magnesium 1.8 mg/dL (1.6-2.3); Non-African American GFR(CKD) >90 (>60 ml/min/1.73 sqM); Potassium 4.6 mmol/L (3.5-5.1); Sodium 137 mmol/L (137-145)
--- NOTE | 2024-02-23 19:44 | P.PCN ---
Date of Procedure: 02/23/24 Operative Findings: Cardiac Procedure Performing physician Addison Hernandes MD Procedure performed 1. Successful pericardiocentesis with removal of 600 cc of fresh blood from the pericardium 2. Successful coiling of the PDA branch of the RCA using 2 mm x 4 cm and 2 mm x 4 cm and 3 mm x 5 cm coronary coil with no evidence of any extravasation 3. Selective right coronary artery angiogram 4. Left heart catheterization 5. Ultrasound-guided access of the right common femoral artery and right common femoral artery angiogram Indication Mr. Ramirez is a 59-year-old gentleman who underwent a earlier today and angioplasty of the PDA branch of the right coronary artery which was a complex procedure. Postprocedure he was placed on Aggrastat. By the end of the procedure he was chest pain-free with no EKG changes and he was hemodynamically stable. Few hours after the procedure the patient was on the floor when he developed chest discomfort and hypotension and subsequently he had cardiac arrest. An echo bedside on the third floor revealed large pericardial effusion. He underwent pericardiocentesis on the floor and subsequently he was brought to the cardiac Informatics Physician. Approach Right common femoral artery Level of sedation The patient was intubated and he was on propofol throughout the procedure. The procedure duration was Procedure description When I arrived to the third floor to evaluate the patient the patient was hypotensive and he was in acute respiratory distress. Subsequently the patient crashed with no pulse and extremely low blood pressure. Subsequently and quickly a bedside echocardiogram revealed large pericardial effusion. The patient subsequently went into cardiopulmonary arrest and CPR was initiated for less than 10 minutes. The patient then intubated. Please refer to the CPR in details which was done by the internal medicine team. During the CPR I did perform pericardiocentesis with the removal of almost 600 cc of blood. Subsequently the patient was transferred to the cardiac Informatics Physician emergently after he was intubated and placed on ventilator. Subsequently I accessed the right common femoral vein and I placed a 5 Vietnamese for venous line for the team to the patient to receive vasopressors. Subsequently I accessed the right common femoral artery using micropuncture technique and the micropuncture wire passed easily and I placed a 6 Vietnamese 11 cm sheath at the right common femoral artery. At that point I did selective right coronary angiogram using JR4 diagnostic catheter and the angiogram revealed extravasation of blood from the distal PDA branch of the RCA with a dye staining. At that point I decided to coil the PDA of RCA. I did engage the RCA using JR4 guiding catheter and I did wired the PDA using a BMW wire. Subsequently the microcatheter for coiling was advanced over the wire and the wire was pulled out. The catheter was placed in the mid PDA branch of the right coronary artery. After that I did deliver initially 2 mm x 4 cm coil with an angiogram after that showed extravasation continues. Subsequently I delivered 2 mm x 4 cm another coil which was just proximal to the first coil. An angiogram showed also extravasation. At that point I decided to deliver a larger coil so I did deliver 3 mm x 5 cm coil. After the third coil no extravasation of blood was identified. The patient's blood pressure stabilized. Throughout the procedure bedside echocardiogram was performed by electrophysiology technician. By the end of the procedure there was trace pericardial effusion. The pericardial drainage tube was placed in place. The cardiothoracic surgical team will be consulted as well to evaluate the patient. The case was discussed with the family in details including the and the patient's kids who are in full understanding and agreement about the critical situation of the patient. The patient will be admitted to the intensive care unit. An supervisor ore dressing also will be consulted to see the patient. Meanwhile continue blood pressure support if needed. Repeat the echocardiogram later on today and tomorrow. The venous and arterial sheath will stay in place. Postprocedure management Hold any anticoagulation Potentially hold antiplatelet at this point Monitor the blood pressure very closely Slicing Machine Operator/Tender consultation Monitor the hemoglobin and kidney function An echocardiogram Follow-up with the patient
--- NOTE | 2024-02-23 19:46 | XR ---
EXAM: XR chest 1V portable CLINICAL INDICATION:Male, 59 years old with history of Tube placement; [facility] COMPARISON: 02/20/2024 TECHNIQUE: Chest single view. FINDINGS: ET tube tip just above the level of the clavicular heads around 9.4 cm above the demetrio. NG tube exte nds below the diaphragm on the left, coils once over the stomach and courses towards the right distal ly beyond the [id number]. Radiodensity may represent suture chain in the upper abdomen just right of midline. Monitor leads and tubing over the field of view. Opacity at the right lung base with some blunting of the costophrenic angle. Left lung appears clear and the costophrenic angle is sharp. No visualized pneumothorax bilaterally. Scattered chronic senesc ent changes of the lungs. No clearly acute bony abnormality. Degenerative changes of the spine and left more than right shoulde r. IMPRESSION: 1. Right basilar opacity could represent pleural effusion, infiltrate/atelectasis, elevated right he midiaphragm, or combination. 2. ET tube appears high in position. Recommend advancement 5-6 cm for more optimal positioning. 3. NG tube extends into the abdomen with the tip beyond the field of view.
[2024-02-23 19:50] LABS: Basophils # (A) 0.1 k/uL (0-0.2); Basophils % (A) 0 %; Eosinophils % (A) 0 %; HCT 51.3 % (39.0-53.0); HGB 16.8 gm/dL (13.0-17.5); Lymphocytes % (A) 6 %; MCH 31.4 pg (25.0-35.0); MCHC 32.7 g/dL (31.0-37.0); Mean Platelet Volume 8.1; Monocytes % (A) 5 %; Neutrophils # (A) 14.9 k/uL (1.3-7.7); Neutrophils % (A) 86 %; Platelet Count 196 k/uL (150-450); RBC 5.34 m/uL (4.30-5.90); RDW 14.4 % (11.5-15.5); WBC 17.4 k/uL (3.8-10.6)
[2024-02-23 19:51] LABS: MCV 95.9 fL (80.0-100.0)
--- NOTE | 2024-02-23 19:57 | P.GSCN ---
History of Present Illness Consult date: 02/23/24 Reason for Consult: Evaluation for pericardial window Requesting physician: Addison Hernandes History of present illness: This is a 59-year-old gentleman who is followed on outpatient basis by Dr. Lorraine Solomon for his primary care and with Dr. Hernandes for his cardiology care. He has a past medical history significant for coronary artery disease with previous stenting of the RCA and LAD, ischemic cardiomyopathy with an ejection fraction of 30-35%, hypertension, dyslipidemia, diabetes mellitus type 2, chronic ongoing tobacco dependence, COPD, obesity with a BMI of 31.7 kg/m, chronic back pain and non-ST elevated myocardial infarction. Recently, the patient has been complaining of chest pain and presented to Dr. Jernigan's office on February 20, 2024. Due to the patient's complaints of chest pain he was recommended to present to the emergency department here at [facility] for further evaluation and treatment recommendations. According to his chart the patient has been having complaints of chest pain over a week period. He denied any fevers, nausea, vomiting, chills, diaphoresis, shortness of breath, palpitations, presyncope or syncope. On admission the emergency department laboratory results showed elevated serial troponins as high as 1.650. A twelve- lead EKG was completed which showed sinus rhythm with no acute STT wave changes. A chest x-ray was completed which showed COPD, a degree of interstitial prominence could reflect superimposed bronchitis or atypical pneumonitis. A transthoracic 2D echocardiogram was completed on February 20, 2024 which demonstrated left ventricular ejection fraction estimated at 30 to 35%, reduced global left ventricular systolic function, trace mitral valve regurgitation, trace pulmonic valve regurgitation, no pericardial effusion and a mildly dilated aortic annulus. Subsequently, due to the patient's complaints of chest pain, and positive troponins a heart catheterization was recommended by Dr. Hernandes. On February 20, 2024 the patient was taken for a cardiac catheterization which demonstrated critical disease involving the PDA branch of the right cor onary artery. During the heart catheterization the patient underwent successful stenting of the PDA branch of the RCA with excellent angiographic results. Today February 23, 2024 the patient was still having episodes of chest pain similar to what brought him into the hospital. He is on maximal medical therapy with beta-rikki, aspirin, statin, and Effient. Due to the patient's continued complaints of episodes of chest pain, he was taken to the cardiac catheterization lab today by Dr. Hernandes and underwent a cardiac catheterization with stenting of the PDA branch of the right coronary artery. Post stenting of the PDA branch he was hemodynamically stable, chest pain-free and no EKG changes. According to Dr. Hernandes, a few hours post cardiac cath he developed chest discomfort and acute hypotension and subsequently cardiac arrested. A transthoracic 2D echocardiogram was completed which revealed a large pericardial effusion and Dr. Hernnades performed a bedside paracentesis with removal of 600 mL of fresh blood from the pericardium and was subsequently brought to the cardiac catheterization lab where the patient underwent successful coiling of the PDA branch of the right coronary artery. A repeat bedside transthoracic 2D echocardiogram demonstrated no pericardial effusion. Subsequently, due to the patient's pericardial effusion a consult was placed to Dr. Mike Crawford from cardiothoracic surgery for further evaluation and treatment recommendations. Review of Systems A 14 point review of systems could not be completed at this time as the patient is intubated on mechanical ventilator support. Past Medical History Past Medical History: Coronary Artery Disease (CAD), Chest Pain / Angina, COPD, Diabetes Mellitus, GERD/Reflux, Hearing Disorder / Deafness, Hyperlipidemia, Hypertension, Myocardial Infarction (OR) Additional Past Medical History / Comment(s): Neuropathy bilateral feet/legs, hx pancreatitis, chronic low back pain, hx gastric ulcer as a teen, hx benign colon polyps, small amount of trouble hearing. Last Myocardial Infarction Date:: 2011 History of Any Multi-Drug Resistant Organisms: None Reported Past Surgical History: Back Surgery, Ear Surgery, Heart Catheterization With Stent, Hernia Repair, Orthopedic Surgery Additional Past Surgical History / Comment(s): 2011 PCI with stent to mid RCA, bilateral inguinal hernia repair as teen, bilateral carpal tunnel releases, col onoscopy, bilateral myringotomies/tubes, 11/2021 cardiac stent. Past Anesthesia/Blood Transfusion Reactions: Motion Sickness, Postoperative Nausea & Vomiting (PONV) Additional Past Anesthesia/Blood Transfusion Reaction / Comm: PONV as a teen with surgery, none since. Date of Last Stent Placement:: 2021 Past Psychological History: No Psychological Hx Reported Smoking Status: Current every day smoker Past Alcohol Use History: Occasional Past Drug Use History: None Reported - Past Family History Father Family Medical History: Coronary Artery Disease (CAD), Myocardial Infarction (OR) Additional Family Medical History / Comment(s): Heart disease runs strongly on his father's side of family. Father is . Pt cannot recall at what age father had OR. Mother Family Medical History: Cancer Additional Family Medical History / Comment(s): Mother of renal cancer with mets. Medications and Allergies Home Medications Medication Instructions Recorded Confirmed Type lisinopriL [Zestril] 5 mg PO DAILY 12/16/21 02/20/24 History Aspirin 81 mg PO DAILY 12/17/21 02/20/24 Rx Metoprolol Tartrate [Lopressor] 25 mg PO BID #60 tab 12/17/21 02/20/24 Rx DULoxetine HCL [Cymbalta] 30 mg PO DAILY 02/20/24 02/20/24 History DULoxetine HCL [Cymbalta] 60 mg PO DAILY 02/20/24 02/20/24 History Nitroglycerin Sl Tabs [Nitrostat] 0.4 mg SL Q5M PRN 02/20/24 02/20/24 History Pregabalin [Lyrica] 50 mg PO BID 02/20/24 02/20/24 History Rosuvastatin Calcium [Crestor] 40 mg PO DAILY 02/20/24 02/20/24 History Tirzepatide [Mounjaro] 7.5 mg SQ DUENAS 02/20/24 02/20/24 History Varenicline [Chantix Continuing 1 mg PO BID 02/20/24 02/20/24 History Pack] Allergies Allergy/AdvReac Type Severity Reaction Status Date / Time No Known Allergies Allergy Verified 02/20/24 10:11 Surgical - Exam Vital Signs Temp Pulse Resp BP Pulse Ox 97.7 F 81 20 146/83 98 02/20/24 09:25 02/20/24 09:25 02/20/24 09:25 02/20/24 09:25 02/20/24 09:25 - General well developed, well nourished, no distress, chronically ill, obese - Eyes PERRL, normal ocular movement, no pale, no icteric - ENT normal pinna, normal nares, normal mucosa, decreased hearing - Neck Neck is supple, no lymphadenopathy. no masses, no bruits, trachea midline, no venous distension - Respiratory Patient is currently intubated on mechanical ventilator support. Respirations are symmetrical and nonlabored with mechanical ventilator support. Lung sounds with scattered rhonchi throughout, no wheezes or crackles. - Cardiovascular Regular rhythm and rate. S1 and S2 present, negative for S3, gallop or murmur. Pericardial drain in place with scant serosanguineous drainage. - Abdomen Abdomen soft, nontender and nondistended. Active bowel sounds present all 4 abdominal quadrants. No guarding or rigidity. No organomegaly appreciated. - Genitourinary Deferred - Rectum Deferred - Integumentary Skin is warm and dry. No clubbing or cyanosis is present. Pericardial drain in place with scant serosanguineous drainage. Dressing clean and intact. no rash, no growths, no abnormal pigmentation - Neurologic Unable to accurately assess at this time, the patient remains intubated and on mechanical ventilator support. - Musculoskeletal The patient is moving all 4 extremities with equal strength bilateral with verbal stimuli. - Psychiatric Unable to accurately assess at this time, the patient remains intubated and on mechanical ventilator support. Results - Labs 02/23/24 16:14 02/23/24 06:15 Abnormal Lab Results - Last 24 Hours (Table) 02/22/24 02/23/24 02/23/24 Range/Units 20:30 06:12 06:15 WBC (3.8-10.6) k/uL MCV (80.0-100.0) fL Plt Count 149 L (150-450) k/uL Lymphocytes # (Manual) (1.0-4.8) k/uL APTT (22.0-30.0) sec ABG pH (7.35-7.45) ABG pCO2 (35-45) mmHg ABG pO2 (83-108) mmHg ABG HCO3 (21-25) mmol/L ABG Total CO2 (19-24) mmol/L ABG O2 Saturation (94-97) % Creatinine (0.66-1.25) mg/dL Glucose (74-99) mg/dL POC Glucose (mg/dL) 203 H 136 H (70-110) mg/dL Crossmatch 02/23/24 02/23/24 02/23/24 Range/Units 06:15 06:15 11:23 WBC (3.8-10.6) k/uL MCV (80.0-100.0) fL Plt Count (150-450) k/uL Lymphocytes # (Manual) (1.0-4.8) k/uL APTT 53.7 H (22.0-30.0) sec ABG pH (7.35-7.45) ABG pCO2 (35-45) mmHg ABG pO2 (83-108) mmHg ABG HCO3 (21-25) mmol/L ABG Total CO2 (19-24) mmol/L ABG O2 Saturation (94-97) % Creatinine 0.59 L (0.66-1.25) mg/dL Glucose 136 H (74-99) mg/dL POC Glucose (mg/dL) 147 H (70-110) mg/dL Crossmatch 02/23/24 02/23/24 02/23/24 Range/Units 15:26 16:14 16:14 WBC 10.7 H (3.8-10.6) k/uL MCV 101.2 H D (80.0-100.0) fL Plt Count (150-450) k/uL Lymphocytes # (Manual) 5.56 H (1.0-4.8) k/uL APTT (22.0-30.0) sec ABG pH (7.35-7.45) ABG pCO2 (35-45) mmHg ABG pO2 (83-108) mmHg ABG HCO3 (21-25) mmol/L ABG Total CO2 (19-24) mmol/L ABG O2 Saturation (94-97) % Creatinine (0.66-1.25) mg/dL Glucose (74-99) mg/dL POC Glucose (mg/dL) 269 H (70-110) mg/dL Crossmatch See Detail 02/23/24 02/23/24 Range/Units 16:48 19:06 WBC (3.8-10.6) k/uL MCV (80.0-100.0) fL Plt Count (150-450) k/uL Lymphocytes # (Manual) (1.0-4.8) k/uL APTT (22.0-30.0) sec ABG pH 7.15 L* 7.29 L (7.35-7.45) ABG pCO2 48 H 54 H (35-45) mmHg ABG pO2 236 H (83-108) mmHg ABG HCO3 17 L 26 H (21-25) mmol/L ABG Total CO2 18 L 28 H (19-24) mmol/L ABG O2 Saturation 99.7 H (94-97) % Creatinine (0.66-1.25) mg/dL Glucose (74-99) mg/dL POC Glucose (mg/dL) (70-110) mg/dL Crossmatch Diabetes panel 02/23/24 Range/Units 06:15 Sodium 137 (137-145) mmol/L Potassium 4.1 (3.5-5.1) mmol/L Chloride 106 (98-107) mmol/L Carbon Dioxide 27 (22-30) mmol/L BUN 10 (9-20) mg/dL Creatinine 0.59 L (0.66-1.25) mg/dL Glucose 136 H (74-99) mg/dL Calcium 8.8 (8.4-10.2) mg/dL Calcium panel 02/23/24 Range/Units 06:15 Calcium 8.8 (8.4-10.2) mg/dL Pituitary panel 02/23/24 Range/Units 06:15 Sodium 137 (137-145) mmol/L Potassium 4.1 (3.5-5.1) mmol/L Chloride 106 (98-107) mmol/L Carbon Dioxide 27 (22-30) mmol/L BUN 10 (9-20) mg/dL Creatinine 0.59 L (0.66-1.25) mg/dL Glucose 136 H (74-99) mg/dL Calcium 8.8 (8.4-10.2) mg/dL Adrenal panel 02/23/24 Range/Units 06:15 Sodium 137 (137-145) mmol/L Potassium 4.1 (3.5-5.1) mmol/L Chloride 106 (98-107) mmol/L Carbon Dioxide 27 (22-30) mmol/L BUN 10 (9-20) mg/dL Creatinine 0.59 L (0.66-1.25) mg/dL Glucose 136 H (74-99) mg/dL Calcium 8.8 (8.4-10.2) mg/dL - Imaging Additional studies: Cardiac catheterization films reviewed by Dr. Crawford Assessment and Plan Assessment: Large pericardial effusion, status post pericardial drain placement by Dr. Hernandes and successful coiling of his PDA branch of his RCA Coronary artery disease, successful stenting of his PDA branch of his right coronary artery on February 20, 2024, previous stent placement to his RCA and LAD Acute non-ST elevated myocardial infarction this admission Hypertension Hyperlipidemia Diabetes mellitus type 2 Ischemic cardiomyopathy with an ejection fraction of 30 to 35% Chronic ongoing tobacco dependence COPD Obesity with a BMI of 31.7 kg/m Chronic back pain GERD Plan: The patient was seen and examined at his bedside. His chart and diagnostics reviewed. His case was discussed in detail with Dr. Mike Crawford from cardiothoracic surgery. Dr. Crawford and Dr. Hernandes discussed the findings on the cardiac catheterization and most recent transthoracic 2D echocardiogram showing no pericardial effusion. No surgical intervention is warranted at this time, continue pericardial drain and monitor output. Anticoagulation management per cardiology recommendations. Repeat transthoracic 2D echocardiogram in the a.m. Mechanical ventilator management per critical care pulmonary medicine recommendations. Medical management and other comorbidities per primary care and cardiology service. The patient has been started on Kefzol 2 g IV piggyback every 8 hours for empiric coverage. More recommendations to follow based on patient's clinical course. Thank you Dr. Hernandes for this consult and we look forward to working with you in the care of this patient. I have personally seen and examined the patient, performed the documentation and the assessment and plan as written. Number of minutes spent on the visit: 30. CONSTANTINE Mitchell
[2024-02-23] MEDS: MIDAZOLAM HCL 50 MG in SODIUM CHLORIDE 0.9% 40 ML IV SCH (20:05)
[2024-02-23] MEDS: fentaNYL (PF). 1,000 MCG in SODIUM CHLORIDE 0.9% 80 ML IV SCH (20:16)
[2024-02-23] MEDS: DOPamine DRIP 800 MG in DEXTROSE/WATER 1 250ML.BAG IV SCH (20:45)
[2024-02-23] MEDS: SODIUM CHLORIDE 0.9% 500 ML 500 ML IV ONE (20:53)
[2024-02-23] MEDS: NOREPINEPHRINE 4 MG in SODIUM CHLORIDE 0.9% 250 ML IV SCH (21:17)
[2024-02-23] MEDS: propofoL 100 ML IV ONE (21:17)
[2024-02-23] MEDS: TIROFIBAN 12.5MG-250ML NS 250 ML IV SCH (21:18)
[2024-02-23] MEDS: FUROSEMIDE 10 MG/ML 4 ML VIAL ONE (22:09)
[2024-02-23] MEDS: SODIUM CHLORIDE 0.9% 1,000 ML IV SCH (22:17)
[2024-02-23] MEDS: SODIUM BICARB 8.4% 50 ML SYR (1 MEQ/ML) ONE (22:17)
[2024-02-23] MEDS: SODIUM CHLORIDE 0.9% 1,000 ML in EMPTY BAG 1 BAG IV SCH (22:20)
[2024-02-23 23:05] LABS: Glucose,Whole Blood 311 mg/dL (70-110)
[2024-02-23] MEDS: CHLORHEXIDINE GLUCONATE 15 ML CUP MUCOUS MEM SCH (23:09)
[2024-02-24] MEDS: ATORVASTATIN 80 MG TAB PO SCH (00:18)
[2024-02-24 00:39] LABS: Basophils % (A) 0 %; Eosinophils % (A) 0 %; HCT 48.9 % (39.0-53.0); HGB 15.6 gm/dL (13.0-17.5); Lymphocytes # (A) 0.4 k/uL (1.0-4.8); Lymphocytes % (A) 4 %; MCH 30.6 pg (25.0-35.0); MCHC 31.9 g/dL (31.0-37.0); MCV 95.8 fL (80.0-100.0); Mean Platelet Volume 8.4; Monocytes # (A) 0.5 k/uL (0-1.0); Monocytes % (A) 5 %; Neutrophils # (A) 8.5 k/uL (1.3-7.7); Neutrophils % (A) 89 %; Platelet Count 148 k/uL (150-450); RDW 14.3 % (11.5-15.5); WBC 9.5 k/uL (3.8-10.6)
[2024-02-24 00:59] LABS: ALT 488 U/L (4-49); AST 338 U/L (17-59); African American GFR (CKD) >90 (>60 ml/min/1.73 sqM); Albumin 3.4 g/dL (3.5-5.0); Alkaline Phosphatase 66 U/L (38-126); Anion Gap 6 mmol/L; Blood Urea Nitrogen 14 mg/dL (9-20); Calcium 8.1 mg/dL (8.4-10.2); Carbon Dioxide 27 mmol/L (22-30); Chloride 106 mmol/L (98-107); Glucose 309 mg/dL (74-99); Magnesium 1.9 mg/dL (1.6-2.3); Non-African American GFR(CKD) >90 (>60 ml/min/1.73 sqM); Potassium 4.4 mmol/L (3.5-5.1); Sodium 139 mmol/L (137-145); Total Bilirubin 0.8 mg/dL (0.2-1.3); Total Protein 5.7 g/dL (6.3-8.2)
[2024-02-24] MEDS: MAGNESIUM SULFATE-D5W PMX 1 GM in DEXTROSE/WATER 1 100ML.BAG IVPB ONE (01:35)
[2024-02-24] MEDS: SODIUM CHLORIDE 0.9% 1,000 ML IV SCH (01:56)
[2024-02-24 05:24] LABS: ABG Base Excess 3.2 mmol/L; ABG HCO3 28 mmol/L (21-25); ABG Oxygen Saturation 98.2 % (94-97); ABG PCO2 43 mmHg (35-45); ABG PH 7.42 (7.35-7.45); ABG PO2 99 mmHg (83-108); ABG TCO2 29 mmol/L (19-24)
[2024-02-24 05:31] LABS: Basophils % (A) 0 %; Eosinophils % (A) 0 %; HCT 47.1 % (39.0-53.0); HGB 15.3 gm/dL (13.0-17.5); Lymphocytes # (A) 0.4 k/uL (1.0-4.8); Lymphocytes % (A) 5 %; MCH 30.6 pg (25.0-35.0); MCHC 32.4 g/dL (31.0-37.0); MCV 94.4 fL (80.0-100.0); Mean Platelet Volume 8.8; Monocytes # (A) 0.5 k/uL (0-1.0); Monocytes % (A) 5 %; Neutrophils # (A) 7.9 k/uL (1.3-7.7); Neutrophils % (A) 87 %; Platelet Count 152 k/uL (150-450); RBC 4.99 m/uL (4.30-5.90); RDW 14.3 % (11.5-15.5); WBC 9.1 k/uL (3.8-10.6)
[2024-02-24 05:41] LABS: African American GFR (CKD) >90 (>60 ml/min/1.73 sqM); Anion Gap 4 mmol/L; Blood Urea Nitrogen 14 mg/dL (9-20); Calcium 8.2 mg/dL (8.4-10.2); Carbon Dioxide 28 mmol/L (22-30); Chloride 108 mmol/L (98-107); Glucose 267 mg/dL (74-99); Magnesium 2.1 mg/dL (1.6-2.3); Non-African American GFR(CKD) >90 (>60 ml/min/1.73 sqM); Potassium 4.1 mmol/L (3.5-5.1); Sodium 140 mmol/L (137-145)
[2024-02-24 05:59] LABS: Allen Test Performed? no
[2024-02-24 06:42] LABS: Glucose,Whole Blood 251 mg/dL (70-110)
[2024-02-24 07:39] LABS: Amorphous Sediment,Urine Many /hpf; Appearance,Urine Turbid (Clear); Bacteria,Urine Occasional /hpf; Bilirubin,Urine Negative (Negative); Blood,Urine Moderate (Negative); Color,Urine Yellow; Glucose,Urine (UA) 4+ (Negative); Leukocyte Esterase,Urine Trace (Negative); Mucus,Urine Rare /hpf; Nitrite,Urine Negative (Negative); PH, Urine 5.5 (5.0-8.0); Protein,Urine Trace (Negative); RBC,Urine 35 /hpf (0-5); Specific Gravity,Urine 1.037 (1.001-1.035); Squamous Epithelial Cell,Urine 2 /hpf (0-4); Uric Acid Crystals,Urine Occasional /hpf; Urobilinogen,Urine <2.0 mg/dL (<2.0); WBC,Urine 15 /hpf (0-5)
[2024-02-24] MEDS: PANTOPRAZOLE 40 MG/10 ML VIAL IV SCH (08:18)
[2024-02-24] MEDS: FUROSEMIDE 10 MG/ML 4 ML VIAL IV STA (08:18)
[2024-02-24 08:53] LABS: Ketones,Urine 2+ (Negative)
--- NOTE | 2024-02-24 09:50 | CA ---
Transthoracic Echo Report Name: Phu Ramirez Age: 59 Gender: M : 1965 Exam Date: 02/23/2024 16:44 Exam Location: [place] [facility] Ht (in): Wt (lb): Ordering Physician: Addison Hernandes MD Attending/Referring Phys: Dike Supervisor Ade Goldberg RDCS Procedure CPT: Indications: S/P pericardial paracentesis Cardiac Hx: Pericardial effusion Technical Quality: Contrast 1: Total Dose (mL): Contrast 2: Total Dose (mL): MEASUREMENTS (Male / Female) Normal Values FINDINGS Left Ventricle Right Ventricle Right Atrium Left Atrium Mitral Valve Aortic Valve Tricuspid Valve Pulmonic Valve Pericardium Aorta CONCLUSIONS This was a stat echo done at bed side during tamponade, pericardiocentesis and post procedure. Patient had large pericardial effusion with evidence of tamponade on Underwent pericardiocentesis in the [place] not had resolved there was only small pericardial effusion at the end of the procedure Previewed by: Dr. Aguilar Palmer MD (Electronically Signed) Final Date: 24 February 2024 09:49
--- NOTE | 2024-02-24 10:14 | P.PN ---
Subjective Progress Note Date: 02/24/24 Principal diagnosis: Large pericardial effusion, status post paracentesis and subsequent pericardial drain placement, cardiac arrest, status post ACLS protocol and return of sponta neous circulation, coronary artery disease, status post cardiac catheterization with stent placement to his PDA branch of his right coronary artery, and subsequent successful coiling of the PDA branch of the right coronary artery with no evidence of extravasation, acute non-ST elevated myocardial infarction this admission. Past medical history significant for coronary artery disease with previous stenting of the RCA and LAD, ischemic cardiomyopathy with an ejection fraction of 30-35%, hypertension, dyslipidemia, diabetes mellitus type 2, chronic ongoing tobacco dependence, COPD, obesity with a BMI of 31.7 kg/m, chronic back pain and non-ST elevated myocardial infarction. POD #1 paracentesis with 600 mL of fresh blood from the pericardium drained, and placement of pericardial drain by Dr. Hernandes The patient was seen and examined today February 24, 2024 at his bedside in the intensive care unit. The patient remains intubated with mechanical ventilator support and is currently sedated on Versed drip at 4 mg/h. The patient is opening his eyes to verbal stimuli and following verbal commands appropriately, squeezing hands and wiggling toes appropriately to command. Mechanical ventilator settings are assist-control 24, TV 500, FiO2 100% and a PEEP of 5, current oxygen saturations are 98% on the mechanical ventilator settings. Dopamine drip is infusing at 6 mcg/kg/min. Pericardial drain remains in place with scant serosanguineous drainage. Laboratory results reviewed, hemoglobin 15.3, platelets 152, BUN 14, creatinine 0.66. Chest x-ray results reviewed. Transthoracic 2D echocardiogram pending. Objective - Vital Signs Vital signs: Vital Signs Temp 100.2 F H 02/24/24 08:00 Pulse 96 02/24/24 08:45 Resp 24 02/24/24 08:45 BP 103/70 02/23/24 14:45 Pulse Ox 99 02/24/24 08:45 FiO2 100 02/24/24 08:00 Intake & Output 02/23/24 02/24/24 02/24/24 18:59 06:59 18:59 Intake Total 1504.42 1508.910 245.275 Output Total 2049 2450 115 Balance -545.58 -941.090 130.275 Weight 109.8 kg Intake: IV 804.92 825 200 Magnesium Sulfate-D5w Pmx 100 1 gm In Dextrose/Water 1 100ml.bag @ 100 mls/hr IVPB ONCE ONE Rx#: [id number] Sodium Chloride 0.9% 1, 675 150 000 ml In Empty Bag 1 bag @ 75 mls/hr IV .[id number] [facility] Rx#:[id number] ceFAZolin 2 gm In Sodium 50 50 Chloride 0.9% 50 ml @ 100 mls/hr IVPB Q8HR [facility] Rx# :[id number] Intake, IV Titration 109.5 683.910 45.275 Amount DOPamine DRIP 800 mg In 72.632 35.925 Dextrose/Water 1 250ml. bag @ 1 MCG/KG/MIN 2.041 mls/hr IV .Q24H [facility] Rx#: [id number] Midazolam HCl 50 mg In 55.034 9.350 Sodium Chloride 0.9% 40 ml @ 1 MG/HR 1 mls/hr IV .Q24H [facility] Rx#:[id number] Nitroglycerin-D5w Pmx 50 109.5 mg In Dextrose/Water 1 250ml.bag @ 20 MCG/MIN 6 mls/hr IV .Q24H [facility] Rx#: [id number] Sodium Chloride 0.9% 500 500 ml 500 ml @ 999 mls/hr IV .Q31M [facility] Rx#:[id number] fentaNYL (PF). 1,000 mcg 56.244 In Sodium Chloride 0.9% 80 ml @ 0.5 MCG/KG/HR 5. 443 mls/hr IV .[id number] [facility] Rx#:[id number] Blood Product 590 Rc As-1 Unit 310 [id number] Pheresis As-3 Unit 280 [id number] Output: Urine 1000 2450 115 Estimated Blood Loss 1050 Other: Voiding Method Toilet Indwelling Catheter # Voids 0 # Bowel Movements 1 ABP, PAP, CO, CI - Last Documented Arterial Blood Pressure 127/60 - Exam CONSTITUTIONAL: Remains intubated with mechanical ventilator support, currently sedated with Versed drip at 4 mg/hr, no apparent acute distress. HEENT: Neck is supple, no JVD, no lymphadenopathy. RESPIRATORY: Lungs sounds essentially clear throughout, diminished to his bilateral bases, scattered rhonchi throughout. Respirations are symmetrical and nonlabored with mechanical ventilator support. Currently assist-control 24, TV 500, FiO2 100% and a PEEP of 5. Strong cough. CARDIOVASCULAR: Regular rhythm and rate. S1 and S2 present, negative for S3, gallop or murmur. Palpable peripheral pulses bilaterally. GASTROINTESTINAL: Abdomen soft, nontender, nondistended. Active bowel sounds present 4 quadrants. Tolerating diet. Passing flatus. No guarding or rigidity. GENITOURINARY: Roe present draining clear, yellow urine. 1100 mL in the last 8 hours. INTEGUMENTARY: Skin is warm and dry with no evidence of clubbing or cyanosis. Pericardial drain in place with scant serosanguineous drainage. NEUROLOGIC: Moving all 4 extremities. Unable to accurately assess at this time as the patient is sedated, intubated with mechanical ventilator support. MUSKULOSKELETAL: Able to move all extremities, strength equal bilaterally, generalized weakness. PSYCHIATRIC: Unable to accurately assess at this time as the patient is sedated, intubated with mechanical ventilator support. INVASIVE LINES AND TUBES: Pericardial drain in place with scant serosanguineous drainage. - Allied health notes Allied health notes reviewed: nursing - Labs CBC & Chem 7: 02/24/24 05:00 02/24/24 05:00 Labs: Abnormal Lab Results - Last 24 Hours (Table) 02/23/24 02/23/24 02/23/24 Range/Units 11:23 15:26 16:14 WBC (3.8-10.6) k/uL MCV (80.0-100.0) fL Plt Count (150-450) k/uL Neutrophils # (1.3-7.7) k/uL Lymphocytes # (1.0-4.8) k/uL Lymphocytes # (Manual) (1.0-4.8) k/uL ABG pH (7.35-7.45) ABG pCO2 (35-45) mmHg ABG pO2 (83-108) mmHg ABG HCO3 (21-25) mmol/L ABG Total CO2 (19-24) mmol/L ABG O2 Saturation (94-97) % Chloride (98-107) mmol/L Glucose (74-99) mg/dL POC Glucose (mg/dL) 147 H 269 H (70-110) mg/dL Calcium (8.4-10.2) mg/dL AST (17-59) U/L ALT (4-49) U/L Total Protein (6.3-8.2) g/dL Albumin (3.5-5.0) g/dL Ur Specific [place] (1.001-1.035) Urine Protein (Negative) Urine Glucose (UA) (Negative) Urine Ketones (Negative) Urine Blood (Negative) Ur Leukocyte Esterase (Negative) Urine RBC (0-5) /hpf Urine WBC (0-5) /hpf Uric Acid Crystals (None) /hpf Amorphous Sediment (None) /hpf Urine Bacteria (None) /hpf Urine Mucus (None) /hpf Crossmatch See Detail 02/23/24 02/23/24 02/23/24 Range/Units 16:14 16:48 19:06 WBC 10.7 H (3.8-10.6) k/uL MCV 101.2 H D (80.0-100.0) fL Plt Count (150-450) k/uL Neutrophils # (1.3-7.7) k/uL Lymphocytes # (1.0-4.8) k/uL Lymphocytes # (Manual) 5.56 H (1.0-4.8) k/uL ABG pH 7.15 L* 7.29 L (7.35-7.45) ABG pCO2 48 H 54 H (35-45) mmHg ABG pO2 236 H (83-108) mmHg ABG HCO3 17 L 26 H (21-25) mmol/L ABG Total CO2 18 L 28 H (19-24) mmol/L ABG O2 Saturation 99.7 H (94-97) % Chloride (98-107) mmol/L Glucose (74-99) mg/dL POC Glucose (mg/dL) (70-110) mg/dL Calcium (8.4-10.2) mg/dL AST (17-59) U/L ALT (4-49) U/L Total Protein (6.3-8.2) g/dL Albumin (3.5-5.0) g/dL Ur Specific [place] (1.001-1.035) Urine Protein (Negative) Urine Glucose (UA) (Negative) Urine Ketones (Negative) Urine Blood (Negative) Ur Leukocyte Esterase (Negative) Urine RBC (0-5) /hpf Urine WBC (0-5) /hpf Uric Acid Crystals (None) /hpf Amorphous Sediment (None) /hpf Urine Bacteria (None) /hpf Urine Mucus (None) /hpf Crossmatch 02/23/24 02/23/24 02/23/24 Range/Units 19:19 19:19 23:03 WBC 17.4 H (3.8-10.6) k/uL MCV (80.0-100.0) fL Plt Count (150-450) k/uL Neutrophils # 14.9 H (1.3-7.7) k/uL Lymphocytes # (1.0-4.8) k/uL Lymphocytes # (Manual) (1.0-4.8) k/uL ABG pH (7.35-7.45) ABG pCO2 (35-45) mmHg ABG pO2 (83-108) mmHg ABG HCO3 (21-25) mmol/L ABG Total CO2 (19-24) mmol/L ABG O2 Saturation (94-97) % Chloride (98-107) mmol/L Glucose 369 H (74-99) mg/dL POC Glucose (mg/dL) 311 H (70-110) mg/dL Calcium 7.8 L (8.4-10.2) mg/dL AST (17-59) U/L ALT (4-49) U/L Total Protein (6.3-8.2) g/dL Albumin (3.5-5.0) g/dL Ur Specific [place] (1.001-1.035) Urine Protein (Negative) Urine Glucose (UA) (Negative) Urine Ketones (Negative) Urine Blood (Negative) Ur Leukocyte Esterase (Negative) Urine RBC (0-5) /hpf Urine WBC (0-5) /hpf Uric Acid Crystals (None) /hpf Amorphous Sediment (None) /hpf Urine Bacteria (None) /hpf Urine Mucus (None) /hpf Crossmatch 02/24/24 02/24/24 02/24/24 Range/Units 00:15 00:15 05:00 WBC (3.8-10.6) k/uL MCV (80.0-100.0) fL Plt Count 148 L (150-450) k/uL Neutrophils # 8.5 H 7.9 H (1.3-7.7) k/uL Lymphocytes # 0.4 L 0.4 L (1.0-4.8) k/uL Lymphocytes # (Manual) (1.0-4.8) k/uL ABG pH (7.35-7.45) ABG pCO2 (35-45) mmHg ABG pO2 (83-108) mmHg ABG HCO3 (21-25) mmol/L ABG Total CO2 (19-24) mmol/L ABG O2 Saturation (94-97) % Chloride (98-107) mmol/L Glucose 309 H (74-99) mg/dL POC Glucose (mg/dL) (70-110) mg/dL Calcium 8.1 L (8.4-10.2) mg/dL AST 338 H (17-59) U/L ALT 488 H (4-49) U/L Total Protein 5.7 L (6.3-8.2) g/dL Albumin 3.4 L (3.5-5.0) g/dL Ur Specific [place] (1.001-1.035) Urine Protein (Negative) Urine Glucose (UA) (Negative) Urine Ketones (Negative) Urine Blood (Negative) Ur Leukocyte Esterase (Negative) Urine RBC (0-5) /hpf Urine WBC (0-5) /hpf Uric Acid Crystals (None) /hpf Amorphous Sediment (None) /hpf Urine Bacteria (None) /hpf Urine Mucus (None) /hpf Crossmatch 02/24/24 02/24/24 02/24/24 Range/Units 05:00 05:22 05:30 WBC (3.8-10.6) k/uL MCV (80.0-100.0) fL Plt Count (150-450) k/uL Neutrophils # (1.3-7.7) k/uL Lymphocytes # (1.0-4.8) k/uL Lymphocytes # (Manual) (1.0-4.8) k/uL ABG pH (7.35-7.45) ABG pCO2 (35-45) mmHg ABG pO2 (83-108) mmHg ABG HCO3 28 H (21-25) mmol/L ABG Total CO2 29 H (19-24) mmol/L ABG O2 Saturation 98.2 H (94-97) % Chloride 108 H (98-107) mmol/L Glucose 267 H (74-99) mg/dL POC Glucose (mg/dL) (70-110) mg/dL Calcium 8.2 L (8.4-10.2) mg/dL AST (17-59) U/L ALT (4-49) U/L Total Protein (6.3-8.2) g/dL Albumin (3.5-5.0) g/dL Ur Specific [place] 1.037 H (1.001-1.035) Urine Protein Trace H (Negative) Urine Glucose (UA) 4+ H (Negative) Urine Ketones 2+ H (Negative) Urine Blood Moderate H (Negative) Ur Leukocyte Esterase Trace H (Negative) Urine RBC 35 H (0-5) /hpf Urine WBC 15 H (0-5) /hpf Uric Acid Crystals Occasional H (None) /hpf Amorphous Sediment Many H (None) /hpf Urine Bacteria Occasional H (None) /hpf Urine Mucus Rare H (None) /hpf Crossmatch 02/24/24 Range/Units 06:40 WBC (3.8-10.6) k/uL MCV (80.0-100.0) fL Plt Count (150-450) k/uL Neutrophils # (1.3-7.7) k/uL Lymphocytes # (1.0-4.8) k/uL Lymphocytes # (Manual) (1.0-4.8) k/uL ABG pH (7.35-7.45) ABG pCO2 (35-45) mmHg ABG pO2 (83-108) mmHg ABG HCO3 (21-25) mmol/L ABG Total CO2 (19-24) mmol/L ABG O2 Saturation (94-97) % Chloride (98-107) mmol/L Glucose (74-99) mg/dL POC Glucose (mg/dL) 251 H (70-110) mg/dL Calcium (8.4-10.2) mg/dL AST (17-59) U/L ALT (4-49) U/L Total Protein (6.3-8.2) g/dL Albumin (3.5-5.0) g/dL Ur Specific [place] (1.001-1.035) Urine Protein (Negative) Urine Glucose (UA) (Negative) Urine Ketones (Negative) Urine Blood (Negative) Ur Leukocyte Esterase (Negative) Urine RBC (0-5) /hpf Urine WBC (0-5) /hpf Uric Acid Crystals (None) /hpf Amorphous Sediment (None) /hpf Urine Bacteria (None) /hpf Urine Mucus (None) /hpf Crossmatch - Imaging and Cardiology Chest x-ray: image reviewed Assessment and Plan Assessment: Large pericardial effusion, status post pericardial drain placement by Dr. Hernandes and successful coiling of his PDA branch of his RCA Coronary artery disease, successful stenting of his PDA branch of his right coronary artery on February 20, 2024, previous stent placement to his RCA and LAD Acute non-ST elevated myocardial infarction this admission Hypertension Hyperlipidemia Diabetes mellitus type 2 Ischemic cardiomyopathy with an ejection fraction of 30 to 35% Chronic ongoing tobacco dependence COPD Obesity with a BMI of 31.7 kg/m Chronic back pain GERD Plan: Keep pericardial drain in place for another 24 hours, continue to record strict accurate output. Repeat transthoracic 2D echocardiogram this morning, evaluate for pericardial effusion. Lasix 40 mg IV x 1 now. Mechanical ventilator management, ICU management per pulmonary critical care medicine recommendations. Medical management and other comorbidities per primary care service and cardiology service. More recommendations to follow based on patient's clinical course. Time with Patient: Greater than 30
--- NOTE | 2024-02-24 10:14 | PN ---
PROGRESS NOTE HISTORY OF PRESENT ILLNESS: This is a 59-year-old gentleman, who is admitted to hospital with acute coronary syndrome and underwent cardiac catheterization and angioplasty of the right coronary artery and because of persistent chest discomfort was taken back to the lab yesterday and had angioplasty of the PDA of the right coronary artery. It was a very complex procedure, and he was started on Aggrastat. He was pain-free. EKG was fine, and while he was on the floor, developed chest discomfort, profound hypotension, and an echocardiogram revealed large pericardial effusion, and he was taken to the laborer operator, where he underwent pericardiocentesis, and about 600 mL of fresh blood was removed, and he has an indwelling catheter this morning. He also had cardiac catheterization that revealed perforation of the coronary, and he underwent coil occlusion of the PDA branch of the right coronary artery. This morning, the patient was intubated on vent, stable hemodynamically, and remains in sinus rhythm. PHYSICAL EXAMINATION: VITAL SIGNS: Heart rate is 86 with blood pressure 110/50, respiratory rate 18. CHEST: Shows diminished air entry bilaterally. HEART: Reveals first and second heart sounds. No gallop. EXTREMITIES: Did not reveal any edema. There is very minimal drainage through the pericardiocentesis catheter and he is on a small dose of dopamine. Hopefully, the patient can be extubated today. Labs show that the potassium is 4.1, creatinine is 0.6. His liver enzymes were elevated yesterday, probably secondary to hypotension. Liver injury related to hypotension. We should repeat his liver enzymes tomorrow. ASSESSMENT AND PLAN: 1. CAD, status post [id number] elevation CO, cath and angioplasty of the PDA. The patient underwent second intervention because of persistent chest pain that was complicated by perforation and pericardial effusion. 2. Pericardial tamponade, status post pericardiocentesis. PLAN: Patient is doing better this morning. Hopefully can be extubated, and if the pericardial drain remains stable, we can remove the catheter. Cardiothoracic surgery is on the case. MMODL / IJN: [id number] /
[2024-02-24 10:50] LABS: ABG Base Excess 3.9 mmol/L; ABG HCO3 28 mmol/L (21-25); ABG Oxygen Saturation 98.2 % (94-97); ABG PCO2 44 mmHg (35-45); ABG PH 7.42 (7.35-7.45); ABG PO2 134 mmHg (83-108); ABG TCO2 30 mmol/L (19-24); Allen Test Performed? Yes
--- NOTE | 2024-02-24 10:56 | XR ---
EXAM: XR chest 1V portable CLINICAL INDICATION:Male, 59 years old with history of Tube placement; [facility] COMPARISON: 02/23/2024 and before TECHNIQUE: Chest single view. FINDINGS: ET tube tip near the level of the midclavicular heads about 8.2 cm above the demetrio. NG tube coils ov er the stomach and courses towards the right abnormality tip beyond the field of view. Monitor leads and breathing apparatus overlying the chest. Likely postoperative density over the uppe r abdomen just right of midline. Mediastinal silhouette is unchanged. Heart size is likely upper normal. Slightly worsened pleural/par enchymal opacity in the right lung base. Left costophrenic angle is excluded from the image. No focal airspace disease or pneumothorax in the visualized chest. No evidence of an acute bony abnormality. Remote right rib fracture deformities. IMPRESSION: 1. ET tube tip remains somewhat high in position. This could be advanced 2 or 3 cm for more optimal positioning. 2. NG tube extends into the abdomen with the tip beyond the field of view. 3. Increasing opacity in the right lung base, likely reflects pleural effusion with adjacent atelect asis/infiltrate.
[2024-02-24] MEDS: propofoL 0 ML IV ONE (11:32)
[2024-02-24] MEDS: CISATRACURIUM 2 MG/ML 5 ML VIAL IV ONE (11:35)
[2024-02-24] MEDS: fentaNYL (PF) 50 MCG/ML 2 ML AMP IVP PRN (11:36)
[2024-02-24 12:00] LABS: Glucose,Whole Blood 261 mg/dL (70-110)
--- NOTE | 2024-02-24 12:07 | P.CNPUL ---
History of Present Illness Consult date: 02/24/24 Requesting physician: Addison Hernandes Reason for consult: other (Ventilator/critical care management) Chief complaint: Chest pain History of present illness: This is a 59-year-old male patient with a known history of coronary artery disease and previous stent placement to the RCA and more recently a stent to the LAD in November 2021, chronic obstructive pulmonary disease, diabetes mellitus, gastroesophageal reflux disease, hearing disorder Ke[place] hypertension, hyperlipidemia, former smoker. He was here in the emergency room on 02/14/2024 with complaints of chest pain. He was recommended admission but the patient declined. He followed up with his molder vacuum who had sent him back to the em ergency room on 02/20/2024 for admission for acute non-ST segment elevation myocardial infarction and heart catheterization today that revealed adequately disease involving the PDA branch of the RCA and subsequent stenting. Echocardiogram revealed impaired left ventricular systolic function with eje ction fraction of 30 to 35%. Having ongoing issues with unstable angina and brought back to the cardiac catheter station lab with stenting of the PDA branch of the RCA, adjunctive use of intravascular imaging and aspiration thrombectomy. Developed significant distress and a rapid response team was called and subsequent CODE BLUE. He had developed significant pericardial effusion and had undergone a emergent pericardiocentesis with 600 cc of blood removed patient was intubated and transferred to the intensive care unit. He is seen today in consultation on the mechanical ventilator and assist-control mode at a rate of 24, tidal volume 500, FiO2 100% and a PEEP of 5. Morning blood gases revealed a PaO2 of 99, pCO2 43 and a pH of 7.42. He is on normal saline at 20 MLS per hour. He is receiving Versed at 5 mg/h. Dopamine at 3.5 mcg/kg/min and fentanyl at 1 mcg/kg/h. He is currently on cefazolin. Initiated on bronchodilators. 0.3. Platelets 152. Sodium 140. Potassium 4.1. Bicarb 28. BUN 14. Creatinine 0.66. Glucose 251. AST 338. ALT 488. Endotracheal and nasogastric tubes secured in place. Chest x-ray reveals increasing opacity in the right lung base, likely reflecting pleural effusion with adjacent atelectasis. Review of Systems ROS unobtainable: due to endotracheal tube Past Medical History Past Medical History: Coronary Artery Disease (CAD), Chest Pain / Angina, COPD, Diabetes Mellitus, GERD/Reflux, Hearing Disorder / Deafness, Hyperlipidemia, Hypertension, Myocardial Infarction (NC) Additional Past Medical History / Comment(s): Neuropathy bilateral feet/legs, hx pancreatitis, chronic low back pain, hx gastric ulcer as a teen, hx benign colon polyps, small amount of trouble hearing. Last Myocardial Infarction Date:: 2011 History of Any Multi-Drug Resistant Organisms: None Reported Past Surgical History: Back Surgery, Ear Surgery, Heart Catheterization With Stent, Hernia Repair, Orthopedic Surgery Additional Past Surgical History / Comment(s): 2011 PCI with stent to mid RCA, bilateral inguinal hernia repair as teen, bilateral carpal tunnel releases, colonoscopy, bilateral myringotomies/tubes, 11/2021 cardiac stent. Past Anesthesia/Blood Transfusion Reactions: Motion Sickness, Postoperative Nausea & Vomiting (PONV) Additional Past Anesthesia/Blood Transfusion Reaction / Comment(s): PONV as a teen with surgery, none since. Date of Last Stent Placement:: 2021 Past Psychological History: No Psychological Hx Reported Smoking Status: Current every day smoker Past Alcohol Use History: Occasional Past Drug Use History: None Reported - Past Family History Father Family Medical History: Coronary Artery Disease (CAD), Myocardial Infarction (NC) Additional Family Medical History / Comment(s): Heart disease runs strongly on his father's side of family. Father is . Pt cannot recall at what age father had NC. Mother Family Medical History: Cancer Additional Family Medical History / Comment(s): Mother of renal cancer with mets. Medications and Allergies Home Medications Medication Instructions Recorded Confirmed Type lisinopriL [Zestril] 5 mg PO DAILY 12/16/21 02/20/24 History Aspirin 81 mg PO DAILY 12/17/21 02/20/24 Rx Metoprolol Tartrate [Lopressor] 25 mg PO BID #60 tab 12/17/21 02/20/24 Rx DULoxetine HCL [Cymbalta] 30 mg PO DAILY 02/20/24 02/20/24 History DULoxetine HCL [Cymbalta] 60 mg PO DAILY 02/20/24 02/20/24 History Nitroglycerin Sl Tabs [Nitrostat] 0.4 mg SL Q5M PRN 02/20/24 02/20/24 History Pregabalin [Lyrica] 50 mg PO BID 02/20/24 02/20/24 History Rosuvastatin Calcium [Crestor] 40 mg PO DAILY 02/20/24 02/20/24 History Tirzepatide [Mounjaro] 7.5 mg SQ DUENAS 02/20/24 02/20/24 History Varenicline [Chantix Continuing 1 mg PO BID 02/20/24 02/20/24 History Pack] Allergies Allergy/AdvReac Type Severity Reaction Status Date / Time No Known Allergies Allergy Verified 02/20/24 10:11 Physical Exam Vitals: Vital Signs Temp Pulse Pulse Resp BP Pulse Ox FiO2 02/24/24 10:30 91 24 98 02/24/24 10:15 90 24 99 02/24/24 10:00 92 24 98 02/24/24 09:45 93 24 99 02/24/24 09:30 96 24 98 02/24/24 09:15 98 24 96 02/24/24 09:00 95 24 97 02/24/24 08:45 96 24 99 02/24/24 08:30 92 24 97 02/24/24 08:15 90 24 96 02/24/24 08:08 90 02/24/24 08:00 100.2 F H 89 24 98 100 02/24/24 07:58 90 02/24/24 07:54 100 02/24/24 07:45 87 24 98 02/24/24 07:30 89 24 98 02/24/24 07:15 91 24 97 02/24/24 07:00 87 24 97 02/24/24 06:45 88 24 97 02/24/24 06:30 89 24 98 02/24/24 06:15 87 24 98 02/24/24 06:00 86 24 98 100 02/24/24 05:45 92 11 L 98 02/24/24 05:30 90 24 98 02/24/24 05:15 92 24 97 02/24/24 05:00 90 24 99 02/24/24 04:45 92 24 98 02/24/24 04:30 91 24 98 02/24/24 04:15 93 24 98 02/24/24 04:00 98.4 F 88 24 98 100 02/24/24 03:45 89 24 98 02/24/24 03:42 94 02/24/24 03:30 90 24 98 02/24/24 03:29 100 02/24/24 03:28 89 02/24/24 03:15 89 24 98 02/24/24 03:00 89 24 98 100 02/24/24 02:45 87 24 98 02/24/24 02:30 88 24 98 100 02/24/24 02:15 87 24 97 02/24/24 02:00 90 24 98 02/24/24 01:45 90 24 99 02/24/24 01:30 92 24 98 100 02/24/24 01:15 89 24 98 02/24/24 01:00 90 24 99 02/24/24 00:45 88 24 99 02/24/24 00:38 88 19 98 02/24/24 00:30 98.6 F 91 24 98 100 02/24/24 00:15 85 24 98 02/24/24 00:00 80 24 98 100 02/23/24 23:55 88 02/23/24 23:45 86 24 96 02/23/24 23:30 89 24 97 100 02/23/24 23:15 86 24 96 100 02/23/24 23:00 84 24 96 02/23/24 22:45 81 24 96 02/23/24 22:30 81 24 96 02/23/24 22:15 82 24 95 02/23/24 22:00 85 24 95 02/23/24 21:45 91 24 93 L 02/23/24 21:30 97 F L 90 24 94 L 100 02/23/24 21:15 75 24 95 02/23/24 21:00 77 27 H 98 02/23/24 20:45 81 24 97 02/23/24 20:30 82 14 97 100 02/23/24 20:15 80 18 99 02/23/24 20:06 80 02/23/24 20:00 67 24 98 100 02/23/24 19:50 100 02/23/24 19:47 65 02/23/24 19:45 65 24 99 02/23/24 19:30 71 24 97 02/23/24 19:15 70 17 98 02/23/24 19:00 73 20 95 02/23/24 18:45 90 6 L 100 02/23/24 18:30 75 20 98 02/23/24 18:29 10 L 100 02/23/24 16:44 100 02/23/24 14:45 51 L 18 103/70 96 02/23/24 12:20 65 18 113/69 96 Intake and Output 02/23/24 02/24/24 02/24/24 22:59 06:59 14:59 Intake Total 1803.772 904.638 271.081 Output Total 3450 1050 865 Balance -1646.228 -145.362 -593.919 Intake: IV 575 750 220 Magnesium Sulfate-D5w Pmx 100 1 gm In Dextrose/Water 1 100ml.bag @ 100 mls/hr IVPB ONCE ONE Rx#: [id number] Sodium Chloride 0.9% 1, 75 600 170 000 ml In Empty Bag 1 bag @ 75 mls/hr IV .[id number] [facility] Rx#:[id number] ceFAZolin 2 gm In Sodium 50 50 Chloride 0.9% 50 ml @ 100 mls/hr IVPB Q8HR [facility] Rx# :[id number] Intake, IV Titration 638.772 154.638 51.081 Amount DOPamine DRIP 800 mg In 20.838 51.794 35.925 Dextrose/Water 1 250ml. bag @ 1 MCG/KG/MIN 2.041 mls/hr IV .Q24H [facility] Rx#: [id number] Midazolam HCl 50 mg In 8.434 46.600 9.350 Sodium Chloride 0.9% 40 ml @ 1 MG/HR 1 mls/hr IV .Q24H [facility] Rx#:[id number] Nitroglycerin-D5w Pmx 50 109.5 mg In Dextrose/Water 1 250ml.bag @ 20 MCG/MIN 6 mls/hr IV .Q24H [facility] Rx#: [id number] Sodium Chloride 0.9% 500 500 ml 500 ml @ 999 mls/hr IV .Q31M [facility] Rx#:[id number] fentaNYL (PF). 1,000 mcg 56.244 5.806 In Sodium Chloride 0.9% 80 ml @ 0.5 MCG/KG/HR 5. 443 mls/hr IV .[id number] [facility] Rx#:[id number] Blood Product 590 Rc As-1 Unit 310 [id number] Rc Pheresis As-3 Unit 280 [id number] Output: Urine 2400 1050 865 Estimated Blood Loss 1050 Other: Voiding Method Indwelling Catheter Indwelling Catheter Indwelling Catheter # Bowel Movements 1 Weight 109.8 kg ABP, PAP, CO, CI - Last 8 Hours Arterial Blood Pressure 106/47 Arterial Blood Pressure 111/50 Arterial Blood Pressure 101/45 Arterial Blood Pressure 111/50 Arterial Blood Pressure 93/44 Arterial Blood Pressure 93/45 Arterial Blood Pressure 112/51 Arterial Blood Pressure 127/60 Arterial Blood Pressure 109/49 Arterial Blood Pressure 101/47 Arterial Blood Pressure 110/50 Arterial Blood Pressure 113/50 Arterial Blood Pressure 109/50 Arterial Blood Pressure 97/43 Arterial Blood Pressure 109/50 Arterial Blood Pressure 98/45 Arterial Blood Pressure 93/44 Arterial Blood Pressure 108/49 Arterial Blood Pressure 114/50 Arterial Blood Pressure 101/47 Arterial Blood Pressure 98/45 Arterial Blood Pressure 94/44 Arterial Blood Pressure 132/30 Arterial Blood Pressure 108/50 Arterial Blood Pressure 104/44 Arterial Blood Pressure 97/44 Arterial Blood Pressure 105/47 Arterial Blood Pressure 112/52 Results GENERAL EXAM: Intubated, sedated 59-year-old male patient, on mechanical ventilator. HEAD: Normocephalic. EYES: Sluggish reaction of pupils, equal size. NOSE: Clear with pink turbinates. THROAT: No erythema or exudates. NECK: No masses, no JVD. CHEST: No chest wall deformity. Pericardial catheter secured in place. LUNGS: Equal air entry with no crackles, wheeze, rhonchi or dullness. CVS: S1 and S2 normal with no audible murmur, regular rhythm. ABDOMEN: No hepatosplenomegaly, normal bowel sounds, no guarding or rigidity. SPINE: No scoliosis or deformity SKIN: No rashes CENTRAL NERVOUS SYSTEM: Sedated, tone is normal in all 4 extremities. EXTREMITIES: There is no peripheral edema. No clubbing, no cyanosis. Peripheral pulses are intact. - Laboratory Findings CBC and BMP: 02/24/24 05:00 02/24/24 05:00 ABG ABG pH 7.42 (7.35-7.45) 02/24/24 10:47 ABG pCO2 44 mmHg (35-45) 02/24/24 10:47 ABG pO2 134 mmHg (83-108) H 02/24/24 10:47 ABG O2 Saturation 98.2 % (94-97) H 02/24/24 10:47 PT/INR, D-dimer PT 10.8 sec (10.0-12.5) 02/22/24 08:37 INR 1.0 (<1.2) 02/22/24 08:37 Abnormal lab findings: Abnormal Labs 02/20/24 02/20/24 02/20/24 09:36 09:36 09:36 WBC MCV Plt Count 142 L Neutrophils # Lymphocytes # Lymphocytes # (Manual) APTT ABG pH ABG pCO2 ABG pO2 ABG HCO3 ABG Total CO2 ABG O2 Saturation Sodium 132 L Chloride Creatinine 0.50 L Glucose 335 H POC Glucose (mg/dL) Hemoglobin A1c Calcium AST ALT Troponin I 0.068 H* Total Protein Albumin Ur Specific [place] Urine Protein Urine Glucose (UA) Urine Ketones Urine Blood Ur Leukocyte Esterase Urine RBC Urine WBC Uric Acid Crystals Amorphous Sediment Urine Bacteria Urine Mucus Crossmatch 02/20/24 02/20/24 02/20/24 09:40 11:46 12:03 WBC MCV Plt Count Neutrophils # Lymphocytes # Lymphocytes # (Manual) APTT ABG pH ABG pCO2 ABG pO2 ABG HCO3 ABG Total CO2 ABG O2 Saturation Sodium Chloride Creatinine Glucose POC Glucose (mg/dL) 335 H 286 H Hemoglobin A1c Calcium AST ALT Troponin I 0.060 H* Total Protein Albumin Ur Specific [place] Urine Protein Urine Glucose (UA) Urine Ketones Urine Blood Ur Leukocyte Esterase Urine RBC Urine WBC Uric Acid Crystals Amorphous Sediment Urine Bacteria Urine Mucus Crossmatch 02/20/24 02/20/24 02/20/24 12:24 15:51 15:51 WBC MCV Plt Count Neutrophils # Lymphocytes # Lymphocytes # (Manual) APTT 32.7 H ABG pH ABG pCO2 ABG pO2 ABG HCO3 ABG Total CO2 ABG O2 Saturation Sodium Chloride Creatinine Glucose POC Glucose (mg/dL) 275 H Hemoglobin A1c Calcium AST ALT Troponin I 0.062 H* Total Protein Albumin Ur Specific [place] Urine Protein Urine Glucose (UA) Urine Ketones Urine Blood Ur Leukocyte Esterase Urine RBC Urine WBC Uric Acid Crystals Amorphous Sediment Urine Bacteria Urine Mucus Crossmatch 02/20/24 02/20/24 02/21/24 15:51 20:02 06:19 WBC MCV Plt Count Neutrophils # Lymphocytes # Lymphocytes # (Manual) APTT ABG pH ABG pCO2 ABG pO2 ABG HCO3 ABG Total CO2 ABG O2 Saturation Sodium Chloride Creatinine Glucose POC Glucose (mg/dL) 179 H 242 H Hemoglobin A1c 8.4 H Calcium AST ALT Troponin I Total Protein Albumin Ur Specific [place] Urine Protein Urine Glucose (UA) Urine Ketones Urine Blood Ur Leukocyte Esterase Urine RBC Urine WBC Uric Acid Crystals Amorphous Sediment Urine Bacteria Urine Mucus Crossmatch 02/21/24 02/21/24 02/21/24 07:52 12:05 14:28 WBC MCV Plt Count Neutrophils # Lymphocytes # Lymphocytes # (Manual) APTT ABG pH ABG pCO2 ABG pO2 ABG HCO3 ABG Total CO2 ABG O2 Saturation Sodium 134 L Chloride Creatinine 0.59 L Glucose 242 H POC Glucose (mg/dL) 236 H Hemoglobin A1c Calcium AST ALT Troponin I 1.580 H* Total Protein Albumin Ur Specific [place] Urine Protein Urine Glucose (UA) Urine Ketones Urine Blood Ur Leukocyte Esterase Urine RBC Urine WBC Uric Acid Crystals Amorphous Sediment Urine Bacteria Urine Mucus Crossmatch 02/21/24 02/21/24 02/21/24 15:27 16:28 17:34 WBC MCV Plt Count 147 L Neutrophils # Lymphocytes # Lymphocytes # (Manual) APTT ABG pH ABG pCO2 ABG pO2 ABG HCO3 ABG Total CO2 ABG O2 Saturation Sodium Chloride Creatinine Glucose POC Glucose (mg/dL) 246 H Hemoglobin A1c Calcium AST ALT Troponin I 1.650 H* Total Protein Albumin Ur Specific [place] Urine Protein Urine Glucose (UA) Urine Ketones Urine Blood Ur Leukocyte Esterase Urine RBC Urine WBC Uric Acid Crystals Amorphous Sediment Urine Bacteria Urine Mucus Crossmatch 02/21/24 02/21/24 02/22/24 20:06 21:26 06:19 WBC MCV Plt Count Neutrophils # Lymphocytes # Lymphocytes # (Manual) APTT 37.2 H ABG pH ABG pCO2 ABG pO2 ABG HCO3 ABG Total CO2 ABG O2 Saturation Sodium Chloride Creatinine Glucose POC Glucose (mg/dL) 233 H 173 H Hemoglobin A1c Calcium AST ALT Troponin I Total Protein Albumin Ur Specific [place] Urine Protein Urine Glucose (UA) Urine Ketones Urine Blood Ur Leukocyte Esterase Urine RBC Urine WBC Uric Acid Crystals Amorphous Sediment Urine Bacteria Urine Mucus Crossmatch 02/22/24 02/22/24 02/22/24 08:37 11:19 15:19 WBC MCV Plt Count Neutrophils # Lymphocytes # Lymphocytes # (Manual) APTT 37.3 H 45.4 H ABG pH ABG pCO2 ABG pO2 ABG HCO3 ABG Total CO2 ABG O2 Saturation Sodium Chloride Creatinine Glucose POC Glucose (mg/dL) 244 H Hemoglobin A1c Calcium AST ALT Troponin I Total Protein Albumin Ur Specific [place] Urine Protein Urine Glucose (UA) Urine Ketones Urine Blood Ur Leukocyte Esterase Urine RBC Urine WBC Uric Acid Crystals Amorphous Sediment Urine Bacteria Urine Mucus Crossmatch 02/22/24 02/22/24 02/23/24 16:19 20:30 06:12 WBC MCV Plt Count Neutrophils # Lymphocytes # Lymphocytes # (Manual) APTT ABG pH ABG pCO2 ABG pO2 ABG HCO3 ABG Total CO2 ABG O2 Saturation Sodium Chloride Creatinine Glucose POC Glucose (mg/dL) 206 H 203 H 136 H Hemoglobin A1c Calcium AST ALT Troponin I Total Protein Albumin Ur Specific [place] Urine Protein Urine Glucose (UA) Urine Ketones Urine Blood Ur Leukocyte Esterase Urine RBC Urine WBC Uric Acid Crystals Amorphous Sediment Urine Bacteria Urine Mucus Crossmatch 02/23/24 02/23/24 02/23/24 06:15 06:15 06:15 WBC MCV Plt Count 149 L Neutrophils # Lymphocytes # Lymphocytes # (Manual) APTT 53.7 H ABG pH ABG pCO2 ABG pO2 ABG HCO3 ABG Total CO2 ABG O2 Saturation Sodium Chloride Creatinine 0.59 L Glucose 136 H POC Glucose (mg/dL) Hemoglobin A1c Calcium AST ALT Troponin I Total Protein Albumin Ur Specific [place] Urine Protein Urine Glucose (UA) Urine Ketones Urine Blood Ur Leukocyte Esterase Urine RBC Urine WBC Uric Acid Crystals Amorphous Sediment Urine Bacteria Urine Mucus Crossmatch 02/23/24 02/23/24 02/23/24 11:23 15:26 16:14 WBC MCV Plt Count Neutrophils # Lymphocytes # Lymphocytes # (Manual) APTT ABG pH ABG pCO2 ABG pO2 ABG HCO3 ABG Total CO2 ABG O2 Saturation Sodium Chloride Creatinine Glucose POC Glucose (mg/dL) 147 H 269 H Hemoglobin A1c Calcium AST ALT Troponin I Total Protein Albumin Ur Specific [place] Urine Protein Urine Glucose (UA) Urine Ketones Urine Blood Ur Leukocyte Esterase Urine RBC Urine WBC Uric Acid Crystals Amorphous Sediment Urine Bacteria Urine Mucus Crossmatch See Detail 02/23/24 02/23/24 02/23/24 16:14 16:48 19:06 WBC 10.7 H MCV 101.2 H D Plt Count Neutrophils # Lymphocytes # Lymphocytes # (Manual) 5.56 H APTT ABG pH 7.15 L* 7.29 L ABG pCO2 48 H 54 H ABG pO2 236 H ABG HCO3 17 L 26 H ABG Total CO2 18 L 28 H ABG O2 Saturation 99.7 H Sodium Chloride Creatinine Glucose POC Glucose (mg/dL) Hemoglobin A1c Calcium AST ALT Troponin I Total Protein Albumin Ur Specific [place] Urine Protein Urine Glucose (UA) Urine Ketones Urine Blood Ur Leukocyte Esterase Urine RBC Urine WBC Uric Acid Crystals Amorphous Sediment Urine Bacteria Urine Mucus Crossmatch 02/23/24 02/23/24 02/23/24 19:19 19:19 23:03 WBC 17.4 H MCV Plt Count Neutrophils # 14.9 H Lymphocytes # Lymphocytes # (Manual) APTT ABG pH ABG pCO2 ABG pO2 ABG HCO3 ABG Total CO2 ABG O2 Saturation Sodium Chloride Creatinine Glucose 369 H POC Glucose (mg/dL) 311 H Hemoglobin A1c Calcium 7.8 L AST ALT Troponin I Total Protein Albumin Ur Specific [place] Urine Protein Urine Glucose (UA) Urine Ketones Urine Blood Ur Leukocyte Esterase Urine RBC Urine WBC Uric Acid Crystals Amorphous Sediment Urine Bacteria Urine Mucus Crossmatch 02/24/24 02/24/24 02/24/24 00:15 00:15 05:00 WBC MCV Plt Count 148 L Neutrophils # 8.5 H 7.9 H Lymphocytes # 0.4 L 0.4 L Lymphocytes # (Manual) APTT ABG pH ABG pCO2 ABG pO2 ABG HCO3 ABG Total CO2 ABG O2 Saturation Sodium Chloride Creatinine Glucose 309 H POC Glucose (mg/dL) Hemoglobin A1c Calcium 8.1 L AST 338 H ALT 488 H Troponin I Total Protein 5.7 L Albumin 3.4 L Ur Specific [place] Urine Protein Urine Glucose (UA) Urine Ketones Urine Blood Ur Leukocyte Esterase Urine RBC Urine WBC Uric Acid Crystals Amorphous Sediment Urine Bacteria Urine Mucus Crossmatch 02/24/24 02/24/24 02/24/24 05:00 05:22 05:30 WBC MCV Plt Count Neutrophils # Lymphocytes # Lymphocytes # (Manual) APTT ABG pH ABG pCO2 ABG pO2 ABG HCO3 28 H ABG Total CO2 29 H ABG O2 Saturation 98.2 H Sodium Chloride 108 H Creatinine Glucose 267 H POC Glucose (mg/dL) Hemoglobin A1c Calcium 8.2 L AST ALT Troponin I Total Protein Albumin Ur Specific [place] 1.037 H Urine Protein Trace H Urine Glucose (UA) 4+ H Urine Ketones 2+ H Urine Blood Moderate H Ur Leukocyte Esterase Trace H Urine RBC 35 H Urine WBC 15 H Uric Acid Crystals Occasional H Amorphous Sediment Many H Urine Bacteria Occasional H Urine Mucus Rare H Crossmatch 02/24/24 02/24/24 06:40 10:47 WBC MCV Plt Count Neutrophils # Lymphocytes # Lymphocytes # (Manual) APTT ABG pH ABG pCO2 ABG pO2 134 H ABG HCO3 28 H ABG Total CO2 30 H ABG O2 Saturation 98.2 H Sodium Chloride Creatinine Glucose POC Glucose (mg/dL) 251 H Hemoglobin A1c Calcium AST ALT Troponin I Total Protein Albumin Ur Specific [place] Urine Protein Urine Glucose (UA) Urine Ketones Urine Blood Ur Leukocyte Esterase Urine RBC Urine WBC Uric Acid Crystals Amorphous Sediment Urine Bacteria Urine Mucus Crossmatch - Diagnostic Findings Chest x-ray: image reviewed Assessment and Plan Assessment: Acute non-ST segment elevation myocardial infarction requiring stenting to the PDA of the RCA initially on 02/20/2024 with subsequent stable angina and return to the Client Advisor on 02/23/2024 for stenting of the PDA branch of the RCA and intravascular imaging and aspiration thrombectomy. Later that same day he developed hypotension and cardiac arrest and was found to have a significant pericardial effusion requiring emergent pericardiocentesis with 600 mL of emanuel blood moved and then underwent successful coiling of the PDA branch of the RCA Acute hypoxemic respiratory failure secondary to above requiring intubation mechanical ventilatory support on 02/23/2024 Shock liver secondary to above History of coronary artery disease with previous stent placement Ischemic cardiomyopathy with ejection fraction of 30 to 35% Former smoker Diabetes mellitus Hypertension Hyperlipidemia Plan: The patient was seen and evaluated Chest x-ray, ABGs, labs and medications reviewed Increase the PEEP to 8 Decrease the FiO2 to 70% Titrate down the FiO2 as tolerated Continue Fentanyl and Versed drips The patient had significant hypotension with propofol Continue dopamine drip Remains on cefazolin Continue bronchodilators We will continue to follow and make further recommendations based on his clinical status I have personally seen and examined the patient, performed the documentation and the assessment and plan as written. Number of minutes spent on the visit: 20.
[2024-02-24] MEDS: COLCHICINE 0.6 MG EACH PO SCH (12:53)
--- NOTE | 2024-02-24 15:00 | XR ---
EXAMINATION TYPE: XR chest 1V confirm line plcmt DATE OF EXAM: 02/24/2024 11:31 AM CLINICAL INDICATION:Male, 59 years old with history of post central line insertion; [facility] COMPARISON: Chest radiographs from 02/19/2029 TECHNIQUE: XR chest 1V confirm line plcmt Frontal view of the chest. FINDINGS: Lungs/Pleura: There is no evidence of pleural effusion, focal consolidation, or pneumothorax. Pulmonary vascularity: Unremarkable. Heart/mediastinum: Cardiomediastinal silhouette is unremarkable. Musculoskeletal: No acute osseous pathology. Multiple right-sided rib fractures. Other findings: None Lines/Tubes: Endotracheal tube with distal tip 12.8 centimeters above the demetrio. Nasogastric tube with its distal tip and side-port projecting under the diaphragm. Left internal jugular central venous catheter with distal tip at the cavoatrial junction. IMPRESSION: Consider advancement of endotracheal tube up to 8 cm for optimal placement. Scattered airspace opacities most pronounced in the right lung base correlate for pneumonia.
--- NOTE | 2024-02-24 15:58 | P.PN ---
Subjective 59-year-old male with a past medical history of coronary artery disease history of stent placement, ischemic cardiomyopathy ejection fraction 45%, COPD, diabetes type 2 on Mounjaro currently, hypertension, hyperlipidemia, history of mild, currently everyday smoker and chronic low back pain and other medical problems presents to Dr. Jernigan's office today with complaints of chest pain. Patient was initially seen in the ER on 02/14/2024 with complaints of chest pain and was discharged home with negative EKG and troponin. Patient was recommended to follow-up with cardiology as an outpatient. Patient started having chest pain mainly mid retrosternal and radiating across the shoulders. Mild difficulty breathing. No nausea or vomiting or diaphoresis no headache or dizziness or lightheadedness. 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 Chest x-ray showed that the degree of interstitial prominence could reflect a superimposed bronchitis or atypical pneumonias. No focal infiltrate seen. EKG showed sinus rhythm Laboratory data showed WBC 5.5 hemoglobin 17.1 and platelets 142 Sodium 132 potassium 4.5 chloride 102 bicarb is 22 BUN 14 and creatinine 0.50 and blood sugar 335 Liver enzymes are not elevated. Troponin 0.068, 0.060 and 0.062, proBNP 126 and albumin 4.1 24-hour interval change 02/23/2024 Patient is seen and evaluated in room at bedside; continue to report chest pain despite aggressive medical therapy; remains on IV nitroglycerin and heparin along with DAPT with aspirin and Effient Patient is status post cardiac catheterization with stent to PDA of RCA; given p ersistent chest pain despite stent placement and DAPT, cardiology planning to reevaluate with repeat cardiac catheterization Echocardiogram is completed and reveals an EF of 45% --Continue with IV heparin and nitroglycerin; further recommendations after cardiac catheterization 02/24/2024 Patient is seen and evaluated in ICU; family members at bedside; patient is intubated and mechanically ventilated 02/20/2024 for admission for acute non-ST segment elevation myocardial infarction and heart catheterization today that revealed adequately disease involving the PDA branch of the RCA and subsequent stenting. Echocardiogram revealed impaired left ventricular systolic function with ejection fraction of 30 to 35%. Having ongoing issues with unstable angina and brought back to the cardiac catheter station lab with stenting of the PDA branch of the RCA, adjunctive use of intravascular imaging and aspiration thrombectomy. Developed significant distress and a rapid response team was called and subsequent CODE BLUE. He had developed significant pericardial effusion and had undergone a emergent pericardiocentesis with 600 cc of blood removed patient was intubated and transferred to the intensive care unit. Objective - Vital Signs Vital signs: Vital Signs Temp 100.2 F H 02/24/24 08:00 Pulse 96 02/24/24 08:45 Resp 24 02/24/24 08:45 BP 103/70 02/23/24 14:45 Pulse Ox 99 02/24/24 08:45 FiO2 100 02/24/24 08:00 Intake & Output 02/23/24 02/24/24 02/24/24 18:59 06:59 18:59 Intake Total 1504.42 1508.910 245.275 Output Total 2050 2450 115 Balance -545.58 -941.090 130.275 Weight 109.8 kg Intake: IV 804.92 825 200 Magnesium Sulfate-D5w Pmx 100 1 gm In Dextrose/Water 1 100ml.bag @ 100 mls/hr IVPB ONCE ONE Rx#: [id number] Sodium Chloride 0.9% 1, 675 150 000 ml In Empty Bag 1 bag @ 75 mls/hr IV .[id number] [facility] Rx#:[id number] ceFAZolin 2 gm In Sodium 50 50 Chloride 0.9% 50 ml @ 100 mls/hr IVPB Q8HR [facility] Rx# :[id number] Intake, IV Titration 109.5 683.910 45.275 Amount DOPamine DRIP 800 mg In 72.632 35.925 Dextrose/Water 1 250ml. bag @ 1 MCG/KG/MIN 2.041 mls/hr IV .Q24H [facility] Rx#: [id number] Midazolam HCl 50 mg In 55.034 9.350 Sodium Chloride 0.9% 40 ml @ 1 MG/HR 1 mls/hr IV .Q24H [facility] Rx#:[id number] Nitroglycerin-D5w Pmx 50 109.5 mg In Dextrose/Water 1 250ml.bag @ 20 MCG/MIN 6 mls/hr IV .Q24H [facility] Rx#: [id number] Sodium Chloride 0.9% 500 500 ml 500 ml @ 999 mls/hr IV .Q31M [facility] Rx#:[id number] fentaNYL (PF). 1,000 mcg 56.244 In Sodium Chloride 0.9% 80 ml @ 0.5 MCG/KG/HR 5. 443 mls/hr IV .[id number] [facility] Rx#:[id number] Blood Product 590 Rc As-1 Unit 310 [id number] Rc Pheresis As-3 Unit 280 [id number] Output: Urine 1000 2450 115 Estimated Blood Loss 1050 Other: Voiding Method Toilet Indwelling Catheter # Voids 0 # Bowel Movements 1 ABP, PAP, CO, CI - Last Documented Arterial Blood Pressure 127/60 - Exam Patient is lying in the bed comfortably, no acute distress, awake alert and oriented.. HEENT: Normocephalic. Neck is supple. Pupils reactive. Nostrils clear. Oral cavity is moist. Neck reveals no JVD, carotid bruits, or thyromegaly. CHEST EXAMINATION: Trachea is central. Symmetrical expansion. Lung anderson clear to auscultation and percussion. CARDIAC: Normal S1, S2 with no gallops. No murmurs ABDOMEN: Soft. Bowel sounds normal. No organomegaly. No abdominal bruits. Extremities: reveal no edema. No clubbing or cyanosis Neurologically awake, alert, oriented x3 with well-coordinated movements. No focal deficits noted Skin: No rash or skin lesions. Psychiatric: Coperative. Nonsuicidal Musculoskeletal: No joint swelling or deformity. Normal range of motion. - Labs CBC & Chem 7: 02/24/24 05:00 02/24/24 05:00 Labs: Abnormal Lab Results - Last 24 Hours (Table) 02/23/24 02/23/24 02/23/24 Range/Units 11:23 15:26 16:14 WBC (3.8-10.6) k/uL MCV (80.0-100.0) fL Plt Count (150-450) k/uL Neutrophils # (1.3-7.7) k/uL Lymphocytes # (1.0-4.8) k/uL Lymphocytes # (Manual) (1.0-4.8) k/uL ABG pH (7.35-7.45) ABG pCO2 (35-45) mmHg ABG pO2 (83-108) mmHg ABG HCO3 (21-25) mmol/L ABG Total CO2 (19-24) mmol/L ABG O2 Saturation (94-97) % Chloride (98-107) mmol/L Glucose (74-99) mg/dL POC Glucose (mg/dL) 147 H 269 H (70-110) mg/dL Calcium (8.4-10.2) mg/dL AST (17-59) U/L ALT (4-49) U/L Total Protein (6.3-8.2) g/dL Albumin (3.5-5.0) g/dL Ur Specific Kenney (1.001-1.035) Urine Protein (Negative) Urine Glucose (UA) (Negative) Urine Ketones (Negative) Urine Blood (Negative) Ur Leukocyte Esterase (Negative) Urine RBC (0-5) /hpf Urine WBC (0-5) /hpf Uric Acid Crystals (None) /hpf Amorphous Sediment (None) /hpf Urine Bacteria (None) /hpf Urine Mucus (None) /hpf Crossmatch See Detail 02/23/24 02/23/24 02/23/24 Range/Units 16:14 16:48 19:06 WBC 10.7 H (3.8-10.6) k/uL MCV 101.2 H D (80.0-100.0) fL Plt Count (150-450) k/uL Neutrophils # (1.3-7.7) k/uL Lymphocytes # (1.0-4.8) k/uL Lymphocytes # (Manual) 5.56 H (1.0-4.8) k/uL ABG pH 7.15 L* 7.29 L (7.35-7.45) ABG pCO2 48 H 54 H (35-45) mmHg ABG pO2 236 H (83-108) mmHg ABG HCO3 17 L 26 H (21-25) mmol/L ABG Total CO2 18 L 28 H (19-24) mmol/L ABG O2 Saturation 99.7 H (94-97) % Chloride (98-107) mmol/L Glucose (74-99) mg/dL POC Glucose (mg/dL) (70-110) mg/dL Calcium (8.4-10.2) mg/dL AST (17-59) U/L ALT (4-49) U/L Total Protein (6.3-8.2) g/dL Albumin (3.5-5.0) g/dL Ur Specific Kenney (1.001-1.035) Urine Protein (Negative) Urine Glucose (UA) (Negative) Urine Ketones (Negative) Urine Blood (Negative) Ur Leukocyte Esterase (Negative) Urine RBC (0-5) /hpf Urine WBC (0-5) /hpf Uric Acid Crystals (None) /hpf Amorphous Sediment (None) /hpf Urine Bacteria (None) /hpf Urine Mucus (None) /hpf Crossmatch 02/23/24 02/23/24 02/23/24 Range/Units 19:19 19:19 23:03 WBC 17.4 H (3.8-10.6) k/uL MCV (80.0-100.0) fL Plt Count (150-450) k/uL Neutrophils # 14.9 H (1.3-7.7) k/uL Lymphocytes # (1.0-4.8) k/uL Lymphocytes # (Manual) (1.0-4.8) k/uL ABG pH (7.35-7.45) ABG pCO2 (35-45) mmHg ABG pO2 (83-108) mmHg ABG HCO3 (21-25) mmol/L ABG Total CO2 (19-24) mmol/L ABG O2 Saturation (94-97) % Chloride (98-107) mmol/L Glucose 369 H (74-99) mg/dL POC Glucose (mg/dL) 311 H (70-110) mg/dL Calcium 7.8 L (8.4-10.2) mg/dL AST (17-59) U/L ALT (4-49) U/L Total Protein (6.3-8.2) g/dL Albumin (3.5-5.0) g/dL Ur Specific Ken[place] (1.001-1.035) Urine Protein (Negative) Urine Glucose (UA) (Negative) Urine Ketones (Negative) Urine Blood (Negative) Ur Leukocyte Esterase (Negative) Urine RBC (0-5) /hpf Urine WBC (0-5) /hpf Uric Acid Crystals (None) /hpf Amorphous Sediment (None) /hpf Urine Bacteria (None) /hpf Urine Mucus (None) /hpf Crossmatch 02/24/24 02/24/24 02/24/24 Range/Units 00:15 00:15 05:00 WBC (3.8-10.6) k/uL MCV (80.0-100.0) fL Plt Count 148 L (150-450) k/uL Neutrophils # 8.5 H 7.9 H (1.3-7.7) k/uL Lymphocytes # 0.4 L 0.4 L (1.0-4.8) k/uL Lymphocytes # (Manual) (1.0-4.8) k/uL ABG pH (7.35-7.45) ABG pCO2 (35-45) mmHg ABG pO2 (83-108) mmHg ABG HCO3 (21-25) mmol/L ABG Total CO2 (19-24) mmol/L ABG O2 Saturation (94-97) % Chloride (98-107) mmol/L Glucose 309 H (74-99) mg/dL POC Glucose (mg/dL) (70-110) mg/dL Calcium 8.1 L (8.4-10.2) mg/dL AST 338 H (17-59) U/L ALT 488 H (4-49) U/L Total Protein 5.7 L (6.3-8.2) g/dL Albumin 3.4 L (3.5-5.0) g/dL Ur Specific Kenney (1.001-1.035) Urine Protein (Negative) Urine Glucose (UA) (Negative) Urine Ketones (Negative) Urine Blood (Negative) Ur Leukocyte Esterase (Negative) Urine RBC (0-5) /hpf Urine WBC (0-5) /hpf Uric Acid Crystals (None) /hpf Amorphous Sediment (None) /hpf Urine Bacteria (None) /hpf Urine Mucus (None) /hpf Crossmatch 02/24/24 02/24/24 02/24/24 Range/Units 05:00 05:22 05:30 WBC (3.8-10.6) k/uL MCV (80.0-100.0) fL Plt Count (150-450) k/uL Neutrophils # (1.3-7.7) k/uL Lymphocytes # (1.0-4.8) k/uL Lymphocytes # (Manual) (1.0-4.8) k/uL ABG pH (7.35-7.45) ABG pCO2 (35-45) mmHg ABG pO2 (83-108) mmHg ABG HCO3 28 H (21-25) mmol/L ABG Total CO2 29 H (19-24) mmol/L ABG O2 Saturation 98.2 H (94-97) % Chloride 108 H (98-107) mmol/L Glucose 267 H (74-99) mg/dL POC Glucose (mg/dL) (70-110) mg/dL Calcium 8.2 L (8.4-10.2) mg/dL AST (17-59) U/L ALT (4-49) U/L Total Protein (6.3-8.2) g/dL Albumin (3.5-5.0) g/dL Ur Specific Kenney 1.037 H (1.001-1.035) Urine Protein Trace H (Negative) Urine Glucose (UA) 4+ H (Negative) Urine Ketones 2+ H (Negative) Urine Blood Moderate H (Negative) Ur Leukocyte Esterase Trace H (Negative) Urine RBC 35 H (0-5) /hpf Urine WBC 15 H (0-5) /hpf Uric Acid Crystals Occasional H (None) /hpf Amorphous Sediment Many H (None) /hpf Urine Bacteria Occasional H (None) /hpf Urine Mucus Rare H (None) /hpf Crossmatch 02/24/24 Range/Units 06:40 WBC (3.8-10.6) k/uL MCV (80.0-100.0) fL Plt Count (150-450) k/uL Neutrophils # (1.3-7.7) k/uL Lymphocytes # (1.0-4.8) k/uL Lymphocytes # (Manual) (1.0-4.8) k/uL ABG pH (7.35-7.45) ABG pCO2 (35-45) mmHg ABG pO2 (83-108) mmHg ABG HCO3 (21-25) mmol/L ABG Total CO2 (19-24) mmol/L ABG O2 Saturation (94-97) % Chloride (98-107) mmol/L Glucose (74-99) mg/dL POC Glucose (mg/dL) 251 H (70-110) mg/dL Calcium (8.4-10.2) mg/dL AST (17-59) U/L ALT (4-49) U/L Total Protein (6.3-8.2) g/dL Albumin (3.5-5.0) g/dL Ur Specific Ken[place] (1.001-1.035) Urine Protein (Negative) Urine Glucose (UA) (Negative) Urine Ketones (Negative) Urine Blood (Negative) Ur Leukocyte Esterase (Negative) Urine RBC (0-5) /hpf Urine WBC (0-5) /hpf Uric Acid Crystals (None) /hpf Amorphous Sediment (None) /hpf Urine Bacteria (None) /hpf Urine Mucus (None) /hpf Crossmatch Assessment and Plan Assessment: Acute non-ST elevated ND. Patient presented with chest pain and found to have elevated troponins. Status postcardiac catheterization and stenting of PDA branch of RCA. Hyperglycemia is uncontrolled diabetes type 2. Patient was previously on insulin regimen. currently taking Mounjaro. A1c 8.4 Coronary disease with history of stent placement Ischemic cardiomyopathy ejection fraction 45% Chronic CHF with mildly reduced systolic function. Hyperlipidemia Hypertension History of ND GERD Hearing disorder/deafness Currently everyday smoker Chronic low back pain Bilateral peripheral neuropathy diabetic GI prophylaxis PPI Plan: Patient will be continued on telemetry. Continue with heparin drip and nitro drip.. Patient will be continued on aspirin statin and metoprolol. Effient was added. Cardiology is on board. Possible repeat cardiac catheterization if patient continues to have chest pain.. Patient was started on insulin regimen and sliding scale for blood sugar control. A1c 8.4. Current pain management and other home medications and follow-up closely. Cardiology is on board. Prognosis guarded with multimedical problems and comorbid conditions.
[2024-02-24 16:02] LABS: Potassium 3.8 mmol/L (3.5-5.1)
[2024-02-24] MEDS: ALBUMIN HUMAN 5% 250 ML in EMPTY BAG 1 BAG IVPB ONE ×2 (16:20→23:07)
[2024-02-24] MEDS: ATROPINE SULFATE 0.1 MG/ML 10ML SYRINGE ONE (16:29)
[2024-02-24 16:41] LABS: Basophils % (A) 0 %; Eosinophils % (A) 0 %; HCT 45.7 % (39.0-53.0); HGB 15.1 gm/dL (13.0-17.5); Lymphocytes # (A) 0.8 k/uL (1.0-4.8); Lymphocytes % (A) 6 %; MCH 31.4 pg (25.0-35.0); MCV 95.1 fL (80.0-100.0); Mean Platelet Volume 8.6; Monocytes # (A) 0.7 k/uL (0-1.0); Monocytes % (A) 6 %; Neutrophils # (A) 10.7 k/uL (1.3-7.7); Neutrophils % (A) 84 %; Platelet Count 176 k/uL (150-450); RBC 4.81 m/uL (4.30-5.90); RDW 14.6 % (11.5-15.5); WBC 12.8 k/uL (3.8-10.6)
[2024-02-24 16:57] LABS: INR 1.1 (<1.2); Prothrombin Time 11.8 sec (10.0-12.5)
[2024-02-24] MEDS: HEPARIN SODIUM,PORCINE 5,000 UNIT/ML 1 ML VIAL SQ SCH (16:59)
[2024-02-24] MEDS: POTASSIUM CHLORIDE 10 MEQ in WATER FOR INJECTION 1 100ML.BAG IVPB SCH (16:59)
[2024-02-24 17:50] LABS: Glucose,Whole Blood 214 mg/dL (70-110)
--- NOTE | 2024-02-24 19:14 | OP ---
OPERATIVE REPORT DATE OF SERVICE : FIRST PROCEDURE: Left radial arterial line. PREOPERATIVE DIAGNOSES: 1. Frequent blood draws. 2. Blood gas monitoring. POSTOPERATIVE DIAGNOSES: 1. Frequent blood draws. 2. Blood gas monitoring. FIRST COMPOUND MACHINE OPERATOR: Dr. Latoya Hastings. The patient's procedure took place in room 256. There was informed consent and universal timeout. ARTERIAL LINE PLACEMENT: Indications: Hemodynamic monitoring. A time-out was completed verifying correct patient, procedure, site, positioning, and implant(s) or special equipment if applicable. Cody's test was performed to ensure adequate perfusion. The patient's left wrist was prepped and draped in sterile fashion. 1% Lidocaine was used to anesthetize the area. An 18G Arrow arterial line was introduced into the radial artery. The catheter was threaded over the guide wire and the needle was removed with appropriate pulsatile blood return. Blood loss was minimal. The catheter was then sutured in place to the skin and a sterile dressing applied. Perfusion to the extremity distal to the point of catheter insertion was checked and found to be adequate. The patient tolerated the procedure well and there were no complications. There was good blood return and waveform. The catheter was sutured in place. A sterile dressing was applied by the nurse. There was no immediate complication. SECOND PROCEDURE: Left subclavian triple-lumen catheter. PREOPERATIVE DIAGNOSIS: Administration of fluids and pressors. POSTOPERATIVE DIAGNOSIS: Administration of fluids and pressors. TRIPLE LUMEN CATHETER PLACEMENT: Indication: Hemodynamic monitoring/Intravenous access. A time-out was completed verifying correct patient, procedure, site, positioning, and implant(s) or special equipment if applicable. The patient was placed in a dependent position appropriate for triple lumen catheter placement based on the vein to be cannulated. The patient's left neck was prepped and draped in sterile fashion. 1% Lidocaine was used to anesthetize the surrounding skin area. A triple lumen 9F Cordis catheter was introduced into the left subclavian using Seldinger technique. The catheter was threaded smoothly over the guide wire and appropriate blood return was obtained. Each lumen of the catheter was evacuated of air and flushed with sterile saline. The catheter was then sutured in place to the skin and a sterile dressing applied. Perfusion to the extremity distal to the point of catheter insertion was checked and found to be adequate. FIRST COMPOUND MACHINE OPERATOR: Dr. Latoya Hastings. There was informed consent and universal timeout. We used the left subclavian vein. There was good blood return from all 3 ports. The patient tolerated the procedure well. The tip of the catheter was seen at the junction of the superior vena cava and right atrium. The catheter was sutured in place. There were no complications. Sterile dressings were applied. ROCKY / ZAIRA: [id number] /
[2024-02-24 20:53] LABS: Glucose,Whole Blood 206 mg/dL (70-110)
[2024-02-25 04:21] LABS: Basophils % (A) 0 %; Eosinophils % (A) 0 %; HCT 40.7 % (39.0-53.0); HGB 13.2 gm/dL (13.0-17.5); Lymphocytes # (A) 0.8 k/uL (1.0-4.8); Lymphocytes % (A) 9 %; MCH 31.4 pg (25.0-35.0); MCHC 32.4 g/dL (31.0-37.0); Mean Platelet Volume 9.7; Monocytes # (A) 0.5 k/uL (0-1.0); Monocytes % (A) 5 %; Neutrophils # (A) 7.8 k/uL (1.3-7.7); Neutrophils % (A) 82 %; Platelet Count 144 k/uL (150-450); RDW 14.5 % (11.5-15.5); WBC 9.5 k/uL (3.8-10.6)
[2024-02-25 04:47] LABS: African American GFR (CKD) >90 (>60 ml/min/1.73 sqM); Anion Gap 2 mmol/L; Blood Urea Nitrogen 16 mg/dL (9-20); Calcium 8.1 mg/dL (8.4-10.2); Carbon Dioxide 29 mmol/L (22-30); Chloride 110 mmol/L (98-107); Glucose 209 mg/dL (74-99); Magnesium 2.1 mg/dL (1.6-2.3); Non-African American GFR(CKD) >90 (>60 ml/min/1.73 sqM); Potassium 3.8 mmol/L (3.5-5.1); Sodium 141 mmol/L (137-145)
[2024-02-25 04:53] LABS: ABG Base Excess 6.1 mmol/L; ABG HCO3 31 mmol/L (21-25); ABG Oxygen Saturation 98.1 % (94-97); ABG PCO2 47 mmHg (35-45); ABG PH 7.42 (7.35-7.45); ABG PO2 89 mmHg (83-108); ABG TCO2 32 mmol/L (19-24)
[2024-02-25 05:18] LABS: Allen Test Performed? no
[2024-02-25] MEDS: POTASSIUM CHLORIDE 10 MEQ in WATER FOR INJECTION 1 100ML.BAG IVPB SCH (05:25)
[2024-02-25 06:14] LABS: Glucose,Whole Blood 180 mg/dL (70-110)
--- NOTE | 2024-02-25 08:03 | P.PN ---
Subjective Progress Note Date: 02/25/24 PROGRESS NOTE The patient is a 59-year-old male who presented with symptoms of chest discomfort and non-STEMI underwent cardiac catheterization and stenting of the right PDA. He persisted in having symptoms and underwent repeat angiography on Sunday and was found to have occluded PDA, was recanalized and few hours after became hypotensive and had a large pericardial effusion requiring pericardiocentesis and subsequent coiling of the right PDA. He remains intubated. He has a pericardial catheter in place. He is in sinus mechanism. His urine output is stable. There is no evidence of malignant arrhythmia. His echocardiogram preprocedure showed an ejection fraction of 30 to 35%. On his initial cardiac catheterization he had distal OM disease as well and his ostial diagonal obstructive disease. Medications: Aspirin, Lipitor 80 mg daily, cefazolin, insulin, lisinopril 5 mg daily, PHYSICAL EXAMINATION: Blood pressure 97/50 heart rate 80 LUNGS: Few crackles anteriorly HEART: Regular rate and rhythm, S1, S2. No S3. No systolic murmur, pericardial drainage catheter noted ABDOMEN: Soft, nontender, no organomegaly EXTREMETIES: No edema, femoral access noted in the right femoral vein LAB: Hemoglobin 13.2, potassium 3.8, BUN 16, creatinine 0.67 IMPRESSION: 1. Status post coronary perforation and pericardial effusion with pericardial drainage 2. Coiling of the right PDA 3. Prior cardiomyopathy 4. Status post stenting of the RCA 5. History of hyperlipidemia 6. History of diabetes PLAN: 1. Obtain a repeat echocardiogram, if no evidence of any significant effusion remove pericardial drainage tube 2. Try to wean and extubate per pulmonary service 3. Depending on the blood pressure add beta-rikki 4. Depending on his progress further recommendations will be made Objective - Vital Signs Vital signs: Vital Signs Temp 98.3 F 02/25/24 06:45 Pulse 87 02/25/24 07:00 Resp 24 02/25/24 07:00 BP 91/58 02/25/24 07:00 Pulse Ox 98 02/25/24 07:00 FiO2 50 02/25/24 06:45 Intake & Output 02/24/24 02/25/24 02/25/24 18:59 06:59 18:59 Intake Total 220.510 5101.980 53.817 Output Total 1330 420 25 Balance -465.632 832.980 28.817 Weight 107.8 kg Intake: IV 390 510 10 Albumin Human 5% 250 ml 250 In Empty Bag 1 bag @ 250 mls/hr IVPB ONCE ONE Rx#: [id number] Potassium Chloride 10 meq 100 In Water For Injection 1 100ml.bag @ 100 mls/hr IVPB Q1H [facility] Rx#: [id number] Sodium Chloride 0.9% 1, 290 000 ml In Empty Bag 1 bag @ 75 mls/hr IV .[id number] [facility] Rx#:[id number] ceFAZolin 2 gm In Sodium 100 50 Chloride 0.9% 50 ml @ 100 mls/hr IVPB Q8HR [facility] Rx# :[id number] venous sheath 0.9 KVO @ 110 10 10 Intake, IV Titration 474.368 552.980 33.817 Amount DOPamine DRIP 800 mg In 125.702 Dextrose/Water 1 250ml. bag @ 1 MCG/KG/MIN 2.041 mls/hr IV .Q24H [facility] Rx#: [id number] Midazolam HCl 50 mg In 49.350 59.816 8.417 Sodium Chloride 0.9% 40 ml @ 1 MG/HR 1 mls/hr IV .Q24H [facility] Rx#:[id number] Norepinephrine 4 mg In 82.261 358.178 Sodium Chloride 0.9% 250 ml @ 0.05 MCG/KG/MIN 20. 738 mls/hr IV .[id number] [facility] Rx#:[id number] Potassium Chloride 10 meq 200 In Water For Injection 1 100ml.bag @ 100 mls/hr IVPB Q1H [facility] Rx#: [id number] fentaNYL (PF). 1,000 mcg 17.055 134.986 25.400 In Sodium Chloride 0.9% 80 ml @ 0.5 MCG/KG/HR 5. 443 mls/hr IV .[id number] [facility] Rx#:[id number] Tube Feeding 100 10 Other 90 Output: Urine 1330 420 25 Other: Voiding Method Indwelling Catheter Indwelling Catheter ABP, PAP, CO, CI - Last Documented Arterial Blood Pressure 97/50 - Labs CBC & Chem 7: 02/25/24 04:00 02/25/24 04:00 Labs: Abnormal Lab Results - Last 24 Hours (Table) 02/24/24 02/24/24 02/24/24 Range/Units 05:30 10:47 11:59 WBC (3.8-10.6) k/uL RBC (4.30-5.90) m/uL Plt Count (150-450) k/uL Neutrophils # (1.3-7.7) k/uL Lymphocytes # (1.0-4.8) k/uL ABG pCO2 (35-45) mmHg ABG pO2 134 H (83-108) mmHg ABG HCO3 28 H (21-25) mmol/L ABG Total CO2 30 H (19-24) mmol/L ABG O2 Saturation 98.2 H (94-97) % Chloride (98-107) mmol/L Glucose (74-99) mg/dL POC Glucose (mg/dL) 261 H (70-110) mg/dL Calcium (8.4-10.2) mg/dL Ur Specific Od[place] 1.037 H (1.001-1.035) Urine Protein Trace H (Negative) Urine Glucose (UA) 4+ H (Negative) Urine Ketones 2+ H (Negative) Urine Blood Moderate H (Negative) Ur Leukocyte Esterase Trace H (Negative) Urine RBC 35 H (0-5) /hpf Urine WBC 15 H (0-5) /hpf Uric Acid Crystals Occasional H (None) /hpf Amorphous Sediment Many H (None) /hpf Urine Bacteria Occasional H (None) /hpf Urine Mucus Rare H (None) /hpf 02/24/24 02/24/24 02/24/24 Range/Units 16:05 17:49 20:52 WBC 12.8 H (3.8-10.6) k/uL RBC (4.30-5.90) m/uL Plt Count (150-450) k/uL Neutrophils # 10.7 H (1.3-7.7) k/uL Lymphocytes # 0.8 L (1.0-4.8) k/uL ABG pCO2 (35-45) mmHg ABG pO2 (83-108) mmHg ABG HCO3 (21-25) mmol/L ABG Total CO2 (19-24) mmol/L ABG O2 Saturation (94-97) % Chloride (98-107) mmol/L Glucose (74-99) mg/dL POC Glucose (mg/dL) 214 H 206 H (70-110) mg/dL Calcium (8.4-10.2) mg/dL Ur Specific Od[place] (1.001-1.035) Urine Protein (Negative) Urine Glucose (UA) (Negative) Urine Ketones (Negative) Urine Blood (Negative) Ur Leukocyte Esterase (Negative) Urine RBC (0-5) /hpf Urine WBC (0-5) /hpf Uric Acid Crystals (None) /hpf Amorphous Sediment (None) /hpf Urine Bacteria (None) /hpf Urine Mucus (None) /hpf 02/25/24 02/25/24 02/25/24 Range/Units 04:00 04:00 04:52 WBC (3.8-10.6) k/uL RBC 4.20 L (4.30-5.90) m/uL Plt Count 144 L (150-450) k/uL Neutrophils # 7.8 H (1.3-7.7) k/uL Lymphocytes # 0.8 L (1.0-4.8) k/uL ABG pCO2 47 H (35-45) mmHg ABG pO2 (83-108) mmHg ABG HCO3 31 H (21-25) mmol/L ABG Total CO2 32 H (19-24) mmol/L ABG O2 Saturation 98.1 H (94-97) % Chloride 110 H (98-107) mmol/L Glucose 209 H (74-99) mg/dL POC Glucose (mg/dL) (70-110) mg/dL Calcium 8.1 L (8.4-10.2) mg/dL Ur Specific Odell (1.001-1.035) Urine Protein (Negative) Urine Glucose (UA) (Negative) Urine Ketones (Negative) Urine Blood (Negative) Ur Leukocyte Esterase (Negative) Urine RBC (0-5) /hpf Urine WBC (0-5) /hpf Uric Acid Crystals (None) /hpf Amorphous Sediment (None) /hpf Urine Bacteria (None) /hpf Urine Mucus (None) /hpf 02/25/24 Range/Units 06:13 WBC (3.8-10.6) k/uL RBC (4.30-5.90) m/uL Plt Count (150-450) k/uL Neutrophils # (1.3-7.7) k/uL Lymphocytes # (1.0-4.8) k/uL ABG pCO2 (35-45) mmHg ABG pO2 (83-108) mmHg ABG HCO3 (21-25) mmol/L ABG Total CO2 (19-24) mmol/L ABG O2 Saturation (94-97) % Chloride (98-107) mmol/L Glucose (74-99) mg/dL POC Glucose (mg/dL) 180 H (70-110) mg/dL Calcium (8.4-10.2) mg/dL Ur Specific Odell (1.001-1.035) Urine Protein (Negative) Urine Glucose (UA) (Negative) Urine Ketones (Negative) Urine Blood (Negative) Ur Leukocyte Esterase (Negative) Urine RBC (0-5) /hpf Urine WBC (0-5) /hpf Uric Acid Crystals (None) /hpf Amorphous Sediment (None) /hpf Urine Bacteria (None) /hpf Urine Mucus (None) /hpf Microbiology - Last 24 Hours (Table) 02/23/24 23:56 Gram Stain - Preliminary Sputum
--- NOTE | 2024-02-25 08:07 | XR ---
EXAMINATION TYPE: XR chest 1V portable DATE OF EXAM: 02/25/2024 COMPARISON: 02/24/2024 HISTORY: Line placement TECHNIQUE: Single frontal view of the chest is obtained. FINDINGS: ET tube, NG tube and central line stable. There is mild cardiomegaly and coarsened interst itium. Right hemithorax not entirely included in the [id number]. Chronic rib deformities and degen erative changes of the spine. Right basilar subsegmental consolidation. IMPRESSION: 1. Right basilar atelectasis or early infiltrate is stable.
--- NOTE | 2024-02-25 08:52 | P.PN ---
Subjective Progress Note Date: 02/25/24 Principal diagnosis: Large pericardial effusion, status post paracentesis and subsequent pericardial drain placement, cardiac arrest, status post ACLS protocol and return of sponta neous circulation, coronary artery disease, status post cardiac catheterization with stent placement to his PDA branch of his right coronary artery, and subsequent successful coiling of the PDA branch of the right coronary artery with no evidence of extravasation, acute non-ST elevated myocardial infarction this admission. Past medical history significant for coronary artery disease with previous stenting of the RCA and LAD, ischemic cardiomyopathy with an ejection fraction of 30-35%, hypertension, dyslipidemia, diabetes mellitus type 2, chronic ongoing tobacco dependence, COPD, obesity with a BMI of 31.7 kg/m, chronic back pain and non-ST elevated myocardial infarction. POD #2 paracentesis with 600 mL of fresh blood from the pericardium drained, and placement of pericardial drain by Dr. Hernandes Patient was seen and examined in follow-up today February 25, 2024 at his bedside in the intensive care unit. He remains sedated on Versed drip, is intubated and on mechanical ventilator support. Current mechanical ventilator settings are assist-control 24, TV 500, FiO2 50% and a PEEP of 10. Oxygen saturations on current mechanical ventilator settings is 98%. ABG results this morning show a pH of 7.42, pCO2 47, pO2 89, HCO3 31, base excess 6.1 and oxygen saturation 98.1. Bedside telemetry is showing normal sinus rhythm heart rate 86 bpm. He remains on norepinephrine drip at 0.03 mcg/kg/min for blood pressure support. Pericardial drain remains in place with scant serosanguineous drainage output in the last 24 hours. Repeat transthoracic 2D echocardiogram remains pending this morning. Continuous CVP monitoring shows a CVP of 10 mmHg. Laboratory and chest x-ray results reviewed. Objective - Vital Signs Vital signs: Vital Signs Temp 98.3 F 02/25/24 06:45 Pulse 94 02/25/24 08:42 Resp 24 02/25/24 07:00 BP 91/58 02/25/24 07:00 Pulse Ox 98 02/25/24 07:00 FiO2 50 02/25/24 08:38 Intake & Output 02/24/24 02/25/24 02/25/24 18:59 06:59 18:59 Intake Total 265.718 5948.980 103.817 Output Total 1330 420 70 Balance -465.632 832.980 33.817 Weight 107.8 kg Intake: IV 390 510 20 Albumin Human 5% 250 ml 250 In Empty Bag 1 bag @ 250 mls/hr IVPB ONCE ONE Rx#: [id number] Potassium Chloride 10 meq 100 In Water For Injection 1 100ml.bag @ 100 mls/hr IVPB Q1H [facility] Rx#: [id number] Sodium Chloride 0.9% 1, 290 000 ml In Empty Bag 1 bag @ 75 mls/hr IV .[id number] [facility] Rx#:[id number] ceFAZolin 2 gm In Sodium 100 50 Chloride 0.9% 50 ml @ 100 mls/hr IVPB Q8HR [facility] Rx# :[id number] venous sheath 0.9 KVO @ 110 20 10 Intake, IV Titration 474.368 552.980 33.817 Amount DOPamine DRIP 800 mg In 125.702 Dextrose/Water 1 250ml. bag @ 1 MCG/KG/MIN 2.041 mls/hr IV .Q24H [facility] Rx#: [id number] Midazolam HCl 50 mg In 49.350 59.816 8.417 Sodium Chloride 0.9% 40 ml @ 1 MG/HR 1 mls/hr IV .Q24H [facility] Rx#:[id number] Norepinephrine 4 mg In 82.261 358.178 Sodium Chloride 0.9% 250 ml @ 0.05 MCG/KG/MIN 20. 738 mls/hr IV .[id number] [facility] Rx#:[id number] Potassium Chloride 10 meq 200 In Water For Injection 1 100ml.bag @ 100 mls/hr IVPB Q1H [facility] Rx#: [id number] fentaNYL (PF). 1,000 mcg 17.055 134.986 25.400 In Sodium Chloride 0.9% 80 ml @ 0.5 MCG/KG/HR 5. 443 mls/hr IV .[id number] [facility] Rx#:[id number] Tube Feeding 100 20 Other 90 30 Output: Urine 1330 420 70 Other: Voiding Method Indwelling Catheter Indwelling Catheter ABP, PAP, CO, CI - Last Documented Arterial Blood Pressure 97/50 - Exam CONSTITUTIONAL: Remains intubated with mechanical ventilator support, currently sedated with Versed drip at 4 mg/hr, no apparent acute distress. HEENT: Neck is supple, no JVD, no lymphadenopathy. RESPIRATORY: Lungs sounds essentially clear throughout, diminished to his bilateral bases, scattered rhonchi throughout. Respirations are symmetrical and nonlabored with mechanical ventilator support. Currently assist-control 24, TV 500, FiO2 100% and a PEEP of 5. Strong cough. CARDIOVASCULAR: Regular rhythm and rate. S1 and S2 present, negative for S3, gallop or murmur. Palpable peripheral pulses bilaterally. Bedside telemetry is showing normal sinus rhythm heart rate 86 bpm. GASTROINTESTINAL: Abdomen soft, nontender, nondistended. Active bowel sounds present 4 quadrants. Tolerating diet. Passing flatus. No guarding or rigidity. GENITOURINARY: Roe present draining clear, yellow urine. 330 mL in the last 8 hours. INTEGUMENTARY: Skin is warm and dry with no evidence of clubbing or cyanosis. Pericardial drain in place with scant serosanguineous drainage. NEUROLOGIC: Moving all 4 extremities. Unable to accurately assess at this time as the patient is sedated, intubated with mechanical ventilator support. MUSKULOSKELETAL: Able to move all extremities, strength equal bilaterally, generalized weakness. PSYCHIATRIC: Unable to accurately assess at this time as the patient is sedated, intubated with mechanical ventilator support. INVASIVE LINES AND TUBES: Pericardial drain in place with scant serosanguineous drainage. - Allied health notes Allied health notes reviewed: nursing - Labs CBC & Chem 7: 02/25/24 04:00 02/25/24 04:00 Labs: Abnormal Lab Results - Last 24 Hours (Table) 02/24/24 02/24/24 02/24/24 Range/Units 05:30 10:47 11:59 WBC (3.8-10.6) k/uL RBC (4.30-5.90) m/uL Plt Count (150-450) k/uL Neutrophils # (1.3-7.7) k/uL Lymphocytes # (1.0-4.8) k/uL ABG pCO2 (35-45) mmHg ABG pO2 134 H (83-108) mmHg ABG HCO3 28 H (21-25) mmol/L ABG Total CO2 30 H (19-24) mmol/L ABG O2 Saturation 98.2 H (94-97) % Chloride (98-107) mmol/L Glucose (74-99) mg/dL POC Glucose (mg/dL) 261 H (70-110) mg/dL Calcium (8.4-10.2) mg/dL Ur Specific [place] 1.037 H (1.001-1.035) Urine Protein Trace H (Negative) Urine Glucose (UA) 4+ H (Negative) Urine Ketones 2+ H (Negative) Urine Blood Moderate H (Negative) Ur Leukocyte Esterase Trace H (Negative) Urine RBC 35 H (0-5) /hpf Urine WBC 15 H (0-5) /hpf Uric Acid Crystals Occasional H (None) /hpf Amorphous Sediment Many H (None) /hpf Urine Bacteria Occasional H (None) /hpf Urine Mucus Rare H (None) /hpf 02/24/24 02/24/24 02/24/24 Range/Units 16:05 17:49 20:52 WBC 12.8 H (3.8-10.6) k/uL RBC (4.30-5.90) m/uL Plt Count (150-450) k/uL Neutrophils # 10.7 H (1.3-7.7) k/uL Lymphocytes # 0.8 L (1.0-4.8) k/uL ABG pCO2 (35-45) mmHg ABG pO2 (83-108) mmHg ABG HCO3 (21-25) mmol/L ABG Total CO2 (19-24) mmol/L ABG O2 Saturation (94-97) % Chloride (98-107) mmol/L Glucose (74-99) mg/dL POC Glucose (mg/dL) 214 H 206 H (70-110) mg/dL Calcium (8.4-10.2) mg/dL Ur Specific [place] (1.001-1.035) Urine Protein (Negative) Urine Glucose (UA) (Negative) Urine Ketones (Negative) Urine Blood (Negative) Ur Leukocyte Esterase (Negative) Urine RBC (0-5) /hpf Urine WBC (0-5) /hpf Uric Acid Crystals (None) /hpf Amorphous Sediment (None) /hpf Urine Bacteria (None) /hpf Urine Mucus (None) /hpf 02/25/24 02/25/24 02/25/24 Range/Units 04:00 04:00 04:52 WBC (3.8-10.6) k/uL RBC 4.20 L (4.30-5.90) m/uL Plt Count 144 L (150-450) k/uL Neutrophils # 7.8 H (1.3-7.7) k/uL Lymphocytes # 0.8 L (1.0-4.8) k/uL ABG pCO2 47 H (35-45) mmHg ABG pO2 (83-108) mmHg ABG HCO3 31 H (21-25) mmol/L ABG Total CO2 32 H (19-24) mmol/L ABG O2 Saturation 98.1 H (94-97) % Chloride 110 H (98-107) mmol/L Glucose 209 H (74-99) mg/dL POC Glucose (mg/dL) (70-110) mg/dL Calcium 8.1 L (8.4-10.2) mg/dL Ur Specific [place] (1.001-1.035) Urine Protein (Negative) Urine Glucose (UA) (Negative) Urine Ketones (Negative) Urine Blood (Negative) Ur Leukocyte Esterase (Negative) Urine RBC (0-5) /hpf Urine WBC (0-5) /hpf Uric Acid Crystals (None) /hpf Amorphous Sediment (None) /hpf Urine Bacteria (None) /hpf Urine Mucus (None) /hpf 02/25/24 Range/Units 06:13 WBC (3.8-10.6) k/uL RBC (4.30-5.90) m/uL Plt Count (150-450) k/uL Neutrophils # (1.3-7.7) k/uL Lymphocytes # (1.0-4.8) k/uL ABG pCO2 (35-45) mmHg ABG pO2 (83-108) mmHg ABG HCO3 (21-25) mmol/L ABG Total CO2 (19-24) mmol/L ABG O2 Saturation (94-97) % Chloride (98-107) mmol/L Glucose (74-99) mg/dL POC Glucose (mg/dL) 180 H (70-110) mg/dL Calcium (8.4-10.2) mg/dL Ur Specific [place] (1.001-1.035) Urine Protein (Negative) Urine Glucose (UA) (Negative) Urine Ketones (Negative) Urine Blood (Negative) Ur Leukocyte Esterase (Negative) Urine RBC (0-5) /hpf Urine WBC (0-5) /hpf Uric Acid Crystals (None) /hpf Amorphous Sediment (None) /hpf Urine Bacteria (None) /hpf Urine Mucus (None) /hpf Microbiology - Last 24 Hours (Table) 02/23/24 23:56 Gram Stain - Preliminary Sputum - Imaging and Cardiology Chest x-ray: report reviewed, image reviewed Assessment and Plan Assessment: Large pericardial effusion, status post pericardial drain placement by Dr. Hernandes and successful coiling of his PDA branch of his RCA Coronary artery disease, successful stenting of his PDA branch of his right coronary artery on February 20, 2024, previous stent placement to his RCA and LAD Acute non-ST elevated myocardial infarction this admission Hypertension Hyperlipidemia Diabetes mellitus type 2 Ischemic cardiomyopathy with an ejection fraction of 30 to 35% Chronic ongoing tobacco dependence COPD Obesity with a BMI of 31.7 kg/m Chronic back pain GERD Plan: If the transthoracic 2D echocardiogram report from this morning shows no evidence of pericardial effusion, his pericardial drain will be removed. Repeat transthoracic 2D echocardiogram this morning, evaluate for pericardial effusion. Mechanical ventilator management, ICU management per pulmonary critical care medicine recommendations. Medical management and other comorbidities per primary care service and cardio logy service. GI and DVT prophylaxis. More recommendations to follow based on patient's clinical course. Time with Patient: Greater than 30
[2024-02-25 11:09] LABS: ABG Base Excess 4.8 mmol/L; ABG HCO3 30 mmol/L (21-25); ABG PCO2 47 mmHg (35-45); ABG PH 7.41 (7.35-7.45); ABG PO2 91 mmHg (83-108); ABG TCO2 31 mmol/L (19-24); Allen Test Performed? Yes
[2024-02-25 12:00] LABS: Glucose,Whole Blood 171 mg/dL (70-110)
--- NOTE | 2024-02-25 12:13 | CA ---
Transthoracic Echo Report Name: Phu Ramirez Age: 59 Gender: M : 1965 Exam Date: 02/24/2024 09:34 Exam Location: [facility] Ht (in): 73 Wt (lb): 242 Ordering Physician: Julio Cesar Rubi Attending/Referring Phys: Greyson KENT Pharmaceutical Operator Ade Goldberg RDCS Procedure CPT: Indications: evaluate pericardial effusion Cardiac Hx: Technical Quality: Contrast 1: Total Dose (mL): Contrast 2: Total Dose (mL): MEASUREMENTS (Male / Female) Normal Values FINDINGS Left Ventricle Right Ventricle Right Atrium Left Atrium Mitral Valve Aortic Valve Tricuspid Valve Pulmonic Valve Pericardium Aorta CONCLUSIONS Limited study to re evaluate pericardial effusion. Minimal pericardial effusion noted. Previewed by: Dr. Addison Hernandes MD (Electronically Signed) Final Date: 25 February 2024 12:13
--- NOTE | 2024-02-25 12:14 | CA ---
Transthoracic Echo Report Name: Phu Ramirez Age: 59 Gender: M : 1965 Exam Date: 02/25/2024 07:39 Exam Location: [facility] Ht (in): 73 Wt (lb): 237 Ordering Physician: Addison Hernandes MD ([id number]) Attending/Referring Phys: Home Assessment Nurse Ade Goldberg RDCS Procedure CPT: Indications: r/o pericardial effusion Cardiac Hx: Technical Quality: Contrast 1: Total Dose (mL): Contrast 2: Total Dose (mL): MEASUREMENTS (Male / Female) Normal Values FINDINGS Left Ventricle Right Ventricle Right Atrium Left Atrium Mitral Valve Aortic Valve Tricuspid Valve Pulmonic Valve Pericardium Aorta CONCLUSIONS Limited study to evaluate the pricardium. No pericardial effusion noted. Previewed by: Dr. Addison Hernandes MD (Electronically Signed) Final Date: 25 February 2024 12:13
--- NOTE | 2024-02-25 13:48 | P.PN ---
Subjective Progress Note Date: 02/25/24 This is a 59-year-old male patient with a known history of coronary artery disease and previous stent placement to the RCA and more recently a stent to the LAD in November 2021, chronic obstructive pulmonary disease, diabetes mellitus, gastroesophageal reflux disease, hearing disorder [place] hypertension, hyperlipidemia, former smoker. He was here in the emergency room on 02/14/2024 with complaints of chest pain. He was recommended admission but the patient declined. He followed up with his payment analyst who had sent him back to the emergency room on 02/20/2024 for admission for acute non-ST segment elevation myocardial infarction and heart catheterization today that revealed adequately disease involving the PDA branch of the RCA and subsequent stenting. Echocardiogram revealed impaired left ventricular systolic function with ejection fraction of 30 to 35%. Having ongoing issues with unstable angina and brought back to the cardiac catheter station lab with stenting of the PDA branch of the RCA, adjunctive use of intravascular imaging and aspiration thrombectomy. Developed significant distress and a rapid response team was called and subsequent CODE BLUE. He had developed significant pericardial effusion and had undergone a emergent pericardiocentesis with 600 cc of blood removed patient was intubated and transferred to the intensive care unit. He is seen today in consultation on the mechanical ventilator and assist-control mode at a rate of 24, tidal volume 500, FiO2 100% and a PEEP of 5. Morning blood gases revealed a PaO2 of 99, pCO2 43 and a pH of 7.42. He is on normal saline at 20 MLS per hour. He is receiving Versed at 5 mg/h. Dopamine at 3.5 mcg/kg/min and fenta nyl at 1 mcg/kg/h. He is currently on cefazolin. Initiated on bronchodilators. 0.3. Platelets 152. Sodium 140. Potassium 4.1. Bicarb 28. BUN 14. Creatinine 0.66. Glucose 251. AST 338. ALT 488. Endotracheal and nasogastric tubes secured in place. Chest x-ray reveals increasing opacity in the right lung base, likely reflecting pleural effusion with adjacent atelectasis. On today's evaluation of 02/25/2024, patient is being seen for a follow-up. This morning, the patientOn today's evaluation is calm and comfortable. The patient is being weaned off the propofol and the patient is awake and alert and following simple commands. He remains on mechanical ventilator. He is on assist-control mode at the rate of 24, tidal volume of 500, FiO2 of 50% with a PEEP of 10. Blood gas showed a pH of 7.42 with a pCO2 of 47 and pO2 of 89. The pericardial tube is in place and there is no significant output from the drainage tube. The patient had a follow-up chest x-ray this morning that showed some mild interstitial prominence consistent with CHF. He is known to have impaired LV function with an ejection fraction of 30 to 35%. He remains on norepinephrine running at 0.03 mcg/kg/min. Repeat transthoracic echocardiogram was done and it showed evidence of any significant pericardial effusion. CVP is currently at 10. The blood work from today showed a WBC count of 9.5, hemoglob in 13.2 and a platelet count of 144, sodium is at 141, BUN is at 16 with a creatinine of 0.67. Objective - Vital Signs Vital signs: Vital Signs Temp 98.3 F 02/25/24 06:45 Pulse 87 02/25/24 07:00 Resp 24 02/25/24 07:00 BP 91/58 02/25/24 07:00 Pulse Ox 98 02/25/24 07:00 FiO2 50 02/25/24 06:45 Intake & Output 02/24/24 02/25/24 02/25/24 18:59 06:59 18:59 Intake Total 643.689 1893.980 103.817 Output Total 1330 420 70 Balance -465.632 832.980 33.817 Weight 107.8 kg Intake: IV 390 510 20 Albumin Human 5% 250 ml 250 In Empty Bag 1 bag @ 250 mls/hr IVPB ONCE ONE Rx#: [id number] Potassium Chloride 10 meq 100 In Water For Injection 1 100ml.bag @ 100 mls/hr IVPB Q1H [facility] Rx#: [id number] Sodium Chloride 0.9% 1, 290 000 ml In Empty Bag 1 bag @ 75 mls/hr IV .[id number] [facility] Rx#:[id number] ceFAZolin 2 gm In Sodium 100 50 Chloride 0.9% 50 ml @ 100 mls/hr IVPB Q8HR [facility] Rx# :[id number] venous sheath 0.9 KVO @ 110 20 10 Intake, IV Titration 474.368 552.980 33.817 Amount DOPamine DRIP 800 mg In 125.702 Dextrose/Water 1 250ml. bag @ 1 MCG/KG/MIN 2.041 mls/hr IV .Q24H [facility] Rx#: [id number] Midazolam HCl 50 mg In 49.350 59.816 8.417 Sodium Chloride 0.9% 40 ml @ 1 MG/HR 1 mls/hr IV .Q24H [facility] Rx#:[id number] Norepinephrine 4 mg In 82.261 358.178 Sodium Chloride 0.9% 250 ml @ 0.05 MCG/KG/MIN 20. 738 mls/hr IV .[id number] [facility] Rx#:[id number] Potassium Chloride 10 meq 200 In Water For Injection 1 100ml.bag @ 100 mls/hr IVPB Q1H [facility] Rx#: [id number] fentaNYL (PF). 1,000 mcg 17.055 134.986 25.400 In Sodium Chloride 0.9% 80 ml @ 0.5 MCG/KG/HR 5. 443 mls/hr IV .[id number] [facility] Rx#:[id number] Tube Feeding 100 20 Other 90 30 Output: Urine 1330 420 70 Other: Voiding Method Indwelling Catheter Indwelling Catheter ABP, PAP, CO, CI - Last Documented Arterial Blood Pressure 97/50 - Exam CONSTITUTIONAL: Remains intubated with mechanical ventilator support, currently sedated with Versed drip at 4 mg/hr, no apparent acute distress. HEENT: Neck is supple, no JVD, no lymphadenopathy. RESPIRATORY: Lungs sounds essentially clear throughout, diminished to his bilateral bases, scattered rhonchi throughout. Respirations are symmetrical and nonlabored with mechanical ventilator support. Currently assist-control 24, TV 500, FiO2 100% and a PEEP of 5. Strong cough. CARDIOVASCULAR: Regular rhythm and rate. S1 and S2 present, negative for S3, gallop or murmur. Palpable peripheral pulses bilaterally. Bedside telemetry is showing normal sinus rhythm heart rate 86 bpm. GASTROINTESTINAL: Abdomen soft, nontender, nondistended. Active bowel sounds present 4 quadrants. Tolerating diet. Passing flatus. No guarding or rigidity. GENITOURINARY: Roe present draining clear, yellow urine. 330 mL in the last 8 hours. INTEGUMENTARY: Skin is warm and dry with no evidence of clubbing or cyanosis. Pericardial drain in place with scant serosanguineous drainage. NEUROLOGIC: Moving all 4 extremities. Unable to accurately assess at this time as the patient is sedated, intubated with mechanical ventilator support. MUSKULOSKELETAL: Able to move all extremities, strength equal bilaterally, generalized weakness. PSYCHIATRIC: Unable to accurately assess at this time as the patient is sedated, intubated with mechanical ventilator support. INVASIVE LINES AND TUBES: Pericardial drain in place with scant serosanguineous drainage. - Labs CBC & Chem 7: 02/25/24 04:00 02/25/24 04:00 Labs: Abnormal Lab Results - Last 24 Hours (Table) 02/24/24 02/24/24 02/24/24 Range/Units 05:30 10:47 11:59 WBC (3.8-10.6) k/uL RBC (4.30-5.90) m/uL Plt Count (150-450) k/uL Neutrophils # (1.3-7.7) k/uL Lymphocytes # (1.0-4.8) k/uL ABG pCO2 (35-45) mmHg ABG pO2 134 H (83-108) mmHg ABG HCO3 28 H (21-25) mmol/L ABG Total CO2 30 H (19-24) mmol/L ABG O2 Saturation 98.2 H (94-97) % Chloride (98-107) mmol/L Glucose (74-99) mg/dL POC Glucose (mg/dL) 261 H (70-110) mg/dL Calcium (8.4-10.2) mg/dL Ur Specific [place] 1.037 H (1.001-1.035) Urine Protein Trace H (Negative) Urine Glucose (UA) 4+ H (Negative) Urine Ketones 2+ H (Negative) Urine Blood Moderate H (Negative) Ur Leukocyte Esterase Trace H (Negative) Urine RBC 35 H (0-5) /hpf Urine WBC 15 H (0-5) /hpf Uric Acid Crystals Occasional H (None) /hpf Amorphous Sediment Many H (None) /hpf Urine Bacteria Occasional H (None) /hpf Urine Mucus Rare H (None) /hpf 02/24/24 02/24/24 02/24/24 Range/Units 16:05 17:49 20:52 WBC 12.8 H (3.8-10.6) k/uL RBC (4.30-5.90) m/uL Plt Count (150-450) k/uL Neutrophils # 10.7 H (1.3-7.7) k/uL Lymphocytes # 0.8 L (1.0-4.8) k/uL ABG pCO2 (35-45) mmHg ABG pO2 (83-108) mmHg ABG HCO3 (21-25) mmol/L ABG Total CO2 (19-24) mmol/L ABG O2 Saturation (94-97) % Chloride (98-107) mmol/L Glucose (74-99) mg/dL POC Glucose (mg/dL) 214 H 206 H (70-110) mg/dL Calcium (8.4-10.2) mg/dL Ur Specific [place] (1.001-1.035) Urine Protein (Negative) Urine Glucose (UA) (Negative) Urine Ketones (Negative) Urine Blood (Negative) Ur Leukocyte Esterase (Negative) Urine RBC (0-5) /hpf Urine WBC (0-5) /hpf Uric Acid Crystals (None) /hpf Amorphous Sediment (None) /hpf Urine Bacteria (None) /hpf Urine Mucus (None) /hpf 02/25/24 02/25/24 02/25/24 Range/Units 04:00 04:00 04:52 WBC (3.8-10.6) k/uL RBC 4.20 L (4.30-5.90) m/uL Plt Count 144 L (150-450) k/uL Neutrophils # 7.8 H (1.3-7.7) k/uL Lymphocytes # 0.8 L (1.0-4.8) k/uL ABG pCO2 47 H (35-45) mmHg ABG pO2 (83-108) mmHg ABG HCO3 31 H (21-25) mmol/L ABG Total CO2 32 H (19-24) mmol/L ABG O2 Saturation 98.1 H (94-97) % Chloride 110 H (98-107) mmol/L Glucose 209 H (74-99) mg/dL POC Glucose (mg/dL) (70-110) mg/dL Calcium 8.1 L (8.4-10.2) mg/dL Ur Specific [place] (1.001-1.035) Urine Protein (Negative) Urine Glucose (UA) (Negative) Urine Ketones (Negative) Urine Blood (Negative) Ur Leukocyte Esterase (Negative) Urine RBC (0-5) /hpf Urine WBC (0-5) /hpf Uric Acid Crystals (None) /hpf Amorphous Sediment (None) /hpf Urine Bacteria (None) /hpf Urine Mucus (None) /hpf 02/25/24 Range/Units 06:13 WBC (3.8-10.6) k/uL RBC (4.30-5.90) m/uL Plt Count (150-450) k/uL Neutrophils # (1.3-7.7) k/uL Lymphocytes # (1.0-4.8) k/uL ABG pCO2 (35-45) mmHg ABG pO2 (83-108) mmHg ABG HCO3 (21-25) mmol/L ABG Total CO2 (19-24) mmol/L ABG O2 Saturation (94-97) % Chloride (98-107) mmol/L Glucose (74-99) mg/dL POC Glucose (mg/dL) 180 H (70-110) mg/dL Calcium (8.4-10.2) mg/dL Ur Specific [place] (1.001-1.035) Urine Protein (Negative) Urine Glucose (UA) (Negative) Urine Ketones (Negative) Urine Blood (Negative) Ur Leukocyte Esterase (Negative) Urine RBC (0-5) /hpf Urine WBC (0-5) /hpf Uric Acid Crystals (None) /hpf Amorphous Sediment (None) /hpf Urine Bacteria (None) /hpf Urine Mucus (None) /hpf Microbiology - Last 24 Hours (Table) 02/23/24 23:56 Gram Stain - Preliminary Sputum Assessment and Plan Plan: Acute non-ST segment elevation myocardial infarction requiring stenting to the PDA of the RCA initially on 02/20/2024 with subsequent stable angina and return to the [facility] on 02/23/2024 for stenting of the PDA branch of the RCA and intravascular imaging and aspiration thrombectomy. Later that same day he developed hypotension and cardiac arrest and was found to have a significant pericardial effusion requiring emergent pericardiocentesis with 1200 mL of emanuel blood moved and then underwent successful coiling of the PDA branch of the RCA. The pericardial tube is in place without any significant output. Repeat echocardiogram that was done this morning of 02/25/2024 showed no evidence of any pericardial effusion or tamponade. Acute obstructive shock secondary to pericardial effusion/tamponade, post drainage. The patient also underwent coiling of the distal RCA leak. Acute hypotension secondary to above, currently on low-dose norepinephrine for hemodynamic support. Acute hypoxemic respiratory failure secondary to above requiring intubation mechanical ventilatory support on 02/23/2024 Shock liver secondary to above History of coronary artery disease with previous stent placement Ischemic cardiomyopathy with ejection fraction of 30 to 35% Former smoker Diabetes mellitus Hypertension Hyperlipidemia Plan: Dropped the PEEP down to 5 The patient is currently off sedation. Will check weaning parameters. If the parameters are adequate, the patient is going to be given a spontaneous breathing trial with pressure support of 5 and a PEEP of 5 in anticipation for extubation. Wean off pressors Give a dose of Lasix 40 mg IV push and monitor urine output Repeat echocardiogram was noted Continue aspirin and hold the rest of the antiplatelet agents Hemoglobin is stable for now Remains on cefazolin Continue bronchodilators We will continue to follow and make further recommendations based on his clinical status Is a critical care evaluation that was done more than 30 minutes.
[2024-02-25 14:35] VITALS: BMI 31.3
[2024-02-25] MEDS: FUROSEMIDE 10 MG/ML 4 ML VIAL IV STA (18:49)
[2024-02-25] MEDS: HYDROcodone/APAP 5-325MG 1 EACH TAB PO PRN (21:40)
[2024-02-25 21:47] LABS: Glucose,Whole Blood 171 mg/dL (70-110)
[2024-02-26] MEDS ORDERED: IPRATROPIUM-ALBUTEROL 3 ML NEB INHALATION PRN (00:06)
--- NOTE | 2024-02-26 01:53 | P.PN ---
Subjective Progress Note Date: 02/25/24 59-year-old male with a past medical history of coronary artery disease history of stent placement, ischemic cardiomyopathy ejection fraction 45%, COPD, diabetes type 2 on Mounjaro currently, hypertension, hyperlipidemia, history of mild, currently everyday smoker and chronic low back pain and other medical problems presents to Dr. Jernigan's office today with complaints of chest pain. Patient was initially seen in the ER on 02/14/2024 with complaints of chest pain and was discharged home with negative EKG and troponin. Patient was recommended to follow-up with cardiology as an outpatient. Patient started having chest pain mainly mid retrosternal and radiating across the shoulders. Mild difficul ty breathing. No nausea or vomiting or diaphoresis no headache or dizziness or lightheadedness. Patient was sent from pricing associate office for cardiac catheterization today. Chest x-ray showed that the degree of interstitial prominence could reflect a superimposed bronchitis or atypical pneumonias. No focal infiltrate seen. EKG showed sinus rhythm Laboratory data showed WBC 5.5 hemoglobin 17.1 and platelets 142 Sodium 132 potassium 4.5 chloride 102 bicarb is 22 BUN 14 and creatinine 0.50 and blood sugar 335 Liver enzymes are not elevated. Troponin 0.068, 0.060 and 0.062, proBNP 126 and albumin 4.1 24-hour interval change 02/23/2024 Patient is seen and evaluated in room at bedside; continue to report chest pain despite aggressive medical therapy; remains on IV nitroglycerin and heparin along with DAPT with aspirin and Effient Patient is status post cardiac catheterization with stent to PDA of RCA; given persistent chest pain despite stent placement and DAPT, cardiology planning to reevaluate with repeat cardiac catheterization Echocardiogram is completed and reveals an EF of 45% --Continue with IV heparin and nitroglycerin; further recommendations after ca rdiac catheterization 02/24/2024 Patient is seen and evaluated in ICU; family members at bedside; patient is intubated and mechanically ventilated 02/20/2024 for admission for acute non-ST segment elevation myocardial infarction and heart catheterization today that revealed adequately disease involving the PDA branch of the RCA and subsequent stenting. Echocardiogram revealed impaired left ventricular systolic function with ejection fraction of 30 to 35%. Having ongoing issues with unstable angina and brought back to the cardiac catheter station lab with stenting of the PDA branch of the RCA, adjunctive use of intravascular imaging and aspiration thrombectomy. Developed significant distress and a rapid response team was called and subsequent CODE BLUE. He had developed significant pericardial effusion and had undergone a emergent pericardiocentesis with 600 cc of blood removed patient was intubated and transferred to the intensive care unit. 02/25/2024 Patient is seen and evaluated in follow-up today in the ICU with multiple medical consultations following. Patient continues to be intubated and underwent repeat stenting to the RCA and thrombectomy. Patient was coded and de veloped significant pericardial effusion underwent pericardiocentesis with CT surgery and discussing possible drainage removal. Patient is weaned off sedation and was just extubated minutes prior to exam. Following commands currently maintained on 3 L via nasal cannula. Patient with decreased urine output being given a dose of Lasix. Will monitor closely. Swallow eval to be performed and slowly advance diet as tolerated. Review of systems: Unable to obtain as patient was just extubated minutes ago Active Medications Acetaminophen (Acetaminophen Tab 325 Mg Tab) 650 mg PO Q6HR PRN PRN Reason: Fever and/ or Pain Last Admin: 02/25/24 05:55 Dose: 650 mg Hydrocodone Bitart/Acetaminophen (Hydrocodone/Apap 5-325mg 1 Each Tab) 1 each PO Q6HR PRN PRN Reason: Pain Al Hydroxide/Mg Hydroxide (Mag Hydrox/Al Hydrox/Simeth 30 Ml Cup) 30 ml PO Q4HR PRN PRN Reason: Heartburn Albuterol/Ipratropium (Ipratropium-Albuterol 3 Ml Neb) 3 ml INHALATION RT-Q4H [facility] Last Admin: 02/25/24 08:30 Dose: 3 ml Alprazolam (Alprazolam 0.25 Mg Tab) 0.25 mg PO Q6HR PRN PRN Reason: Mild Anxiety Alprazolam (Alprazolam 0.5 Mg Tab) 0.5 mg PO Q6HR PRN PRN Reason: Moderate Anxiety Aspirin (Aspirin 81 Mg) 81 mg PO DAILY [facility] Last Admin: 02/25/24 09:02 Dose: 81 mg Atorvastatin Calcium (Atorvastatin 80 Mg Tab) 80 mg PO HS [facility] Last Admin: 02/24/24 21:10 Dose: 80 mg Atropine Sulfate (Atropine Sulfate 0.1 Mg/Ml 10ml Syringe) 0.5 mg IV ONCE PRN PRN Reason: Symptomatic Bradycardia Chlorhexidine Gluconate (Chlorhexidine Gluconate 15 Ml Cup) 15 ml MUCOUS MEM BID [facility] Last Admin: 02/25/24 09:00 Dose: 15 ml Colchicine (Colchicine 0.6 Mg Each) 0.6 mg PO BID [facility] Last Admin: 02/25/24 09:03 Dose: 0.6 mg Dextrose/Water (Dextrose 50% Syringe 50 Ml) 25 ml IVP PER PROTOCOL PRN; Protocol PRN Reason: Hypoglycemia Dextrose/Water (Dextrose 50% Syringe 50 Ml) 50 ml IVP PER PROTOCOL PRN; Protocol PRN Reason: Hypoglycemia Duloxetine HCl (Duloxetine Hcl 60 Mg Capsule.Dr) 60 mg PO DAILY [facility] Last Admin: 02/25/24 09:08 Dose: Not Given Duloxetine HCl (Duloxetine Hcl 30 Mg Capsule.Dr) 30 mg PO DAILY [facility] Last Admin: 02/25/24 09:08 Dose: Not Given Fentanyl Citrate (Fentanyl (Pf) 50 Mcg/Ml 2 Ml Amp) 50 mcg IVP ONCE PRN PRN Reason: Severe Pain (Scale 7 to 10) Last Admin: 02/24/24 11:36 Dose: 50 mcg Heparin Sodium (Porcine) (Heparin Sodium,Porcine 5,000 Unit/Ml 1 Ml Vial) 5,000 unit SQ Q8HR [facility] Last Admin: 02/25/24 09:01 Dose: 5,000 unit Norepinephrine Bitartrate 4 mg (/ Sodium Chloride) 254 mls @ 20.738 mls/hr IV .[id number] [facility]; Protocol Last Titration: 02/25/24 08:15 Dose: 0.02 mcg/kg/min, 8.295 mls/hr Fentanyl Citrate 1,000 mcg/ (Sodium Chloride) 100 mls @ 5.443 mls/hr IV .[id number] [facility]; Protocol Last Titration: 02/25/24 07:28 Dose: 0 mcg/kg/hr, 0 mls/hr Midazolam HCl 50 mg/ Sodium (Chloride) 50 mls @ 1 mls/hr IV .Q24H [facility]; Protocol Last Titration: 02/25/24 08:00 Dose: 0 mg/hr, 0 mls/hr Dopamine HCl/Dextrose 800 mg/ (IV Solution) 250 mls @ 2.041 mls/hr IV .Q24H [facility]; Protocol Last Admin: 02/24/24 19:13 Dose: Not Given Cefazolin Sodium 2 gm/ Sodium (Chloride) 50 mls @ 100 mls/hr IVPB Q8HR [facility]; Protocol Last Admin: 02/24/24 23:09 Dose: 100 mls/hr Insulin Aspart (Insulin Aspart (Novolog) 100 Unit/Ml Vial) 0 unit SQ ACHS [facility]; Protocol Last Admin: 02/25/24 06:18 Dose: 2 unit Insulin Detemir (Insulin Detemir (Levemir) 100 Unit/Ml Syr) 21 unit SQ HS [facility] Last Admin: 02/24/24 21:09 Dose: 21 unit Lisinopril (Lisinopril 5 Mg Tab) 5 mg PO DAILY [facility] Last Admin: 02/24/24 09:57 Dose: Not Given Miscellaneous Information (Rx Info: Iv Contrast Was Given 1 Each Misc) 1 each MISCELLANE DAILY PRN PRN Reason: Per Protocol Stop: 02/25/24 14:24 Miscellaneous Information (Rx Info: Iv Contrast Was Given 1 Each Misc) 1 each MISCELLANE DAILY PRN PRN Reason: Per Protocol Stop: 02/25/24 18:17 Miscellaneous Information (Potassium Replacement Protocol 1 Each Misc) 1 each MISCELLANE DAILY PRN PRN Reason: Per Protocol Miscellaneous Information (Magnesium Replacement Protocol 1 Each Misc) 1 each MISCELLANE DAILY PRN; Protocol PRN Reason: Per Protocol Miscellaneous Information (Phosphorus Replacement Protoco 1 Each Misc) 1 each MISCELLANE DAILY PRN; Protocol PRN Reason: Per Protocol Morphine Sulfate (Morphine Sulfate 2 Mg/Ml Syringe) 2 mg IVP Q4HR PRN PRN Reason: Pain/Discomfort Last Admin: 02/21/24 16:33 Dose: 2 mg Morphine Sulfate (Morphine Sulfate 4 Mg/Ml Syringe) 4 mg IVP Q4HR PRN PRN Reason: Pain Last Admin: 02/23/24 04:56 Dose: 4 mg Naloxone HCl (Naloxone 0.4 Mg/Ml 1 Ml Vial) 0.2 mg IV Q2M PRN PRN Reason: Opioid Reversal Nitroglycerin (Nitroglycerin Sl Tabs 0.4 Mg Tab) 0.4 mg SUBLINGUAL Q5M PRN PRN Reason: Chest Pain Ondansetron HCl (Ondansetron 4 Mg/2 Ml Vial) 4 mg IVP Q6HR PRN PRN Reason: Nausea And Vomiting Last Admin: 02/23/24 14:54 Dose: 4 mg Pantoprazole Sodium (Pantoprazole 40 Mg/10 Ml Vial) 40 mg IV DAILY [facility] Last Admin: 02/25/24 09:04 Dose: 40 mg Pregabalin (Pregabalin 50 Mg Cap) 50 mg PO BID [facility] Last Admin: 02/24/24 21:10 Dose: 50 mg Zolpidem Tartrate (Zolpidem 5 Mg Tab) 5 mg PO HS PRN PRN Reason: Insomnia Last Admin: 02/22/24 23:50 Dose: 5 mg Physical exam: Patient is sitting up in the bed comfortably, no acute distress, awake alert and oriented.. Well-developed, elderly appearing, ill-appearing, obese HEENT: Normocephalic. Neck is supple. Pupils reactive. Nostrils clear. Oral cavity is moist. Neck reveals no JVD, carotid bruits, or thyromegaly. CHEST EXAMINATION: Trachea is central. Symmetrical expansion. Lung anderson clear to auscultation and percussion. CARDIAC: S1, S2 are muffled ABDOMEN: Soft. Obese. Bowel sounds normal. No organomegaly. No abdominal bruits. Extremities: reveal no edema. No clubbing or cyanosis Neurologically awake, alert, oriented x3 with well-coordinated movements. No focal deficits noted, diffusely weak Skin: No rash or skin lesions. Psychiatric: Cooperative. Non-suicidal Musculoskeletal: No joint swelling or deformity. Normal range of motion. Assessment: Acute non-ST elevated NE. Patient presented with chest pain and found to have elevated troponins. Status postcardiac catheterization and stenting of PDA branch of RCA. Repeat catheterization and was also found to have significant pericardial effusion, status post emergent pericardiocentesis with recoiling of the branch of the RCA Acute obstructive shock secondary to pericardial effusion status post drainage Acute hypoxic respiratory failure secondary to above requiring mechanical ventilation, status post successful extubation on 02/25/2024 Shock liver secondary to above Hyperglycemia is uncontrolled diabetes type 2. Patient was previously on insulin regimen. currently taking Mounjaro. A1c 8.4 Coronary disease with history of stent placement Ischemic cardiomyopathy ejection fraction 30-35 % Chronic CHF with mildly reduced systolic function. Hyperlipidemia Hypertension History of NE GERD Hearing disorder/deafness Currently everyday smoker Chronic low back pain Bilateral peripheral neuropathy diabetic Obesity with a BMI of 31.4 GI prophylaxis PPI DVT prophylaxis Full code Plan: Patient will be continued on telemetry. Continue with current medications per cardiology. Patient is status post repeat stenting and recoiling of the branch of the RCA. Patient is status post repeat cardiac catheterization noted to have a significant pericardial effusion requiring emergent pericardiocentesis CT surgery following with plans on removing drainage tube Patient is status post successful extubation today 02/25/2024, currently maintained on 4 L via nasal cannula. Recommend to titrate as tolerated Continue to monitor blood sugar before meals and at bedtime and will continue current regimen and adjust insulins as needed Will advance diet as tolerated once evaluated at bedside postextubation Follow-up on repeat labs PT/OT therapy evaluation Due to multiple complex medical issues, prognosis is guarded The impression and plan of care has been dictated by Brianna Abreu, Nurse Practitioner as directed. MD Angle I have performed a history and examination and MDM of this patient, discussed the same with the dictator, and agree with the dictator's assessment and plan as written ,documented as a scribe. Based on total visit time, I have performed more than 50% of the visit. Objective - Vital Signs Vital signs: Vital Signs Temp 100 F H 02/25/24 08:00 Pulse 98 02/25/24 08:45 Resp 24 02/25/24 08:45 BP 95/65 02/25/24 08:45 Pulse Ox 98 02/25/24 08:45 FiO2 50 02/25/24 08:38 Intake & Output 02/24/24 02/25/24 02/25/24 18:59 06:59 18:59 Intake Total 143.692 1400.980 132.617 Output Total 1330 420 70 Balance -465.632 832.980 62.617 Weight 107.8 kg Intake: IV 390 510 20 Albumin Human 5% 250 ml 250 In Empty Bag 1 bag @ 250 mls/hr IVPB ONCE ONE Rx#: [id number] Potassium Chloride 10 meq 100 In Water For Injection 1 100ml.bag @ 100 mls/hr IVPB Q1H [facility] Rx#: [id number] Sodium Chloride 0.9% 1, 290 000 ml In Empty Bag 1 bag @ 75 mls/hr IV .[id number] [facility] Rx#:[id number] ceFAZolin 2 gm In Sodium 100 50 Chloride 0.9% 50 ml @ 100 mls/hr IVPB Q8HR [facility] Rx# :[id number] venous sheath 0.9 KVO @ 110 20 10 Intake, IV Titration 474.368 552.980 62.617 Amount DOPamine DRIP 800 mg In 125.702 Dextrose/Water 1 250ml. bag @ 1 MCG/KG/MIN 2.041 mls/hr IV .Q24H [facility] Rx#: [id number] Midazolam HCl 50 mg In 49.350 59.816 10.050 Sodium Chloride 0.9% 40 ml @ 1 MG/HR 1 mls/hr IV .Q24H [facility] Rx#:[id number] Norepinephrine 4 mg In 82.261 358.178 27.167 Sodium Chloride 0.9% 250 ml @ 0.05 MCG/KG/MIN 20. 738 mls/hr IV .[id number] [facility] Rx#:[id number] Potassium Chloride 10 meq 200 In Water For Injection 1 100ml.bag @ 100 mls/hr IVPB Q1H [facility] Rx#: [id number] fentaNYL (PF). 1,000 mcg 17.055 134.986 25.400 In Sodium Chloride 0.9% 80 ml @ 0.5 MCG/KG/HR 5. 443 mls/hr IV .[id number] [facility] Rx#:[id number] Tube Feeding 100 20 Other 90 30 Output: Urine 1330 420 70 Other: Voiding Method Indwelling Catheter Indwelling Catheter ABP, PAP, CO, CI - Last Documented Arterial Blood Pressure 118/62 - Labs CBC & Chem 7: 02/25/24 04:00 02/25/24 04:00 Labs: Abnormal Lab Results - Last 24 Hours (Table) 02/24/24 02/24/24 02/24/24 Range/Units 10:47 11:59 16:05 WBC 12.8 H (3.8-10.6) k/uL RBC (4.30-5.90) m/uL Plt Count (150-450) k/uL Neutrophils # 10.7 H (1.3-7.7) k/uL Lymphocytes # 0.8 L (1.0-4.8) k/uL ABG pCO2 (35-45) mmHg ABG pO2 134 H (83-108) mmHg ABG HCO3 28 H (21-25) mmol/L ABG Total CO2 30 H (19-24) mmol/L ABG O2 Saturation 98.2 H (94-97) % Chloride (98-107) mmol/L Glucose (74-99) mg/dL POC Glucose (mg/dL) 261 H (70-110) mg/dL Calcium (8.4-10.2) mg/dL 02/24/24 02/24/24 02/25/24 Range/Units 17:49 20:52 04:00 WBC (3.8-10.6) k/uL RBC 4.20 L (4.30-5.90) m/uL Plt Count 144 L (150-450) k/uL Neutrophils # 7.8 H (1.3-7.7) k/uL Lymphocytes # 0.8 L (1.0-4.8) k/uL ABG pCO2 (35-45) mmHg ABG pO2 (83-108) mmHg ABG HCO3 (21-25) mmol/L ABG Total CO2 (19-24) mmol/L ABG O2 Saturation (94-97) % Chloride (98-107) mmol/L Glucose (74-99) mg/dL POC Glucose (mg/dL) 214 H 206 H (70-110) mg/dL Calcium (8.4-10.2) mg/dL 02/25/24 02/25/24 02/25/24 Range/Units 04:00 04:52 06:13 WBC (3.8-10.6) k/uL RBC (4.30-5.90) m/uL Plt Count (150-450) k/uL Neutrophils # (1.3-7.7) k/uL Lymphocytes # (1.0-4.8) k/uL ABG pCO2 47 H (35-45) mmHg ABG pO2 (83-108) mmHg ABG HCO3 31 H (21-25) mmol/L ABG Total CO2 32 H (19-24) mmol/L ABG O2 Saturation 98.1 H (94-97) % Chloride 110 H (98-107) mmol/L Glucose 209 H (74-99) mg/dL POC Glucose (mg/dL) 180 H (70-110) mg/dL Calcium 8.1 L (8.4-10.2) mg/dL Microbiology - Last 24 Hours (Table) 02/23/24 23:56 Gram Stain - Preliminary Sputum
[2024-02-26 05:01] LABS: HGB 11.8 gm/dL (13.0-17.5); MCH 31.9 pg (25.0-35.0); MCHC 32.7 g/dL (31.0-37.0); MCV 97.5 fL (80.0-100.0); Mean Platelet Volume 8.7; Platelet Count 132 k/uL (150-450); RBC 3.69 m/uL (4.30-5.90); RDW 14.2 % (11.5-15.5)
[2024-02-26 05:21] LABS: ALT 122 U/L (4-49); AST 27 U/L (17-59); African American GFR (CKD) >90 (>60 ml/min/1.73 sqM); Albumin 3.3 g/dL (3.5-5.0); Alkaline Phosphatase 52 U/L (38-126); Anion Gap 4 mmol/L; Blood Urea Nitrogen 14 mg/dL (9-20); Calcium 8.6 mg/dL (8.4-10.2); Carbon Dioxide 27 mmol/L (22-30); Chloride 107 mmol/L (98-107); Glucose 145 mg/dL (74-99); Non-African American GFR(CKD) >90 (>60 ml/min/1.73 sqM); Potassium 3.9 mmol/L (3.5-5.1); Sodium 138 mmol/L (137-145); Total Protein 5.6 g/dL (6.3-8.2)
[2024-02-26] MEDS: POTASSIUM CHLORIDE ER 20 MEQ TAB.ER PO SCH (07:09)
[2024-02-26] MEDS: IPRATROPIUM-ALBUTEROL 3 ML NEB INHALATION SCH (08:11)
--- NOTE | 2024-02-26 08:19 | XR ---
EXAMINATION TYPE: XR chest 1V portable DATE OF EXAM: 02/26/2024 COMPARISON: 02/25/2024 HISTORY: Pericardial effusion TECHNIQUE: Single frontal view of the chest is obtained. FINDINGS: ET tube, NG tube have been removed. Central line stable.. There is mild cardiomegaly and c oarsened interstitium. Right hemithorax not entirely included in the [id number]. Chronic rib defor mities and degenerative changes of the spine. Bilateral basilar subsegmental consolidation. IMPRESSION: There now is bibasilar atelectasis/infiltrate and small effusion. Likely superimposed on a background of COPD and chronic interstitial lung disease.
--- NOTE | 2024-02-26 09:32 | P.PN ---
Subjective Progress Note Date: 02/26/24 Principal diagnosis: Large pericardial effusion, status post paracentesis and subsequent pericardial drain placement, cardiac arrest, status post ACLS protocol and return of sponta neous circulation, coronary artery disease, status post cardiac catheterization with stent placement to his PDA branch of his right coronary artery, and subsequent successful coiling of the PDA branch of the right coronary artery with no evidence of extravasation, acute non-ST elevated myocardial infarction this admission. Past medical history significant for coronary artery disease with previous stenting of the RCA and LAD, ischemic cardiomyopathy with an ejection fraction of 30-35%, hypertension, dyslipidemia, diabetes mellitus type 2, chronic ongoing tobacco dependence, COPD, obesity with a BMI of 31.7 kg/m, chronic back pain and non-ST elevated myocardial infarction. POD #3 paracentesis with 600 mL of fresh blood from the pericardium drained, and placement of pericardial drain by Dr. Hernandes The patient was seen and examined in follow-up today February 26, 2024 at his bedside in the intensive care unit. He was successfully extubated yesterday, is currently sitting up to the bedside chair, is awake, alert, oriented x 3 and is in no acute apparent distress. He remains hemodynamically stable and is currently on no inotropic or pressor support. Denies any complaints of pain or shortness of breath at this time. Oxygen saturations are 97% on room air. Bedside telemetry showing normal sinus rhythm heart rate 83 bpm. Pericardial drain was removed yesterday without incident. Chest x-ray results reviewed. Objective - Vital Signs Vital signs: Vital Signs Temp 98.2 F 02/26/24 04:00 Pulse 88 02/26/24 08:20 Resp 12 02/26/24 07:00 BP 107/61 02/26/24 07:00 Pulse Ox 97 02/26/24 07:00 FiO2 50 02/25/24 11:30 Intake & Output 02/25/24 02/26/24 02/26/24 18:59 06:59 18:59 Intake Total 1641.535 510 20 Output Total 317 550 Balance 1324.535 -40 20 Weight 107.8 kg Intake: IV 270 270 20 0.9 Sodium Chloride 140 220 20 ceFAZolin 2 gm In Sodium 50 50 Chloride 0.9% 50 ml @ 100 mls/hr IVPB Q8HR [facility] Rx# :[id number] venous sheath 0.9 KVO @ 80 10 Intake, IV Titration 71.535 Amount Midazolam HCl 50 mg In 10.050 Sodium Chloride 0.9% 40 ml @ 1 MG/HR 1 mls/hr IV .Q24H [facility] Rx#:[id number] Norepinephrine 4 mg In 36.085 Sodium Chloride 0.9% 250 ml @ 0.05 MCG/KG/MIN 20. 738 mls/hr IV .[id number] [facility] Rx#:[id number] fentaNYL (PF). 1,000 mcg 25.400 In Sodium Chloride 0.9% 80 ml @ 0.5 MCG/KG/HR 5. 443 mls/hr IV .[id number] [facility] Rx#:[id number] Oral 1250 240 Tube Feeding 20 Other 30 Output: Chest Tube Drainage 10 Chest Tube Mediastinal 10 Urine 307 550 Other: Voiding Method Indwelling Catheter # Voids 0 0 ABP, PAP, CO, CI - Last Documented Arterial Blood Pressure 129/56 - Exam CONSTITUTIONAL: Sitting up to the bedside chair in the intensive care unit, appears comfortable, cooperative, no apparent acute distress. HEENT: Neck is supple, no JVD, no lymphadenopathy. RESPIRATORY: Lungs sounds essentially clear throughout, diminished to his bilateral bases. Respirations are symmetrical and nonlabored. Currently on room air with oxygen saturations 97%. Strong cough. CARDIOVASCULAR: Regular rhythm and rate. S1 and S2 present, negative for S3, gallop or murmur. GASTROINTESTINAL: Abdomen soft, nontender, nondistended. Active e bowel sounds present 4 quadrants. Tolerating diet. Passing flatus. No guarding or rigidi ty. GENITOURINARY: Continues to void. Urine output 450 mL in the last 8 hours. INTEGUMENTARY: Skin is warm and dry with no evidence of clubbing or cyanosis. NEUROLOGIC: Cranial nerves II through XII intact. No focal deficits. MUSKULOSKELETAL: Able to move all extremities, strength equal bilaterally, generalized weakness. PSYCHIATRIC: Alert and oriented to person place and time, appropriate affect, intact judgment and insight. - Allied health notes Allied health notes reviewed: nursing - Labs CBC & Chem 7: 02/26/24 04:40 02/26/24 04:40 Labs: Abnormal Lab Results - Last 24 Hours (Table) 02/25/24 02/25/24 02/25/24 Range/Units 11:05 11:58 21:45 RBC (4.30-5.90) m/uL Hgb (13.0-17.5) gm/dL Hct (39.0-53.0) % Plt Count (150-450) k/uL ABG pCO2 47 H (35-45) mmHg ABG HCO3 30 H (21-25) mmol/L ABG Total CO2 31 H (19-24) mmol/L ABG O2 Saturation 98.0 H (94-97) % Creatinine (0.66-1.25) mg/dL Glucose (74-99) mg/dL POC Glucose (mg/dL) 171 H 171 H (70-110) mg/dL ALT (4-49) U/L Total Protein (6.3-8.2) g/dL Albumin (3.5-5.0) g/dL 02/26/24 02/26/24 Range/Units 04:40 04:40 RBC 3.69 L (4.30-5.90) m/uL Hgb 11.8 L (13.0-17.5) gm/dL Hct 36.0 L (39.0-53.0) % Plt Count 132 L (150-450) k/uL ABG pCO2 (35-45) mmHg ABG HCO3 (21-25) mmol/L ABG Total CO2 (19-24) mmol/L ABG O2 Saturation (94-97) % Creatinine 0.56 L (0.66-1.25) mg/dL Glucose 145 H (74-99) mg/dL POC Glucose (mg/dL) (70-110) mg/dL ALT 122 H (4-49) U/L Total Protein 5.6 L (6.3-8.2) g/dL Albumin 3.3 L (3.5-5.0) g/dL Microbiology - Last 24 Hours (Table) 02/24/24 11:50 Blood Culture - Preliminary Blood - Imaging and Cardiology Chest x-ray: report reviewed, image reviewed Assessment and Plan Assessment: Large pericardial effusion, status post pericardial drain placement by Dr. Hernandes and successful coiling of his PDA branch of his RCA Coronary artery disease, successful stenting of his PDA branch of his right c oronary artery on February 20, 2024, previous stent placement to his RCA and LAD Acute non-ST elevated myocardial infarction this admission Hypertension Hyperlipidemia Diabetes mellitus type 2 Ischemic cardiomyopathy with an ejection fraction of 30 to 35% Chronic ongoing tobacco dependence COPD Obesity with a BMI of 31.7 kg/m Chronic back pain GERD Plan: Medical management other comorbidities per primary care service, pulmonary critical care service and cardiology service. GI and DVT prophylaxis. We will continue to follow the patient on an as-needed basis, please reconsult if cardiothoracic surgery service is needed. Time with Patient: Less than 30
[2024-02-26] MEDS: METOPROLOL TARTRATE 25 MG TAB PO SCH (09:48)
--- NOTE | 2024-02-26 10:26 | P.PN ---
Subjective Progress Note Date: 02/26/24 PROGRESS NOTE The patient is a 59-year-old male who presented with symptoms of chest discomfort and non-STEMI underwent cardiac catheterization and stenting of the right PDA. He persisted in having symptoms and underwent repeat angiography on Sunday and was found to have occluded PDA, was recanalized and few hours after became hypotensive and had a large pericardial effusion requiring pericardiocentesis and subsequent coiling of the right PDA. He remains intubated. He has a pericardial catheter in place. He is in sinus mechanism. His urine output is stable. There is no evidence of malignant arrhythmia. His echocardiogram preprocedure showed an ejection fraction of 30 to 35%. On his initial cardiac catheterization he had distal OM disease as well and his ostial diagonal obstructive disease. February 25 : The patient is feeling well this morning, sitting up in the chair, extubated yesterday. He is in sinus mechanism and his pericardial catheter has been removed. His blood pressure is stable. He complains of soreness in the chest. He denies any significant dyspnea. He has no nausea or vomiting, no dizziness or palpitations. Medications: Aspirin, Lipitor 80 mg daily, cefazolin, insulin, lisinopril 5 mg daily, colchicine 0.6 mg twice a day, metoprolol 25 mg twice a day PHYSICAL EXAMINATION: Blood pressure 107/61 heart rate 88 LUNGS: Few crackles anteriorly HEART: Regular rate and rhythm, S1, S2. No S3. No systolic murmur, ABDOMEN: Soft, nontender, no organomegaly EXTREMETIES: No edema, LAB: Hemoglobin 11.8, potassium 3.9, BUN 14, creatinine 0.56 IMPRESSION: 1. Status post coronary perforation and pericardial effusion with pericardial drainage, his drainage catheter has been removed 2. Coiling of the right PDA 3. Prior cardiomyopathy, nonischemic 4. Status post stenting of the RCA 5. History of hyperlipidemia 6. History of diabetes PLAN: 1. Add Farxiga in view of the cardiomyopathy 2. Follow blood pressure and adjust beta-rikki and DAMIEN inhibitor dose 3. Increase physical activity 4. If stable probable discharge home in the next 24 to 48 hours Objective - Vital Signs Vital signs: Vital Signs Temp 98.2 F 02/26/24 04:00 Pulse 88 02/26/24 08:20 Resp 12 02/26/24 07:00 BP 107/61 02/26/24 07:00 Pulse Ox 97 02/26/24 07:00 FiO2 50 02/25/24 11:30 Intake & Output 02/25/24 02/26/24 02/26/24 18:59 06:59 18:59 Intake Total 1641.535 510 300 Output Total 317 550 0 Balance 1324.535 -40 300 Weight 107.8 kg Intake: IV 270 270 60 0.9 Sodium Chloride 140 220 60 ceFAZolin 2 gm In Sodium 50 50 Chloride 0.9% 50 ml @ 100 mls/hr IVPB Q8HR [facility] Rx# :[id number] venous sheath 0.9 KVO @ 80 10 Intake, IV Titration 71.535 Amount Midazolam HCl 50 mg In 10.050 Sodium Chloride 0.9% 40 ml @ 1 MG/HR 1 mls/hr IV .Q24H [facility] Rx#:[id number] Norepinephrine 4 mg In 36.085 Sodium Chloride 0.9% 250 ml @ 0.05 MCG/KG/MIN 20. 738 mls/hr IV .[id number] [facility] Rx#:[id number] fentaNYL (PF). 1,000 mcg 25.400 In Sodium Chloride 0.9% 80 ml @ 0.5 MCG/KG/HR 5. 443 mls/hr IV .[id number] [facility] Rx#:[id number] Oral 1250 240 240 Tube Feeding 20 Other 30 Output: Chest Tube Drainage 10 Chest Tube Mediastinal 10 Urine 307 550 0 Other: Voiding Method Indwelling Catheter # Voids 0 0 ABP, PAP, CO, CI - Last Documented Arterial Blood Pressure 129/56 - Labs CBC & Chem 7: 02/26/24 04:40 02/26/24 04:40 Labs: Abnormal Lab Results - Last 24 Hours (Table) 02/25/24 02/25/24 02/25/24 Range/Units 11:05 11:58 21:45 RBC (4.30-5.90) m/uL Hgb (13.0-17.5) gm/dL Hct (39.0-53.0) % Plt Count (150-450) k/uL ABG pCO2 47 H (35-45) mmHg ABG HCO3 30 H (21-25) mmol/L ABG Total CO2 31 H (19-24) mmol/L ABG O2 Saturation 98.0 H (94-97) % Creatinine (0.66-1.25) mg/dL Glucose (74-99) mg/dL POC Glucose (mg/dL) 171 H 171 H (70-110) mg/dL ALT (4-49) U/L Total Protein (6.3-8.2) g/dL Albumin (3.5-5.0) g/dL 02/26/24 02/26/24 Range/Units 04:40 04:40 RBC 3.69 L (4.30-5.90) m/uL Hgb 11.8 L (13.0-17.5) gm/dL Hct 36.0 L (39.0-53.0) % Plt Count 132 L (150-450) k/uL ABG pCO2 (35-45) mmHg ABG HCO3 (21-25) mmol/L ABG Total CO2 (19-24) mmol/L ABG O2 Saturation (94-97) % Creatinine 0.56 L (0.66-1.25) mg/dL Glucose 145 H (74-99) mg/dL POC Glucose (mg/dL) (70-110) mg/dL ALT 122 H (4-49) U/L Total Protein 5.6 L (6.3-8.2) g/dL Albumin 3.3 L (3.5-5.0) g/dL Microbiology - Last 24 Hours (Table) 02/24/24 11:50 Blood Culture - Preliminary Blood
[2024-02-26] MEDS: DAPAGLIFLOZIN PROPANEDIOL 10 MG TABLET PO SCH (11:14)
[2024-02-26 11:18] LABS: Glucose,Whole Blood 226 mg/dL (70-110)
--- NOTE | 2024-02-26 13:15 | P.PN ---
Subjective Progress Note Date: 02/26/24 This is a 59-year-old male patient with a known history of coronary artery disease and previous stent placement to the RCA and more recently a stent to the LAD in November 2021, chronic obstructive pulmonary disease, diabetes mellitus, gastroesophageal reflux disease, hearing disorder Keiper hypertension, hyperlipidemia, former smoker. He was here in the emergency room on 02/14/2024 with complaints of chest pain. He was recommended admission but the patient declined. He followed up with his experimental psychologist who had sent him back to the emergency room on 02/20/2024 for admission for acute non-ST segment elevation myocardial infarction and heart catheterization today that revealed adequately disease involving the PDA branch of the RCA and subsequent stenting. Echocardiogram revealed impaired left ventricular systolic function with ejection fraction of 30 to 35%. Having ongoing issues with unstable angina and brought back to the cardiac catheter station lab with stenting of the PDA branch of the RCA, adjunctive use of intravascular imaging and aspiration thrombectomy. Developed significant distress and a rapid response team was called and subsequent CODE BLUE. He had developed significant pericardial effusion and had undergone a emergent pericardiocentesis with 600 cc of blood removed patient was intubated and transferred to the intensive care unit. He is seen today in consultation on the mechanical ventilator and assist-control mode at a rate of 24, tidal volume 500, FiO2 100% and a PEEP of 5. Morning blood gases revealed a PaO2 of 99, pCO2 43 and a pH of 7.42. He is on normal saline at 20 MLS per hour. He is receiving Versed at 5 mg/h. Dopamine at 3.5 mcg/kg/min and fenta nyl at 1 mcg/kg/h. He is currently on cefazolin. Initiated on bronchodilators. 0.3. Platelets 152. Sodium 140. Potassium 4.1. Bicarb 28. BUN 14. Creatinine 0.66. Glucose 251. AST 338. ALT 488. Endotracheal and nasogastric tubes secured in place. Chest x-ray reveals increasing opacity in the right lung base, likely reflecting pleural effusion with adjacent atelectasis. On today's evaluation of 02/25/2024, patient is being seen for a follow-up. This morning, the patientOn today's evaluation is calm and comfortable. The patient is being weaned off the propofol and the patient is awake and alert and following simple commands. He remains on mechanical ventilator. He is on assist-control mode at the rate of 24, tidal volume of 500, FiO2 of 50% with a PEEP of 10. Blood gas showed a pH of 7.42 with a pCO2 of 47 and pO2 of 89. The pericardial tube is in place and there is no significant output from the drainage tube. The patient had a follow-up chest x-ray this morning that showed some mild interstitial prominence consistent with CHF. He is known to have impaired LV function with an ejection fraction of 30 to 35%. He remains on norepinephrine running at 0.03 mcg/kg/min. Repeat transthoracic echocardiogram was done and it showed evidence of any significant pericardial effusion. CVP is currently at 10. The blood work from today showed a WBC count of 9.5, hemoglob in 13.2 and a platelet count of 144, sodium is at 141, BUN is at 16 with a creatinine of 0.67. On today's evaluation of 02/26/2024, the patient is doing extremely well. The patient is currently on 2 L of oxygen by nasal cannula. No signs of any respite distress. Hemodynamically stable. Adequate urine output. The patient had a pericardial tube removed and as mentioned, the echocardiogram that was done yesterday showed no evidence of any residual pericardial effusion. Hemodynamically stable on no pressors. The hemoglobin is at 11.8, and the white cell count is at 8 with a platelet count of 132. BUN is at 40 reflecting of 0.5 and his sodium levels at 138. The patient is awake and alert and communicating. He is tolerating diet. Denies having any specific complaints. He remains on L evemir insulin 21 units daily in addition to NovoLog sliding scale coverage. The patient is currently on aspirin. The stent has been occluded and there is no need for Plavix at this point in time. Metoprolol will be started 25 mg p.o. twice a day and the patient is also on lisinopril 5 mg p.o. daily. Lipitor is at 80 mg on a daily basis. Objective - Vital Signs Vital signs: Vital Signs Temp 98.2 F 02/26/24 04:00 Pulse 88 02/26/24 08:20 Resp 12 02/26/24 07:00 BP 107/61 02/26/24 07:00 Pulse Ox 97 02/26/24 07:00 FiO2 50 02/25/24 11:30 Intake & Output 02/25/24 02/26/24 02/26/24 18:59 06:59 18:59 Intake Total 1641.535 510 20 Output Total 317 550 Balance 1324.535 -40 20 Weight 107.8 kg Intake: IV 270 270 20 0.9 Sodium Chloride 140 220 20 ceFAZolin 2 gm In Sodium 50 50 Chloride 0.9% 50 ml @ 100 mls/hr IVPB Q8HR [facility] Rx# :[id number] venous sheath 0.9 KVO @ 80 10 Intake, IV Titration 71.535 Amount Midazolam HCl 50 mg In 10.050 Sodium Chloride 0.9% 40 ml @ 1 MG/HR 1 mls/hr IV .Q24H [facility] Rx#:[id number] Norepinephrine 4 mg In 36.085 Sodium Chloride 0.9% 250 ml @ 0.05 MCG/KG/MIN 20. 738 mls/hr IV .[id number] [facility] Rx#:[id number] fentaNYL (PF). 1,000 mcg 25.400 In Sodium Chloride 0.9% 80 ml @ 0.5 MCG/KG/HR 5. 443 mls/hr IV .[id number] [facility] Rx#:[id number] Oral 1250 240 Tube Feeding 20 Other 30 Output: Chest Tube Drainage 10 Chest Tube Mediastinal 10 Urine 307 550 Other: Voiding Method Indwelling Catheter # Voids 0 0 ABP, PAP, CO, CI - Last Documented Arterial Blood Pressure 129/56 - Exam CONSTITUTIONAL: Calm and comfortable currently on 2 L of oxygen by nasal cannula HEENT: Neck is supple, no JVD, no lymphadenopathy. RESPIRATORY: Lungs sounds essentially clear throughout, diminished to his bilateral bases, scattered rhonchi throughout. CARDIOVASCULAR: Regular rhythm and rate. S1 and S2 present, negative for S3, gallop or murmur. Palpable peripheral pulses bilaterally. Bedside telemetry is showing normal sinus GASTROINTESTINAL: Abdomen soft, nontender, nondistended. Active bowel sounds present 4 quadrants. Tolerating diet. Passing flatus. No guarding or rigidity. GENITOURINARY: Roe present draining clear, yellow urine. 330 mL in the last 8 hours. INTEGUMENTARY: Skin is warm and dry with no evidence of clubbing or cyanosis. v NEUROLOGIC: Neurologically, the patient is awake and alert and the patient does not have any focal neurological deficit. Cranial nerves are essentially intact. MUSKULOSKELETAL: Able to move all extremities, strength equal bilaterally, g eneralized weakness. v - Labs CBC & Chem 7: 02/26/24 04:40 02/26/24 04:40 Labs: Abnormal Lab Results - Last 24 Hours (Table) 02/25/24 02/25/24 02/25/24 Range/Units 11:05 11:58 21:45 RBC (4.30-5.90) m/uL Hgb (13.0-17.5) gm/dL Hct (39.0-53.0) % Plt Count (150-450) k/uL ABG pCO2 47 H (35-45) mmHg ABG HCO3 30 H (21-25) mmol/L ABG Total CO2 31 H (19-24) mmol/L ABG O2 Saturation 98.0 H (94-97) % Creatinine (0.66-1.25) mg/dL Glucose (74-99) mg/dL POC Glucose (mg/dL) 171 H 171 H (70-110) mg/dL ALT (4-49) U/L Total Protein (6.3-8.2) g/dL Albumin (3.5-5.0) g/dL 02/26/24 02/26/24 Range/Units 04:40 04:40 RBC 3.69 L (4.30-5.90) m/uL Hgb 11.8 L (13.0-17.5) gm/dL Hct 36.0 L (39.0-53.0) % Plt Count 132 L (150-450) k/uL ABG pCO2 (35-45) mmHg ABG HCO3 (21-25) mmol/L ABG Total CO2 (19-24) mmol/L ABG O2 Saturation (94-97) % Creatinine 0.56 L (0.66-1.25) mg/dL Glucose 145 H (74-99) mg/dL POC Glucose (mg/dL) (70-110) mg/dL ALT 122 H (4-49) U/L Total Protein 5.6 L (6.3-8.2) g/dL Albumin 3.3 L (3.5-5.0) g/dL Microbiology - Last 24 Hours (Table) 02/24/24 11:50 Blood Culture - Preliminary Blood Assessment and Plan Plan: Acute non-ST segment elevation myocardial infarction requiring stenting to the PDA of the RCA initially on 02/20/2024 with subsequent stable angina and return to the [facility] on 02/23/2024 for stenting of the PDA branch of the RCA and int ravascular imaging and aspiration thrombectomy. Later that same day he developed hypotension and cardiac arrest and was found to have a significant pericardial effusion requiring emergent pericardiocentesis with 1200 mL of emanuel blood moved and then underwent successful coiling of the PDA branch of the RCA. The pericardial tube is in place without any significant output. Repeat echocardiogram that was done this morning of 02/25/2024 showed no evidence of any pericardial effusion or tamponade. No signs of any ongoing bleeding. The pericardial tube has been removed and the patient is hemodynamically stable at this point in time, extubated. Acute obstructive shock secondary to pericardial effusion/tamponade, post drainage. The patient also underwent coiling of the distal RCA leak. The patient is back to normal hemodynamics Acute hypotension secondary to above, recovered Acute hypoxemic respiratory failure, extubated on 02/25/2024 currently on 2 L of oxygen by nasal cannula Shock liver secondary to above, improving History of coronary artery disease with previous stent placement Ischemic cardiomyopathy with ejection fraction of 30 to 35% Former smoker Diabetes mellitus Hypertension Hyperlipidemia Plan: patient is extubated and the patient is currently on 2 L of O2 nasal cannula Continue using incentive spirometer No pressors for nowut Repeat echocardiogram was noted Continue aspirin and hold the rest of the antiplatelet agents Hemoglobin is stable for now Remains on cefazolin Continue metoprolol and Zestril Continue statins Continue bronchodilators Patient can be transferred to the cardiac unit
[2024-02-26 16:32] LABS: Glucose,Whole Blood 205 mg/dL (70-110)
[2024-02-26 19:57] LABS: Glucose,Whole Blood 207 mg/dL (70-110)
[2024-02-26] MEDS: ALPRAZolam 0.25 MG TAB PO PRN (20:42)
[2024-02-26] MEDS: DULoxetine HCL 60 MG CAPSULE.DR PO SCH (20:44)
--- NOTE | 2024-02-27 05:42 | P.PN ---
Subjective Progress Note Date: 02/26/24 59-year-old male with a past medical history of coronary artery disease history of stent placement, ischemic cardiomyopathy ejection fraction 45%, COPD, diabetes type 2 on Mounjaro currently, hypertension, hyperlipidemia, history of mild, currently everyday smoker and chronic low back pain and other medical problems presents to Dr. Jernigan's office today with complaints of chest pain. Patient was initially seen in the ER on 02/14/2024 with complaints of chest pain and was discharged home with negative EKG and troponin. Patient was recommended to follow-up with cardiology as an outpatient. Patient started having chest pain mainly mid retrosternal and radiating across the shoulders. Mild difficul ty breathing. No nausea or vomiting or diaphoresis no headache or dizziness or lightheadedness. Patient was sent from ambulance mechanic office for cardiac catheterization today. Chest x-ray showed that the degree of interstitial prominence could reflect a superimposed bronchitis or atypical pneumonias. No focal infiltrate seen. EKG showed sinus rhythm Laboratory data showed WBC 5.5 hemoglobin 17.1 and platelets 142 Sodium 132 potassium 4.5 chloride 102 bicarb is 22 BUN 14 and creatinine 0.50 and blood sugar 335 Liver enzymes are not elevated. Troponin 0.068, 0.060 and 0.062, proBNP 126 and albumin 4.1 24-hour interval change 02/23/2024 Patient is seen and evaluated in room at bedside; continue to report chest pain despite aggressive medical therapy; remains on IV nitroglycerin and heparin along with DAPT with aspirin and Effient Patient is status post cardiac catheterization with stent to PDA of RCA; given persistent chest pain despite stent placement and DAPT, cardiology planning to reevaluate with repeat cardiac catheterization Echocardiogram is completed and reveals an EF of 45% --Continue with IV heparin and nitroglycerin; further recommendations after ca rdiac catheterization 02/24/2024 Patient is seen and evaluated in ICU; family members at bedside; patient is intubated and mechanically ventilated 02/20/2024 for admission for acute non-ST segment elevation myocardial infarction and heart catheterization today that revealed adequately disease involving the PDA branch of the RCA and subsequent stenting. Echocardiogram revealed impaired left ventricular systolic function with ejection fraction of 30 to 35%. Having ongoing issues with unstable angina and brought back to the cardiac catheter station lab with stenting of the PDA branch of the RCA, adjunctive use of intravascular imaging and aspiration thrombectomy. Developed significant distress and a rapid response team was called and subsequent CODE BLUE. He had developed significant pericardial effusion and had undergone a emergent pericardiocentesis with 600 cc of blood removed patient was intubated and transferred to the intensive care unit. 02/25/2024 Patient is seen and evaluated in follow-up today in the ICU with multiple medical consultations following. Patient continues to be intubated and underwent repeat stenting to the RCA and thrombectomy. Patient was coded and de veloped significant pericardial effusion underwent pericardiocentesis with CT surgery and discussing possible drainage removal. Patient is weaned off sedation and was just extubated minutes prior to exam. Following commands currently maintained on 3 L via nasal cannula. Patient with decreased urine output being given a dose of Lasix. Will monitor closely. Swallow eval to be performed and slowly advance diet as tolerated. 02/26/2024 Patient is seen in follow-up today continues in the ICU with cardiology following. Patient is a downgrade and awaiting a bed on the stepdown unit. Chest x-ray today shows bibasilar atelectasis/imposed on a background of COPD and chronic interstitial lung disease. Patient continues on 2 L via nasal cannula. Labs reviewed and within normal limits and blood sugars being monitored will continue on current regimen. Per cardiology following continue to maximize medical regimen and monitor overnight with possible discharge planning in the next 24 hours. Patient reports to feeling significantly improved reports of generalized weakness although has been up and walking including walking the [place]ino with a walker and plans on returning home. Family at the bedside with questions and concerns that were answered to the best of her ability. Patient is afebrile with no reports of chest pain or shortness of breath. Patient tolerating diet with no reported nausea or vomiting noted. Repeat 2D echo showing no pericardial effusion at this time. Review of systems: Constitutional: No reports of fatigue, fever, or chills Cardiovascular: No reports of chest pain or palpitations Respiratory: No reports of shortness of breath or cough GI: No reports of nausea, vomiting, or diarrhea : No reports of dysuria or retention Neurovascular: No reports of weakness or numbness All medications have been reviewed Physical exam: Patient is sitting up in the chair, no acute distress, awake alert and oriented.. Well-developed, elderly appearing, ill-appearing, obese HEENT: Normocephalic. Neck is supple. Pupils reactive. Nostrils clear. Oral cavity is moist. Neck reveals no JVD, carotid bruits, or thyromegaly. CHEST EXAMINATION: Trachea is central. Symmetrical expansion. Lung anderson clear to auscultation and percussion. CARDIAC: S1, S2 are muffled ABDOMEN: Soft. Obese. Bowel sounds normal. No organomegaly. No abdominal bruits. Extremities: reveal no edema. No clubbing or cyanosis Neurologically awake, alert, oriented x3 with well-coordinated movements. No focal deficits noted, diffusely weak Skin: No rash or skin lesions. Psychiatric: Cooperative. Non-suicidal Musculoskeletal: No joint swelling or deformity. Normal range of motion. Assessment: Acute non-ST elevated NM. Patient presented with chest pain and found to have elevated troponins. Status postcardiac catheterization and stenting of PDA branch of RCA. Repeat catheterization and was also found to have significant pericardial effusion, status post emergent pericardiocentesis with recoiling of the branch of the RCA Acute obstructive shock secondary to pericardial effusion status post drainage, improved, repeat echo showing no pericardial effusion Acute hypoxic respiratory failure secondary to above requiring mechanical ventilation, status post successful extubation on 02/25/2024, currently on room air Shock liver secondary to above Hyperglycemia is uncontrolled diabetes type 2. Patient was previously on insulin regimen. currently taking Mounjaro. A1c 8.4 Coronary disease with history of stent placement Ischemic cardiomyopathy ejection fraction 30-35 % Chronic CHF with mildly reduced systolic function. Hyperlipidemia Hypertension History of NM GERD Hearing disorder/deafness Currently everyday smoker Chronic low back pain Bilateral peripheral neuropathy diabetic Obesity with a BMI of 31.4 GI prophylaxis PPI DVT prophylaxis Full code Plan: Patient will be continued on telemetry. Continue with current medications per cardiology. Patient is status post repeat stenting and recoiling of the branch of the RCA. Patient is status post repeat cardiac catheterization noted to have a significant pericardial effusion requiring emergent pericardiocentesis CT surgery following and has removed drainage tube Patient is status post successful extubation 02/25/2024, currently maintained on room air and occasionally using 2 L via nasal cannula. Recommend to titrate as tolerated. Encouraged incentive spirometer use at least 10 times every hour while awake Continue to monitor blood sugar before meals and at bedtime and will continue current regimen and adjust insulins as needed Follow-up on repeat labs Patient is a transfer out of the ICU once a bed is available on stepdown PT/OT therapy evaluating and patient has been up and walking with a walker. Plans on returning home with family Due to multiple complex medical issues, prognosis is guarded Will discuss with cardiology regarding discharge with possible discharge planning in the next 24 to 48 hours The impression and plan of care has been dictated by Brianna Aberu, Nurse Yen pantoja as directed. MD Angle I have performed a history and examination and MDM of this patient, discussed the same with the dictator, and agree with the dictator's assessment and plan a s written ,documented as a scribe. Based on total visit time, I have performed more than 50% of the visit. Objective - Vital Signs Vital signs: Vital Signs Temp 98.2 F 02/26/24 04:00 Pulse 88 02/26/24 08:20 Resp 12 02/26/24 07:00 BP 107/61 02/26/24 07:00 Pulse Ox 97 02/26/24 07:00 FiO2 50 02/25/24 11:30 Intake & Output 02/25/24 02/26/24 02/26/24 18:59 06:59 18:59 Intake Total 1641.535 510 20 Output Total 317 550 Balance 1324.535 -40 20 Weight 107.8 kg Intake: IV 270 270 20 0.9 Sodium Chloride 140 220 20 ceFAZolin 2 gm In Sodium 50 50 Chloride 0.9% 50 ml @ 100 mls/hr IVPB Q8HR [facility] Rx# :[id number] venous sheath 0.9 KVO @ 80 10 Intake, IV Titration 71.535 Amount Midazolam HCl 50 mg In 10.050 Sodium Chloride 0.9% 40 ml @ 1 MG/HR 1 mls/hr IV .Q24H [facility] Rx#:[id number] Norepinephrine 4 mg In 36.085 Sodium Chloride 0.9% 250 ml @ 0.05 MCG/KG/MIN 20. 738 mls/hr IV .[id number] [facility] Rx#:[id number] fentaNYL (PF). 1,000 mcg 25.400 In Sodium Chloride 0.9% 80 ml @ 0.5 MCG/KG/HR 5. 443 mls/hr IV .[id number] [facility] Rx#:[id number] Oral 1250 240 Tube Feeding 20 Other 30 Output: Chest Tube Drainage 10 Chest Tube Mediastinal 10 Urine 307 550 Other: Voiding Method Indwelling Catheter # Voids 0 0 ABP, PAP, CO, CI - Last Documented Arterial Blood Pressure 129/56 - Labs CBC & Chem 7: 02/26/24 04:40 02/26/24 04:40 Labs: Abnormal Lab Results - Last 24 Hours (Table) 02/25/24 02/25/24 02/25/24 Range/Units 11:05 11:58 21:45 RBC (4.30-5.90) m/uL Hgb (13.0-17.5) gm/dL Hct (39.0-53.0) % Plt Count (150-450) k/uL ABG pCO2 47 H (35-45) mmHg ABG HCO3 30 H (21-25) mmol/L ABG Total CO2 31 H (19-24) mmol/L ABG O2 Saturation 98.0 H (94-97) % Creatinine (0.66-1.25) mg/dL Glucose (74-99) mg/dL POC Glucose (mg/dL) 171 H 171 H (70-110) mg/dL ALT (4-49) U/L Total Protein (6.3-8.2) g/dL Albumin (3.5-5.0) g/dL 02/26/24 02/26/24 Range/Units 04:40 04:40 RBC 3.69 L (4.30-5.90) m/uL Hgb 11.8 L (13.0-17.5) gm/dL Hct 36.0 L (39.0-53.0) % Plt Count 132 L (150-450) k/uL ABG pCO2 (35-45) mmHg ABG HCO3 (21-25) mmol/L ABG Total CO2 (19-24) mmol/L ABG O2 Saturation (94-97) % Creatinine 0.56 L (0.66-1.25) mg/dL Glucose 145 H (74-99) mg/dL POC Glucose (mg/dL) (70-110) mg/dL ALT 122 H (4-49) U/L Total Protein 5.6 L (6.3-8.2) g/dL Albumin 3.3 L (3.5-5.0) g/dL Microbiology - Last 24 Hours (Table) 02/24/24 11:50 Blood Culture - Preliminary Blood
[2024-02-27 06:04] LABS: Glucose,Whole Blood 180 mg/dL (70-110)
--- NOTE | 2024-02-27 10:31 | XR ---
EXAMINATION TYPE: XR chest 1V portable DATE OF EXAM: 02/27/2024 COMPARISON: 02/26/2024 HISTORY: Shortness of breath TECHNIQUE: Single frontal view of the chest is obtained. FINDINGS: Diffuse interstitial pattern with bilateral consolidation and small pleural effusion. Hear t is enlarged. Chronic rib deformities and degenerative change of the spine. Underlying COPD. IMPRESSION: Correlate for CHF otherwise consider pneumonia.
[2024-02-27 11:04] LABS: African American GFR (CKD) >90 (>60 ml/min/1.73 sqM); Anion Gap 10 mmol/L; Blood Urea Nitrogen 11 mg/dL (9-20); Calcium 8.1 mg/dL (8.4-10.2); Carbon Dioxide 22 mmol/L (22-30); Chloride 106 mmol/L (98-107); Glucose 222 mg/dL (74-99); Non-African American GFR(CKD) >90 (>60 ml/min/1.73 sqM); Potassium 3.4 mmol/L (3.5-5.1); Sodium 138 mmol/L (137-145)
[2024-02-27 11:44] LABS: Glucose,Whole Blood 187 mg/dL (70-110)
--- NOTE | 2024-02-27 13:19 | P.PN ---
Subjective HISTORY OF PRESENT ILLNESS: The patient is a 59-year-old male who presented with symptoms of chest discomfort and non-STEMI underwent cardiac catheterization and stenting of the right PDA. He persisted in having symptoms and underwent repeat angiography on Sunday and was found to have occluded PDA, was recanalized and few hours after became hypotensive and had a large pericardial effusion requiring pericardiocentesis and subsequent coiling of the right PDA. He remains intubated. He has a pericardial catheter in place. He is in sinus mechanism. His urine output is stable. There is no evidence of malignant arrhythmia. His echocardiogram preprocedure showed an ejection fraction of 30 to 35%. On his initial cardiac catheterization he had distal OM disease as well and his ostial diagonal obstructive disease. February 25 : The patient is feeling well this morning, sitting up in the chair, extubated yesterday. He is in sinus mechanism and his pericardial catheter has been removed. His blood pressure is stable. He complains of soreness in the chest. He denies any significant dyspnea. He has no nausea or vomiting, no dizziness or palpitations. 02/27/2024 Patient examined this morning. Patient is sitting up in the chair. Patient currently denies chest pain or pressure. He denies shortness of breath. Patient has been up ambulating in the hallway. Pulse ox 93% after ambulation. PHYSICAL EXAM: VITAL SIGNS: Reviewed. GENERAL: Well-developed in no acute distress. NECK: Supple. No JVD or thyromegaly LUNGS: Respirations even and unlabored. Lungs essentially clear to auscultation bilaterally. HEART: Regular rate and rhythm. S1 and S2 heard. EXTREMITIES: Normal range of motion. No clubbing or cyanosis. Peripheral pulses intact. No lower extremity edema ASSESSMENT: 1. Status post coronary perforation and pericardial effusion with pericardial drainage, his drainage catheter has been removed 2. Coiling of the right PDA 3. Prior cardiomyopathy, nonischemic 4. Status post stenting of the RCA 5. History of hyperlipidemia 6. History of diabetes PLAN: Continue current cardiac medications Add Plavix 75 mg daily Continue to increase activity as tolerated Continue to monitor patient for additional 24 hours Anticipate discharge home tomorrow if patient remains stable Nurse practitioner note has been reviewed by physician. Signing provider agrees with the documented findings, assessment, and plan of care documented by [employer]UST[employer]UR[employer] as a scribe. Objective - Vital Signs Vital signs: Vital Signs Temp 98.4 F 02/27/24 00:00 Pulse 80 02/27/24 12:37 Resp 17 02/27/24 12:37 BP 127/74 02/27/24 12:37 Pulse Ox 93 L 02/27/24 12:37 FiO2 50 02/25/24 11:30 Intake & Output 02/26/24 02/27/24 02/27/24 18:59 06:59 18:59 Intake Total 1020 0 Output Total 400 Balance 620 0 Intake: IV 120 0.9 Sodium Chloride 120 Oral 900 0 Output: Urine 400 Other: Voiding Method Toilet Toilet Urinal # Voids 1 1 ABP, PAP, CO, CI - Last Documented Arterial Blood Pressure 153/55 - Labs CBC & Chem 7: 02/26/24 04:40 02/27/24 09:09 Labs: Abnormal Lab Results - Last 24 Hours (Table) 02/26/24 02/26/24 02/27/24 Range/Units 16:31 19:55 06:03 Potassium (3.5-5.1) mmol/L Creatinine (0.66-1.25) mg/dL Glucose (74-99) mg/dL POC Glucose (mg/dL) 205 H 207 H 180 H (70-110) mg/dL Calcium (8.4-10.2) mg/dL 02/27/24 02/27/24 Range/Units 09:09 11:41 Potassium 3.4 L (3.5-5.1) mmol/L Creatinine 0.53 L (0.66-1.25) mg/dL Glucose 222 H (74-99) mg/dL POC Glucose (mg/dL) 187 H (70-110) mg/dL Calcium 8.1 L (8.4-10.2) mg/dL Microbiology - Last 24 Hours (Table) 02/24/24 11:15 Blood Culture - Preliminary Blood 02/24/24 11:50 Blood Culture - Preliminary Blood 02/24/24 05:30 Urine Culture - Final Urine,Voided Enterococcus faecalis 02/23/24 23:56 Gram Stain - Final Sputum Sputum Culture - Final Haemophilus influenzae
--- NOTE | 2024-02-27 14:52 | P.PN ---
Subjective Progress Note Date: 02/27/24 This is a 59-year-old male patient with a known history of coronary artery disease and previous stent placement to the RCA and more recently a stent to the LAD in November 2021, chronic obstructive pulmonary disease, diabetes mellitus, gastroesophageal reflux disease, hearing disorder Keiper hypertension, hyperlipidemia, former smoker. He was here in the emergency room on 02/14/2024 with complaints of chest pain. He was recommended admission but the patient declined. 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 Echocardiogram revealed impaired left ventricular systolic function with ejection fraction of 30 to 35%. Having ongoing issues with unstable angina and brought back to the cardiac catheter station lab with stenting of the PDA branch of the RCA, adjunctive use of intravascular imaging and aspiration thrombectomy. Developed significant distress and a rapid response team was called and subsequent CODE BLUE. He had developed significant pericardial effusion and had undergone a emergent pericardiocentesis with 600 cc of blood removed patient was intubated and transferred to the intensive care unit. He is seen today in consultation on the mechanical ventilator and assist-control mode at a rate of 24, tidal volume 500, FiO2 100% and a PEEP of 5. Morning blood gases revealed a PaO2 of 99, pCO2 43 and a pH of 7.42. He is on normal saline at 20 MLS per hour. He is receiving Versed at 5 mg/h. Dopamine at 3.5 mcg/kg/min and fenta nyl at 1 mcg/kg/h. He is currently on cefazolin. Initiated on bronchodilators. 0.3. Platelets 152. Sodium 140. Potassium 4.1. Bicarb 28. BUN 14. Creatinine 0.66. Glucose 251. AST 338. ALT 488. Endotracheal and nasogastric tubes secured in place. Chest x-ray reveals increasing opacity in the right lung base, likely reflecting pleural effusion with adjacent atelectasis. On today's evaluation of 02/25/2024, patient is being seen for a follow-up. This morning, the patientOn today's evaluation is calm and comfortable. The patient is being weaned off the propofol and the patient is awake and alert and following simple commands. He remains on mechanical ventilator. He is on assist-control mode at the rate of 24, tidal volume of 500, FiO2 of 50% with a PEEP of 10. Blood gas showed a pH of 7.42 with a pCO2 of 47 and pO2 of 89. The pericardial tube is in place and there is no significant output from the drainage tube. The patient had a follow-up chest x-ray this morning that showed some mild interstitial prominence consistent with CHF. He is known to have impaired LV function with an ejection fraction of 30 to 35%. He remains on norepinephrine running at 0.03 mcg/kg/min. Repeat transthoracic echocardiogram was done and it showed evidence of any significant pericardial effusion. CVP is currently at 10. The blood work from today showed a WBC count of 9.5, hemoglob in 13.2 and a platelet count of 144, sodium is at 141, BUN is at 16 with a creatinine of 0.67. On today's evaluation of 02/26/2024, the patient is doing extremely well. The patient is currently on 2 L of oxygen by nasal cannula. No signs of any respite distress. Hemodynamically stable. Adequate urine output. The patient had a pericardial tube removed and as mentioned, the echocardiogram that was done yesterday showed no evidence of any residual pericardial effusion. Hemodynamically stable on no pressors. The hemoglobin is at 11.8, and the white cell count is at 8 with a platelet count of 132. BUN is at 40 reflecting of 0.5 and his sodium levels at 138. The patient is awake and alert and communicating. He is tolerating diet. Denies having any specific complaints. He remains on L evemir insulin 21 units daily in addition to NovoLog sliding scale coverage. The patient is currently on aspirin. The stent has been occluded and there is no need for Plavix at this point in time. Metoprolol will be started 25 mg p.o. twice a day and the patient is also on lisinopril 5 mg p.o. daily. Lipitor is at 80 mg on a daily basis. On today's evaluation of 02/27/2024, the patient has no specific complaints. He is ambulating in the hallway. No chest pain. No respiratory distress at this point in time. Pulse ox on room air is in the order of 93 to 94%. He is a chronic smoker and there is also a component of COPD. No cardiac arrhythmias. BUN is 11 with a creatinine of 0.5 and sodium levels at 138. The patient is currently on aspirin. The patient is also on Plavix. The patient is on Zestril 5 mg p.o. daily and metoprolol at a dose of 25 mg p.o. twice a day. Rest of the home medication have been resumed. The patient remains on Farxiga 10 mg p.o. daily. I was told that the patient is having some nocturnal oxygen desaturations. This is probably due to the underlying obstructive sleep apnea. Room air pulse ox in the order of 90 to 94% without any desaturations with activity. Objective - Vital Signs Vital signs: Vital Signs Temp 98.4 F 02/27/24 00:00 Pulse 80 02/27/24 09:42 Resp 18 02/27/24 09:42 BP 128/74 02/27/24 08:07 Pulse Ox 90 L 02/27/24 09:35 FiO2 50 02/25/24 11:30 Intake & Output 02/26/24 02/27/24 02/27/24 18:59 06:59 18:59 Intake Total 1020 0 Output Total 400 Balance 620 0 Intake: IV 120 0.9 Sodium Chloride 120 Oral 900 0 Output: Urine 400 Other: Voiding Method Toilet Toilet Urinal # Voids 1 1 ABP, PAP, CO, CI - Last Documented Arterial Blood Pressure 153/55 - Exam CONSTITUTIONAL: Calm and comfortable currently on room air oxygen HEENT: Neck is supple, no JVD, no lymphadenopathy. RESPIRATORY: Lungs sounds essentially clear throughout, diminished to his bilateral bases, scattered rhonchi throughout. CARDIOVASCULAR: Regular rhythm and rate. S1 and S2 present, negative for S3, gallop or murmur. Palpable peripheral pulses bilaterally. Bedside telemetry is showing normal sinus GASTROINTESTINAL: Abdomen soft, nontender, nondistended. Active bowel sounds present 4 quadrants. Tolerating diet. Passing flatus. No guarding or rigidity. GENITOURINARY: Roe present draining clear, yellow urine. 330 mL in the last 8 hours. INTEGUMENTARY: Skin is warm and dry with no evidence of clubbing or cyanosis. v NEUROLOGIC: Neurologically, the patient is awake and alert and the patient does not have any focal neurological deficit. Cranial nerves are essentially intact. MUSKULOSKELETAL: Able to move all extremities, strength equal bilaterally, generalized weakness. v - Labs CBC & Chem 7: 02/26/24 04:40 02/27/24 09:09 Labs: Abnormal Lab Results - Last 24 Hours (Table) 02/26/24 02/26/24 02/26/24 Range/Units 11:17 16:31 19:55 POC Glucose (mg/dL) 226 H 205 H 207 H (70-110) mg/dL 02/27/24 Range/Units 06:03 POC Glucose (mg/dL) 180 H (70-110) mg/dL Microbiology - Last 24 Hours (Table) 02/24/24 11:50 Blood Culture - Preliminary Blood 02/24/24 05:30 Urine Culture - Final Urine,Voided Enterococcus faecalis 02/24/24 11:15 Blood Culture - Preliminary Blood 02/23/24 23:56 Gram Stain - Final Sputum Sputum Culture - Final Haemophilus influenzae Assessment and Plan Plan: Acute non-ST segment elevation myocardial infarction requiring stenting to the PDA of the RCA initially on 02/20/2024 with subsequent stable angina and return to the [facility] on 02/23/2024 for stenting of the PDA branch of the RCA and intravascular imaging and aspiration thrombectomy. Later that same day he developed hypotension and cardiac arrest and was found to have a significant pericardial effusion requiring emergent pericardiocentesis with 1200 mL of emanuel blood moved and then underwent successful coiling of the PDA branch of the RCA. The pericardial tube is in place without any significant output. Repeat echocardiogram that was done this morning of 02/25/2024 showed no evidence of any pericardial effusion or tamponade. No signs of any ongoing bleeding. The pericardial tube has been removed and the patient is hemodynamically stable at this point in time, extubated. The patient remains hemodynamically stable on today's evaluation on 02/27/2024. Acute obstructive shock secondary to pericardial effusion/tamponade, post draina ge. The patient also underwent coiling of the distal RCA leak. The patient is back to normal hemodynamics Acute hypotension secondary to above, recovered Acute hypoxemic respiratory failure, extubated on 02/25/2024 currently on 2 L of oxygen by nasal cannula Shock liver secondary to above, improving History of coronary artery disease with previous stent placement Ischemic cardiomyopathy with ejection fraction of 30 to 35% COPD with a component of chronic hypoxic respiratory failure. Not a candidate for oxygen supplementation. Former smoker Diabetes mellitus Hypertension Hyperlipidemia Plan: Currently stable on room air oxygen Continue using incentive spirometer Continue aspirin and Plavix Hemoglobin is stable for now Continue metoprolol and Zestril Continue statins Continue bronchodilators Discharge per cardiology group. In terms of his respiratory status, the patient is on room air oxygen with a pulse ox of 93 to 94% without any desaturations. He does have some background COPD. Recommend Symbicort 2 puffs twice daily when better rescue inhaler at time of discharge. Will sign off the case.
[2024-02-27] MEDS ORDERED: Potassium Replacement Protocol 1 EACH MISC MISCELLANE PRN (15:23)
[2024-02-27] MEDS: FUROSEMIDE 10 MG/ML 2 ML VIAL IV ONE (15:35)
[2024-02-27] MEDS: POTASSIUM CHLORIDE ER 20 MEQ TAB.ER PO SCH (15:36)
--- NOTE | 2024-02-27 15:37 | P.PN ---
Subjective Progress Note Date: 02/27/24 59-year-old male with a past medical history of coronary artery disease history of stent placement, ischemic cardiomyopathy ejection fraction 45%, COPD, diabetes type 2 on Mounjaro currently, hypertension, hyperlipidemia, history of mild, currently everyday smoker and chronic low back pain and other medical problems presents to Dr. Jernigan's office today with complaints of chest pain. Patient was initially seen in the ER on 02/14/2024 with complaints of chest pain and was discharged home with negative EKG and troponin. Patient was recommended to follow-up with cardiology as an outpatient. Patient started having chest pain mainly mid retrosternal and radiating across the shoulders. Mild difficul ty breathing. No nausea or vomiting or diaphoresis no headache or dizziness or lightheadedness. 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 Chest x-ray showed that the degree of interstitial prominence could reflect a superimposed bronchitis or atypical pneumonias. No focal infiltrate seen. EKG showed sinus rhythm Laboratory data showed WBC 5.5 hemoglobin 17.1 and platelets 142 Sodium 132 potassium 4.5 chloride 102 bicarb is 22 BUN 14 and creatinine 0.50 and blood sugar 335 Liver enzymes are not elevated. Troponin 0.068, 0.060 and 0.062, proBNP 126 and albumin 4.1 24-hour interval change 02/23/2024 Patient is seen and evaluated in room at bedside; continue to report chest pain despite aggressive medical therapy; remains on IV nitroglycerin and heparin along with DAPT with aspirin and Effient Patient is status post cardiac catheterization with stent to PDA of RCA; given persistent chest pain despite stent placement and DAPT, cardiology planning to reevaluate with repeat cardiac catheterization Echocardiogram is completed and reveals an EF of 45% --Continue with IV heparin and nitroglycerin; further recommendations after ca rdiac catheterization 02/24/2024 Patient is seen and evaluated in ICU; family members at bedside; patient is intubated and mechanically ventilated 02/20/2024 for admission for acute non-ST segment elevation myocardial infarction and heart catheterization today that revealed adequately disease involving the PDA branch of the RCA and subsequent stenting. Echocardiogram revealed impaired left ventricular systolic function with ejection fraction of 30 to 35%. Having ongoing issues with unstable angina and brought back to the cardiac catheter station lab with stenting of the PDA branch of the RCA, adjunctive use of intravascular imaging and aspiration thrombectomy. Developed significant distress and a rapid response team was called and subsequent CODE BLUE. He had developed significant pericardial effusion and had undergone a emergent pericardiocentesis with 600 cc of blood removed patient was intubated and transferred to the intensive care unit. 02/25/2024 Patient is seen and evaluated in follow-up today in the ICU with multiple medical consultations following. Patient continues to be intubated and underwent repeat stenting to the RCA and thrombectomy. Patient was coded and de veloped significant pericardial effusion underwent pericardiocentesis with CT surgery and discussing possible drainage removal. Patient is weaned off sedation and was just extubated minutes prior to exam. Following commands currently maintained on 3 L via nasal cannula. Patient with decreased urine output being given a dose of Lasix. Will monitor closely. Swallow eval to be performed and slowly advance diet as tolerated. 02/26/2024 Patient is seen in follow-up today continues in the ICU with cardiology following. Patient is a downgrade and awaiting a bed on the stepdown unit. Chest x-ray today shows bibasilar atelectasis/imposed on a background of COPD and chronic interstitial lung disease. Patient continues on 2 L via nasal cannula. Labs reviewed and within normal limits and blood sugars being monitored will continue on current regimen. Per cardiology following continue to maximize medical regimen and monitor overnight with possible discharge planning in the next 24 hours. Patient reports to feeling significantly improved reports of generalized weakness although has been up and walking including walking the [place] with a walker and plans on returning home. Family at the bedside with questions and concerns that were answered to the best of her ability. Patient is afebrile with no reports of chest pain or shortness of breath. Patient tolerating diet with no reported nausea or vomiting noted. Repeat 2D echo showing no pericardial effusion at this time. 02/27/2024 Patient is seen in follow-up today currently room air although per nursing staff patient was noted to have significant drop in oxygen saturations especially at night. Patient was dipping down into the 70s and 80s. Chest x-ray obtained showing diffuse interstitial pattern with bilateral consolidation and small pleural effusion and heart is enlarged to correlate for CHF otherwise consider pneumonia. Will obtain BNP and also give a dose of Lasix. Wean FiO2 as tolerated and evaluate for home O2. Cardiology following making adjustments to medications recommend monitoring overnight with possible discharge planning in 24 hours. Patient is anxious to go home although agreeable to stay. Encouraged incentive spirometer use at least 10 times every hour while awake and frequently getting up and walking as tolerated. Continue with DuoNeb treatments as well as cefazolin. Patient will need outpatient follow-up with pulmonary as there is concerns of sleep apnea. Patient will need outpatient PFT as well as further testing. Patient is afebrile with no reports of chest pain or palpitations. Patient is tolerating diet with no reported nausea or vomiting. Review of systems: Constitutional: No reports of fatigue, fever, or chills Cardiovascular: No reports of chest pain or palpitations Respiratory: reports of shortness of breath with exertion, but mostly at sleep GI: No reports of nausea, vomiting, or diarrhea : No reports of dysuria or retention Neurovascular: No reports of weakness or numbness All medications have been reviewed Physical exam: Patient is sitting up in the chair, no acute distress, awake alert and oriented.. Well-developed, elderly appearing, ill-appearing, obese HEENT: Normocephalic. Neck is supple. Pupils reactive. Nostrils clear. Oral cavity is moist. Neck reveals no JVD, carotid bruits, or thyromegaly. CHEST EXAMINATION: Trachea is central. Symmetrical expansion. Diminished breath sounds bilaterally with some scattered rhonchi noted. No wheezing noted. CARDIAC: S1, S2 are muffled ABDOMEN: Soft. Obese. Bowel sounds normal. No organomegaly. No abdominal bruits. Extremities: reveal no edema. No clubbing or cyanosis Neurologically awake, alert, oriented x3 with well-coordinated movements. No focal deficits noted, diffusely weak Skin: No rash or skin lesions. Psychiatric: Cooperative. Non-suicidal Musculoskeletal: No joint swelling or deformity. Normal range of motion. Assessment: Acute non-ST elevated [place]. Patient presented with chest pain and found to have elevated troponins. Status postcardiac catheterization and stenting of PDA branch of RCA. Repeat catheterization and was also found to have significant pericardial effusion, status post emergent pericardiocentesis with recoiling of the branch of the RCA Acute obstructive shock secondary to pericardial effusion status post drainage, improved, repeat echo showing no pericardial effusion Acute hypoxic respiratory failure secondary to above requiring mechanical dulce tilation, status post successful extubation on 02/25/2024, currently on room air Shock liver secondary to above Hyperglycemia is uncontrolled diabetes type 2. Patient was previously on insulin regimen. currently taking Mounjaro. A1c 8.4 Coronary disease with history of stent placement Ischemic cardiomyopathy ejection fraction 30-35 % Chronic CHF with mildly reduced systolic function. Hyperlipidemia Hypertension History of [place] GERD Hearing disorder/deafness Currently everyday smoker Chronic low back pain Bilateral peripheral neuropathy diabetic Obesity with a BMI of 31.4 GI prophylaxis PPI DVT prophylaxis Full code Plan: Patient will be continued on telemetry. Continue with current medications per cardiology. Patient is status post repeat stenting and recoiling of the branch of the RCA. Patient is status post repeat cardiac catheterization noted to have a significant pericardial effusion requiring emergent pericardiocentesis. Cardiology following making adjustments to medications recommend monitoring overnight Wean FiO2 as tolerated. Patient was having some shortness of breath and low oxygen saturation readings per nursing staff overnight. Chest x-ray obtained concern for CHF will give a dose of Lasix, encourage incentive spirometer use, and continue with DuoNebs. Patient to follow-up with pulmonary outpatient for further testing as there is concern for sleep apnea. Patient's reports he does snore and have apneic periods at night. CT surgery following and has removed drainage tube Patient is status post successful extubation 02/25/2024, currently maintained on room air and occasionally using 2 L via nasal cannula. Recommend to titrate as tolerated. Encouraged incentive spirometer use at least 10 times every hour while awake Continue to monitor blood sugar before meals and at bedtime and will continue current regimen and adjust insulins as needed Follow-up on repeat labs. Will add BNP Patient has been transferred out of the ICU. PT/OT therapy evaluating and patient has been up and walking with a walker. Plans on returning home with family Due to multiple complex medical issues, prognosis is guarded Will discuss with cardiology regarding discharge with possible discharge planning in the next 24 hours The impression and plan of care has been dictated by Brianna Abreu, Nurse Practitioner as directed. Dr. Douglas MD I have performed a history and examination and MDM of this patient, discussed the same with the dictator, and agree with the dictator's assessment and plan as written ,documented as a scribe. Based on total visit time, I have performed more than 50% of the visit. Objective - Vital Signs Vital signs: Vital Signs Temp 98.4 F 02/27/24 00:00 Pulse 82 02/27/24 15:28 Resp 16 02/27/24 15:28 BP 127/74 05/01/24 12:37 Pulse Ox 93 L 02/27/24 12:37 FiO2 50 02/25/24 11:30 Intake & Output 02/26/24 02/27/24 02/27/24 18:59 06:59 18:59 Intake Total 1020 0 Output Total 400 Balance 620 0 Weight 107.8 kg Intake: IV 120 0.9 Sodium Chloride 120 Oral 900 0 Output: Urine 400 Other: Voiding Method Toilet Toilet Urinal # Voids 1 1 ABP, PAP, CO, CI - Last Documented Arterial Blood Pressure 153/55 - Labs CBC & Chem 7: 02/26/24 04:40 02/27/24 09:09 Labs: Abnormal Lab Results - Last 24 Hours (Table) 02/26/24 02/26/24 02/27/24 Range/Units 16:31 19:55 06:03 Potassium (3.5-5.1) mmol/L Creatinine (0.66-1.25) mg/dL Glucose (74-99) mg/dL POC Glucose (mg/dL) 205 H 207 H 180 H (70-110) mg/dL Calcium (8.4-10.2) mg/dL 02/27/24 02/27/24 Range/Units 09:09 11:41 Potassium 3.4 L (3.5-5.1) mmol/L Creatinine 0.53 L (0.66-1.25) mg/dL Glucose 222 H (74-99) mg/dL POC Glucose (mg/dL) 187 H (70-110) mg/dL Calcium 8.1 L (8.4-10.2) mg/dL Microbiology - Last 24 Hours (Table) 02/24/24 11:15 Blood Culture - Preliminary Blood 02/24/24 11:50 Blood Culture - Preliminary Blood 02/24/24 05:30 Urine Culture - Final Urine,Voided Enterococcus faecalis
[2024-02-27 16:33] LABS: Glucose,Whole Blood 158 mg/dL (70-110)
[2024-02-27 20:27] LABS: Glucose,Whole Blood 193 mg/dL (70-110)
[2024-02-28 06:03] LABS: Glucose,Whole Blood 129 mg/dL (70-110)
[2024-02-28] MEDS: CLOPIDOGREL 75 MG TAB PO SCH (09:54)
[2024-02-28 10:08] VITALS: BP 127/73; TEMP 98.7
[2024-02-28 11:50] LABS: Glucose,Whole Blood 146 mg/dL (70-110)
--- NOTE | 2024-02-28 11:50 | P.PN ---
Subjective HISTORY OF PRESENT ILLNESS: The patient is a 59-year-old male who presented with symptoms of chest discomfort and non-STEMI underwent cardiac catheterization and stenting of the right PDA. He persisted in having symptoms and underwent repeat angiography on Sunday and was found to have occluded PDA, was recanalized and few hours after became hypotensive and had a large pericardial effusion requiring pericardiocentesis and subsequent coiling of the right PDA. He remains intubated. He has a pericardial catheter in place. He is in sinus mechanism. His urine output is stable. There is no evidence of malignant arrhythmia. His echocardiogram preprocedure showed an ejection fraction of 30 to 35%. On his initial cardiac catheterization he had distal OM disease as well and his ostial diagonal obstructive disease. February 25 : The patient is feeling well this morning, sitting up in the chair, extubated yesterday. He is in sinus mechanism and his pericardial catheter has been removed. His blood pressure is stable. He complains of soreness in the chest. He denies any significant dyspnea. He has no nausea or vomiting, no dizziness or palpitations. 02/27/2024 Patient examined this morning. Patient is sitting up in the chair. Patient currently denies chest pain or pressure. He denies shortness of breath. Patient has been up ambulating in the hallway. Pulse ox 93% after ambulation. 02/28/2024 Patient examined this morning. Patient is sitting up in the chair. Patient denies shortness of breath. He reports some mild chest soreness today. Vital signs are stable. He is hoping to be discharged home today. PHYSICAL EXAM: VITAL SIGNS: Reviewed. GENERAL: Well-developed in no acute distress. NECK: Supple. No JVD or thyromegaly LUNGS: Respirations even and unlabored. Lungs essentially clear to auscultation bilaterally. HEART: Regular rate and rhythm. S1 and S2 heard. EXTREMITIES: Normal range of motion. No clubbing or cyanosis. Peripheral pulses intact. No lower extremity edema ASSESSMENT: 1. Status post coronary perforation and pericardial effusion with pericardial drainage, his drainage catheter has been removed 2. Coiling of the right PDA 3. Prior cardiomyopathy, nonischemic 4. Status post stenting of the RCA 5. History of hyperlipidemia 6. History of diabetes PLAN: Continue current cardiac medications Patient is stable for discharge home today from a cardiac standpoint Patient to follow-up postdischarge with Dr. Hernandes Nurse practitioner note has been reviewed by physician. Signing provider agrees with the documented findings, assessment, and plan of care documented by [employer]IOLOG[employer] ASSISTANT as a scribe. Objective - Vital Signs Vital signs: Vital Signs Temp 98.7 F 02/28/24 10:07 Pulse 76 02/28/24 11:45 Resp 18 02/28/24 11:45 BP 127/73 02/28/24 10:07 Pulse Ox 95 02/28/24 10:07 FiO2 50 02/25/24 11:30 Intake & Output 02/27/24 02/28/24 02/28/24 18:59 06:59 18:59 Intake Total 118 0 118 Balance 118 0 118 Weight 107.8 kg Intake: Oral 118 0 118 Other: Voiding Method Toilet Toilet Urinal Urinal # Voids 1 2 ABP, PAP, CO, CI - Last Documented Arterial Blood Pressure 153/55 - Labs CBC & Chem 7: 02/26/24 04:40 02/27/24 09:09 Labs: Abnormal Lab Results - Last 24 Hours (Table) 02/23/24 02/27/24 02/27/24 Range/Units 16:14 16:31 20:24 POC Glucose (mg/dL) 158 H 193 H (70-110) mg/dL Crossmatch See Detail 02/28/24 Range/Units 05:58 POC Glucose (mg/dL) 129 H (70-110) mg/dL Crossmatch Microbiology - Last 24 Hours (Table) 02/24/24 11:50 Blood Culture - Preliminary Blood 02/24/24 11:15 Blood Culture - Preliminary Blood
[2024-02-28] MEDS: SPIRONOLACTONE 25 MG TAB PO SCH (11:57)
[2024-02-28 12:24] VITALS: PULSE 78; RESP 18
--- NOTE | 2024-03-03 10:12 | P.DS ---
Providers Date of admission: 02/20/24 10:54 Expected date of discharge: 02/28/24 Attending physician: Heydi Trinidad Consults: 02/20/24 10:20 Consult Physician Routine Consulting Provider: [facility] Consult Reason/Comments: chest pain Do you want consulting provider notified?: Yes 02/20/24 19:26 Consult Physician Routine Consulting Provider: [facility] Consult Reason/Comments: Post Interventional Patient Do you want consulting provider notified?: Already Contacted 02/23/24 14:24 Consult Physician Routine Consulting Provider: [facility] Consult Reason/Comments: Post Interventional Patient Do you want consulting provider notified?: Already Contacted 02/23/24 18:37 Consult Physician Stat Consulting Provider: Phu Broussard Consult Reason/Comments: icu management Do you want consulting provider notified?: Already Contacted 02/23/24 18:47 Consult Physician Routine Consulting Provider: Mike Crawford Consult Reason/Comments: Evaluation for pericardial window Do you want consulting provider notified?: Already Contacted Primary care physician: Lorraine Solomon Hospital Course: Final diagnosis Acute non-ST elevated NC. Patient presented with chest pain and found to have elevated troponins. Status postcardiac catheterization and stenting of PDA branch of RCA. Repeat catheterization and was also found to have significant pericardial effusion, status post emergent pericardiocentesis with recoiling of the branch of the RCA Acute obstructive shock secondary to pericardial effusion status post drainage, improved, repeat echo showing no pericardial effusion Acute hypoxic respiratory failure secondary to above requiring mechanical ventilation, status post successful extubation on 02/25/2024, currently on room a ir Shock liver secondary to above Hyperglycemia is uncontrolled diabetes type 2. Patient was previously on insulin regimen. currently taking Mounjaro. A1c 8.4 Coronary disease with history of stent placement Ischemic cardiomyopathy ejection fraction 30-35 % Chronic CHF with mildly reduced systolic function. Hyperlipidemia Hypertension History of NC GERD Hearing disorder/deafness Currently everyday smoker Chronic low back pain Bilateral peripheral neuropathy diabetic Obesity with a BMI of 31.4 GI prophylaxis PPI DVT prophylaxis Full code Discharge disposition Patient is being discharged in a stable condition with guarded prognosis to home. Patient will follow-up with Dr. Solomon in the outpatient setting upon discharge. Patient is to continue with current medications as prescribed as we ll as close outpatient follow-up with cardiology as scheduled. Recommend follow-up with pulmonary in the outpatient setting for further pulmonary testings. total time taken is greater than 35 minutes. Hospital course This is a 59-year-old male who was recently admitted with chest pain with acute NSTEMI requiring cardiac catheterization with stenting to the RCA. Patient required repeat cardiac catheterization with continued symptoms also noted to have significant pericardial effusion status post emergent pericardiocentesis with recoiling of the branch of the RCA. Patient closely monitored with cardiology following as well as pulmonary recommending close outpatient follow- up. Patient was requiring some oxygen although has titrated to room air and doing well. Recommend follow-up with pulmonary outpatient for further pulmonary testing studies. Please refer to other consultation notes for further HPI. Currently no reports of chest pain, shortness of breath, or palpitations. Patient is afebrile. No reports of nausea or vomiting and patient is tolerating diet. Patient will be discharged home today. Guarded prognosis given significant comorbidities Physical exam: Gen: This is a 59-year-old male who is awake, alert and oriented x 3, well- developed, well-nourished, elderly appearing, obese HEENT: Head is atraumatic, normocephalic. Pupils equal, round. Sclerae is anicteric. NECK: Supple. No JVD. No lymphadenopathy. No thyromegaly. LUNGS: Diminished breath sounds bilaterally with some scattered rhonchi. No intercostal retractions. HEART: S1, S2 are muffled ABDOMEN: Soft. Obese. Bowel sounds are present. No masses. No tenderness. EXTREMITIES: No pedal edema. No calf tenderness. NEUROLOGICAL: Patient is awake, alert and oriented x3. Cranial nerves 2 through 12 are grossly intact. Please refer to medication reconciliation sheet for a list of medications. The impression and plan of care has been dictated by Brianna Abreu, Nurse Practitioner as directed. Dr. Douglas MD I have performed a history and examination and MDM of this patient, discussed the same with the dictator, and agree with the dictator's assessment and plan as written ,documented as a scribe. Based on total visit time, I have performed more than 50% of the visit. Patient Condition at Discharge: Fair Plan - Discharge Summary Discharge Rx Participant: No New Discharge Prescriptions: New Budesonide/Formoterol Fumarate [Breyna 160-4.5 Mcg Inhaler] 1 puff INHALATION BID 30 Days #10.3 gm Metoprolol Tartrate [Lopressor] 25 mg PO BID #60 tab Mag Hydrox/Al Hydrox/Simeth [Maalox] 30 ml PO Q4HR PRN ml PRN Reason: Heartburn HYDROcodone/APAP 5-325MG [[place] 5-325] 1 each PO Q6HR PRN #6 tab PRN Reason: Pain Clopidogrel [Plavix] 75 mg PO DAILY #30 tab Acetaminophen Tab [Tylenol] 650 mg PO Q6HR PRN tab PRN Reason: Fever And/ Or Pain Spironolactone [Aldactone] 25 mg PO DAILY #30 tab Ipratropium-Albuterol Nebulize [Duoneb 0.5 mg-3 mg/3 ml Soln] 3 ml INHALATION RT-QID #100 each Ipratropium-Albuterol Nebulize [Duoneb 0.5 mg-3 mg/3 ml Soln] 3 ml INHALATION RT-Q2H PRN each PRN Reason: Shortness Of Breath Or Wheezing Dapagliflozin Propanediol [Farxiga] 10 mg PO DAILY #30 tab Atorvastatin [Lipitor] 80 mg PO HS #30 tab Continue lisinopriL [Zestril] 5 mg PO DAILY Aspirin 81 mg PO DAILY Pregabalin [Lyrica] 50 mg PO BID Tirzepatide [Mounjaro] 7.5 mg SQ DUENAS DULoxetine HCL [Cymbalta] 60 mg PO DAILY DULoxetine HCL [Cymbalta] 30 mg PO DAILY Varenicline [Chantix Continuing Pack] 1 mg PO BID Nitroglycerin Sl Tabs [Nitrostat] 0.4 mg SL Q5M PRN PRN Reason: Chest Pain Discontinued Metoprolol Tartrate [Lopressor] 25 mg PO BID #60 tab Rosuvastatin Calcium [Crestor] 40 mg PO DAILY Discharge Medication List lisinopriL [Zestril] 5 mg PO DAILY 12/16/21 [History] Aspirin 81 mg PO DAILY 12/17/21 [Rx] DULoxetine HCL [Cymbalta] 30 mg PO DAILY 02/20/24 [History] DULoxetine HCL [Cymbalta] 60 mg PO DAILY 02/20/24 [History] Nitroglycerin Sl Tabs [Nitrostat] 0.4 mg SL Q5M PRN 02/20/24 [History] Pregabalin [Lyrica] 50 mg PO BID 02/20/24 [History] Tirzepatide [Mounjaro] 7.5 mg SQ DUENAS 02/20/24 [History] Varenicline [Chantix Continuing Pack] 1 mg PO BID 02/20/24 [History] Budesonide/Formoterol Fumarate [Breyna 160-4.5 Mcg Inhaler] 1 puff INHALATION BID 30 Days #10.3 gm 02/27/24 [Rx] Acetaminophen Tab [Tylenol] 650 mg PO Q6HR PRN tab 02/28/24 [Rx] Atorvastatin [Lipitor] 80 mg PO HS #30 tab 02/28/24 [Rx] Clopidogrel [Plavix] 75 mg PO DAILY #30 tab 02/28/24 [Rx] Dapagliflozin Propanediol [Farxiga] 10 mg PO DAILY #30 tab 02/28/24 [Rx] HYDROcodone/APAP 5-325MG [[place] 5-325] 1 each PO Q6HR PRN #6 tab 02/28/24 [Rx] Ipratropium-Albuterol Nebulize [Duoneb 0.5 mg-3 mg/3 ml Soln] 3 ml INHALATION RT-Q2H PRN each 02/28/24 [Rx] Ipratropium-Albuterol Nebulize [Duoneb 0.5 mg-3 mg/3 ml Soln] 3 ml INHALATION RT-QID #100 each 02/28/24 [Rx] Mag Hydrox/Al Hydrox/Simeth [Maalox] 30 ml PO Q4HR PRN ml 02/28/24 [Rx] Metoprolol Tartrate [Lopressor] 25 mg PO BID #60 tab 02/28/24 [Rx] Spironolactone [Aldactone] 25 mg PO DAILY #30 tab 02/28/24 [Rx] Follow up Appointment(s)/Referral(s): Addison Hernandes MD [STAFF PHYSICIAN] - 1 Week Lorraine Solomon MD [Primary Care Provider] - 03/11/24 11:00 am Shantelle Rey MD [STAFF PHYSICIAN] - 1 Week (sleep apnea follow up. Please call once you are home, office is on a lunch break. ) Patient Instructions/Handouts: Heart Attack (DC), Pericardial Effusion (DC), Heart Catheterization (DC) Activity/Diet/Wound Care/Special Instructions: Activity limited until follow-up Follow-up with primary care provider on discharge Follow-up with cardiology in 1 to 2 weeks Follow-up with pulmonary outpatient and discuss possible sleep apnea testing and further testing Continue taking medications as prescribed Continue heart healthy, diabetic diet Discharge Disposition: HOME SELF-CARE
== END 2024-02-28 12:40 | disposition home or self-care (01) | DRG 270 ==
LOC: EC 09:24 → 3SCARD 10:54 → 2SICU 02-23 16:33 → 3SCARD 02-26 13:25
PROVIDERS: ADMIT Internal Medicine; ATTEND Internal Medicine
PROC: 4A023N7 Measurement of Cardiac Sampling and Pressure, Left Heart, Percutaneous Approach (ICD-10-PCS; 2024-02-20)
PROC: B2111ZZ Fluoroscopy of Multiple Coronary Arteries using Low Osmolar Contrast (ICD-10-PCS; 2024-02-20)
PROC: 027034Z Dilation of Coronary Artery, One Artery with Drug-eluting Intraluminal Device, Percutaneous Approach (ICD-10-PCS; 2024-02-20 11:35)
PROC: 4A023N7 Measurement of Cardiac Sampling and Pressure, Left Heart, Percutaneous Approach (ICD-10-PCS; 2024-02-23)
PROC: B2111ZZ Fluoroscopy of Multiple Coronary Arteries using Low Osmolar Contrast (ICD-10-PCS; 2024-02-23)
PROC: B240ZZ3 Ultrasonography of Single Coronary Artery, Intravascular (ICD-10-PCS; 2024-02-23)
PROC: 5A12012 Performance of Cardiac Output, Single, Manual (ICD-10-PCS; 2024-02-23)
PROC: 0W9D30Z Drainage of Pericardial Cavity with Drainage Device, Percutaneous Approach (ICD-10-PCS; 2024-02-23)
PROC: 5A1935Z Respiratory Ventilation, Less than 24 Consecutive Hours (ICD-10-PCS; 2024-02-23)
PROC: 0BH18EZ Insertion of Endotracheal Airway into Trachea, Via Natural or Artificial Opening Endoscopic (ICD-10-PCS; 2024-02-23)
PROC: 3E033XZ Introduction of Vasopressor into Peripheral Vein, Percutaneous Approach (ICD-10-PCS; 2024-02-23)
PROC: 03V Upper Arteries, Restriction (ICD-10-PCS; principal; 2024-02-23 11:12)
PROC: 02C03ZZ Extirpation of Matter from Coronary Artery, One Artery, Percutaneous Approach (ICD-10-PCS; 2024-02-23 11:12)
PROC: 027034Z Dilation of Coronary Artery, One Artery with Drug-eluting Intraluminal Device, Percutaneous Approach (ICD-10-PCS; 2024-02-23 11:12)
PROC: 30233J1 Transfusion of Nonautologous Serum Albumin into Peripheral Vein, Percutaneous Approach (ICD-10-PCS; 2024-02-24)
DX: I21.4 Non-ST elevation (NSTEMI) myocardial infarction (principal); I46.2 Cardiac arrest due to underlying cardiac condition; J96.01 Acute respiratory failure with hypoxia; R57.8 Other shock; K72.00 Acute and subacute hepatic failure without coma; I31.4 Cardiac tamponade; I31.39 Other pericardial effusion (noninflammatory); I42.8 Other cardiomyopathies; J84.9 Interstitial pulmonary disease, unspecified; I50.22 Chronic systolic (congestive) heart failure; J44.9 Chronic obstructive pulmonary disease, unspecified; I11.0 Hypertensive heart disease with heart failure; E11.42 Type 2 diabetes mellitus with diabetic polyneuropathy; E11.65 Type 2 diabetes mellitus with hyperglycemia; I25.110 Atherosclerotic heart disease of native coronary artery with unstable angina pectoris; E66.9 Obesity, unspecified; Z68.31 Body mass index [BMI] 31.0-31.9, adult; I34.0 Nonrheumatic mitral (valve) insufficiency; F17.210 Nicotine dependence, cigarettes, uncomplicated; I25.5 Ischemic cardiomyopathy; K21.9 Gastro-esophageal reflux disease without esophagitis; H91.90 Unspecified hearing loss, unspecified ear; G89.29 Other chronic pain; M54.50 Low back pain, unspecified; E78.5 Hyperlipidemia, unspecified; G47.33 Obstructive sleep apnea (adult) (pediatric); Z82.49 Family history of ischemic heart disease and other diseases of the circulatory system; Z79.899 Other long term (current) drug therapy; Z79.85 Long-term (current) use of injectable non-insulin antidiabetic drugs; Z79.82 Long term (current) use of aspirin; Z95.5 Presence of coronary angioplasty implant and graft; I25.2 Old myocardial infarction
CPT/HCPCS: 36415; 37244; 71045; 71046; 76937; 80048; 80053; 81001; 82565; 82805; 83036; 83605; 83735; 83880; 84132; 84484; 85025; 85027; 85610; 85730; 86850; 86900; 86901; 86920; 87040; 87070; 87077; 87086; 87186; 87205; 92950; 92978; 93005; 93306; 93308; 93458; 94002; 94003; 94640; 94760; 96361; 96365; 96366; 96375; 99291

== ENCOUNTER 2024-03-04 18:58 | Observation (INO) | payer BC ==
[2024-03-04 20:08] LABS: Basophils # (A) 0.1 k/uL (0-0.2); Basophils % (A) 1 %; Eosinophils # (A) 0.1 k/uL (0-0.7); Eosinophils % (A) 2 %; HCT 46.5 % (39.0-53.0); Lymphocytes # (A) 1.3 k/uL (1.0-4.8); Lymphocytes % (A) 15 %; MCHC 32.4 g/dL (31.0-37.0); MCV 95.6 fL (80.0-100.0); Mean Platelet Volume 8.4; Monocytes # (A) 0.5 k/uL (0-1.0); Monocytes % (A) 5 %; Neutrophils # (A) 6.4 k/uL (1.3-7.7); Neutrophils % (A) 74 %; RBC 4.86 m/uL (4.30-5.90); WBC 8.6 k/uL (3.8-10.6)
[2024-03-04 20:22] LABS: ALT 22 U/L (4-49); AST 20 U/L (17-59); African American GFR (CKD) >90 (>60 ml/min/1.73 sqM); Albumin 4.2 g/dL (3.5-5.0); Alkaline Phosphatase 76 U/L (38-126); Anion Gap 13 mmol/L; Blood Urea Nitrogen 18 mg/dL (9-20); Calcium 9.5 mg/dL (8.4-10.2); Carbon Dioxide 20 mmol/L (22-30); Chloride 105 mmol/L (98-107); Glucose 130 mg/dL (74-99); Magnesium 2.1 mg/dL (1.6-2.3); Non-African American GFR(CKD) >90 (>60 ml/min/1.73 sqM); Partial Thromboplastin Time 23.5 sec (22.0-30.0); Potassium 4.3 mmol/L (3.5-5.1); Prothrombin Time 10.8 sec (10.0-12.5); Sodium 138 mmol/L (137-145); Total Bilirubin 0.9 mg/dL (0.2-1.3); Total Protein 7.3 g/dL (6.3-8.2)
--- NOTE | 2024-03-04 20:22 | ED ---
General Adult HPI - General Source: RN notes reviewed, old records reviewed Mode of arrival: ambulatory Limitations: no limitations <Eldon Acosta - Last Filed: 03/05/24 02:09> - General Source: patient, RN notes reviewed, old records reviewed Mode of arrival: ambulatory Limitations: no limitations <Eldon Butler - Last Filed: 03/08/24 07:55> - General Chief complaint: Shortness of Breath Stated complaint: SOB Time Seen by Provider: 03/04/24 19:10 - History of Present Illness Initial comments: This is a 59-year-old male to ER for evaluation of dyspnea and shortness of breath with recent complex medical history (Eldon Acosta) This is a 59-year-old male who presents to the emergency department complaining of shortness of breath. Patient states he recently had a heart attack and had a cardiac catheterization. During the catheterization he developed a cardiac tamponade which required a pericardiocentesis which was done by Dr. Hernandes. Patient was intubated at this time and eventually was extubated. Patient states since then he has voices been very quiet and over the last couple of days he has developed shortness of breath. Patient denies any chest pain. Patient denies any fever chills or cough. Patient states occasionally feels like he wants to cough something up but he is unable to. Patient denies any back pain. (Eldon Butler) - Related Data Home Medications Medication Instructions Recorded Confirmed lisinopriL [Zestril] 5 mg PO DAILY 12/16/21 03/05/24 DULoxetine HCL [Cymbalta] 30 mg PO DAILY 02/20/24 03/05/24 DULoxetine HCL [Cymbalta] 60 mg PO DAILY 02/20/24 03/05/24 Nitroglycerin Sl Tabs [Nitrostat] 0.4 mg SL Q5M PRN 02/20/24 03/05/24 Pregabalin [Lyrica] 50 mg PO BID 02/20/24 03/05/24 Tirzepatide [Mounjaro] 7.5 mg SQ DUENAS 02/20/24 03/05/24 Varenicline [Chantix Continuing 1 mg PO BID 02/20/24 03/05/24 Pack] Budesonide/Formoterol Fumarate 1 puff INHALATION RT-BID 03/05/24 03/05/24 [Breyna 160-4.5 Mcg Inhaler] HYDROcodone/APAP 5-325MG [[place] 1 tab PO Q6HR PRN 03/05/24 03/05/24 5-325] Previous Rx's Medication Instructions Recorded Aspirin 81 mg PO DAILY 12/17/21 Acetaminophen Tab [Tylenol] 650 mg PO Q6HR PRN tab 02/28/24 Atorvastatin [Lipitor] 80 mg PO HS #30 tab 02/28/24 Clopidogrel [Plavix] 75 mg PO DAILY #30 tab 02/28/24 Dapagliflozin Propanediol [Farxiga] 10 mg PO DAILY #30 tab 02/28/24 Ipratropium-Albuterol Nebulize 3 ml INHALATION RT-Q2H PRN each 02/28/24 [Duoneb 0.5 mg-3 mg/3 ml Soln] Ipratropium-Albuterol Nebulize 3 ml INHALATION RT-QID #100 each 02/28/24 [Duoneb 0.5 mg-3 mg/3 ml Soln] Mag Hydrox/Al Hydrox/Simeth 30 ml PO Q4HR PRN ml 02/28/24 [Maalox] Metoprolol Tartrate [Lopressor] 25 mg PO BID #60 tab 02/28/24 Spironolactone [Aldactone] 25 mg PO DAILY #30 tab 02/28/24 Amoxic-Pot Clav 875-125Mg 1 each PO Q12HR #10 tab 03/05/24 [Augmentin 875-125] Famotidine [Pepcid] 20 mg PO BID #14 tablet 03/05/24 Nystatin 100,000 Unit/ml Susp 500,000 unit PO QID #100 ml 03/05/24 [Mycostatin Oral Susp] methylPREDNISolone Dose Pack 4 mg PO DIRECTED #21 tab 03/05/24 [Medrol Dose Pack] Allergies Allergy/AdvReac Type Severity Reaction Status Date / Time No Known Allergies Allergy Verified 03/05/24 07:46 Review of Systems ROS Other: All systems not noted in ROS Statement are negative. <Eldon Acosta - Last Filed: 03/05/24 02:09> ROS Other: All systems not noted in ROS Statement are negative. <Eldon Butler - Last Filed: 03/08/24 07:55> ROS Statement: Those systems with pertinent positive or pertinent negative responses have been documented in the HPI. Past Medical History Past Medical History: Coronary Artery Disease (CAD), Chest Pain / Angina, COPD, Diabetes Mellitus, GERD/Reflux, Hearing Disorder / Deafness, Hyperlipidemia, Hypertension, Myocardial Infarction (IN) Additional Past Medical History / Comment(s): Neuropathy bilateral feet/legs, hx pancreatitis, chronic low back pain, hx gastric ulcer as a teen, hx benign colon polyps, small amount of trouble hearing. Last Myocardial Infarction Date:: 2011 History of Any Multi-Drug Resistant Organisms: None Reported Past Surgical History: Back Surgery, Ear Surgery, Heart Catheterization With Stent, Hernia Repair, Orthopedic Surgery Additional Past Surgical History / Comment(s): 2011 PCI with stent to mid RCA, bilateral inguinal hernia repair as teen, bilateral carpal tunnel releases, colonoscopy, bilateral myringotomies/tubes, 11/2021 cardiac stent. Past Anesthesia/Blood Transfusion Reactions: Motion Sickness, Postoperative Nausea & Vomiting (PONV) Additional Past Anesthesia/Blood Transfusion Reaction / Comment(s): PONV as a teen with surgery, none since. Date of Last Stent Placement:: 2021 Past Psychological History: No Psychological Hx Reported Smoking Status: Current every day smoker - Past Family History Father Family Medical History: Coronary Artery Disease (CAD), Myocardial Infarction (IN) Additional Family Medical History / Comment(s): Heart disease runs strongly on his father's side of family. Father is . Pt cannot recall at what age father had IN. Mother Family Medical History: Cancer Additional Family Medical History / Comment(s): Mother of renal cancer with mets. <Eldon Butler - Last Filed: 03/08/24 07:55> General Exam General appearance: alert, in no apparent distress Head exam: Present: atraumatic, normocephalic, normal inspection Eye exam: Present: normal appearance, PERRL, EOMI. Absent: scleral icterus, c onjunctival injection, periorbital swelling ENT exam: Present: normal exam, mucous membranes moist Neck exam: Present: normal inspection. Absent: tenderness, meningismus, lymphadenopathy Respiratory exam: Present: normal lung sounds bilaterally. Absent: respiratory distress, wheezes, rales, rhonchi, stridor Cardiovascular Exam: Present: regular rate, normal rhythm, normal heart sounds. Absent: systolic murmur, diastolic murmur, rubs, gallop, clicks GI/Abdominal exam: Present: soft, normal bowel sounds. Absent: distended, tenderness, guarding, rebound, rigid Extremities exam: Present: normal inspection, full ROM, normal capillary refill. Absent: tenderness, pedal edema, joint swelling, calf tenderness Back exam: Present: normal inspection Neurological exam: Present: alert, oriented X3, CN II-XII intact Psychiatric exam: Present: normal affect, normal mood Skin exam: Present: warm, dry, intact, normal color. Absent: rash <Eldon Acosta - Last Filed: 03/05/24 02:09> Limitations: no limitations <Eldon Butler - Last Filed: 03/08/24 07:55> - General Exam Comments Initial Comments: GENERAL: Patient is well-developed and well-nourished. Patient is nontoxic and well- hydrated and is in mild distress. ENT: Neck is soft and supple. No significant lymphadenopathy is noted. Oropharynx is clear. Moist mucous membranes. Neck has full range of motion without eliciting any pain. EYES: The sclera were anicteric and conjunctiva were pink and moist. Extraocular movements were intact and pupils were equal round and reactive to light. Eyelids were unremarkable. PULMONARY: Unlabored respirations. Good breath sounds bilaterally. Patient is some crackles in the right base CARDIOVASCULAR: There is a regular rate and rhythm without any murmurs gallops or rubs. ABDOMEN: Soft and nontender with normal bowel sounds. SKIN: Skin is clear with no lesions or rashes and otherwise unremarkable. NEUROLOGIC: Patient is alert and oriented x3. Cranial nerves II through XII are grossly intact. Motor and sensory are also intact. Patient's speech is quiet and a little raspy which she states has been ongoing since he was extubated. Symmetrical smile. MUSCULOSKELETAL: Normal extremities with adequate strength and full range of motion. No lower extremity swelling or edema. No calf tenderness. LYMPHATICS: No significant lymphadenopathy is noted PSYCHIATRIC: Normal psychiatric evaluation. (Eldon Butler) Course <Eldon Acosta - Last Filed: 03/05/24 02:09> Vital Signs 03/04/24 03/04/24 03/04/24 18:59 22:39 23:05 Temperature 98.4 F 98.3 F 98.3 F Pulse Rate 93 101 H 85 Respiratory 20 18 20 Rate Blood Pressure 110/69 122/64 O2 Sat by Pulse 99 93 L 93 L Oximetry 03/05/24 03/05/24 03/05/24 02:00 04:00 05:51 Temperature Pulse Rate 91 76 89 Respiratory 20 21 Rate Blood Pressure 111/66 116/66 O2 Sat by Pulse 97 94 L 97 Oximetry 03/05/24 03/05/24 03/05/24 06:00 06:01 12:03 Temperature Pulse Rate 94 93 83 Respiratory 20 Rate Blood Pressure 104/72 O2 Sat by Pulse 95 Oximetry 03/05/24 03/05/24 12:12 12:34 Temperature 97.9 F Pulse Rate 84 75 Respiratory 22 Rate Blood Pressure 109/64 O2 Sat by Pulse 95 Oximetry - Reevaluation(s) Reevaluation #1: 03/05/24 02:10 Medical records reviewed (Eldon Acosta) Reevaluation #2: 03/05/24 02:10 Patient is able to rest comfortably here in the ER (Eldon Acosta) Reevaluation #3: 03/05/24 02:10 Patient informed of results questions answered (Eldon Acosta) - Consultations Consultation #1: Spoke with [facility] who agreed to admit this patient (Eldon Acosta) Medical Decision Making - Lab Data Result diagrams: 03/04/24 20:00 03/04/24 20:00 - Radiology Data Radiology results: report reviewed (CT angio chest is negative for acute disease), image reviewed <Eldon Acosta - Last Filed: 03/05/24 02:09> - Lab Data Result diagrams: 03/04/24 20:00 03/04/24 20:00 <Eldon Butler - Last Filed: 03/08/24 07:55> - Medical Decision Making 59 male to ER for evaluation of significant weakness persistent dyspnea with recent fatigue and complex recent medical history. Patient was placed in observation for other cause of symptoms (Eldon Acosta) EKG is interpreted by myself but EKG shows a sinus rhythm at 86 bpm [place] interval 123 QRS is 91 QT interval 362 QTc is 406. Patient's EKG shows no ST segment ovation or depression. Was pt. sent in by a medical professional or institution (, [facility], PUNCH PRESS OPERATOR HELPER, urgent care, hospital, or detention...) When possible be specific @ -Patient was sent over by . Staff Did you speak to anyone other than the patient for history (EMS, parent, family, police, friend...)? What history was obtained from this source @ -Dr. Hernandes giving most of the history Did you review nursing and triage notes (agree or disagree)? Why? @ -[I reviewed and agree with nursing and triage notes] Were old charts reviewed (outside hosp., previous admission, EMS record, old EKG, old radiological studies, urgent care reports/EKG's, detention records)? Report findings @ -[No old charts were reviewed] Differential Diagnosis (chest pain, altered mental status, abdominal pain women, abdominal pain men, vaginal bleeding, weakness, fever, dyspnea, syncope, headache, dizziness, GI bleed, back pain, seizure, CVA, palpatations, mental health, musculoskeletal)? @ -Differential Dyspnea: Coronary syndrome, arrhythmia, tamponade, asthma, COPD, pulmonary embolism, pneumonia, pneumothorax, pulmonary effusion, anaphylaxis, diabetic ketoacidosis, flailed chest, pulmonary contusion, diaphragmatic rupture, anemia, neuromuscular, this is not meant to be an all-inclusive list. EKG interpreted by me (3pts min.). @ -[As above] X-rays interpreted by me (1pt min.). @ -[None done] CT interpreted by me (1pt min.). @ -[None done] U/S interpreted by me (1pt. min.). @ -[None done] What testing was considered but not performed or refused? (CT, X-rays, U/S, labs)? Why? @ -[None] What meds were considered but not given or refused? Why? @ -[None] Did you discuss the management of the patient with other professionals (professionals i.e. [facility] Chao, PUNCH PRESS OPERATOR HELPER, lab, RT, psych nurse, social media assistant, calibration specialist, teacher, alumni relations officer, catalytic case operator)? Give summary @ -[No] Was smoking cessation discussed for >3mins.? @ -[No] Was critical care preformed (if so, how long)? @ -[No] Were there social determinants of health that impacted care today? How? (Homelessness, low income, unemployed, alcoholism, drug addiction, transportation, low edu. Level, literacy, decrease access to med. care, fci, rehab)? @ -[No] Was there de-escalation of care discussed even if they declined (Discuss DNR or withdrawal of care, Hospice)? DNR status @ -[No] What co-morbidities impacted this encounter? (DM, HTN, Smoking, COPD, CAD, Cancer, CVA, ARF, Chemo, Hep., AIDS, mental health diagnosis, sleep apnea, morbid obesity)? @ -[None] Was patient admitted / discharged? Hospital course, mention meds given and route, prescriptions, significant lab abnormalities, going to OR and other pertinent info. @ -Dr. Dave carl taking over the care of this patient at 9 PM (Eldon Butler) - Lab Data Lab Results 03/04/24 03/04/24 03/04/24 Range/Units 20:00 20:00 20:00 WBC 8.6 (3.8-10.6) k/uL RBC 4.86 (4.30-5.90) m/uL Hgb 15.1 D (13.0-17.5) gm/dL Hct 46.5 (39.0-53.0) % MCV 95.6 (80.0-100.0) fL MCH 31.0 (25.0-35.0) pg MCHC 32.4 (31.0-37.0) g/dL RDW 14.0 (11.5-15.5) % Plt Count 312 D (150-450) k/uL MPV 8.4 Neutrophils % 74 % Lymphocytes % 15 % Monocytes % 5 % Eosinophils % 2 % Basophils % 1 % Neutrophils # 6.4 (1.3-7.7) k/uL Lymphocytes # 1.3 (1.0-4.8) k/uL Monocytes # 0.5 (0-1.0) k/uL Eosinophils # 0.1 (0-0.7) k/uL Basophils # 0.1 (0-0.2) k/uL PT 10.8 (10.0-12.5) sec INR 1.0 (<1.2) APTT 23.5 (22.0-30.0) sec Sodium 138 (137-145) mmol/L Potassium 4.3 (3.5-5.1) mmol/L Chloride 105 (98-107) mmol/L Carbon Dioxide 20 L (22-30) mmol/L Anion Gap 13 mmol/L BUN 18 (9-20) mg/dL Creatinine 0.56 L (0.66-1.25) mg/dL Est GFR (CKD-EPI)AfAm >90 (>60 ml/min/1.73 sqM) Est GFR (CKD-EPI)NonAf >90 (>60 ml/min/1.73 sqM) Glucose 130 H (74-99) mg/dL Plasma Lactic Acid Guille (0.7-2.0) mmol/L Calcium 9.5 (8.4-10.2) mg/dL Magnesium 2.1 (1.6-2.3) mg/dL Total Bilirubin 0.9 (0.2-1.3) mg/dL AST 20 (17-59) U/L ALT 22 (4-49) U/L Alkaline Phosphatase 76 (38-126) U/L Troponin I (0.000-0.034) ng/mL NT-Pro-B Natriuret Pep 616 pg/mL Total Protein 7.3 (6.3-8.2) g/dL Albumin 4.2 (3.5-5.0) g/dL 03/04/24 03/04/24 Range/Units 20:00 20:00 WBC (3.8-10.6) k/uL RBC (4.30-5.90) m/uL Hgb (13.0-17.5) gm/dL Hct (39.0-53.0) % MCV (80.0-100.0) fL MCH (25.0-35.0) pg MCHC (31.0-37.0) g/dL RDW (11.5-15.5) % Plt Count (150-450) k/uL MPV Neutrophils % % Lymphocytes % % Monocytes % % Eosinophils % % Basophils % % Neutrophils # (1.3-7.7) k/uL Lymphocytes # (1.0-4.8) k/uL Monocytes # (0-1.0) k/uL Eosinophils # (0-0.7) k/uL Basophils # (0-0.2) k/uL PT (10.0-12.5) sec INR (<1.2) APTT (22.0-30.0) sec Sodium (137-145) mmol/L Potassium (3.5-5.1) mmol/L Chloride (98-107) mmol/L Carbon Dioxide (22-30) mmol/L Anion Gap mmol/L BUN (9-20) mg/dL Creatinine (0.66-1.25) mg/dL Est GFR (CKD-EPI)AfAm (>60 ml/min/1.73 sqM) Est GFR (CKD-EPI)NonAf (>60 ml/min/1.73 sqM) Glucose (74-99) mg/dL Plasma Lactic Acid Guille 1.3 (0.7-2.0) mmol/L Calcium (8.4-10.2) mg/dL Magnesium (1.6-2.3) mg/dL Total Bilirubin (0.2-1.3) mg/dL AST (17-59) U/L ALT (4-49) U/L Alkaline Phosphatase (38-126) U/L Troponin I 0.024 (0.000-0.034) ng/mL NT-Pro-B Natriuret Pep pg/mL Total Protein (6.3-8.2) g/dL Albumin (3.5-5.0) g/dL
[2024-03-04 20:29] LABS: NT-Pro-B-Type Natriuretic Pept 616 pg/mL
[2024-03-04 20:30] LABS: HGB 15.1 gm/dL (13.0-17.5)
[2024-03-04 20:31] LABS: Platelet Count 312 k/uL (150-450)
[2024-03-04] MEDS: ACETAMINOPHEN TAB 325 MG TAB PO STA (21:47)
--- NOTE | 2024-03-05 01:58 | CT ---
EXAM: CT Angiography Chest With Intravenous Contrast CLINICAL HISTORY: ITS.REASON CT Reason: Dyspnea TECHNIQUE: Axial computed tomographic angiography images of the chest with intravenous contrast. CTDI is 15.3 mGy and DLP is 455.6 mGy-cm. This CT exam was performed using one or more of the following dose reduction techniques: automated exposure control, adjustment of the mA and/or kV according to patient size, and/or use of iterative reconstruction technique. MIP reconstructed images were created and reviewed. COMPARISON: CTA Chest dated 08/01/2020 FINDINGS: Pulmonary arteries: Unremarkable. No pulmonary embolism. Aorta: No acute findings. No thoracic aortic aneurysm. Lungs: Mild bibasilar atelectasis/scarring. Minimal hazy nodular densities in the lower lobes may represent infectious/inflammatory process. Small pleural-based nodule in the right lower lobe of doubtful significance given the pleural attachment. No follow-up is necessary. Pleural space: Unremarkable. No significant effusion. No pneumothorax. Heart: Marked coronary calcifications. No cardiomegaly. No significant pericardial effusion. No evidence of RV dysfunction. Bones/joints: Old right rib fractures similar to the prior. New bilateral anterior rib fractures of the third-fifth ribs. No dislocation. Degenerative changes of the spine Soft tissues: Mild fat stranding in the anterior midline chest wall soft tissues at and below the level of the xiphoid process and also minimal subjacent retrosternal fat stranding. Lymph nodes: Unremarkable. No enlarged lymph nodes. Liver: Ill-defined heterogeneous low/intermediate density lesions in the right hepatic lobe are not adequately evaluated. Somewhat similar on the prior. Measures approximately 4-6 cm in transverse dimension. IMPRESSION: 1. No evidence of pulmonary embolism. 2. Marked coronary calcifications. 3. Old right rib fractures similar to the prior. New bilateral anterior rib fractures of the third-fifth ribs. 4. Mild bibasilar atelectasis/scarring. Minimal hazy nodular densities in the lower lobes may represent infectious/inflammatory process. 5. Ill-defined heterogeneous low/intermediate density lesions in the right hepatic lobe are not adequately evaluated. Somewhat similar on the prior. Measures approximately 4-6 cm in transverse dimension. Correlate with prior workup or consider MRI non-emergently to help characterize the lesions.
[2024-03-05] MEDS ORDERED: NALOXONE 0.4 MG/ML 1 ML VIAL IV PRN (02:08)
[2024-03-05] MEDS ORDERED: ONDANSETRON 4 MG/2 ML VIAL IVP PRN (02:08)
[2024-03-05] MEDS: HYDROmorphone 1 MG/ML 1 ML SYRINGE IVP PRN (02:42)
[2024-03-05] MEDS: IPRATROPIUM-ALBUTEROL 3 ML NEB INHALATION SCH (05:36)
[2024-03-05] MEDS ORDERED: NITROGLYCERIN SL TABS 0.4 MG TAB SUBLINGUAL PRN (09:22)
[2024-03-05] MEDS ORDERED: dexAMETHasone 2 MG TAB PO SCH (10:30)
[2024-03-05] MEDS: SPIRONOLACTONE 25 MG TAB PO SCH (10:31)
[2024-03-05] MEDS: CLOPIDOGREL 75 MG TAB PO SCH (10:31)
[2024-03-05] MEDS: lisinopriL 5 MG TAB PO SCH (10:32)
[2024-03-05] MEDS: NYSTATIN 100,000 UNIT/ML SUSP 500,000 UNIT/5 ML CUP PO SCH (10:32)
[2024-03-05] MEDS: DAPAGLIFLOZIN PROPANEDIOL 10 MG TABLET PO SCH (10:32)
[2024-03-05] MEDS: METOPROLOL TARTRATE 25 MG TAB PO SCH (10:32)
[2024-03-05] MEDS: ASPIRIN 81 MG PO SCH (10:32)
[2024-03-05] MEDS: AMOXIC-POT CLAV 875-125MG 1 EACH TAB PO SCH (10:37)
[2024-03-05 11:51] LABS: Glucose,Whole Blood 370 mg/dL (70-110)
--- NOTE | 2024-03-05 11:59 | P.HPIM ---
History of Present Illness 59-year-old male came with complaints of shortness of breath and soreness in the throat. Patient was recently hospitalized was intubated at that time. Patient had a cardiac catheterization later developed cardiac tamponade which needed pericardial window. Patient was complaining of shortness of breath for couple days used to smoke in the past patient does not have any wheeze on exam patient does have some swelling in the throat with some mild redness. Patient was complaining of dry cough. Patient is saturating well CT angio of the chest did not show any pulmonary embolism though pneumonia on the CAT scan. Patient did have some liver lesions which need to be worked up as an outpatient. Patient blood blood pressure is low normal but patient is on lisinopril for heart failure patient had acute systolic function with EF of around 30-35% during his last hospitalization. Patient denies any orthopnea paroxysmal nocturnal dyspnea. BNP is only 616 patient takes Aldactone at home. Although patient admits he does not take it on regular basis not on any other diuretics REVIEW OF SYSTEMS: CONSTITUTIONAL: No fever, no malaise, no fatigue. HEENT: No recent visual problems or hearing problems. CARDIOVASCULAR: No chest pain, orthopnea, PND, no palpitations, no syncope. PULMONARY: , no hemoptysis. GASTROINTESTINAL: No diarrhea, no nausea, no vomiting, no abdominal pain. NEUROLOGICAL: No headaches, no weakness, no numbness. HEMATOLOGICAL: Denies any bleeding or petechiae. GENITOURINARY: Denies any burning micturition, frequency, or urgency. MUSCULOSKELETAL/RHEUMATOLOGICAL: Denies any joint pain, swelling, or any muscle pain. ENDOCRINE: Denies any polyuria or polydipsia. The rest of the 14-point review of systems is negative. PHYSICAL EXAMINATION: GENERAL: The patient is alert and oriented x3, not in any acute distress. Well developed, well nourished. HEENT: Pupils are round and equally reacting to light. EOMI. No scleral icterus. No conjunctival pallor. Normocephalic, atraumatic. No pharyngeal erythema. No thyromegaly. CARDIOVASCULAR: S1 and S2 present. No murmurs, rubs, or gallops. PULMONARY: Chest is clear to auscultation, no wheezing or crackles. ABDOMEN: Soft, nontender, nondistended, normoactive bowel sounds. No palpable organomegaly. MUSCULOSKELETAL: No joint swelling or deformity. EXTREMITIES: No cyanosis, clubbing, or pedal edema. NEUROLOGICAL: Gross neurological examination did not reveal any focal deficits. SKIN: No rashes. Assessment and plan -Sore throat and shortness of breath patient is saturating well although workup is negative patient may have bacterial or viral pharyngitis or may be even related to recent intubation. This can be treated as an outpatient with Medrol Dosepak and Augmentin patient was cleared by pulmonology. Patient will be discharged today. Patient does have diabetes mellitus his blood sugars are expected to be temporarily high because of the Medrol Dosepak. -Liver lesions etiology of which is not known need to be further evaluated with an MRCP or a PET scan as an outpatient patient will be referred to oncology. -COPD without any acute exacerbation -Type 2 diabetes mellitus -Hyperlipidemia -Hypertension -Coronary artery disease with recent stents and recent cardiac tamponade. Patient quit smoking -Congestive heart failure acute systolic dysfunction from his recent [place] without any acute exacerbation patient will resume his heart failure medications including lisinopril and Aldactone Patient will be discharged today to follow-up with oncology PCP and cardiology as an outpatient Past Medical History Past Medical History: Coronary Artery Disease (CAD), Chest Pain / Angina, COPD, Diabetes Mellitus, GERD/Reflux, Hearing Disorder / Deafness, Hyperlipidemia, Hypertension, Myocardial Infarction ([place]) Additional Past Medical History / Comment(s): Neuropathy bilateral feet/legs, hx pancreatitis, chronic low back pain, hx gastric ulcer as a teen, hx benign colon polyps, small amount of trouble hearing. Last Myocardial Infarction Date:: 2011 History of Any Multi-Drug Resistant Organisms: None Reported Past Surgical History: Back Surgery, Ear Surgery, Heart Catheterization With Stent, Hernia Repair, Orthopedic Surgery Additional Past Surgical History / Comment(s): 2011 PCI with stent to mid RCA, bilateral inguinal hernia repair as teen, bilateral carpal tunnel releases, colonoscopy, bilateral myringotomies/tubes, 11/2021 cardiac stent. Past Anesthesia/Blood Transfusion Reactions: Motion Sickness, Postoperative Nausea & Vomiting (PONV) Additional Past Anesthesia/Blood Transfusion Reaction / Comment(s): PONV as a teen with surgery, none since. Date of Last Stent Placement:: 2021 Past Psychological History: No Psychological Hx Reported Smoking Status: Current every day smoker - Past Family History Father Family Medical History: Coronary Artery Disease (CAD), Myocardial Infarction ([place]) Additional Family Medical History / Comment(s): Heart disease runs strongly on his father's side of family. Father is . Pt cannot recall at what age father had [place]. Mother Family Medical History: Cancer Additional Family Medical History / Comment(s): Mother of renal cancer with mets. Medications and Allergies Home Medications Medication Instructions Recorded Confirmed Type lisinopriL [Zestril] 5 mg PO DAILY 12/16/21 03/05/24 History Aspirin 81 mg PO DAILY 12/17/21 03/05/24 Rx DULoxetine HCL [Cymbalta] 30 mg PO DAILY 02/20/24 03/05/24 History DULoxetine HCL [Cymbalta] 60 mg PO DAILY 02/20/24 03/05/24 History Nitroglycerin Sl Tabs [Nitrostat] 0.4 mg SL Q5M PRN 02/20/24 03/05/24 History Pregabalin [Lyrica] 50 mg PO BID 02/20/24 03/05/24 History Tirzepatide [Mounjaro] 7.5 mg SQ DUENAS 02/20/24 03/05/24 History Varenicline [Chantix Continuing 1 mg PO BID 02/20/24 03/05/24 History Pack] Acetaminophen Tab [Tylenol] 650 mg PO Q6HR PRN tab 02/28/24 03/05/24 Rx Atorvastatin [Lipitor] 80 mg PO HS #30 tab 02/28/24 03/05/24 Rx Clopidogrel [Plavix] 75 mg PO DAILY #30 tab 02/28/24 03/05/24 Rx Dapagliflozin Propanediol [Farxiga] 10 mg PO DAILY #30 tab 02/28/24 03/05/24 Rx Ipratropium-Albuterol Nebulize 3 ml INHALATION RT-Q2H PRN each 02/28/24 03/05/24 Rx [Duoneb 0.5 mg-3 mg/3 ml Soln] Ipratropium-Albuterol Nebulize 3 ml INHALATION RT-QID #100 each 02/28/24 03/05/24 Rx [Duoneb 0.5 mg-3 mg/3 ml Soln] Mag Hydrox/Al Hydrox/Simeth 30 ml PO Q4HR PRN ml 02/28/24 03/05/24 Rx [Maalox] Metoprolol Tartrate [Lopressor] 25 mg PO BID #60 tab 02/28/24 03/05/24 Rx Spironolactone [Aldactone] 25 mg PO DAILY #30 tab 02/28/24 03/05/24 Rx Amoxic-Pot Clav 875-125Mg 1 each PO Q12HR #10 tab 03/05/24 Rx [Augmentin 875-125] Budesonide/Formoterol Fumarate 1 puff INHALATION RT-BID 03/05/24 03/05/24 History [Breyna 160-4.5 Mcg Inhaler] Famotidine [Pepcid] 20 mg PO BID #14 tablet 03/05/24 Rx HYDROcodone/APAP 5-325MG [[place] 1 tab PO Q6HR PRN 03/05/24 03/05/24 History 5-325] Nystatin 100,000 Unit/ml Susp 500,000 unit PO QID #100 ml 03/05/24 Rx [Mycostatin Oral Susp] methylPREDNISolone Dose Pack 4 mg PO DIRECTED #21 tab 03/05/24 Rx [Medrol Dose Pack] Allergies Allergy/AdvReac Type Severity Reaction Status Date / Time No Known Allergies Allergy Verified 03/05/24 07:46 Physical Exam Vitals: Vital Signs Temp Pulse Resp BP Pulse Ox 03/05/24 06:01 93 03/05/24 06:00 94 20 104/72 95 03/05/24 05:51 89 97 03/05/24 04:00 76 21 116/66 94 L 03/05/24 02:00 91 20 111/66 97 03/04/24 23:05 98.3 F 85 20 122/64 93 L 03/04/24 22:39 98.3 F 101 H 18 93 L 03/04/24 18:59 98.4 F 93 20 110/69 99 Intake and Output 03/04/24 03/05/24 03/05/24 22:59 06:59 14:59 Other: Weight 104.326 kg Results CBC & Chem 7: 03/04/24 20:00 03/04/24 20:00 Labs: Abnormal Lab Results - Last 24 Hours (Table) 03/04/24 03/05/24 Range/Units 20:00 11:50 Carbon Dioxide 20 L (22-30) mmol/L Creatinine 0.56 L (0.66-1.25) mg/dL Glucose 130 H (74-99) mg/dL POC Glucose (mg/dL) 370 H (70-110) mg/dL
--- NOTE | 2024-03-05 12:00 | P.DS ---
Providers Date of admission: 03/05/24 02:09 Attending physician: [facility] Consults: 03/05/24 02:08 Consult Physician Routine Consulting Provider: Tommy Lentz Consult Reason/Comments: dyspnea Do you want consulting provider notified?: Yes 03/05/24 09:28 Consult Physician Routine Consulting Provider: Howie Ndiaye Consult Reason/Comments: TEJAS, recent intubation Do you want consulting provider notified?: Yes Primary care physician: [facility] Hospital Course: 59-year-old male came with complaints of shortness of breath and soreness in the throat. Patient was recently hospitalized was intubated at that time. Patient had a cardiac catheterization later developed cardiac tamponade which needed pericardial window. Patient was complaining of shortness of breath for couple days used to smoke in the past patient does not have any wheeze on exam patient does have some swelling in the throat with some mild redness. Patient was complaining of dry cough. Patient is saturating well CT angio of the chest did not show any pulmonary embolism though pneumonia on the CAT scan. Patient did have some liver lesions which need to be worked up as an outpatient. Patient blood blood pressure is low normal but patient is on lisinopril for heart failure patient had acute systolic function with EF of around 30-35% during his last hospitalization. Patient denies any orthopnea paroxysmal nocturnal dyspnea. BNP is only 616 patient takes Aldactone at home. Although patient admits he does not take it on regular basis not on any other diuretics PHYSICAL EXAMINATION: GENERAL: The patient is alert and oriented x3, not in any acute distress. Well developed, well nourished. HEENT: Pupils are round and equally reacting to light. EOMI. No scleral icterus. No conjunctival pallor. Normocephalic, atraumatic. Mild pharyngeal erythema and swelling. No thyromegaly. CARDIOVASCULAR: S1 and S2 present. No murmurs, rubs, or gallops. PULMONARY: Chest is clear to auscultation, no wheezing or crackles. ABDOMEN: Soft, nontender, nondistended, normoactive bowel sounds. No palpable organomegaly. MUSCULOSKELETAL: No joint swelling or deformity. EXTREMITIES: No cyanosis, clubbing, or pedal edema. NEUROLOGICAL: Gross neurological examination did not reveal any focal deficits. SKIN: No rashes. Assessment and plan -Sore throat and shortness of breath patient is saturating well although workup is negative patient may have bacterial or viral pharyngitis or may be even related to recent intubation. This can be treated as an outpatient with Medrol Dosepak and Augmentin patient was cleared by pulmonology. Patient will be discharged today. Patient does have diabetes mellitus his blood sugars are expected to be temporarily high because of the Medrol Dosepak. -Liver lesions etiology of which is not known need to be further evaluated with an MRCP or a PET scan as an outpatient patient will be referred to oncology. -COPD without any acute exacerbation -Type 2 diabetes mellitus -Hyperlipidemia -Hypertension -Coronary artery disease with recent stents and recent cardiac tamponade. Patient quit smoking -Congestive heart failure acute systolic dysfunction from his recent [place] without any acute exacerbation patient will resume his heart failure medications including lisinopril and Aldactone Patient will be discharged today to follow-up with oncology PCP and cardiology as an outpatient Plan - Discharge Summary New Discharge Prescriptions: New Amoxic-Pot Clav 875-125Mg [Augmentin 875-125] 1 each PO Q12HR #10 tab methylPREDNISolone Dose Pack [Medrol Dose Pack] 4 mg PO DIRECTED #21 tab Nystatin 100,000 Unit/ml Susp [Mycostatin Oral Susp] 500,000 unit PO QID #100 ml Famotidine [Pepcid] 20 mg PO BID #14 tablet Continue lisinopriL [Zestril] 5 mg PO DAILY Aspirin 81 mg PO DAILY Pregabalin [Lyrica] 50 mg PO BID Tirzepatide [Mounjaro] 7.5 mg SQ DUENAS Metoprolol Tartrate [Lopressor] 25 mg PO BID #60 tab Mag Hydrox/Al Hydrox/Simeth [Maalox] 30 ml PO Q4HR PRN ml PRN Reason: Heartburn Clopidogrel [Plavix] 75 mg PO DAILY #30 tab Acetaminophen Tab [Tylenol] 650 mg PO Q6HR PRN tab PRN Reason: Fever And/ Or Pain Budesonide/Formoterol Fumarate [Breyna 160-4.5 Mcg Inhaler] 1 puff INHALATION RT-BID DULoxetine HCL [Cymbalta] 60 mg PO DAILY DULoxetine HCL [Cymbalta] 30 mg PO DAILY Varenicline [Chantix Continuing Pack] 1 mg PO BID Nitroglycerin Sl Tabs [Nitrostat] 0.4 mg SL Q5M PRN PRN Reason: Chest Pain Spironolactone [Aldactone] 25 mg PO DAILY #30 tab Ipratropium-Albuterol Nebulize [Duoneb 0.5 mg-3 mg/3 ml Soln] 3 ml INHALATION RT-QID #100 each Ipratropium-Albuterol Nebulize [Duoneb 0.5 mg-3 mg/3 ml Soln] 3 ml INHALATION RT-Q2H PRN each PRN Reason: Shortness Of Breath Or Wheezing Dapagliflozin Propanediol [Farxiga] 10 mg PO DAILY #30 tab Atorvastatin [Lipitor] 80 mg PO HS #30 tab HYDROcodone/APAP 5-325MG [[place] 5-325] 1 tab PO Q6HR PRN PRN Reason: Pain Discharge Medication List lisinopriL [Zestril] 5 mg PO DAILY 12/16/21 [History] Aspirin 81 mg PO DAILY 12/17/21 [Rx] DULoxetine HCL [Cymbalta] 30 mg PO DAILY 02/20/24 [History] DULoxetine HCL [Cymbalta] 60 mg PO DAILY 02/20/24 [History] Nitroglycerin Sl Tabs [Nitrostat] 0.4 mg SL Q5M PRN 02/20/24 [History] Pregabalin [Lyrica] 50 mg PO BID 02/20/24 [History] Tirzepatide [Mounjaro] 7.5 mg SQ DUENAS 02/20/24 [History] Varenicline [Chantix Continuing Pack] 1 mg PO BID 02/20/24 [History] Acetaminophen Tab [Tylenol] 650 mg PO Q6HR PRN tab 02/28/24 [Rx] Atorvastatin [Lipitor] 80 mg PO HS #30 tab 02/28/24 [Rx] Clopidogrel [Plavix] 75 mg PO DAILY #30 tab 02/28/24 [Rx] Dapagliflozin Propanediol [Farxiga] 10 mg PO DAILY #30 tab 02/28/24 [Rx] Ipratropium-Albuterol Nebulize [Duoneb 0.5 mg-3 mg/3 ml Soln] 3 ml INHALATION RT-Q2H PRN each 02/28/24 [Rx] Ipratropium-Albuterol Nebulize [Duoneb 0.5 mg-3 mg/3 ml Soln] 3 ml INHALATION RT-QID #100 each 02/28/24 [Rx] Mag Hydrox/Al Hydrox/Simeth [Maalox] 30 ml PO Q4HR PRN ml 02/28/24 [Rx] Metoprolol Tartrate [Lopressor] 25 mg PO BID #60 tab 02/28/24 [Rx] Spironolactone [Aldactone] 25 mg PO DAILY #30 tab 02/28/24 [Rx] Amoxic-Pot Clav 875-125Mg [Augmentin 875-125] 1 each PO Q12HR #10 tab 03/05/24 [Rx] Budesonide/Formoterol Fumarate [Breyna 160-4.5 Mcg Inhaler] 1 puff INHALATION RT-BID 03/05/24 [History] Famotidine [Pepcid] 20 mg PO BID #14 tablet 03/05/24 [Rx] HYDROcodone/APAP 5-325MG [[place] 5-325] 1 tab PO Q6HR PRN 03/05/24 [History] Nystatin 100,000 Unit/ml Susp [Mycostatin Oral Susp] 500,000 unit PO QID #100 ml 03/05/24 [Rx] methylPREDNISolone Dose Pack [Medrol Dose Pack] 4 mg PO DIRECTED #21 tab 03/05/24 [Rx] Follow up Appointment(s)/Referral(s): Popeye Muhammad [STAFF PHYSICIAN] - 1 Week Lorraine Solomon MD [Primary Care Provider] - 3 Days
--- NOTE | 2024-03-05 12:07 | P.CRDCN ---
History of Present Illness Consult date: 03/05/24 Reason for Consult (text): Dyspnea History of present illness: This is a 59-year-old male patient of Dr. Hernandes with past medical history of ann nary artery disease with prior stenting of the RCA and LAD, ischemic cardiomyopathy with EF of 45%, hypertension, dyslipidemia, tobacco use and dependence, overweight, chronic back pain. Patient had recent hospitalization for unstable angina underwent cardiac catheterization with Dr. Hernandes that reve aled occluded small to medium caliber PDA branch of the RCA with a large thrombus burden. Stenting of the PDA branch with adjunctive use of aspiration thrombectomy was done. Following that, patient developed chest discomfort hypotension and cardiac arrest. Echocardiogram revealed a large pericardial effusion and patient underwent pericardiocentesis with removal of 600 cc of fresh blood from the pericardium. Repeat echocardiogram at the bedside revealed resolution with only small pericardial effusion at the end of procedure. He then had successful coiling of the PDA branch of the RCA. Patient was stabilized and discharged home on 02/27. Patient is complaining of his throat feeling sore and hoarseness that started over the weekend. He states is to the point where he feels like he cannot drink. He denies any fever or chills. He has had a cough is nonproductive. No chest pain. EKG sinus rhythm with nonspecific T wave changes. CTA of the chest reveals no pulmonary embolism. Marked coronary calcifications. Old rib fractures. Mild bibasilar atelectasis or scarring. Nodular densities in the lower lobes. Density lesions in the right hepatic lobe similar to prior. Laboratory studies: Hemoglobin 15.1. Sodium 138, potassium 4.3, BUN 18 creatinine 0.56. Troponins negative x 2. Magnesium 2.1. Home cardiac medications: Aspirin 81 mg daily, a atorvastatin 80 mg at bedtime, Plavix 75 mg daily, Farxiga 10 mg daily, lisinopril 5 mg daily, Lopressor 25 mg twice daily, Nitrostat as needed, Aldactone 25 mg daily, patient is also on Mounjaro and Chantix. Myocardial perfusion imaging stress test was done September 2023 which was abnormal showing an apical ischemia but patient refused to undergo cardiac catheterization at that point as he was asymptomatic. Cardiac catheterization performed 12/16/2021 revealed patent stent in the RCA. Critical disease in the mid LAD and stent was placed in the mid LAD. Echocardiogram performed on 02/20/2024 revealed EF of 30 to 35%. Review Of Systems: At the time of my exam: CONSTITUTIONAL: Denies fever or chills. HEENT: Denies blurred vision, vision changes, or eye pain. Denies hemoptysis CARDIOVASCULAR: Reports chest pain. Denies orthopnea. Denies PND. Denies palpitations RESPIRATORY: Denies shortness of breath. GASTROINTESTINAL: Denies abdominal pain. Denies nausea or vomiting. HEMATOLOGIC: Denies bleeding disorders. GENITOURINARY: Denies any blood in urine. SKIN: Denies pruitis. Denies rash. Physical examination: Gen: This is a 59-year-old male in no acute distress VS: reviewed blood pressure 104/72, heart rate 94, pulse ox 95% on 2 L nasal cannula. HEENT: Head is atraumatic, normocephalic. Pupils equal, round. Sclerae is anicteric. Mild thrush posterior tongue. NECK: Supple. No JVD. LUNGS: Clear to auscultation. No wheezes or rhonchi. No intercostal retractions. HEART: Regular rate and rhythm. Soft systolic murmur. ABDOMEN: Soft No tenderness. EXTREMITIES: No pedal edema. No calf tenderness. NEUROLOGICAL: Patient is awake, alert and oriented x3. Assessment: Sore throat, difficulty in breathing Thrush Coronary artery disease with prior stenting of the RCA and LAD S/p coronary per for ration and pericardial effusion with drainage Coiling of the right PDA Ischemic cardiomyopathy with EF of 3035 % Hypertension Dyslipidemia Diabetes mellitus type 2 Active tobacco use and dependence Plan: Resume patient's home cardiac medications Consult pulmonary medicine Start patient on nystatin swish and swallow No further workup planned from cardiology. Thank you kindly for this consultation. Nurse practitioner note has been reviewed, I agree with documented findings and plan of care. Patient was seen and examined. Past Medical History Past Medical History: Coronary Artery Disease (CAD), Chest Pain / Angina, COPD, Diabetes Mellitus, GERD/Reflux, Hearing Disorder / Deafness, Hyperlipidemia, Hypertension, Myocardial Infarction ([place]) Additional Past Medical History / Comment(s): Neuropathy bilateral feet/legs, hx pancreatitis, chronic low back pain, hx gastric ulcer as a teen, hx benign colon polyps, small amount of trouble hearing. Last Myocardial Infarction Date:: 2011 History of Any Multi-Drug Resistant Organisms: None Reported Past Surgical History: Back Surgery, Ear Surgery, Heart Catheterization With Stent, Hernia Repair, Orthopedic Surgery Additional Past Surgical History / Comment(s): 2011 PCI with stent to mid RCA, bilateral inguinal hernia repair as teen, bilateral carpal tunnel releases, colonoscopy, bilateral myringotomies/tubes, 11/2021 cardiac stent. Past Anesthesia/Blood Transfusion Reactions: Motion Sickness, Postoperative Nausea & Vomiting (PONV) Additional Past Anesthesia/Blood Transfusion Reaction / Comment(s): PONV as a teen with surgery, none since. Date of Last Stent Placement:: 2021 Past Psychological History: No Psychological Hx Reported Smoking Status: Current every day smoker - Past Family History Father Family Medical History: Coronary Artery Disease (CAD), Myocardial Infarction ([place]) Additional Family Medical History / Comment(s): Heart disease runs strongly on his father's side of family. Father is . Pt cannot recall at what age father had [place]. Mother Family Medical History: Cancer Additional Family Medical History / Comment(s): Mother of renal cancer with mets. Medications and Allergies Home Medications Medication Instructions Recorded Confirmed Type lisinopriL [Zestril] 5 mg PO DAILY 12/16/21 03/05/24 History Aspirin 81 mg PO DAILY 12/17/21 03/05/24 Rx DULoxetine HCL [Cymbalta] 30 mg PO DAILY 02/20/24 03/05/24 History DULoxetine HCL [Cymbalta] 60 mg PO DAILY 02/20/24 03/05/24 History Nitroglycerin Sl Tabs [Nitrostat] 0.4 mg SL Q5M PRN 02/20/24 03/05/24 History Pregabalin [Lyrica] 50 mg PO BID 02/20/24 03/05/24 History Tirzepatide [Mounjaro] 7.5 mg SQ DUENAS 02/20/24 03/05/24 History Varenicline [Chantix Continuing 1 mg PO BID 02/20/24 03/05/24 History Pack] Acetaminophen Tab [Tylenol] 650 mg PO Q6HR PRN tab 02/28/24 03/05/24 Rx Atorvastatin [Lipitor] 80 mg PO HS #30 tab 02/28/24 03/05/24 Rx Clopidogrel [Plavix] 75 mg PO DAILY #30 tab 02/28/24 03/05/24 Rx Dapagliflozin Propanediol [Farxiga] 10 mg PO DAILY #30 tab 02/28/24 03/05/24 Rx Ipratropium-Albuterol Nebulize 3 ml INHALATION RT-Q2H PRN each 02/28/24 Rx [Duoneb 0.5 mg-3 mg/3 ml Soln] Ipratropium-Albuterol Nebulize 3 ml INHALATION RT-QID #100 each 02/28/24 03/05/24 Rx [Duoneb 0.5 mg-3 mg/3 ml Soln] Mag Hydrox/Al Hydrox/Simeth 30 ml PO Q4HR PRN ml 02/28/24 03/05/24 Rx [Maalox] Metoprolol Tartrate [Lopressor] 25 mg PO BID #60 tab 02/28/24 03/05/24 Rx Spironolactone [Aldactone] 25 mg PO DAILY #30 tab 02/28/24 03/05/24 Rx Budesonide/Formoterol Fumarate 1 puff INHALATION RT-BID 03/05/24 03/05/24 History [Breyna 160-4.5 Mcg Inhaler] HYDROcodone/APAP 5-325MG [[place] 1 tab PO Q6HR PRN 03/05/24 03/05/24 History 5-325] Allergies Allergy/AdvReac Type Severity Reaction Status Date / Time No Known Allergies Allergy Verified 03/05/24 07:46 Physical Exam Vitals: Vital Signs Temp Pulse Resp BP Pulse Ox 03/05/24 06:01 93 03/05/24 06:00 94 20 104/72 95 03/05/24 05:51 89 97 03/05/24 04:00 76 21 116/66 94 L 03/05/24 02:00 91 20 111/66 97 03/04/24 23:05 98.3 F 85 20 122/64 93 L 03/04/24 22:39 98.3 F 101 H 18 93 L 03/04/24 18:59 98.4 F 93 20 110/69 99 Intake and Output 03/04/24 03/05/24 03/05/24 22:59 06:59 14:59 Other: Weight 104.326 kg Results 03/04/24 20:00 03/04/24 20:00 Cardiac Enzymes 03/04/24 03/04/24 Range/Units 20:00 20:00 AST 20 (17-59) U/L Troponin I 0.024 (0.000-0.034) ng/mL Coagulation 03/04/24 Range/Units 20:00 PT 10.8 (10.0-12.5) sec APTT 23.5 (22.0-30.0) sec CBC 03/04/24 Range/Units 20:00 WBC 8.6 (3.8-10.6) k/uL RBC 4.86 (4.30-5.90) m/uL Hgb 15.1 D (13.0-17.5) gm/dL Hct 46.5 (39.0-53.0) % Plt Count 312 D (150-450) k/uL Comprehensive Metabolic Panel 03/04/24 Range/Units 20:00 Sodium 138 (137-145) mmol/L Potassium 4.3 (3.5-5.1) mmol/L Chloride 105 (98-107) mmol/L Carbon Dioxide 20 L (22-30) mmol/L BUN 18 (9-20) mg/dL Creatinine 0.56 L (0.66-1.25) mg/dL Glucose 130 H (74-99) mg/dL Calcium 9.5 (8.4-10.2) mg/dL AST 20 (17-59) U/L ALT 22 (4-49) U/L Alkaline Phosphatase 76 (38-126) U/L Total Protein 7.3 (6.3-8.2) g/dL Albumin 4.2 (3.5-5.0) g/dL Current Medications Generic Name Dose Route Start Last Admin Trade Name Freq PRN Reason Stop Dose Admin Albuterol/Ipratropium 3 ml 03/05/24 03:00 03/05/24 05:51 Ipratropium-Albuterol 3 Ml Neb INHALATION 3 ml RT-QID MYRON Administration Hydromorphone HCl 1 mg 03/05/24 02:08 03/05/24 08:31 Hydromorphone 1 Mg/Ml 1 Ml Syringe IVP 1 mg Q3HR PRN Administration Severe Pain (Scale 7 to 10) Naloxone HCl 0.2 mg 03/05/24 02:08 Naloxone 0.4 Mg/Ml 1 Ml Vial IV Q2M PRN Opioid Reversal Ondansetron HCl 4 mg 03/05/24 02:08 Ondansetron 4 Mg/2 Ml Vial IVP Q8HR PRN Nausea And Vomiting Intake and Output 03/04/24 03/05/24 03/05/24 22:59 06:59 14:59 Other: Weight 104.326 kg 03/04/24 20:00 03/04/24 20:00
--- NOTE | 2024-03-05 12:27 | P.CNPUL ---
History of Present Illness Consult date: 03/05/24 Requesting physician: Horace oCle Reason for consult: dyspnea, other (Hoarseness) Chief complaint: Sore throat, hoarseness History of present illness: This is a very pleasant 59-year-old male patient with a known history of coronary artery disease, ischemic cardiomyopathy with ejection fraction of 30 to 35%, former smoker, diabetes mellitus, hypertension, hyperlipidemia. He also had a recent acute non-ST segment elevation myocardial infarction requiring stenting of the PDA on 02/20/2024 with recurrent angina and return to the [facility] this was on 02/23/2024 for stenting of the PDA and aspiration thrombectomy. Later that same day he developed hypotension, cardiac arrest and was found to have significant pericardial effusion requiring emergent pericardiocentesis with 600 MLS of emanuel blood removed and successful coiling of the PDA. During that time he required intubation mechanical ventilatory support and we were following him in the ICU. He subsequently recovered and was discharged home on 02/28/2024. He presented here to the emergency room last evening with complaints of hoarseness, sore throat and some shortness of breath. He states the hoarseness has continued since his discharge. CT angiogram ruled out pulmonary embolism. There is marked coronary calcifications. Open old rib fractures on the right from previous trauma. Mild basilar scarring/atelectasis in the right lower lobe. It was a ill-defined heterogenous low/intermediate density lesions in the right hepatic lobe. White count 8.6. Hemoglobin 15.1. Platelets 312. Sodium 138. Potassium 4.3. Bicarb 20. BUN 18. Creatinine 0.56. Glucose 130. Troponins 0.024, 0.019. proBNP 616. He is seen today in consultation in the emergency department. He is currently laying flat on the stretcher. Awake and alert in no acute distress. He is maintaining O2 saturations in the 90s on 2 L/min per nasal cannula. His lung sounds are clear. There is no evidence of stridor. No chest pain or palpitations. No fever or chills. No hemoptysis. He was initiated on DuoNeb inhalations, Symbicort. Review of Systems REVIEW OF SYSTEMS: CONSTITUTIONAL: Denies any recent significant weight loss or weight gain. EYES: Denies change in vision. EARS, NOSE, MOUTH, THROAT: Positive for sore throat. CARDIOVASCULAR: Denies chest pain, palpitations or syncopal episodes. RESPIRATORY: Positive for shortness of breath, no cough, congestion or hemoptysis. GASTROINTESTINAL: Denies change in appetite, denies abdominal pain GENITOURINARY: Denies hematuria, denies infections. MUSKULOSKELETAL: Denies pain, denies swelling. INTEGUMENTARY: Denies rash, denies eczema. NEUROLOGICAL: Denies recent memory loss, no recent seizure activity. PSYCHIATRIC: Denies anxiety, denies depression. HEMATOLOGIC/LYMPHATIC: Denies anemia, denies enlarged lymph nodes. Past Medical History Past Medical History: Coronary Artery Disease (CAD), Chest Pain / Angina, COPD, Diabetes Mellitus, GERD/Reflux, Hearing Disorder / Deafness, Hyperlipidemia, Hypertension, Myocardial Infarction ([place]) Additional Past Medical History / Comment(s): Neuropathy bilateral feet/legs, hx pancreatitis, chronic low back pain, hx gastric ulcer as a teen, hx benign colon polyps, small amount of trouble hearing. Last Myocardial Infarction Date:: 2011 History of Any Multi-Drug Resistant Organisms: None Reported Past Surgical History: Back Surgery, Ear Surgery, Heart Catheterization With Stent, Hernia Repair, Orthopedic Surgery Additional Past Surgical History / Comment(s): 2011 PCI with stent to mid RCA, bilateral inguinal hernia repair as teen, bilateral carpal tunnel releases, colonoscopy, bilateral myringotomies/tubes, 11/2021 cardiac stent. Past Anesthesia/Blood Transfusion Reactions: Motion Sickness, Postoperative Nausea & Vomiting (PONV) Additional Past Anesthesia/Blood Transfusion Reaction / Comment(s): PONV as a teen with surgery, none since. Date of Last Stent Placement:: 2021 Past Psychological History: No Psychological Hx Reported Smoking Status: Current every day smoker - Past Family History Father Family Medical History: Coronary Artery Disease (CAD), Myocardial Infarction ([place]) Additional Family Medical History / Comment(s): Heart disease runs strongly on his father's side of family. Father is . Pt cannot recall at what age father had VA. Mother Family Medical History: Cancer Additional Family Medical History / Comment(s): Mother of renal cancer with mets. Medications and Allergies Home Medications Medication Instructions Recorded Confirmed Type lisinopriL [Zestril] 5 mg PO DAILY 12/16/21 03/05/24 History Aspirin 81 mg PO DAILY 12/17/21 03/05/24 Rx DULoxetine HCL [Cymbalta] 30 mg PO DAILY 02/20/24 03/05/24 History DULoxetine HCL [Cymbalta] 60 mg PO DAILY 02/20/24 03/05/24 History Nitroglycerin Sl Tabs [Nitrostat] 0.4 mg SL Q5M PRN 02/20/24 03/05/24 History Pregabalin [Lyrica] 50 mg PO BID 02/20/24 03/05/24 History Tirzepatide [Mounjaro] 7.5 mg SQ DUENAS 02/20/24 03/05/24 History Varenicline [Chantix Continuing 1 mg PO BID 02/20/24 03/05/24 History Pack] Acetaminophen Tab [Tylenol] 650 mg PO Q6HR PRN tab 02/28/24 03/05/24 Rx Atorvastatin [Lipitor] 80 mg PO HS #30 tab 02/28/24 03/05/24 Rx Clopidogrel [Plavix] 75 mg PO DAILY #30 tab 02/28/24 03/05/24 Rx Dapagliflozin Propanediol [Farxiga] 10 mg PO DAILY #30 tab 02/28/24 03/05/24 Rx Ipratropium-Albuterol Nebulize 3 ml INHALATION RT-Q2H PRN each 02/28/24 03/05/24 Rx [Duoneb 0.5 mg-3 mg/3 ml Soln] Ipratropium-Albuterol Nebulize 3 ml INHALATION RT-QID #100 each 02/28/24 03/05/24 Rx [Duoneb 0.5 mg-3 mg/3 ml Soln] Mag Hydrox/Al Hydrox/Simeth 30 ml PO Q4HR PRN ml 02/28/24 03/05/24 Rx [Maalox] Metoprolol Tartrate [Lopressor] 25 mg PO BID #60 tab 02/28/24 03/05/24 Rx Spironolactone [Aldactone] 25 mg PO DAILY #30 tab 02/28/24 03/05/24 Rx Amoxic-Pot Clav 875-125Mg 1 each PO Q12HR #10 tab 03/05/24 Rx [Augmentin 875-125] Budesonide/Formoterol Fumarate 1 puff INHALATION RT-BID 03/05/24 03/05/24 History [Breyna 160-4.5 Mcg Inhaler] Famotidine [Pepcid] 20 mg PO BID #14 tablet 03/05/24 Rx HYDROcodone/APAP 5-325MG [[place] 1 tab PO Q6HR PRN 03/05/24 03/05/24 History 5-325] Nystatin 100,000 Unit/ml Susp 500,000 unit PO QID #100 ml 03/05/24 Rx [Mycostatin Oral Susp] methylPREDNISolone Dose Pack 4 mg PO DIRECTED #21 tab 03/05/24 Rx [Medrol Dose Pack] Allergies Allergy/AdvReac Type Severity Reaction Status Date / Time No Known Allergies Allergy Verified 03/05/24 07:46 Physical Exam Vitals: Vital Signs Temp Pulse Resp BP Pulse Ox 03/05/24 12:03 83 03/05/24 06:01 93 03/05/24 06:00 94 20 104/72 95 03/05/24 05:51 89 97 03/05/24 04:00 76 21 116/66 94 L 03/05/24 02:00 91 20 111/66 97 03/04/24 23:05 98.3 F 85 20 122/64 93 L 03/04/24 22:39 98.3 F 101 H 18 93 L 03/04/24 18:59 98.4 F 93 20 110/69 99 Intake and Output 03/04/24 03/05/24 03/05/24 22:59 06:59 14:59 Other: Weight 104.326 kg GENERAL EXAM: Alert, pleasant 59-year-old male patient, on 2 L nasal cannula, hoarseness, comfortable in no apparent distress. HEAD: Normocephalic. EYES: Normal reaction of pupils, equal size. NOSE: Clear with pink turbinates. THROAT: No erythema or exudates. NECK: No masses, no JVD. CHEST: No chest wall deformity. LUNGS: Equal air entry with no crackles, wheeze, rhonchi or dullness. CVS: S1 and S2 normal with no audible murmur, regular rhythm. ABDOMEN: No hepatosplenomegaly, normal bowel sounds, no guarding or rigidity. SPINE: No scoliosis or deformity SKIN: No rashes CENTRAL NERVOUS SYSTEM: No focal deficits, tone is normal in all 4 extremities. EXTREMITIES: There is no peripheral edema. No clubbing, no cyanosis. Peripheral pulses are intact. Results - Laboratory Findings CBC and BMP: 05/07/24 20:00 03/04/24 20:00 PT/INR, D-dimer PT 10.8 sec (10.0-12.5) 03/04/24 20:00 INR 1.0 (<1.2) 03/04/24 20:00 Abnormal lab findings: Abnormal Labs 03/04/24 03/05/24 20:00 11:50 Carbon Dioxide 20 L Creatinine 0.56 L Glucose 130 H POC Glucose (mg/dL) 370 H - Diagnostic Findings CT scan - chest: image reviewed Assessment and Plan Assessment: Sore throat and hoarseness suspect secondary to previous intubation on 02/23/2024. No evidence of stridor. No evidence of oral candidiasis Shortness of breath suspect secondary to above. CT angiogram ruled out pulmonary embolism. There is some mild atelectatic changes in the right lung base. Evidence of previous right rib fractures from previous trauma Recent admission for an acute non-ST segment elevation myocardial infarction requiring stenting to the PDA on 02/20/2024 with subsequent angina and return to the [facility] on 02/23/2024 for stenting of the PDA and aspiration thrombectomy. Later that same day he developed hypotension and cardiac arrest and was found to have significant pericardial effusion requiring emergent pericardiocentesis with 600 mL of emanuel blood removed and then successful coiling of the PDA branch of the RCA Former smoker Previous coronary disease with stent placement Ischemic cardiomyopathy with ejection fraction 30 to 35% Diabetes mellitus Hypertension Hyperlipidemia Plan: The patient was seen and evaluated CT angiogram, labs and medications reviewed No evidence of stridor Continue bronchodilators Recommend Medrol Dosepak Recommend short course of antibiotics Cleared for discharge from the pulmonary standpoint Follow-up in our office in 1 week I have personally seen and examined the patient, performed the documentation and the assessment and plan as written. Number of minutes spent on the visit: 20.
[2024-03-05] MEDS: DEXAMETHASONE SOD PHOSPHATE 4 MG/ML 1 ML VIAL IVP SCH (12:33)
[2024-03-05 12:54] VITALS: PULSE 75
[2024-03-05 12:55] VITALS: BP 109/64; RESP 22; TEMP 97.9
[2024-03-05] MEDS ORDERED: SYMBICORT 160-4.5 MCG INHALER INHALATION SCH (20:00)
[2024-03-05] MEDS ORDERED: ATORVASTATIN 80 MG TAB PO SCH (21:00)
== END 2024-03-05 12:34 | disposition home or self-care (01) ==
LOC: EC 18:58 → 3SCARD 03-05 02:09
PROVIDERS: ADMIT Hospitalist; ATTEND Hospitalist
DX: R06.02 Shortness of breath (principal); J02.9 Acute pharyngitis, unspecified; E11.9 Type 2 diabetes mellitus without complications; K76.89 Other specified diseases of liver; E78.5 Hyperlipidemia, unspecified; I10 Essential (primary) hypertension; J44.9 Chronic obstructive pulmonary disease, unspecified; Z87.891 Personal history of nicotine dependence; I50.21 Acute systolic (congestive) heart failure
CPT/HCPCS: 96365; 96366; 96375; 99285; 36415; 94640 ×2; 94760; 93005; 83880; 80053; 83605; 83735; 84484 ×2; 85025; 85610; 85730; 71275; G0378; J1100; J1170; Q9967

== ENCOUNTER → 2024-04-30 | Outpatient (CLI) | payer BC ==
--- NOTE | 2024-05-01 10:25 | MR ---
EXAMINATION TYPE: MR liver wo/w con DATE OF EXAM: 04/30/2024 5:01 PM CLINICAL INDICATION:Male, 59 years old with history of R16.0 HEPATOMEGALY, NOT ELSEWHERE CLASSIFIED; PHH, Liver mass, Hepatomegaly, Follow up to prior imaging, COMPARISON: Lumbar 02/15/2023 CT 08/01/2020 TECHNIQUE: Multiplanar multi-sequence imaging was performed without contrast. Post contrast imaging was performed. Post IV contrast subtraction images were also submitted for review. IV Contrast: 10 cc Gadavist FINDINGS: LOWER CHEST: No gross irregularity. ABDOMEN Liver: No evidence for hepatic steatosis or cirrhosis. Multiple high T2 signal lesions are seen withi n the liver some with thin septations. The largest of which demonstrates progressive nodular disconti nuous enhancement on delayed imaging. Other lesions do not demonstrate enhancement at all. The larges t measures in segment 7 measuring up to 6.9 x 5.5 cm. Other smaller lesions demonstrate enhancement p atterns which are benign. Findings favor mixture of hemangiomas and simple cysts. Gallbladder and Bile ducts: No evidence for ductal dilation, or biliary stricture or evidence of chol edocholithiasis. The gallbladder is within normal limits. Pancreas: No ductal dilation. No evidence for solid mass. Spleen: Normal for size. Adrenal glands: Unremarkable. Kidneys: Nonenhancing cysts in the right kidney. No evidence for obstructive uropathy. No suspicious renal masses. Stomach and Bowel: No evidence for bowel wall thickening or evidence for obstruction. Retroperitoneum/Peritoneum: No evidence of pneumoperitoneum or free fluid. Vasculature: No aortic aneurysm. Mild atherosclerosis of the arterial vasculature. Musculoskeletal: The osseous structures appear intact. Susceptibility artifact from fixation hardware in the spine. Lymph Nodes: No gross evidence for lymphadenopathy. Abdominal wall: Unremarkable. IMPRESSION: Hepatic lesions of which are most compatible with benign enhancement characteristics such as hepatic hemangiomas possible adenoma and simple cysts. No suspicious solid hepatic lesion.
== END | disposition home or self-care (01) ==
LOC: RADMRIMAIN 15:13
PROVIDERS: ATTEND Internal Medicine Hematology & Oncology
DX: K76.9 Liver disease, unspecified (principal); R16.0 Hepatomegaly, not elsewhere classified; D75.1 Secondary polycythemia; E11.9 Type 2 diabetes mellitus without complications; I10 Essential (primary) hypertension
CPT/HCPCS: 74183; A9585

== ENCOUNTER → 2024-06-19 | Outpatient (CLI) | payer BC | END | disposition home or self-care (01) | LOC: LABPRL 13:00 | PROVIDERS: ATTEND Physician Assistant | DX: Z53.9 Procedure and treatment not carried out, unspecified reason (principal) ==

== ENCOUNTER → 2024-10-02 | Outpatient (CLI) | payer BC ==
--- NOTE | 2024-10-02 10:19 | MR ---
EXAMINATION TYPE: MR lumbar spine wo con DATE OF EXAM: 10/02/2024 8:20 AM COMPARISON: Report 2022 CLINICAL INDICATION: Male, 59 years old with history of M62.81 MUSCLE WEAKNESS M54.5, Low back pain i nto legs, leg weakness IV Contrast: cc (None if empty) TECHNIQUE: Multiplanar, multisequence images of the lumbar spine were acquired without IV contrast. Findings: Compared to the prior study, there are new postsurgical changes of interbody and posterior metallic f usion at the L5-S1 level. The vertebral segments are normal in height and alignment is no fracture or subluxation. There is mild degenerative disc disease at the L1-2, L2-3, L3-4 and L4-5 levels there is mild circumf erential disc bulge and mild spondylosis There is no lumbar disc herniation. Secondary to mild to moderate thickening of ligamentum flavum disc bulge, there is mild spinal stenos is at the L1-2 level, moderate spinal stenosis at the L2-3 level and mild to moderate stenosis at the L4-5 level. Eccentric disc bulge at the L4-5 level results in mild narrowing of the right lateral re cess There is mild neural foraminal stenosis at the L1-2, L2-3 and L3-4 levels on the right and L2-3, L3-4 and L4-5 levels on the left. Evaluation of the neural foramina at the L5-S1 levels due to metallic a rtifact but there appears to be moderate neural foraminal stenosis at the L5-S1 level on the right an d mild at the L5-S1 level on the left. Conus medullaris cauda equina appear normal. There is mild to moderate facet arthropathy from L1 through S1. IMPRESSION: 1. Postsurgical changes of interbody and posterior metallic fusion at the L5-S1 level. 2. Mild degenerative disc disease from L1 to L5. 3. No lumbar disc herniation. 4. Multilevel spinal stenosis and neuroforaminal stenosis as described above. [facility], , 10/02/2024 10:16 AM
--- NOTE | 2024-10-02 12:54 | CT ---
EXAMINATION TYPE: CT lumbar spine wo con CT DLP: 1691.9 mGycm, Automated exposure control for dose reduction was used. DATE OF EXAM: 10/02/2024 7:06 AM COMPARISON: MRI lumbar spine 10/02/2024, 02/23/2023, CT lumbar spine 05/31/2023, 03/29/2023. CLINICAL INDICATION:Male, 59 years old with history of M62.81 MUSCLE WEAKNESS M54.5; PHH, Low back pa in, DDD TECHNIQUE: Multiple axial images were obtained from the midportion of T11 through the sacroiliac hayley nts. Soft tissue and bone windows in coronal and sagittal planes were obtained and reviewed. Contrast used: none. Oral contrast used: none. FINDINGS: Alignment: There are 5 lumbar type vertebral bodies. Dextrocurvature of the lumbar spine with apex at L3-L4. No spondylolisthesis. Straightening of the normal lumbar lordosis. Bone: Postsurgical changes with bilateral pedicle screws and rods involving L5-S1 with disc spacer. Hardware appears intact and appropriate alignment. No evidence of fracture is identified. Degenerativ e changes of the bilateral SI joints. Multilevel anterior osteophytosis of the visualized thoracolumb ar spine. Discs: T12-L1: No spinal canal or neural foraminal stenosis is identified. L1-L2: Broad-based disc bulge with bilateral facet arthropathy contributes to mild central canal sten osis. Bilateral facet arthropathy. Left neural foramen is patent. Mild right neural foraminal stenosi s. L2-L3: Broad-based disc bulge with bilateral facet arthropathy contributes to mild to moderate centra l canal stenosis. Bilateral facet arthropathy. Mild bilateral neural foraminal stenosis. L3-L4: Broad-based disc bulge with bilateral facet arthropathy resulting in minimal central canal efrem nosis. Mild right and moderate left neural foraminal stenosis. L4-L5: Eccentric left lateral broad-based disc bulge with mild effacement of the anterior thecal sac. Bilateral facet arthropathy. Moderate left and mild right neuroforaminal stenosis. L5-S1: Postsurgical changes from posterior fusion which limits evaluation due to streak artifact. No gross evidence of significant central canal stenosis. Bilateral facet arthropathy. Mild to moderate b ilateral neural foraminal stenosis. Other: Linear scarring and/or atelectasis within the visualized bilateral lung bases. IMPRESSION: 1. No evidence for acute spinal fracture. 2. Postsurgical changes from posterior fusion at L5-S1. Hardware appears intact with appropriate alig nment. 3. Multilevel degenerative disc disease and facet arthropathy as described above. [facility], , 10/02/2024 12:51 PM
== END | disposition home or self-care (01) ==
LOC: RADCTMAIN 06:42
PROVIDERS: ATTEND Orthopaedic Surgery
DX: M51.369 Other intervertebral disc degeneration, lumbar region without mention of lumbar back pain or lower extremity pain (principal); M99.73 Connective tissue and disc stenosis of intervertebral foramina of lumbar region; M47.816 Spondylosis without myelopathy or radiculopathy, lumbar region; Z98.1 Arthrodesis status
CPT/HCPCS: 72131; 72148

== ENCOUNTER → 2024-12-22 | Outpatient (CLI) | payer BC ==
--- NOTE | 2024-12-23 06:21 | XR ---
EXAMINATION TYPE: XR hand complete RT DATE OF EXAM: 12/22/2024 5:05 PM COMPARISON: None. CLINICAL INDICATION: Male, 59 years old with history of [id number] RT HAND INJURY, pain TECHNIQUE: Frontal, lateral and oblique images of the right hand are obtained. FINDINGS: Slightly suboptimal due to incomplete extension of the fingers. There is no acute fracture /dislocation evident in the right hand. The joint spaces in the right hand appear within normal limit s. The overlying soft tissue appears unremarkable. IMPRESSION: There is no acute fracture or dislocation in the right hand. [facility], , 12/23/2024 6:19 AM
== END | disposition home or self-care (01) ==
LOC: RADXRYALE 16:56
PROVIDERS: ATTEND Internal Medicine
DX: S69.91XA Unspecified injury of right wrist, hand and finger(s), initial encounter (principal); X58.XXXA Exposure to other specified factors, initial encounter